=== PATIENT | male | born 1945 | race Caucasian/White ===

== ENCOUNTER 2017-01-27 13:35 | Emergency (ER) | payer MEDICARE, OTHER ==
[2017-01-27] MEDS ORDERED: Sodium Chloride 0.9% 1000 ML 1,000 ML ONE (13:51)
[2017-01-27] MEDS ORDERED: Sodium Chloride 0.9% 1000 ML 1,000 ML IV SCH (14:00)
[2017-01-27 14:01] LABS: BASOPHIL % 0.8 % (0.0-0.4); Eosinophil % 2.9 % (0.00-5.0); Granulocytes % 54.4 % (36.0-66.0); Lymphocytes % 34.2 % (24.0-44.0); Mean Cell Volume 89.9 fl (78-100); Mean Corpuscular Hemoglobin 30.3 pg (26-32); Mean Platelet Volume 9.5 fl (6-9.5); Monocytes % 7.7 % (0.0-12.0); Platelet Count 182 K/mm3 (150-450); Red Blood Count 4.56 M/mm3 (4.1-5.6); Red Cell Distribution Width 12.8 % (11.5-14.0); White Blood Count 6.6 K/mm3 (4.0-10.5)
--- NOTE | 2017-01-27 14:10 | ERPHSYRPT ---
- History of Present Illness Time Seen by Provider: 01/27/17 13:55 Source: patient Exam Limitations: clinical condition Patient Subjective Stated Complaint: PT FELT DIZZY AND WAS IN THE PAIN CLINIC WITH A LOW BLOOD PRESSURE AND WAS BROUGHT TO THE ER. Triage Nursing Assessment: PTS SKIN IS WARM, DRY AND INTACT. RESPIRATIONS EVEN AND UNLABORED. HEART RATE IS R[place] IN THE LOW 50'S. Physician History: PATIENT WITH HISTORY OF EXTENSIVE CORONARY ARTERY DISEASE, MYOCARDIAL INFARCTIONS X 7, 4 PREVIOUS STENTS AND CORONARY ARTERY BYPASS GRAFTS, COMPLAINS OF DIZZINESS AND LIGHTHEADEDNESS OVER THE PAST 24 HOURS ASSOCIATED WITH WEAKNESS. DENIES HEADACHE, CHEST PAIN, DYSPNEA OR DIAPHORESIS. HAD RECENT CARDIAC CATHETERIZATION ON 01/14/2017. PATIENT STATES HE HAS NOT EATEN ALL DAY. Timing/Duration: today Quality: other (DENIES CHEST PAIN, DYSPNEA OR DIAPHORESIS) Chest Pain Radiation: no radiation Severity of Pain-Max: none Severity of Pain-Current: none Modifying Factors: Improves With: exertion Nitro Today/Relief: no nitro taken today Aspirin Treatment Today: no aspirin today Associated Symptoms: weakness Prior Chest Pain/Cardiac Workup: cardiac cath, recently seen/treated Allergies/Adverse Reactions: No Known Drug Allergies Allergy (Unverified 01/27/17 13:54) Home Medications: Clopidogrel Bisulfate 75 mg [PLAVIX 75 MG Tablet] 75 mg PO DAILY 02/15/13 [History] Lisinopril [Zestril] 2.5 mg PO DAILY 02/15/13 [History] Metoprolol Tartrate 50 mg [Lopressor 50 MG] 50 mg PO BID 02/15/13 [History ] Tolterodine Tartrate [Detrol LA] 4 mg PO DAILY 02/15/13 [History] Albuterol 8 gm Mdi Hfa [Ventolin Hfa MDI] 18 gm IH Q4-6HPRN PRN 12/23/16 [ History] Nitroglycerin 0.4 mg Tablet [Nitrostat 0.4 MG Tablet] 0.4 mg SL Q5MIN PRN MR X 3 PRN 12/23/16 [History] Rosuvastatin Calcium [Crestor] 50 mg PO DAILY 01/27/17 [History] Hx Tetanus, Diphtheria Vaccination/Date Given: No Hx Influenza Vaccination/Date Given: No Hx Pneumococcal Vaccination/Date Given: No - Review of Systems Constitutional: No Fever, No Chills Eyes: No Symptoms Ears, Nose, & Throat: No Symptoms Respiratory: No Symptoms, No Cough, No Dyspnea Cardiac: No Symptoms, No Chest Pain, No Edema, No Syncope Abdominal/Gastrointestinal: No Symptoms, No Abdominal Pain, No Nausea, No Vomiting, No Diarrhea Genitourinary Symptoms: No Dysuria Musculoskeletal: No Back Pain, No Neck Pain Skin: No Rash Neurological: Dizziness, Other (LIGHTHEADEDNESS), No Focal Weakness, No Sensory Changes Psychological: No Symptoms Endocrine: No Symptoms All Other Systems: Reviewed and Negative - Past Medical History Pertinent Past Medical History: Yes Neurological History: No Pertinent History ENT History: No Pertinent History Cardiac History: Coronary Artery Disease, Hypertension, Myocardial Infarction ( [place]) Respiratory History: No Pertinent History Endocrine Medical History: No Pertinent History Musculoskeletal History: Degenerative Disk Disease GI Medical History: No Pertinent History History: No Pertinent History Psycho-Social History: No Pertinent History Male Reproductive Disorders: No Pertinent History Other Medical History: STENTS 1999. CARDIAC OPEN HEART SURGERY IN 2007. December HAD STENTS PLACED - Past Surgical History Past Surgical History: Yes Neuro Surgical History: No Pertinent History Cardiac: CABG, Cardiac Stent Respiratory: No Pertinent History Gastrointestinal: No Pertinent History Genitourinary: No Pertinent History Musculoskeletal: Orthopedic Surgery Male Surgical History: No Pertinent History Other Surgical History: OPEN HEART SURGERY IN 2007. ELBOW, KNEE, BACK SURGERY. - Social History Smoking Status: Never smoker Exposure to second hand smoke: No Alcohol Use: Socially Drug Use: none Patient Lives Alone: No Significant Family History: heart disease - Nursing Vital Signs Temperature: 97.4 F Temperature Source: Oral Pulse Rate: 50 Respiratory Rate: 18 Pain Intensity: 0 - Physical Exam General Appearance: no apparent distress, alert Eye Exam: PERRL/EOMI, eyes nml inspection Ears, Nose, Throat Exam: normal ENT inspection, moist mucous membranes Neck Exam: normal inspection, non-tender, supple Respiratory Exam: normal breath sounds, lungs clear, No respiratory distress Cardiovascular Exam: regular rate/rhythm, normal heart sounds, bradycardia, No edema Gastrointestinal/Abdomen Exam: soft, normal bowel sounds, other (NONTENDER), No tenderness, No mass Back Exam: normal inspection, No CVA tenderness, No vertebral tenderness Extremity Exam: normal inspection, normal range of motion Neurologic Exam: alert, oriented x 3, cooperative, normal mood/affect, nml cerebellar function, sensation nml, No motor deficits Skin Exam: normal color, warm, dry Lymphatic Exam: No adenopathy SpO2 Interpretation: normal SpO2: 97 Oxygen Delivery: Nasal Cannula - Course EKG Interpreted by Me: RATE, Sinus Rhythm, Sinus Roxanna, NORMAL AXIS - Radiology Exams Chest X-ray Interpretation: Discussed w/ radiologist, Negative Ordered Tests: Active Orders 24 hr Category Date Time Status Risk Control Consultant STAT Care 01/27/17 13:51 Active Clean Catch Urine Specimen STAT Care 01/27/17 13:54 Active EKG-ER Only STAT Care 01/27/17 13:51 Active IV Insertion STAT Care 01/27/17 13:51 Active Orthostatic Vital Signs STAT Care 01/27/17 13:55 Active Oxygen-ED Only NASAL CANNULA 2 lpm Care 01/27/17 13:51 Active CHEST 1 VIEW (PORTABLE) Stat Exams 01/27/17 13:52 Completed CBC W DIFF Stat Lab 01/27/17 13:53 Completed CMP Stat Lab 01/27/17 13:53 Completed MAGNESIUM Stat Lab 01/27/17 13:53 Completed TROPONIN Q3H Lab 01/27/17 13:53 Completed TROPONIN Q3H Lab 01/27/17 17:00 Ordered TROPONIN Q3H Lab 01/27/17 20:00 Ordered TROPONIN Q3H Lab 01/27/17 23:00 Ordered TROPONIN Q3H Lab 01/28/17 02:00 Ordered UA Stat Lab 01/27/17 14:15 Completed Medication Summary Generic Name Dose Route Start Last Admin Trade Name Freq PRN Reason Stop Dose Admin Sodium Chloride 1,000 mls @ 500 mls/hr 01/27/17 14:00 01/27/17 14:00 Sodium Chloride 0.9% 1000 Ml IV 02/26/17 13:59 500 mls/hr .Q2H MATHEW Administration Lab/Rad Data: Laboratory Result Diagrams 01/27/17 13:53 01/27/17 13:53 Laboratory Results 01/27/17 01/27/17 01/27/17 Range/Units 14:15 13:53 13:53 WBC (4.0-10.5) K/mm3 RBC (4.1-5.6) M/mm3 Hgb (12.5-18.0) gm/dl Hct (42-50) % MCV (78-100) fl MCH (26-32) pg MCHC (32-36) g/dl RDW (11.5-14.0) % Plt Count (150-450) K/mm3 MPV (6-9.5) fl Gran % (36.0-66.0) % Lymphocytes % (24.0-44.0) % Monocytes % (0.0-12.0) % Eosinophils % (0.00-5.0) % Basophils % (0.0-0.4) % Basophils # (0-0.4) Sodium 141 (136-145) mEq/L Potassium 4.2 (3.5-5.1) mEq/L Chloride 105 (98-107) mEq/L Carbon Dioxide 27.7 (21-32) mEq/L Anion Gap 12.3 (5-15) MEQ/L BUN 15 (9-20) mg/dL Creatinine 1.10 (0.55-1.30) mg/dl Estimated GFR > 60 ML/MIN Glucose 110 (70-110) MG/DL Calcium 9.4 (8.5-10.1) mg/dL Magnesium 1.9 (1.8-2.4) mg/dL Total Bilirubin 0.4 (0.2-1.0) mg/dL AST 21 (15-37) U/L ALT 28 (12-78) U/L Alkaline Phosphatase 71 (46-116) U/L Troponin I < 0.017 (0.000-0.056) ng/ml Serum Total Protein 6.8 (6.4-8.2) gm/dL Albumin 3.9 (3.4-5.0) g/dL Ur Collection Type VOID Urine Color DARK YELLOW (YELLOW) Urine Appearance SLIGHTLY CLOUDY (CLEAR) Urine pH 7.0 (5-6) Ur Specific [place] 1.020 (1.005-1.025) Urine Protein NEGATIVE (Negative) Urine Glucose (UA) NEGATIVE (NEGATIVE) mg/dL Urine Ketones NEGATIVE (NEGATIVE) Urine Nitrite NEGATIVE (NEGATIVE) Urine Bilirubin NEGATIVE (NEGATIVE) Urine Urobilinogen 0.2 (0-1) mg/dL Urine WBC (Auto) NEGATIVE (NEGATIVE) Urine RBC (Auto) NEGATIVE (0-5) Sin/ul Specimen Received 01/27/17 1415 01/27/17 Range/Units 13:53 WBC 6.6 (4.0-10.5) K/mm3 RBC 4.56 (4.1-5.6) M/mm3 Hgb 13.8 (12.5-18.0) gm/dl Hct 41.0 L (42-50) % MCV 89.9 (78-100) fl MCH 30.3 (26-32) pg MCHC 33.7 (32-36) g/dl RDW 12.8 (11.5-14.0) % Plt Count 182 (150-450) K/mm3 MPV 9.5 (6-9.5) fl Gran % 54.4 (36.0-66.0) % Lymphocytes % 34.2 (24.0-44.0) % Monocytes % 7.7 (0.0-12.0) % Eosinophils % 2.9 (0.00-5.0) % Basophils % 0.8 (0.0-0.4) % Basophils # 0.05 (0-0.4) Sodium (136-145) mEq/L Potassium (3.5-5.1) mEq/L Chloride (98-107) mEq/L Carbon Dioxide (21-32) mEq/L Anion Gap (5-15) MEQ/L BUN (9-20) mg/dL Creatinine (0.55-1.30) mg/dl Estimated GFR ML/MIN Glucose (70-110) MG/DL Calcium (8.5-10.1) mg/dL Magnesium (1.8-2.4) mg/dL Total Bilirubin (0.2-1.0) mg/dL AST (15-37) U/L ALT (12-78) U/L Alkaline Phosphatase (46-116) U/L Troponin I (0.000-0.056) ng/ml Serum Total Protein (6.4-8.2) gm/dL Albumin (3.4-5.0) g/dL Ur Collection Type Urine Color (YELLOW) Urine Appearance (CLEAR) Urine pH (5-6) Ur Specific [place] (1.005-1.025) Urine Protein (Negative) Urine Glucose (UA) (NEGATIVE) mg/dL Urine Ketones (NEGATIVE) Urine Nitrite (NEGATIVE) Urine Bilirubin (NEGATIVE) Urine Urobilinogen (0-1) mg/dL Urine WBC (Auto) (NEGATIVE) Urine RBC (Auto) (0-5) Sin/ul Specimen Received - Progress Progress Note: 01/27/17 14:45 PATIENT BP 102/62 UPON ARRIVAL, ADMINISTERED IV FLUIDS NORMAL SALINE 500ML BOLUS Counseled pt/family regarding: lab results, diagnosis, need for follow-up - Departure Time of Disposition: 14:50 Departure Disposition: Home Clinical Impression: LIGHTHEADEDNESS Condition: Stable Critical Care Time: No Additional Instructions: CONTINUE ALL CURRENT MEDICATIONS. CONSUME WELL BALANCED MEALS DAILY. CONSULT YOUR FAMILY PHYSICIAN FOR EVALUATION IN 1 WEEK.
[2017-01-27 14:22] LABS: COMPLETE URINE MICROSCOPIC? NO; Collection Type VOID
[2017-01-27 14:23] LABS: ALBUMIN 3.9 g/dL (3.4-5.0); ALKALINE PHOSPHATASE 71 U/L (46-116); ANION GAP 12.3 MEQ/L (5-15); BILIRUBIN,TOTAL 0.4 mg/dL (0.2-1.0); BLOOD UREA NITROGEN 15 mg/dL (9-20); CHLORIDE 105 mEq/L (98-107); Carbon Dioxide 27.7 mEq/L (21-32); Glucose 110 MG/DL (70-110); MAGNESIUM 1.9 mg/dL (1.8-2.4); Potassium 4.2 mEq/L (3.5-5.1); SGOT/AST 21 U/L (15-37); SGPT/ALT 28 U/L (12-78); SODIUM 141 mEq/L (136-145); Total Protein 6.8 gm/dL (6.4-8.2)
--- NOTE | 2017-01-27 14:38 | XRAY ---
Indication: Dyspnea. Low blood pressure. Comparison: December 03, 2016. PA/lateral chest again hyperinflated with a few calcific granulomas and previous CABG surgery. No focal infiltrate, consolidation, or large effusion. Heart is not enlarged. Vascularity normal. Bony thorax intact. Impression: Stable nonacute chest with chronic features.
[2017-01-27 14:50] VITALS: BP 101/59; PULSE 50; O2SAT 97
== END 2017-01-27 14:54 | disposition home or self-care (01) ==
LOC: ED 13:35
DX: R42 Dizziness and giddiness (principal); I25.10 Atherosclerotic heart disease of native coronary artery without angina pectoris; I25.2 Old myocardial infarction; Z98.61 Coronary angioplasty status; Z95.1 Presence of aortocoronary bypass graft; I10 Essential (primary) hypertension; Z79.899 Other long term (current) drug therapy
CPT/HCPCS: 36000; 36415; 71010; 80053; 81002; 83735; 84484; 85025; 93005; 93041; 96360; 99284

== ENCOUNTER 2018-12-09 03:34 | Inpatient (IN) | payer MEDICARE, OTHER ==
[2018-12-09] MEDS ORDERED: Zofran 4 MG/2 ML VIAL IV ONE (03:47)
[2018-12-09] MEDS ORDERED: solu-MEDROL 125 MG IV ONE (03:47)
[2018-12-09] MEDS ORDERED: Zithromax 500 MG/ 250 ML NaCl Premix 500 MG/250 ML IVPB IV STA (03:47)
[2018-12-09] MEDS ORDERED: Sodium Chloride 0.9% 1000 ML 1,000 ML IV STA (03:47)
[2018-12-09] MEDS ORDERED: ROCEPHIN 1 Gm-D5w 50 ml Bag** 1 G/50 ML IVPB IV STA (03:47)
[2018-12-09] MEDS ORDERED: DUONEB 0.5-3 MG/3 ml Neb IH ONE ×2 (03:47→04:03)
[2018-12-09 03:57] LABS: Lactic Acid 7.8 (0.4-2.0)
[2018-12-09 03:59] LABS: BASOPHIL % 0.2 % (0.0-0.4); Basophil (Absolute #) 0.04 (0-0.4); Eosinophil % 1.9 % (0.00-5.0); Eosinophil (Absolute #) 0.31 (0-0.5); Granulocyte Absolute (ANC) 11.34 (1.4-6.9); Hematocrit 46.3 % (42-50); Hemoglobin 15.1 gm/dl (12.5-18.0); Lymphocyte (Absolute #) 4.27 (1.0-4.6); Lymphocytes % 25.6 % (24.0-44.0); Mean Cell Volume 91.9 fl (78-100); Mean Corpuscular Hgb Concent. 32.6 g/dl (32-36); Mean Platelet Volume 9.3 fl (6-9.5); Monocyte (Absolute #) 0.71 (0.0-1.3); Monocytes % 4.3 % (0.0-12.0); Platelet Count 257 K/mm3 (150-450); Red Blood Count 5.04 M/mm3 (4.1-5.6); Red Cell Distribution Width 13.1 % (11.5-14.0); White Blood Count 16.7 K/mm3 (4.0-10.5)
[2018-12-09] MEDS ORDERED: Zofran 4 MG/2 ML VIAL ONE (04:08)
[2018-12-09] MEDS ORDERED: solu-MEDROL 125 MG ONE (04:08)
[2018-12-09] MEDS ORDERED: ROCEPHIN 1 Gm-D5w 50 ml Bag** 1 G/50 ML IVPB IV ONE (04:08)
[2018-12-09] MEDS ORDERED: Sodium Chloride 0.9% 1000 ML 1,000 ML ONE (04:08)
[2018-12-09 04:10] LABS: ALBUMIN 4.9 g/dL (3.5-5.0); ANION GAP 22.8 MEQ/L (5-15); BILIRUBIN,TOTAL 0.9 mg/dL (0.2-1.3); Calcium 10.2 mg/dL (8.4-10.2); Creatinine 1 1.58 mg/dL (0.66-1.25); Total Protein 8.2 g/dL (6.3-8.2)
[2018-12-09 04:41] LABS: Group A Strep NEGATIVE (NEGATIVE); INFLUENZA A NEGATIVE (NEGATIVE); INFLUENZA B NEGATIVE (NEGATIVE); RESPIRATORY SYNCTIAL VIRUS NEGATIVE (Negative)
[2018-12-09 05:13] LABS: Appearance CLOUDY (CLEAR); Bilirubin NEGATIVE (NEGATIVE); Blood NEGATIVE Ery/ul (0-5); Glucose NEGATIVE (NEGATIVE); Ketones TRACE (NEGATIVE); Leukocyte Esterase NEGATIVE (NEGATIVE); Mucus SLIGHT /HPF (NEGATIVE); Nitrite NEGATIVE (NEGATIVE); Protein,Urine Dip NEGATIVE (Negative); Specific Gravity 1.021 (1.005-1.025); Urobilinogen 2 mg/dL (0-1)
[2018-12-09 05:14] LABS: Bacteria NONE SEEN /HPF (NEGATIVE)
[2018-12-09 05:31] LABS: A-aADO2 76; ABG HEMOGLOBIN 12.7; ABG POTASSIUM 3.8 (3.5-5.1); ABG SITE LEFT RADIAL; ALLEN TEST OK? y; ARTERIAL BLD GAS O2 SATURATION 97.5 % (95-100); ARTERIAL BLOOD GAS BASE EXCESS 0.5 (-2.0-2.0); ARTERIAL BLOOD GAS FIO2 28 %; ARTERIAL BLOOD GAS PCO2 41 mmHg (35-45); ARTERIAL BLOOD GAS PO2 72 mmHg (75-100); CARBOXYHEMOGLOBIN 2.1 % THgb (0.0-6.9); HCO3- 25.4 (22-28); HGB O2 SAT 94.3 g/dF (94-100); Methhemoglobin 1.2 % (1.4-1.5); paO2 pAO1 0.49
--- NOTE | 2018-12-09 05:33 | ERPHSYRPT ---
- History of Present Illness Source: patient, family Exam Limitations: no limitations Patient Subjective Stated Complaint: PT C/O BEING SOB SINCE 2 DAYS AGO, STARTED Z-PACK YESTERDAY FOR "HIS BREATHING". PT STATES HE HAD DIARRHEA YESTERDAY. HAS BEEN FEELING "CHILLS" BUT NOT CHECKED TEMP. Triage Nursing Assessment: ASHEN/WARM/DRY, RESP LABORED, A&OX4, UNSTEADY GAIT TO ROOM Physician History: Pt is a 72 y/o male with a h/o SOB and cough for a couple of days. Today pt started having diarrhea, and felt extremely weak. Pt started vomiting while in the ED. Pt was brought to the ED, by his secondary to it. Timing/Duration: day(s) Cough Quality/Degree: moderate, productive cough, sputum Possible Cause: no prior episodes Modifying Factors: Improves With: nothing Associated Symptoms: fever, chills, cough, dizziness, shortness of breath, wheezing Allergies/Adverse Reactions: No Known Drug Allergies Allergy (Verified 12/09/18 03:46) Home Medications: Clopidogrel Bisulfate 75 mg [PLAVIX 75 MG Tablet] 75 mg PO DAILY 02/15/13 [History] Lisinopril [Zestril] 2.5 mg PO DAILY 02/15/13 [History] Metoprolol Tartrate 50 mg [Lopressor 50 MG] 50 mg PO BID 02/15/13 [History ] Tolterodine Tartrate [Detrol LA] 4 mg PO DAILY 02/15/13 [History] Albuterol 8 gm Mdi Hfa [Ventolin Hfa MDI] 18 gm IH Q4-6HPRN PRN 12/23/16 [ History] Nitroglycerin 0.4 mg Tablet [Nitrostat 0.4 MG Tablet] 0.4 mg SL Q5MIN PRN MR X 3 PRN 12/23/16 [History] Oxycodone HCl/Acetaminophen [Percocet 7.5-325 mg Tablet] 1 each PO Q4-6HPRN PRN 06/08/17 [History] ARIPiprazole [Aripiprazole] 5 mg PO DAILY 12/09/18 [History] Albuterol Common Canister [Proventil Common Canister] DIRECTIONS UNKNOWN 12/09/18 [History] Fluticasone/Vilanterol [Breo Ellipta 200-25 Mcg INH] 1 tab PO DAILY 12/09/18 [ History] Gabapentin 300 mg PO TID 12/09/18 [History] Montelukast Sodium 10 mg PO DAILY 12/09/18 [History] Ranitidine HCl [Zantac] 300 mg PO DAILY 12/09/18 [History] Simvastatin 20 mg PO DAILY 12/09/18 [History] Tizanidine HCl 2 mg PO TID 12/09/18 [History] Trazodone HCl DIRECTIONS UNKNOWN 12/09/18 [History] Vit B Cmplx No3/FA/C/Biot/Zinc [Ivites Rx Tablet] 1 tab PO DAILY 12/09/18 [ History] Hx Tetanus, Diphtheria Vaccination/Date Given: Yes Hx Influenza Vaccination/Date Given: Yes Hx Pneumococcal Vaccination/Date Given: Yes Immunizations Up to Date: Yes - Review of Systems Constitutional: Fever, Chills, Lethargy, Malaise Eyes: No Symptoms Ears, Nose, & Throat: No Symptoms Respiratory: Cough, Dyspnea, Dyspnea on Exertion (RUEDA), Wheezing Cardiac: No Chest Pain, No Edema, No Syncope Abdominal/Gastrointestinal: Nausea, Vomiting, Diarrhea Genitourinary Symptoms: No Dysuria Musculoskeletal: No Back Pain, No Neck Pain Neurological: No Dizziness, No Focal Weakness, No Sensory Changes - Past Medical History Pertinent Past Medical History: Yes Neurological History: No Pertinent History ENT History: No Pertinent History Cardiac History: Coronary Artery Disease, Hypertension, Myocardial Infarction ( [place]) Respiratory History: COPD Endocrine Medical History: No Pertinent History Musculoskeletal History: Degenerative Disk Disease GI Medical History: No Pertinent History History: No Pertinent History Psycho-Social History: Anxiety Male Reproductive Disorders: No Pertinent History Other Medical History: STENTS 1999. CARDIAC OPEN HEART SURGERY IN 2007. December HAD STENTS PLACED - Past Surgical History Past Surgical History: Yes Neuro Surgical History: No Pertinent History Cardiac: CABG, Cardiac Stent Respiratory: No Pertinent History Gastrointestinal: No Pertinent History Genitourinary: No Pertinent History Musculoskeletal: Orthopedic Surgery Male Surgical History: No Pertinent History Other Surgical History: OPEN HEART SURGERY IN 2007. ELBOW, KNEE, BACK SURGERY. - Social History Smoking Status: Former smoker Exposure to second hand smoke: No Alcohol Use: Socially Drug Use: none Patient Lives Alone: No Significant Family History: heart disease - Nursing Vital Signs Nursing Vital Signs: Initial Vital Signs Temperature 98.2 F 12/09/18 03:35 Pulse Rate 121 H 12/09/18 03:35 Respiratory Rate 32 H 12/09/18 03:35 Blood Pressure 120/84 12/09/18 03:35 O2 Sat by Pulse Oximetry 93 L 12/09/18 03:35 - Physical Exam General Appearance: severe distress (secondary to SOB, vomiting and diarrhea) Eye Exam: PERRL/EOMI, eyes nml inspection Ears, Nose, Throat Exam: normal ENT inspection, TMs normal, pharynx normal, moist mucous membranes Neck Exam: normal inspection, non-tender, supple, full range of motion Respiratory Exam: respiratory distress, diminished breath sounds, accessory muscle use, wheezing Cardiovascular Exam: regular rate/rhythm, normal heart sounds Gastrointestinal/Abdomen Exam: soft, No tenderness Back Exam: normal inspection, No CVA tenderness, No vertebral tenderness Extremity Exam: normal inspection, normal range of motion Neurologic Exam: alert, oriented x 3, cooperative, normal mood/affect, sensation nml, No motor deficits SpO2: 96 - Course Nursing assessment & vital signs reviewed: Yes EKG Interpreted by Me: RATE, Sinus Tach (108bpm), prolonged QT interval, Non- specific ST Changes - Radiology Exams Chest X-ray Interpretation: Interpreted by me (RLL and RML PNA) Ordered Tests: Active Orders 24 hr Category Date Time Status Food Service Manager STAT Care 12/09/18 03:48 Active IV Insertion STAT Care 12/09/18 03:47 Active CHEST 2 VIEWS (PA AND LAT) Stat Exams 12/09/18 03:48 Ordered ABG [ARTERIAL BLOOD GASES] Stat Lab 12/09/18 05:18 Ordered BLOOD CULTURE Stat Lab 12/09/18 Ordered BNP [NT PRO BNP] Stat Lab 12/09/18 04:03 Completed CBC W DIFF Stat Lab 12/09/18 03:52 Completed CMP Stat Lab 12/09/18 03:52 Completed Lactic Acid Stat Lab 12/09/18 03:50 Results Sputum Culture [CULTURE,SPUTUM] Stat Lab 12/09/18 05:21 Ordered TROPONIN Q3H Lab 12/09/18 03:52 Completed TROPONIN Q3H Lab 12/09/18 07:00 Ordered TROPONIN Q3H Lab 12/09/18 10:00 Ordered TROPONIN Q3H Lab 12/09/18 13:00 Ordered TROPONIN Q3H Lab 12/09/18 16:00 Ordered UA W/RFX UR CULTURE Stat Lab 12/09/18 04:43 Completed Peak Expiratory Flow Rate ONCE RT 12/09/18 04:26 Active Respiratory Nebulizer STAT RT 12/09/18 03:49 Completed Respiratory Therapy Assessment DAILY RT 12/09/18 04:26 Active Medication Summary Discontinued Medications Generic Name Dose Route Start Last Admin Trade Name Freq PRN Reason Stop Dose Admin Albuterol/Ipratropium 3 ml 12/09/18 03:47 12/09/18 04:21 Duoneb 0.5-3 Mg/3 Ml Neb IH 12/09/18 03:48 3 ml STAT ONE Administration Albuterol/Ipratropium Confirm 12/09/18 04:03 Duoneb 0.5-3 Mg/3 Ml Neb Administered 12/09/18 04:04 Dose 3 ml IH .STK-MED ONE Ceftriaxone Sodium/Dextrose 1 g in 50 mls @ 100 mls/hr 12/09/18 03:47 04:15 Rocephin 1 Gm-D5w 50 Ml Bag IV 12/09/18 04:16 100 mls/hr STAT STA Administration Sodium Chloride 1,000 mls @ 999 mls/hr 12/09/18 03:47 12/09/18 04:14 Sodium Chloride 0.9% 1000 Ml IV 12/09/18 04:47 999 mls/hr .Q1H1M STA Administration Azithromycin 500 mg in 250 mls @ 250 mls/hr 12/09/18 03:47 12/09/18 05:13 Zithromax 500 Mg/ 250 Ml Nacl Premix IV 12/09/18 04:46 250 mls/hr STAT STA Administration Sodium Chloride Confirm 12/09/18 04:08 Sodium Chloride 0.9% 1000 Ml Administered 12/09/18 04:09 Dose 1,000 mls @ ud .ROUTE .STK-MED ONE Ceftriaxone Sodium/Dextrose Confirm 12/09/18 04:08 Rocephin 1 Gm-D5w 50 Ml Bag Administered 12/09/18 04:09 Dose 1 g in 50 mls @ ud IV .STK-MED ONE Methylprednisolone Sodium Succinate 125 mg 12/09/18 03:47 12/09/18 04:14 Solu-Medrol 125 Mg IV 12/09/18 03:48 125 mg STAT ONE Administration Methylprednisolone Sodium Succinate Confirm 12/09/18 04:08 Solu-Medrol 125 Mg Administered 12/09/18 04:09 Dose 125 mg .ROUTE .STK-MED ONE Ondansetron HCl 4 mg 12/09/18 03:47 12/09/18 04:14 Zofran 4 Mg/2 Ml Vial IV 12/09/18 03:48 4 mg STAT ONE Administration Ondansetron HCl Confirm 12/09/18 04:08 Zofran 4 Mg/2 Ml Vial Administered 12/09/18 04:09 Dose 4 mg .ROUTE .STK-MED ONE Lab/Rad Data: Laboratory Result Diagrams 12/09/18 03:52 12/09/18 03:52 Laboratory Results 12/09/18 12/09/18 12/09/18 Range/Units 04:43 04:04 04:03 WBC (4.0-10.5) K/mm3 RBC (4.1-5.6) M/mm3 Hgb (12.5-18.0) gm/dl Hct (42-50) % MCV (78-100) fl MCH (26-32) pg MCHC (32-36) g/dl RDW (11.5-14.0) % Plt Count (150-450) K/mm3 MPV (6-9.5) fl Gran % (36.0-66.0) % Eos # (Auto) (0-0.5) Absolute Lymphs (auto) (1.0-4.6) Absolute Monos (auto) (0.0-1.3) Lymphocytes % (24.0-44.0) % Monocytes % (0.0-12.0) % Eosinophils % (0.00-5.0) % Basophils % (0.0-0.4) % Absolute Granulocytes (1.4-6.9) Basophils # (0-0.4) Sodium (137-145) mmol/L Potassium (3.5-5.1) mmol/L Chloride (98-107) mmol/L Carbon Dioxide (22-30) mmol/L Anion Gap (5-15) MEQ/L BUN (9-20) mg/dL Creatinine (0.66-1.25) mg/dL Estimated GFR ML/MIN Glucose (74-106) mg/dL Lactic Acid (0.4-2.0) Calcium (8.4-10.2) mg/dL Total Bilirubin (0.2-1.3) mg/dL AST (17-59) U/L ALT (0-50) U/L Alkaline Phosphatase (38-126) U/L Troponin I (0.000-0.034) ng/mL NT-Pro-B Natriuret Pep 133 (0-900) pg/mL Serum Total Protein (6.3-8.2) g/dL Albumin (3.5-5.0) g/dL Urine Color [place] (YELLOW) Urine Appearance CLOUDY (CLEAR) Urine pH 6.0 (5-6) Ur Specific [place] 1.021 (1.005-1.025) Urine Protein NEGATIVE (Negative) Urine Ketones TRACE (NEGATIVE) Urine Blood NEGATIVE (0-5) Sin/ul Urine Nitrite NEGATIVE (NEGATIVE) Urine Bilirubin NEGATIVE (NEGATIVE) Urine Urobilinogen 2 (0-1) mg/dL Ur Leukocyte Esterase NEGATIVE (NEGATIVE) Urine WBC (Auto) 3-5 (0-5) /HPF Urine RBC (Auto) 11-15 (0-2) /HPF U Hyaline Cast (Auto) 6-10 (0-2) /LPF U Epithel Cells (Auto) NONE (FEW) /HPF Urine Bacteria (Auto) NONE SEEN (NEGATIVE) /HPF Unidentified Crystals 2-5 (NEGATIVE) /HPF Urine Mucus (Auto) SLIGHT (NEGATIVE) /HPF Urine Culture Reflexed NO (NO) Urine Glucose NEGATIVE (NEGATIVE) mg/dL Influenza Type A Ag NEGATIVE (NEGATIVE) Influenza Type B Ag NEGATIVE (NEGATIVE) RSV (PCR) NEGATIVE (Negative) Group A Strep Antibody NEGATIVE (NEGATIVE) 12/09/18 12/09/18 12/09/18 Range/Units 03:52 03:52 03:52 WBC 16.7 H (4.0-10.5) K/mm3 RBC 5.04 (4.1-5.6) M/mm3 Hgb 15.1 (12.5-18.0) gm/dl Hct 46.3 (42-50) % MCV 91.9 (78-100) fl MCH 30.0 (26-32) pg MCHC 32.6 (32-36) g/dl RDW 13.1 (11.5-14.0) % Plt Count 257 (150-450) K/mm3 MPV 9.3 (6-9.5) fl Gran % 68.0 H (36.0-66.0) % Eos # (Auto) 0.31 (0-0.5) Absolute Lymphs (auto) 4.27 (1.0-4.6) Absolute Monos (auto) 0.71 (0.0-1.3) Lymphocytes % 25.6 (24.0-44.0) % Monocytes % 4.3 (0.0-12.0) % Eosinophils % 1.9 (0.00-5.0) % Basophils % 0.2 (0.0-0.4) % Absolute Granulocytes 11.34 H (1.4-6.9) Basophils # 0.04 (0-0.4) Sodium 140 (137-145) mmol/L Potassium 4.0 (3.5-5.1) mmol/L Chloride 96 L (98-107) mmol/L Carbon Dioxide 25 (22-30) mmol/L Anion Gap 22.8 H (5-15) MEQ/L BUN 24 H (9-20) mg/dL Creatinine 1.58 H (0.66-1.25) mg/dL Estimated GFR 46.3 ML/MIN Glucose 160 H (74-106) mg/dL Lactic Acid (0.4-2.0) Calcium 10.2 (8.4-10.2) mg/dL Total Bilirubin 0.90 (0.2-1.3) mg/dL AST 28 (17-59) U/L ALT 27 (0-50) U/L Alkaline Phosphatase 96 (38-126) U/L Troponin I < 0.012 (0.000-0.034) ng/mL NT-Pro-B Natriuret Pep (0-900) pg/mL Serum Total Protein 8.2 (6.3-8.2) g/dL Albumin 4.9 (3.5-5.0) g/dL Urine Color (YELLOW) Urine Appearance (CLEAR) Urine pH (5-6) Ur Specific [place] (1.005-1.025) Urine Protein (Negative) Urine Ketones (NEGATIVE) Urine Blood (0-5) Sin/ul Urine Nitrite (NEGATIVE) Urine Bilirubin (NEGATIVE) Urine Urobilinogen (0-1) mg/dL Ur Leukocyte Esterase (NEGATIVE) Urine WBC (Auto) (0-5) /HPF Urine RBC (Auto) (0-2) /HPF U Hyaline Cast (Auto) (0-2) /LPF U Epithel Cells (Auto) (FEW) /HPF Urine Bacteria (Auto) (NEGATIVE) /HPF Unidentified Crystals (NEGATIVE) /HPF Urine Mucus (Auto) (NEGATIVE) /HPF Urine Culture Reflexed (NO) Urine Glucose (NEGATIVE) mg/dL Influenza Type A Ag (NEGATIVE) Influenza Type B Ag (NEGATIVE) RSV (PCR) (Negative) Group A Strep Antibody (NEGATIVE) 12/09/18 Range/Units 03:50 WBC (4.0-10.5) K/mm3 RBC (4.1-5.6) M/mm3 Hgb (12.5-18.0) gm/dl Hct (42-50) % MCV (78-100) fl MCH (26-32) pg MCHC (32-36) g/dl RDW (11.5-14.0) % Plt Count (150-450) K/mm3 MPV (6-9.5) fl Gran % (36.0-66.0) % Eos # (Auto) (0-0.5) Absolute Lymphs (auto) (1.0-4.6) Absolute Monos (auto) (0.0-1.3) Lymphocytes % (24.0-44.0) % Monocytes % (0.0-12.0) % Eosinophils % (0.00-5.0) % Basophils % (0.0-0.4) % Absolute Granulocytes (1.4-6.9) Basophils # (0-0.4) Sodium (137-145) mmol/L Potassium (3.5-5.1) mmol/L Chloride (98-107) mmol/L Carbon Dioxide (22-30) mmol/L Anion Gap (5-15) MEQ/L BUN (9-20) mg/dL Creatinine (0.66-1.25) mg/dL Estimated GFR ML/MIN Glucose (74-106) mg/dL Lactic Acid 7.8 H (0.4-2.0) Calcium (8.4-10.2) mg/dL Total Bilirubin (0.2-1.3) mg/dL AST (17-59) U/L ALT (0-50) U/L Alkaline Phosphatase (38-126) U/L Troponin I (0.000-0.034) ng/mL NT-Pro-B Natriuret Pep (0-900) pg/mL Serum Total Protein (6.3-8.2) g/dL Albumin (3.5-5.0) g/dL Urine Color (YELLOW) Urine Appearance (CLEAR) Urine pH (5-6) Ur Specific Bout[place] (1.005-1.025) Urine Protein (Negative) Urine Ketones (NEGATIVE) Urine Blood (0-5) Sin/ul Urine Nitrite (NEGATIVE) Urine Bilirubin (NEGATIVE) Urine Urobilinogen (0-1) mg/dL Ur Leukocyte Esterase (NEGATIVE) Urine WBC (Auto) (0-5) /HPF Urine RBC (Auto) (0-2) /HPF U Hyaline Cast (Auto) (0-2) /LPF U Epithel Cells (Auto) (FEW) /HPF Urine Bacteria (Auto) (NEGATIVE) /HPF Unidentified Crystals (NEGATIVE) /HPF Urine Mucus (Auto) (NEGATIVE) /HPF Urine Culture Reflexed (NO) Urine Glucose (NEGATIVE) mg/dL Influenza Type A Ag (NEGATIVE) Influenza Type B Ag (NEGATIVE) RSV (PCR) (Negative) Group A Strep Antibody (NEGATIVE) - Progress Progress: improved Air Movement: poor Progress Note: 12/09/18 05:34 Pt presented to the ED with SOB and cough, vomiting and diarrhea. Pt had lab work that showed lactaic acid of 7.8, and WBCs of 16. ABG showed normal PH of 7.4, and hypoxia. PaCO2 is 41. Urine was clean. Pt was treated with Azithromycin and Rocephin. He had a neb treatment and Solu medrol 125mg. Flu and RSV were negative. IVF were started, as his sCr was elevated. Dr Laguerre accepted pt as admit to ICU. Discussed with : Shade Will see patient in: hospital (full admit) Counseled pt/family regarding: lab results, diagnosis, rad results - Departure Time of Disposition: 05:37 Departure Disposition: In-patient Admission Clinical Impression: Sepsis Condition: Serious Critical Care Time: Yes Critical Care Time(excluding separately billable procedures): 30-74 minutes Referrals: JEANNE ESTEVEZ [Primary Care Provider] -
[2018-12-09] MEDS ORDERED: TYLENOL 325 MG PO PRN (05:38)
[2018-12-09] MEDS ORDERED: Zosyn 3.375GM/100 Ml D5W 3.375 GM/100 ML IVPB IV SCH (06:00)
[2018-12-09 07:20] LABS: Lactic Acid 3.1 (0.4-2.0)
[2018-12-09] MEDS: Sodium Chloride 0.9% 1000 ML 1,000 ML IV SCH ×4 (07:44→23:53)
[2018-12-09] MEDS: solu-MEDROL 125 MG IV SCH ×4 (07:47→23:04)
[2018-12-09] MEDS: Advair Hfa 115/21 Common canister IH SCH ×2 (08:04→19:49)
--- NOTE | 2018-12-09 08:36 | PCM.HP ---
History of Present Illness - Chief Complaint Chief Complaint: Shortness of Breath History of Present Illness: is a 72 year old male who used to be followed by Dr Hope who relays a two day history of diarrhea, weakness and feeling poorly. Last night he developed shortness of breath, has had some cough and white sputum production. he does believe he has had fever in the past few days. he is feeling much better since admission, has a history of copd but does not require oxygen at home. He has a history of CAD with CABG and aortic aneurysm with stent placement followed by Dr Daniel. - Review of Systems Constitutional: Fever, Chills Respiratory: Cough, Short Of Breath Cardiac: No Symptoms Abdominal/Gastrointestinal: Diarrhea, No Abdominal Pain, No Nausea, No Vomiting Genitourinary Symptoms: No Dysuria Skin: No Rash All Other Systems: Reviewed and Negative Medications & Allergies Home Medications: Home Medication List Clopidogrel Bisulfate 75 mg [PLAVIX 75 MG Tablet] 75 mg PO DAILY 02/15/13 [History Confirmed 12/09/18] Lisinopril [Zestril] 2.5 mg PO DAILY 02/15/13 [History Confirmed 12/09/18] Metoprolol Tartrate 50 mg [Lopressor 50 MG] 50 mg PO BID 02/15/13 [ History Confirmed 12/09/18] Tolterodine Tartrate [Detrol LA] 4 mg PO DAILY 02/15/13 [History Confirmed 12/09] Albuterol 8 gm Mdi Hfa [Ventolin Hfa MDI] 18 gm IH Q4-6HPRN PRN 12/23/16 [ History Confirmed 12/09/18] Nitroglycerin 0.4 mg Tablet [Nitrostat 0.4 MG Tablet] 0.4 mg SL Q5MIN PRN MR X 3 PRN 12/23/16 [History Confirmed 12/09/18] Oxycodone HCl/Acetaminophen [Percocet 7.5-325 mg Tablet] 1 each PO Q4-6HPRN PRN 06/08/17 [History Confirmed 12/09/18] ARIPiprazole [Aripiprazole] 5 mg PO DAILY 12/09/18 [History Confirmed 12/09/18] Fluticasone/Vilanterol [Breo Ellipta 200-25 Mcg INH] 1 tab PO DAILY 12/09/18 [ History Confirmed 12/09/18] Gabapentin 300 mg PO TID 12/09/18 [History Confirmed 12/09/18] Levocetirizine Dihydrochloride [Xyzal] 5 mg PO DAILY 12/09/18 [History Confirmed 12/09/18] Montelukast Sodium 10 mg PO DAILY 12/09/18 [History Confirmed 12/09/18] Ranitidine HCl [Zantac] 300 mg PO DAILY 12/09/18 [History Confirmed 12/09/18] Simvastatin 20 mg PO DAILY 12/09/18 [History Confirmed 12/09/18] Tizanidine HCl 2 mg PO TID 12/09/18 [History Confirmed 12/09/18] Trazodone HCl 100 mg PO HS 12/09/18 [History Confirmed 12/09/18] Vit B Cmplx No3/FA/C/Biot/Zinc [Ivites Rx Tablet] 1 tab PO DAILY 12/09/18 [ History Confirmed 12/09/18] Allergies/Adverse Reactions: Allergies Allergy/AdvReac Type Severity Reaction Status Date / Time No Known Drug Allergies Allergy Verified 12/09/18 03:46 - Past Medical History Past Medical History: Yes Neurological History: No Pertinent History ENT History: No Pertinent History Cardiac History: Coronary Artery Disease, Hypertension, Myocardial Infarction ( [place]) Respiratory History: Asthma, COPD, Pneumonia Endocrine Medical History: No Pertinent History Musculoskelatal History: Degenerative Disk Disease GI Medical History: No Pertinent History History: No Pertinent History Pyscho-Social History: Anxiety Male Reproductive Disorders: No Pertinent History Comment: STENTS 2000. CARDIAC OPEN HEART SURGERY IN 2007. December HAD STENTS PLACED - Past Surgical History Past Surgical History: Yes Neuro Surgical History: No Pertinent History Cardiac History: CABG, Cardiac Stent Respiratory Surgery: No Pertinent History GI Surgical History: No Pertinent History Genitourinary Surgical Hx: No Pertinent History Musculskeletal Surgical Hx: Orthopedic Surgery Male Surgical History: No Pertinent History Other Surgical History: OPEN HEART SURGERY IN 2007. ELBOW, KNEE, BACK SURGERY. - Social History Smoking Status: Former smoker Exposure to second hand smoke: No Alcohol: None Drug Use: none Significant Family History: heart disease - Physical Exam Vital Signs: Vital Signs - 24 hr Temp Pulse Resp BP Pulse Ox 12/09/18 08:06 99 H 20 95 12/09/18 05:38 96 12/09/18 05:23 96 12/09/18 05:21 106 H 26 H 140/71 90 L 12/09/18 04:26 111 H 20 93 L 12/09/18 03:35 98.2 F 121 H 32 H 120/84 94 L Oxygen-Last 24 hours O2 Percentage 2 Liters = 28% General Appearance: no apparent distress, alert Respiratory Exam: prolonged expirations, wheezing, No respiratory distress Cardiovascular Exam: regular rate/rhythm, normal heart sounds, normal peripheral pulses, other (well healed sternotomy scar) Gastrointestinal/Abdomen Exam: soft, normal bowel sounds, No tenderness, No mass Extremity Exam: normal inspection, normal range of motion, pelvis stable Skin Exam: normal color, warm, dry, No rash Results - Labs Lab/Micro Results: Lab Results-Last 24 Hours 12/09/18 12/09/18 12/09/18 Range/Units 03:50 03:52 03:52 WBC 16.7 H (4.0-10.5) K/mm3 RBC 5.04 (4.1-5.6) M/mm3 Hgb 15.1 (12.5-18.0) gm/dl Hct 46.3 (42-50) % MCV 91.9 (78-100) fl MCH 30.0 (26-32) pg MCHC 32.6 (32-36) g/dl RDW 13.1 (11.5-14.0) % Plt Count 257 (150-450) K/mm3 MPV 9.3 (6-9.5) fl Gran % 68.0 H (36.0-66.0) % Eos # (Auto) 0.31 (0-0.5) Absolute Lymphs (auto) 4.27 (1.0-4.6) Absolute Monos (auto) 0.71 (0.0-1.3) Lymphocytes % 25.6 (24.0-44.0) % Monocytes % 4.3 (0.0-12.0) % Eosinophils % 1.9 (0.00-5.0) % Basophils % 0.2 (0.0-0.4) % Absolute Granulocytes 11.34 H (1.4-6.9) Basophils # 0.04 (0-0.4) Puncture Site pCO2 (35-45) mmHg pO2 (75-100) mmHg Base Excess (-2.0-2.0) O2 Saturation (94-100) g/dF ABG pH (7.35-7.45) ABG HCO3 (22-28) ABG O2 Sat (Measured) (95-100) % Bhupinder Test A-a Gradient a/A Ratio Hemoglobin Carboxyhemoglobin (0.0-6.9) % THgb Methemoglobin (1.4-1.5) % Temperature C POC O2 Flow Rate % Sodium 140 (137-145) mmol/L Potassium 4.0 (3.5-5.1) mmol/L Chloride 96 L (98-107) mmol/L Carbon Dioxide 25 (22-30) mmol/L Anion Gap 22.8 H (5-15) MEQ/L BUN 24 H (9-20) mg/dL Creatinine 1.58 H (0.66-1.25) mg/dL Estimated GFR 46.3 ML/MIN Glucose 160 H (74-106) mg/dL Lactic Acid 7.8 H (0.4-2.0) Calcium 10.2 (8.4-10.2) mg/dL Total Bilirubin 0.90 (0.2-1.3) mg/dL AST 28 (17-59) U/L ALT 27 (0-50) U/L Alkaline Phosphatase 96 (38-126) U/L Troponin I (0.000-0.034) ng/mL NT-Pro-B Natriuret Pep (0-900) pg/mL Serum Total Protein 8.2 (6.3-8.2) g/dL Albumin 4.9 (3.5-5.0) g/dL Urine Color (YELLOW) Urine Appearance (CLEAR) Urine pH (5-6) Ur Specific Hickman (1.005-1.025) Urine Protein (Negative) Urine Ketones (NEGATIVE) Urine Blood (0-5) Sin/ul Urine Nitrite (NEGATIVE) Urine Bilirubin (NEGATIVE) Urine Urobilinogen (0-1) mg/dL Ur Leukocyte Esterase (NEGATIVE) Urine WBC (Auto) (0-5) /HPF Urine RBC (Auto) (0-2) /HPF U Hyaline Cast (Auto) (0-2) /LPF U Epithel Cells (Auto) (FEW) /HPF Urine Bacteria (Auto) (NEGATIVE) /HPF Unidentified Crystals (NEGATIVE) /HPF Urine Mucus (Auto) (NEGATIVE) /HPF Urine Culture Reflexed (NO) Urine Glucose (NEGATIVE) mg/dL Influenza Type A Ag (NEGATIVE) Influenza Type B Ag (NEGATIVE) RSV (PCR) (Negative) Group A Strep Antibody (NEGATIVE) 12/09/18 12/09/18 12/09/18 Range/Units 03:52 04:03 04:04 WBC (4.0-10.5) K/mm3 RBC (4.1-5.6) M/mm3 Hgb (12.5-18.0) gm/dl Hct (42-50) % MCV (78-100) fl MCH (26-32) pg MCHC (32-36) g/dl RDW (11.5-14.0) % Plt Count (150-450) K/mm3 MPV (6-9.5) fl Gran % (36.0-66.0) % Eos # (Auto) (0-0.5) Absolute Lymphs (auto) (1.0-4.6) Absolute Monos (auto) (0.0-1.3) Lymphocytes % (24.0-44.0) % Monocytes % (0.0-12.0) % Eosinophils % (0.00-5.0) % Basophils % (0.0-0.4) % Absolute Granulocytes (1.4-6.9) Basophils # (0-0.4) Puncture Site pCO2 (35-45) mmHg pO2 (75-100) mmHg Base Excess (-2.0-2.0) O2 Saturation (94-100) g/dF ABG pH (7.35-7.45) ABG HCO3 (22-28) ABG O2 Sat (Measured) (95-100) % Bhupinder Test A-a Gradient a/A Ratio Hemoglobin Carboxyhemoglobin (0.0-6.9) % THgb Methemoglobin (1.4-1.5) % Temperature C POC O2 Flow Rate % Sodium (137-145) mmol/L Potassium (3.5-5.1) mmol/L Chloride (98-107) mmol/L Carbon Dioxide (22-30) mmol/L Anion Gap (5-15) MEQ/L BUN (9-20) mg/dL Creatinine (0.66-1.25) mg/dL Estimated GFR ML/MIN Glucose (74-106) mg/dL Lactic Acid (0.4-2.0) Calcium (8.4-10.2) mg/dL Total Bilirubin (0.2-1.3) mg/dL AST (17-59) U/L ALT (0-50) U/L Alkaline Phosphatase (38-126) U/L Troponin I < 0.012 (0.000-0.034) ng/mL NT-Pro-B Natriuret Pep 133 (0-900) pg/mL Serum Total Protein (6.3-8.2) g/dL Albumin (3.5-5.0) g/dL Urine Color (YELLOW) Urine Appearance (CLEAR) Urine pH (5-6) Ur Specific Hickman (1.005-1.025) Urine Protein (Negative) Urine Ketones (NEGATIVE) Urine Blood (0-5) Sin/ul Urine Nitrite (NEGATIVE) Urine Bilirubin (NEGATIVE) Urine Urobilinogen (0-1) mg/dL Ur Leukocyte Esterase (NEGATIVE) Urine WBC (Auto) (0-5) /HPF Urine RBC (Auto) (0-2) /HPF U Hyaline Cast (Auto) (0-2) /LPF U Epithel Cells (Auto) (FEW) /HPF Urine Bacteria (Auto) (NEGATIVE) /HPF Unidentified Crystals (NEGATIVE) /HPF Urine Mucus (Auto) (NEGATIVE) /HPF Urine Culture Reflexed (NO) Urine Glucose (NEGATIVE) mg/dL Influenza Type A Ag NEGATIVE (NEGATIVE) Influenza Type B Ag NEGATIVE (NEGATIVE) RSV (PCR) NEGATIVE (Negative) Group A Strep Antibody NEGATIVE (NEGATIVE) 12/09/18 12/09/18 12/09/18 Range/Units 04:43 05:25 07:00 WBC (4.0-10.5) K/mm3 RBC (4.1-5.6) M/mm3 Hgb (12.5-18.0) gm/dl Hct (42-50) % MCV (78-100) fl MCH (26-32) pg MCHC (32-36) g/dl RDW (11.5-14.0) % Plt Count (150-450) K/mm3 MPV (6-9.5) fl Gran % (36.0-66.0) % Eos # (Auto) (0-0.5) Absolute Lymphs (auto) (1.0-4.6) Absolute Monos (auto) (0.0-1.3) Lymphocytes % (24.0-44.0) % Monocytes % (0.0-12.0) % Eosinophils % (0.00-5.0) % Basophils % (0.0-0.4) % Absolute Granulocytes (1.4-6.9) Basophils # (0-0.4) Puncture Site LEFT RADIAL pCO2 41 (35-45) mmHg pO2 72 L (75-100) mmHg Base Excess 0.5 (-2.0-2.0) O2 Saturation 94.3 (94-100) g/dF ABG pH 7.40 (7.35-7.45) ABG HCO3 25.4 (22-28) ABG O2 Sat (Measured) 97.5 (95-100) % Bhupinder Test y A-a Gradient 76 a/A Ratio 0.49 Hemoglobin 12.7 Carboxyhemoglobin 2.1 (0.0-6.9) % THgb Methemoglobin 1.2 L (1.4-1.5) % Temperature 37.0 C POC O2 Flow Rate 28 % Sodium (137-145) mmol/L Potassium 3.8 (3.5-5.1) mmol/L Chloride (98-107) mmol/L Carbon Dioxide (22-30) mmol/L Anion Gap (5-15) MEQ/L BUN (9-20) mg/dL Creatinine (0.66-1.25) mg/dL Estimated GFR ML/MIN Glucose (74-106) mg/dL Lactic Acid (0.4-2.0) Calcium (8.4-10.2) mg/dL Total Bilirubin (0.2-1.3) mg/dL AST (17-59) U/L ALT (0-50) U/L Alkaline Phosphatase (38-126) U/L Troponin I 0.013 (0.000-0.034) ng/mL NT-Pro-B Natriuret Pep (0-900) pg/mL Serum Total Protein (6.3-8.2) g/dL Albumin (3.5-5.0) g/dL Urine Color GIANA (YELLOW) Urine Appearance CLOUDY (CLEAR) Urine pH 6.0 (5-6) Ur Specific Hickman 1.021 (1.005-1.025) Urine Protein NEGATIVE (Negative) Urine Ketones TRACE (NEGATIVE) Urine Blood NEGATIVE (0-5) Sin/ul Urine Nitrite NEGATIVE (NEGATIVE) Urine Bilirubin NEGATIVE (NEGATIVE) Urine Urobilinogen 2 (0-1) mg/dL Ur Leukocyte Esterase NEGATIVE (NEGATIVE) Urine WBC (Auto) 3-5 (0-5) /HPF Urine RBC (Auto) 11-15 (0-2) /HPF U Hyaline Cast (Auto) 6-10 (0-2) /LPF U Epithel Cells (Auto) NONE (FEW) /HPF Urine Bacteria (Auto) NONE SEEN (NEGATIVE) /HPF Unidentified Crystals 2-5 (NEGATIVE) /HPF Urine Mucus (Auto) SLIGHT (NEGATIVE) /HPF Urine Culture Reflexed NO (NO) Urine Glucose NEGATIVE (NEGATIVE) mg/dL Influenza Type A Ag (NEGATIVE) Influenza Type B Ag (NEGATIVE) RSV (PCR) (Negative) Group A Strep Antibody (NEGATIVE) 12/09/18 Range/Units 07:16 WBC (4.0-10.5) K/mm3 RBC (4.1-5.6) M/mm3 Hgb (12.5-18.0) gm/dl Hct (42-50) % MCV (78-100) fl MCH (26-32) pg MCHC (32-36) g/dl RDW (11.5-14.0) % Plt Count (150-450) K/mm3 MPV (6-9.5) fl Gran % (36.0-66.0) % Eos # (Auto) (0-0.5) Absolute Lymphs (auto) (1.0-4.6) Absolute Monos (auto) (0.0-1.3) Lymphocytes % (24.0-44.0) % Monocytes % (0.0-12.0) % Eosinophils % (0.00-5.0) % Basophils % (0.0-0.4) % Absolute Granulocytes (1.4-6.9) Basophils # (0-0.4) Puncture Site pCO2 (35-45) mmHg pO2 (75-100) mmHg Base Excess (-2.0-2.0) O2 Saturation (94-100) g/dF ABG pH (7.35-7.45) ABG HCO3 (22-28) ABG O2 Sat (Measured) (95-100) % Bhupinder Test A-a Gradient a/A Ratio Hemoglobin Carboxyhemoglobin (0.0-6.9) % THgb Methemoglobin (1.4-1.5) % Temperature C POC O2 Flow Rate % Sodium (137-145) mmol/L Potassium (3.5-5.1) mmol/L Chloride (98-107) mmol/L Carbon Dioxide (22-30) mmol/L Anion Gap (5-15) MEQ/L BUN (9-20) mg/dL Creatinine (0.66-1.25) mg/dL Estimated GFR ML/MIN Glucose (74-106) mg/dL Lactic Acid 3.1 H (0.4-2.0) Calcium (8.4-10.2) mg/dL Total Bilirubin (0.2-1.3) mg/dL AST (17-59) U/L ALT (0-50) U/L Alkaline Phosphatase (38-126) U/L Troponin I (0.000-0.034) ng/mL NT-Pro-B Natriuret Pep (0-900) pg/mL Serum Total Protein (6.3-8.2) g/dL Albumin (3.5-5.0) g/dL Urine Color (YELLOW) Urine Appearance (CLEAR) Urine pH (5-6) Ur Specific Hickman (1.005-1.025) Urine Protein (Negative) Urine Ketones (NEGATIVE) Urine Blood (0-5) Sin/ul Urine Nitrite (NEGATIVE) Urine Bilirubin (NEGATIVE) Urine Urobilinogen (0-1) mg/dL Ur Leukocyte Esterase (NEGATIVE) Urine WBC (Auto) (0-5) /HPF Urine RBC (Auto) (0-2) /HPF U Hyaline Cast (Auto) (0-2) /LPF U Epithel Cells (Auto) (FEW) /HPF Urine Bacteria (Auto) (NEGATIVE) /HPF Unidentified Crystals (NEGATIVE) /HPF Urine Mucus (Auto) (NEGATIVE) /HPF Urine Culture Reflexed (NO) Urine Glucose (NEGATIVE) mg/dL Influenza Type A Ag (NEGATIVE) Influenza Type B Ag (NEGATIVE) RSV (PCR) (Negative) Group A Strep Antibody (NEGATIVE) - Radiology Impressions Radiology Exams & Impressions: Radiology Procedures Category Date Time Status CHEST 2 VIEWS (PA AND LAT) Stat Exams 12/09/18 03:48 Taken - Other Procedures and Tests Respiratory Therapy 12/09/18 04:26 Peak Expiratory Flow Rate ONCE Respiratory Therapy Assessment DAILY 12/09/18 08:03 Oxygen NASAL CANNULA 2 lpm Assessment/Plan (1) COPD with exacerbation Current Visit: Yes Status: Acute Assessment & Plan: will continue rocephin, zithromax, nebs and IV solu medrol at this time. he is not on oxygen at home, currently looks stable Code(s): J44.1 - CHRONIC OBSTRUCTIVE PULMONARY DISEASE W (ACUTE) EXACERBATION (2) Lactic acidosis Current Visit: Yes Status: Acute Assessment & Plan: related to diarrhea, hypovolemia and copd exacerbation with some respiratory acidosis in my opinion rather than severe sepsis. patient is hemodynamically stable, blood cultures are pending but does not have an obvious source of infection at this time. will continue IV abx for copd exacerbation and fluids. will f/u with lactic acid level Code(s): E87.2 - ACIDOSIS (3) Diarrhea Current Visit: Yes Status: Acute Assessment & Plan: resolved at this time Code(s): R19.7 - DIARRHEA, UNSPECIFIED
[2018-12-09] MEDS ORDERED: VANCOCIN 500 MG VIAL*** 500 MG in Sodium Chloride 100ML MINI-BAG PLUS 100 ML IV SCH (09:00)
--- NOTE | 2018-12-09 09:40 | XRAY ---
Indication: Short of breath. Comparison: January 27, 2017. PA/lateral chest again hyperinflated with a few scattered calcified granulomas. There are now a few patchy right lung airspace opacities without consolidation or large effusion. Heart is not enlarged again with CABG surgery. Bony thorax intact again with mild osteopenia and degenerative changes. Impression: 1. New patchy right lung airspace disease. Recommend follow-up following appropriate therapy. 2. Stable COPD and evidence for old granulomatous disease.
[2018-12-09] MEDS ORDERED: Nitrostat 0.4 MG Tablet SL PRN (09:51)
[2018-12-09] MEDS ORDERED: NON-FORMULARY ITEM (Oxycodone Hcl/Acetaminophen [Percocet 7.5-325 Mg Tablet] 1 EACH) PO PRN (09:51)
[2018-12-09] MEDS ORDERED: NON-FORMULARY ITEM (Aripiprazole [Aripiprazole] 5 mg) PO SCH (10:00)
[2018-12-09] MEDS ORDERED: TOLTERODINE TARTRATE 4 MG PO SCH (10:00)
[2018-12-09] MEDS ORDERED: Vancomycin 1GM/ Ns 250ML*** 1 GM/250 ML IVPB IV SCH (10:00)
[2018-12-09] MEDS ORDERED: NEURONTIN 300 MG PO SCH (10:00)
[2018-12-09] MEDS ORDERED: NON-FORMULARY ITEM (Lisinopril [Zestril] 2.5 MG) PO SCH (10:00)
[2018-12-09] MEDS: Zestril 5 MG PO SCH (10:29)
[2018-12-09] MEDS: Ditropan XL 5 MG PO SCH (10:30)
[2018-12-09] MEDS: PERCOCET TABLET 5/325MG PO PRN ×2 (10:31→15:28)
[2018-12-09] MEDS: Abilify 10 MG PO SCH (10:31)
[2018-12-09] MEDS: Pepcid 20 MG PO SCH (10:32)
[2018-12-09] MEDS: Zanaflex 4 MG PO SCH ×2 (10:32→15:23)
[2018-12-09] MEDS: Singulair 10 MG PO SCH (10:33)
[2018-12-09] MEDS: Lopressor 50 MG PO SCH ×2 (10:33→21:10)
[2018-12-09] MEDS: PROTONIX 40 MG IV IV SCH (10:33)
[2018-12-09] MEDS: PLAVIX 75 MG Tablet PO SCH (10:33)
[2018-12-09] MEDS: ENOXAPARIN SODIUM SQ SCH (10:33)
[2018-12-09 10:38] LABS: Lactic Acid 3.4 (0.4-2.0)
[2018-12-09] MEDS ORDERED: Sodium Chloride 0.9% 500 ML 500 ML IV ONE ×2 (15:21→16:33)
[2018-12-09] MEDS: ROCEPHIN 1 Gm-D5w 50 ml Bag** 1 G/50 ML IVPB IV SCH (21:22)
[2018-12-10] MEDS: Zithromax 500 MG/ 250 ML NaCl Premix 500 MG/250 ML IVPB IV SCH (05:29)
[2018-12-10] MEDS: solu-MEDROL 125 MG IV SCH ×3 (05:29→18:38)
[2018-12-10 06:03] LABS: Basophil (Absolute #) 0 (0-0.4); Eosinophil % 0.1 % (0.00-5.0); Eosinophil (Absolute #) 0.01 (0-0.5); Granulocyte Absolute (ANC) 16.16 (1.4-6.9); Granulocytes % 91.3 % (36.0-66.0); Hemoglobin 10.8 gm/dl (12.5-18.0); Lymphocyte (Absolute #) 0.93 (1.0-4.6); Lymphocytes % 5.3 % (24.0-44.0); Mean Cell Volume 94.2 fl (78-100); Mean Corpuscular Hemoglobin 29.9 pg (26-32); Mean Corpuscular Hgb Concent. 31.8 g/dl (32-36); Mean Platelet Volume 9.8 fl (6-9.5); Monocyte (Absolute #) 0.58 (0.0-1.3); Monocytes % 3.3 % (0.0-12.0); Platelet Count 156 K/mm3 (150-450); Red Blood Count 3.61 M/mm3 (4.1-5.6); White Blood Count 17.7 K/mm3 (4.0-10.5)
[2018-12-10 06:24] LABS: ALBUMIN 3.4 g/dL (3.5-5.0); ALKALINE PHOSPHATASE 70 U/L (38-126); ANION GAP 14.4 MEQ/L (5-15); BLOOD UREA NITROGEN 18 mg/dL (9-20); CHLORIDE 109 mmol/L (98-107); Calcium 8.7 mg/dL (8.4-10.2); Carbon Dioxide 22 mmol/L (22-30); Creatinine 1 0.96 mg/dL (0.66-1.25); Glucose 187 mg/dL (74-106); Potassium 4.5 mmol/L (3.5-5.1); SGOT/AST 16 U/L (17-59); SGPT/ALT 22 U/L (0-50); SODIUM 141 mmol/L (137-145); Total Protein 5.9 g/dL (6.3-8.2)
--- NOTE | 2018-12-10 07:26 | PCM.NOTE ---
Date and Time: 12/10/18720 Subjective Assessment: Pt is feeling much better today than at admission. He still has a poor appetite but did eat a few bites of chicken yesterday and drank some chocolate milk this morning. Has produced some sputum. Feels like his abdomen is bloated ; has been passing gas. Last diarrhea was the day before admission. Yesterday afternoon his blood pressure decreased into the 80s systolic. His blood pressure medicines were held; current bp 118 systolic. - Review of Systems Constitutional: No Fever Respiratory: Cough, Short Of Breath Objective Exam General Appearance: no apparent distress, alert Neurologic Exam: oriented x 3, cooperative Skin Exam: normal color, warm, dry, No rash Respiratory Exam: lungs clear, diminished breath sounds (fair air exchange), prolonged expirations, No crackles/rales, No rhonchi, No wheezing Cardiovascular Exam: regular rate/rhythm, normal heart sounds, No murmur Gastrointestinal/Abdomen Exam: soft, distention, No normal bowel sounds ( present and normal in quantity but somewhat high pitched), No tenderness, No mass, No guarding, No rebound Extremity Exam: normal inspection, No pedal edema, No swelling Back Exam: normal inspection, No rash OBJECTIVE DATA Vital Signs: Vital Signs - 24 hr Temp Pulse Resp BP Pulse Ox 12/10/18 06:00 20 12/10/18 04:00 97.4 F 72 20 105/56 99 12/10/18 02:00 18 12/10/18 00:01 66 12/10/18 00:00 97.4 F 66 18 102/62 99 12/09/18 20:00 74 12/09/18 19:44 97.3 F 76 22 95/64 94 L 12/09/18 18:00 97.3 F 58 L 19 86/49 99 12/09/18 16:00 60 12/09/18 14:48 97.3 F 65 17 90/51 99 12/09/18 12:00 98.0 F 77 22 96/52 97 12/09/18 08:51 99.0 F 83 20 100/67 95 12/09/18 08:06 99 H 20 95 Oxygen-Last 24 hours O2 Percentage 2 Liters = 28% O2 Percentage 2 Liters = 28% O2 Percentage 2 Liters = 28% O2 Percentage 2 Liters = 28% O2 Percentage 2 Liters = 28% O2 Percentage 2 Liters = 28% O2 Percentage 2 Liters = 28% Pain Assessment - Last Documented Pain Intensity 0 Pain Scale Used 0-10 Pain Scale Intake and Output: Intake & Output 12/07/18 12/08/18 12/09/18 12/10/18 11:59 11:59 11:59 11:59 Intake Total 4462 Output Total 1625 Balance 2837 Weight 71 kg Lab Results: Lab Results-Last 24 Hours 12/09/18 12/09/18 12/09/18 Range/Units 04:22 07:00 10:15 WBC (4.0-10.5) K/mm3 RBC (4.1-5.6) M/mm3 Hgb (12.5-18.0) gm/dl Hct (42-50) % MCV (78-100) fl MCH (26-32) pg MCHC (32-36) g/dl RDW (11.5-14.0) % Plt Count (150-450) K/mm3 MPV (6-9.5) fl Gran % (36.0-66.0) % Eos # (Auto) (0-0.5) Absolute Lymphs (auto) (1.0-4.6) Absolute Monos (auto) (0.0-1.3) Lymphocytes % (24.0-44.0) % Monocytes % (0.0-12.0) % Eosinophils % (0.00-5.0) % Basophils % (0.0-0.4) % Absolute Granulocytes (1.4-6.9) Basophils # (0-0.4) Sodium (137-145) mmol/L Potassium (3.5-5.1) mmol/L Chloride (98-107) mmol/L Carbon Dioxide (22-30) mmol/L Anion Gap (5-15) MEQ/L BUN (9-20) mg/dL Creatinine (0.66-1.25) mg/dL Estimated GFR ML/MIN Glucose (74-106) mg/dL Lactic Acid (0.4-2.0) Calcium (8.4-10.2) mg/dL Total Bilirubin (0.2-1.3) mg/dL AST (17-59) U/L ALT (0-50) U/L Alkaline Phosphatase (38-126) U/L Troponin I < 0.012 0.013 0.016 (0.000-0.034) ng/mL Serum Total Protein (6.3-8.2) g/dL Albumin (3.5-5.0) g/dL 12/09/18 12/09/18 12/10/18 Range/Units 10:35 13:00 04:00 WBC (4.0-10.5) K/mm3 RBC (4.1-5.6) M/mm3 Hgb (12.5-18.0) gm/dl Hct (42-50) % MCV (78-100) fl MCH (26-32) pg MCHC (32-36) g/dl RDW (11.5-14.0) % Plt Count (150-450) K/mm3 MPV (6-9.5) fl Gran % (36.0-66.0) % Eos # (Auto) (0-0.5) Absolute Lymphs (auto) (1.0-4.6) Absolute Monos (auto) (0.0-1.3) Lymphocytes % (24.0-44.0) % Monocytes % (0.0-12.0) % Eosinophils % (0.00-5.0) % Basophils % (0.0-0.4) % Absolute Granulocytes (1.4-6.9) Basophils # (0-0.4) Sodium (137-145) mmol/L Potassium (3.5-5.1) mmol/L Chloride (98-107) mmol/L Carbon Dioxide (22-30) mmol/L Anion Gap (5-15) MEQ/L BUN (9-20) mg/dL Creatinine (0.66-1.25) mg/dL Estimated GFR ML/MIN Glucose (74-106) mg/dL Lactic Acid 3.4 H 4.0 H (0.4-2.0) Calcium (8.4-10.2) mg/dL Total Bilirubin (0.2-1.3) mg/dL AST (17-59) U/L ALT (0-50) U/L Alkaline Phosphatase (38-126) U/L Troponin I 0.015 (0.000-0.034) ng/mL Serum Total Protein (6.3-8.2) g/dL Albumin (3.5-5.0) g/dL 12/10/18 12/10/18 Range/Units 05:00 05:00 WBC 17.7 H (4.0-10.5) K/mm3 RBC 3.61 L (4.1-5.6) M/mm3 Hgb 10.8 L D (12.5-18.0) gm/dl Hct 34.0 L (42-50) % MCV 94.2 (78-100) fl MCH 29.9 (26-32) pg MCHC 31.8 L (32-36) g/dl RDW 13.0 (11.5-14.0) % Plt Count 156 D (150-450) K/mm3 MPV 9.8 H (6-9.5) fl Gran % 91.3 H (36.0-66.0) % Eos # (Auto) 0.01 (0-0.5) Absolute Lymphs (auto) 0.93 L (1.0-4.6) Absolute Monos (auto) 0.58 (0.0-1.3) Lymphocytes % 5.3 L (24.0-44.0) % Monocytes % 3.3 (0.0-12.0) % Eosinophils % 0.1 (0.00-5.0) % Basophils % 0.0 (0.0-0.4) % Absolute Granulocytes 16.16 H (1.4-6.9) Basophils # 0 (0-0.4) Sodium 141 (137-145) mmol/L Potassium 4.5 (3.5-5.1) mmol/L Chloride 109 H D (98-107) mmol/L Carbon Dioxide 22 (22-30) mmol/L Anion Gap 14.4 (5-15) MEQ/L BUN 18 (9-20) mg/dL Creatinine 0.96 (0.66-1.25) mg/dL Estimated GFR > 60.0 ML/MIN Glucose 187 H (74-106) mg/dL Lactic Acid (0.4-2.0) Calcium 8.7 (8.4-10.2) mg/dL Total Bilirubin 0.30 (0.2-1.3) mg/dL AST 16 L (17-59) U/L ALT 22 (0-50) U/L Alkaline Phosphatase 70 (38-126) U/L Troponin I (0.000-0.034) ng/mL Serum Total Protein 5.9 L (6.3-8.2) g/dL Albumin 3.4 L (3.5-5.0) g/dL Radiology Exams: Radiology Procedures Category Date Time Status CHEST 2 VIEWS (PA AND LAT) Stat Exams 12/09/18 03:48 Completed Assessment/Plan (1) COPD with exacerbation Current Visit: Yes Status: Acute Assessment & Plan: On Day #2 of rocephin and zithromax. On solu-medrol 80mg IV q6h. His air movement was still limited, so I will not change the steroid (decrease) until tomorrow. He is much improved. Wean O2 as tolerated (not on O2 at home) - goal is actually 88-93% due to his COPD. Code(s): J44.1 - CHRONIC OBSTRUCTIVE PULMONARY DISEASE W (ACUTE) EXACERBATION (2) Hypotension Current Visit: Yes Status: Resolved Qualifiers: Hypotension type: other hypotension type Qualified Code(s): I95.89 - Other hypotension Assessment & Plan: Likely related to lung infection, and possibly persistent hypovolemia s/p diarrhea. Is resolved now; can restart antihypertensives when BP is at least 120 systolic. Can be transferred out of ICU. Code(s): I95.9 - HYPOTENSION, UNSPECIFIED (3) Lactic acidosis Current Visit: Yes Status: Acute Assessment & Plan: Much improved since admission, although it has increased again since yesterday. Up to 4.0. Likely was related to diarrhea and some respiratory acidosis, although sepsis also a possibility with pt's subsequent decrease in bp. Clinically he is doing much better. Will do CT chest to r/o occult malignancy, which can cause an acidosis as well. 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 Code(s): J60 - COALWORKER'S PNEUMOCONIOSIS (5) AAA (abdominal aortic aneurysm) Current Visit: Yes Status: Chronic Qualifiers: Presence of rupture: without rupture Qualified Code(s): I71.4 - Abdominal aortic aneurysm, without rupture Assessment & Plan: Follows with Dr. Bittar. Code(s): I71.4 - ABDOMINAL AORTIC ANEURYSM, WITHOUT RUPTURE (6) Anxiety Current Visit: Yes Status: Chronic Code(s): F41.9 - ANXIETY DISORDER, UNSPECIFIED (7) Osteoarthritis Current Visit: Yes Status: Chronic Qualifiers: Osteoarthritis location: unspecified site Osteoarthritis type: unspecified Qualified Code(s): M19.90 - Unspecified osteoarthritis, unspecified site Code(s): M19.90 - UNSPECIFIED OSTEOARTHRITIS, UNSPECIFIED SITE (8) GERD (gastroesophageal reflux disease) Current Visit: Yes Status: Chronic Qualifiers: Esophagitis presence: without esophagitis Qualified Code(s): K21.9 - Gastro -esophageal reflux disease without esophagitis Code(s): K21.9 - GASTRO-ESOPHAGEAL REFLUX DISEASE WITHOUT ESOPHAGITIS (9) Post laminectomy syndrome Current Visit: Yes Status: Chronic Code(s): M96.1 - POSTLAMINECTOMY SYNDROME , NOT ELSEWHERE CLASSIFIED (10) CAD (coronary artery disease) Current Visit: Yes Status: Chronic Qualifiers: Coronary Disease-Associated Artery/Lesion type: bypass graft [place] vs. transplanted heart: ely [place] heart Associated angina: without angina Qualified Code(s): I25.810 - Atherosclerosis of coronary artery bypass graft(s) without angina pectoris Code(s): I25.10 - ATHSCL HEART DISEASE OF [place] CORONARY ARTERY W/O ANG PCTRS
[2018-12-10] MEDS: Advair Hfa 115/21 Common canister IH SCH ×2 (08:30→18:35)
[2018-12-10 08:51] LABS: Lactic Acid 3.3 (0.4-2.0)
[2018-12-10] MEDS: Sodium Chloride 0.9% 1000 ML 1,000 ML IV SCH ×2 (09:08→17:19)
[2018-12-10] MEDS: PROTONIX 40 MG IV IV SCH (09:59)
[2018-12-10] MEDS: Zestril 5 MG PO SCH (10:00)
[2018-12-10] MEDS: Ditropan XL 5 MG PO SCH (10:00)
[2018-12-10] MEDS: Singulair 10 MG PO SCH (10:00)
[2018-12-10] MEDS: Abilify 10 MG PO SCH (10:01)
[2018-12-10] MEDS: Pepcid 20 MG PO SCH (10:01)
[2018-12-10] MEDS: Lopressor 50 MG PO SCH ×2 (10:01→21:56)
[2018-12-10] MEDS: PLAVIX 75 MG Tablet PO SCH (10:01)
[2018-12-10] MEDS: ENOXAPARIN SODIUM SQ SCH (10:14)
[2018-12-10] MEDS: DUONEB 0.5-3 MG/3 ml Neb IH PRN (18:35)
--- NOTE | 2018-12-10 21:41 | XRAY ---
Indication: Cough. Short of breath. Multiple contiguous axial images obtained through the chest using 100 cc Isovue 370. Comparison: None Lungs demonstrate moderate diffuse pulmonary emphysema, greatest in the upper lobes. Mild bibasilar fibrosis/scarring. There are small patchy airspace disease throughout the right lung. 1.1 cm noncalcified nodule in the superior segment of the left lower lobe. Small left lower lobe calcified granuloma. No effusion. Heart is not enlarged with previous CABG. Aorta mildly arteriosclerotic without aneurysm/dissection. A few small mediastinal and bilateral hilar calcified nodes. No pathologic mediastinal/hilar lymphadenopathy. Bony thorax intact. Limited upper abdomen demonstrates calcified splenic granulomas and mild fatty liver. Impression: 1. Right lung patchy airspace disease without consolidation or large effusion. 2. Pulmonary emphysema. 3. 1.1 cm left lower lobe noncalcified nodule possibly granulomatous as there is evidence for old granulomatous disease elsewhere. Recommend follow-up per Fleischner guidelines. 4. Fatty liver. Comment: Preliminary interpretation was made by [facility]. No critical discrepancy. CTDI 13.67
[2018-12-10] MEDS: ROCEPHIN 1 Gm-D5w 50 ml Bag** 1 G/50 ML IVPB IV SCH (21:56)
[2018-12-10] MEDS: PERCOCET TABLET 5/325MG PO PRN (21:56)
[2018-12-10] MEDS ORDERED: DESYREL 50 MG PO SCH (22:00)
[2018-12-11] MEDS: solu-MEDROL 125 MG IV SCH ×4 (00:28→18:01)
[2018-12-11] MEDS: Sodium Chloride 0.9% 1000 ML 1,000 ML IV SCH (00:31)
[2018-12-11] MEDS: DUONEB 0.5-3 MG/3 ml Neb IH PRN ×4 (00:39→19:50)
[2018-12-11] MEDS ORDERED: Lasix 20 MG/2 ML IV ONE (04:25)
[2018-12-11] MEDS: Sodium Chloride 0.9% 10 ML FLUSH Syringe IV SCH ×3 (04:29→21:05)
[2018-12-11] MEDS: Zithromax 500 MG/ 250 ML NaCl Premix 500 MG/250 ML IVPB IV SCH (05:34)
[2018-12-11 06:16] LABS: Lactic Acid 4.4 (0.4-2.0)
[2018-12-11] MEDS: Advair Hfa 115/21 Common canister IH SCH ×2 (08:02→19:52)
[2018-12-11] MEDS: PERCOCET TABLET 5/325MG PO PRN ×2 (08:25→15:15)
[2018-12-11] MEDS ORDERED: TROUGH DRUG LEVELS IJ ONE (08:30)
--- NOTE | 2018-12-11 08:42 | XRAY ---
Indication: Short of breath and wheezing. Comparison: December 09, 2018. Portable chest unchanged again hyperinflated with patchy right lung airspace opacities and a few scattered calcified granulomas. Heart and mediastinal structures within normal limits again with CABG surgery. No new/acute findings. Comment: Preliminary interpretation was made by [facility]. No critical discrepancy.
[2018-12-11] MEDS: Abilify 10 MG PO SCH (10:49)
[2018-12-11] MEDS: Ditropan XL 5 MG PO SCH (10:50)
[2018-12-11] MEDS: Lopressor 50 MG PO SCH ×2 (10:51→21:05)
[2018-12-11] MEDS: ENOXAPARIN SODIUM SQ SCH (10:51)
[2018-12-11] MEDS: Pepcid 20 MG PO SCH (10:51)
[2018-12-11] MEDS: PROTONIX 40 MG IV IV SCH (10:52)
[2018-12-11] MEDS: PLAVIX 75 MG Tablet PO SCH (10:52)
[2018-12-11] MEDS: Singulair 10 MG PO SCH (10:53)
[2018-12-11] MEDS: Zestril 5 MG PO SCH (10:53)
--- NOTE | 2018-12-11 12:09 | PCM.NOTE ---
Date and Time: 12/11/18 1203 Subjective Assessment: Overnight pt had a hard time breathing while lying down, and sounded crackly to RN. Twenty mg lasix was given IV. This morning he states he feels much better. He has been tolerating po well. Still SOB when up to bathroom but that has improved. - Review of Systems Constitutional: No Fever Respiratory: Cough, Short Of Breath Objective Exam General Appearance: no apparent distress, alert Neurologic Exam: oriented x 3, cooperative Skin Exam: normal color, warm, dry, No rash Eye Exam: eyes nml inspection Ears, Nose, Throat Exam: moist mucous membranes Respiratory Exam: lungs clear, diminished breath sounds (good air exchange), No crackles/rales, No rhonchi, No wheezing Cardiovascular Exam: normal heart sounds, irregular, No murmur Extremity Exam: normal inspection Back Exam: normal inspection, No rash OBJECTIVE DATA Vital Signs: Vital Signs - 24 hr Temp Pulse Resp BP Pulse Ox 12/11/18 10:00 20 12/11/18 08:08 75 22 96 12/11/18 07:07 98.4 F 75 18 129/58 98 12/11/18 06:00 25 H 12/11/18 04:59 97.9 F 59 L 25 H 156/74 95 12/11/18 04:31 66 20 90 L 12/11/18 02:00 20 12/11/18 00:39 58 L 20 98 12/11/18 00:00 97.9 F 53 L 22 115/64 94 L 12/10/18 22:00 18 12/10/18 20:00 98.3 F 81 18 143/65 95 12/10/18 18:36 64 18 97 12/10/18 18:20 18 12/10/18 16:00 98.2 F 69 18 146/62 97 12/10/18 13:55 18 Oxygen-Last 24 hours O2 Percentage 2 Liters = 28% O2 Percentage 2 Liters = 28% O2 Percentage 2 Liters = 28% O2 Percentage 2 Liters = 28% Pain Assessment - Last Documented Pain Intensity 1 Pain Scale Used 0-10 Pain Scale Intake and Output: Intake & Output 12/09/18 12/10/18 12/11/18 12/12/18 11:59 11:59 11:59 11:59 Intake Total 4476 3902 Output Total 1625 1500 Balance 2837 2402 Weight 71 kg Lab Results: Lab Results-Last 24 Hours 12/11/18 Range/Units 06:11 Lactic Acid 4.4 H (0.4-2.0) Radiology Exams: Radiology Procedures Category Date Time Status CHEST 1 VIEW (PORTABLE) Stat Exams 12/11/18 05:15 Completed CHEST WITH CONTRAST [CT] Routine Exams 12/10/18 07:21 Completed Multi-Disciplinary Progress Notes: Multi-Disciplinary Progress Notes 12/10/18 18:45 Respiratory Note by Guillermo Salas PT CALLED NURSING STATING THAT HE WAS FEELING SOB, HAVING DIFFICULTY TAKING A DEEP BREATH. PT BS WERE "TIGHT"/DIMINISHED. GAVE A PRN NEB TX, WILL EVALUATE POSSIBLE NEED FOR SCHEDULED TX. PLACED PT BACK ON 2LPM POST TX. Initialized on 12/10/18 18:45 - END OF NOTE Assessment/Plan (1) COPD with exacerbation Current Visit: Yes Status: Acute Assessment & Plan: Really sounding good for me currently. Was wheezy and tight for RT earlier today, so I will continue solumedrol at 80mg IV q6h. On zithromax and rocephin day #3. Sputum cx + and susceptible to rocephin. 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 Code(s): J60 - COALWORKER'S PNEUMOCONIOSIS (3) AAA (abdominal aortic aneurysm) Current Visit: Yes Status: Chronic Qualifiers: Presence of rupture: without rupture Qualified Code(s): I71.4 - Abdominal aortic aneurysm, without rupture Code(s): I71.4 - ABDOMINAL AORTIC ANEURYSM, WITHOUT RUPTURE (4) Anxiety Current Visit: Yes Status: Chronic Code(s): F41.9 - ANXIETY DISORDER, UNSPECIFIED (5) Osteoarthritis Current Visit: Yes Status: Chronic Qualifiers: Osteoarthritis location: unspecified site Osteoarthritis type: unspecified Qualified Code(s): M19.90 - Unspecified osteoarthritis, unspecified site Code(s): M19.90 - UNSPECIFIED OSTEOARTHRITIS, UNSPECIFIED SITE (6) GERD (gastroesophageal reflux disease) Current Visit: Yes Status: Chronic Qualifiers: Esophagitis presence: without esophagitis Qualified Code(s): K21.9 - Gastro -esophageal reflux disease without esophagitis Code(s): K21.9 - GASTRO-ESOPHAGEAL REFLUX DISEASE WITHOUT ESOPHAGITIS (7) Post laminectomy syndrome Current Visit: Yes Status: Chronic Code(s): M96.1 - POSTLAMINECTOMY SYNDROME , NOT ELSEWHERE CLASSIFIED (8) CAD (coronary artery disease) Current Visit: Yes Status: Chronic Qualifiers: Coronary Disease-Associated Artery/Lesion type: bypass graft [place] vs. transplanted heart: [place] heart Associated angina: without angina Qualified Code(s): I25.810 - Atherosclerosis of coronary artery bypass graft(s) without angina pectoris Code(s): I25.10 - ATHSCL HEART DISEASE OF [place] CORONARY ARTERY W/O ANG PCTRS (9) Diarrhea Current Visit: Yes Status: Resolved Qualifiers: Diarrhea type: unspecified type Qualified Code(s): R19.7 - Diarrhea, unspecified Code(s): R19.7 - DIARRHEA, UNSPECIFIED (10) Irregular cardiac rhythm Current Visit: Yes Status: Acute Assessment & Plan: will check 12 lead EKG. I see some sinus irregularity on rhythm strip. Code(s): I49.9 - CARDIAC ARRHYTHMIA, UNSPECIFIED
[2018-12-11] MEDS ORDERED: DESYREL 50 MG PO SCH ×3 (18:02→20:00)
[2018-12-11] MEDS ORDERED: DESYREL 50 MG ONE (21:00)
[2018-12-11] MEDS: PERCOCET TABLET 5/325MG PO SCH (21:04)
[2018-12-11] MEDS: NEURONTIN 300 MG PO SCH (21:04)
[2018-12-11] MEDS: ROCEPHIN 1 Gm-D5w 50 ml Bag** 1 G/50 ML IVPB IV SCH (21:05)
[2018-12-11] MEDS: Zanaflex 4 MG PO SCH (21:05)
[2018-12-12] MEDS: solu-MEDROL 125 MG IV SCH ×4 (00:06→17:49)
[2018-12-12] MEDS: DUONEB 0.5-3 MG/3 ml Neb IH PRN ×3 (03:43→20:40)
[2018-12-12] MEDS: Zithromax 500 MG/ 250 ML NaCl Premix 500 MG/250 ML IVPB IV SCH (05:51)
[2018-12-12] MEDS: Sodium Chloride 0.9% 10 ML FLUSH Syringe IV SCH ×2 (05:52→15:21)
[2018-12-12] MEDS: Advair Hfa 115/21 Common canister IH SCH ×2 (06:54→19:58)
[2018-12-12] MEDS: PERCOCET TABLET 5/325MG PO SCH ×4 (08:09→20:06)
[2018-12-12] MEDS: Lopressor 50 MG PO SCH ×2 (08:10→20:06)
[2018-12-12] MEDS: Zestril 5 MG PO SCH (08:10)
[2018-12-12] MEDS: NEURONTIN 300 MG PO SCH ×3 (08:11→20:07)
--- NOTE | 2018-12-12 08:35 | PCM.NOTE ---
Date and Time: 12/12/18 08 Subjective Assessment: patient is still short of breath and has poor tolerance of activity. no other complaints currently Objective Exam General Appearance: no apparent distress, alert Skin Exam: normal color, warm, dry Respiratory Exam: prolonged expirations, wheezing Cardiovascular Exam: regular rate/rhythm, normal heart sounds Gastrointestinal/Abdomen Exam: soft, No tenderness, No mass Extremity Exam: normal inspection, normal range of motion OBJECTIVE DATA Vital Signs: Vital Signs - 24 hr Temp Pulse Resp BP Pulse Ox 12/12/18 07:34 97.8 F 84 20 167/75 94 L 12/12/18 06:54 63 22 97 12/12/18 06:00 20 12/12/18 04:00 97.9 F 68 20 147/70 97 12/12/18 03:44 49 L 20 97 12/12/18 02:00 22 12/12/18 00:00 98.0 F 68 22 156/70 95 12/11/18 22:00 24 12/11/18 20:00 97.8 F 76 24 142/65 97 12/11/18 19:53 76 18 97 12/11/18 16:18 18 12/11/18 16:00 98.4 F 70 18 129/77 95 12/11/18 14:00 18 12/11/18 12:00 98.2 F 50 L 18 138/61 93 L 12/11/18 10:00 20 Oxygen-Last 24 hours O2 Percentage 2 Liters = 28% O2 Percentage 2 Liters = 28% O2 Percentage 2 Liters = 28% O2 Percentage 2 Liters = 28% O2 Percentage 2 Liters = 28% Pain Assessment - Last Documented Pain Intensity 9 Pain Scale Used 0-10 Pain Scale Intake and Output: Intake & Output 12/09/18 12/10/18 12/11/18 12/12/18 11:59 11:59 11:59 11:59 Intake Total 4453 3902 762 Output Total 1625 1500 700 Balance 2837 2402 62 Weight 71 kg Radiology Exams: Radiology Procedures Category Date Time Status CHEST 1 VIEW (PORTABLE) Stat Exams 12/11/18 05:15 Completed Assessment/Plan (1) COPD with exacerbation Current Visit: Yes Status: Acute Assessment & Plan: continue rocephin, zithromax and IV solu medrol. Code(s): J44.1 - CHRONIC OBSTRUCTIVE PULMONARY DISEASE W (ACUTE) EXACERBATION (2) Lactic acidosis Current Visit: Yes Status: Acute Code(s): E87.2 - ACIDOSIS (3) Diarrhea Current Visit: Yes Status: Resolved Qualifiers: Diarrhea type: unspecified type Qualified Code(s): R19.7 - Diarrhea, unspecified Code(s): R19.7 - DIARRHEA, UNSPECIFIED
[2018-12-12] MEDS: Ditropan XL 5 MG PO SCH (09:50)
[2018-12-12] MEDS: Singulair 10 MG PO SCH (09:50)
[2018-12-12] MEDS: Pepcid 20 MG PO SCH (09:50)
[2018-12-12] MEDS: PLAVIX 75 MG Tablet PO SCH (09:51)
[2018-12-12] MEDS: PROTONIX 40 MG IV IV SCH (09:51)
[2018-12-12] MEDS: ENOXAPARIN SODIUM SQ SCH (09:51)
[2018-12-12 15:50] LABS: Mercury,Blood <1 mcg/L (0-5)
[2018-12-12] MEDS: Zanaflex 4 MG PO SCH (20:06)
[2018-12-12] MEDS: DESYREL 50 MG PO SCH ×2 (20:06→22:10)
[2018-12-12] MEDS: Abilify 10 MG PO SCH (20:22)
[2018-12-12] MEDS: ROCEPHIN 1 Gm-D5w 50 ml Bag** 1 G/50 ML IVPB IV SCH (21:28)
[2018-12-13] MEDS: solu-MEDROL 125 MG IV SCH ×5 (00:26→23:47)
[2018-12-13] MEDS: DUONEB 0.5-3 MG/3 ml Neb IH PRN (04:30)
[2018-12-13] MEDS: Zithromax 500 MG/ 250 ML NaCl Premix 500 MG/250 ML IVPB IV SCH (05:36)
[2018-12-13] MEDS: Sodium Chloride 0.9% 10 ML FLUSH Syringe IV SCH ×3 (05:36→20:43)
[2018-12-13 05:52] LABS: Hematocrit 33.4 % (42-50); Hemoglobin 10.8 gm/dl (12.5-18.0); Mean Cell Volume 91.3 fl (78-100); Mean Corpuscular Hemoglobin 29.5 pg (26-32); Mean Corpuscular Hgb Concent. 32.3 g/dl (32-36); Mean Platelet Volume 9.3 fl (6-9.5); Platelet Count 187 K/mm3 (150-450); Red Blood Count 3.66 M/mm3 (4.1-5.6); Red Cell Distribution Width 12.9 % (11.5-14.0); White Blood Count 9.3 K/mm3 (4.0-10.5)
[2018-12-13 06:22] LABS: Lymphocytes 7 % (24-44); Monocyte 1 % (0.0-12.0); Neutrophils 92 % (36.-66.); Total Cells Counted 100
[2018-12-13 06:23] LABS: Platelet Estimate NORMAL (NORMAL)
[2018-12-13 06:26] LABS: ALBUMIN 3.4 g/dL (3.5-5.0); ALKALINE PHOSPHATASE 56 U/L (38-126); ANION GAP 11.2 MEQ/L (5-15); BLOOD UREA NITROGEN 24 mg/dL (9-20); CHLORIDE 106 mmol/L (98-107); Calcium 8.9 mg/dL (8.4-10.2); Carbon Dioxide 27 mmol/L (22-30); Creatinine 1 0.83 mg/dL (0.66-1.25); Glucose 175 mg/dL (74-106); Potassium 3.6 mmol/L (3.5-5.1); SGOT/AST 17 U/L (17-59); SGPT/ALT 29 U/L (0-50); SODIUM 141 mmol/L (137-145); Total Protein 5.9 g/dL (6.3-8.2)
[2018-12-13] MEDS: DUONEB 0.5-3 MG/3 ml Neb IH SCH ×5 (06:42→23:06)
[2018-12-13] MEDS: Advair Hfa 115/21 Common canister IH SCH ×2 (06:44→19:00)
[2018-12-13] MEDS: PERCOCET TABLET 5/325MG PO SCH ×4 (07:37→20:41)
--- NOTE | 2018-12-13 09:08 | PCM.NOTE ---
Date and Time: 12/13/18904 Subjective Assessment: He is feeling better but still SOB. Feels like he's having a hard time getting any sputum up. Raji po well. Has been walking to the bathroom but gets winded. - Review of Systems Constitutional: No Fever Respiratory: Cough, Short Of Breath Objective Exam General Appearance: no apparent distress, alert Neurologic Exam: oriented x 3, cooperative Skin Exam: normal color, warm, dry, No rash Eye Exam: eyes nml inspection Respiratory Exam: lungs clear, diminished breath sounds, prolonged expirations, wheezing (expiratory, throughout), No crackles/rales, No rhonchi Cardiovascular Exam: regular rate/rhythm, normal heart sounds, No murmur Gastrointestinal/Abdomen Exam: soft, normal bowel sounds, No tenderness, No distention Extremity Exam: No pedal edema, No swelling Back Exam: normal inspection, No rash OBJECTIVE DATA Vital Signs: Vital Signs - 24 hr Temp Pulse Resp BP BP Pulse Ox 12/13/18 07:10 97.6 F 83 20 138/72 98 12/13/18 06:46 79 18 98 12/13/18 06:00 22 12/13/18 04:30 78 22 98 12/13/18 04:00 97.8 F 57 L 20 164/93 97 12/13/18 02:00 20 12/13/18 00:00 97.7 F 60 20 136/65 98 12/12/18 22:00 18 12/12/18 20:40 54 L 18 97 12/12/18 20:00 97.7 F 70 18 138/65 95 12/12/18 16:40 77 18 97 12/12/18 16:00 98.2 F 78 20 148/73 96 12/12/18 12:00 97.5 F 58 L 20 137/60 94 L Oxygen-Last 24 hours O2 Percentage 2 Liters = 28% O2 Percentage 2 Liters = 28% O2 Percentage 2 Liters = 28% O2 Percentage 2 Liters = 28% O2 Percentage 2 Liters = 28% O2 Percentage 2 Liters = 28% Pain Assessment - Last Documented Pain Intensity 0 Pain Scale Used 0-10 Pain Scale Intake and Output: Intake & Output 12/10/18 12/11/18 12/12/18 12/13/18 11:59 11:59 11:59 11:59 Intake Total 4462 3902 762 360 Output Total 162 1500 700 525 Balance 2837 2402 62 -165 Weight 71 kg Lab Results: Lab Results-Last 24 Hours 12/10/18 12/13/18 12/13/18 Range/Units 05:15 05:40 05:40 WBC 9.3 (4.0-10.5) K/mm3 RBC 3.66 L (4.1-5.6) M/mm3 Hgb 10.8 L (12.5-18.0) gm/dl Hct 33.4 L (42-50) % MCV 91.3 (78-100) fl MCH 29.5 (26-32) pg MCHC 32.3 (32-36) g/dl RDW 12.9 (11.5-14.0) % Plt Count 187 (150-450) K/mm3 MPV 9.3 (6-9.5) fl Segmented Neutrophils 92 H (36.-66.) % Lymphocytes (Manual) 7 L (24-44) % Monocytes (Manual) 1 (0.0-12.0) % Platelet Estimate NORMAL (NORMAL) RBC Morphology NORMAL Sodium 141 (137-145) mmol/L Potassium 3.6 (3.5-5.1) mmol/L Chloride 106 (98-107) mmol/L Carbon Dioxide 27 (22-30) mmol/L Anion Gap 11.2 (5-15) MEQ/L BUN 24 H (9-20) mg/dL Creatinine 0.83 (0.66-1.25) mg/dL Estimated GFR > 60.0 ML/MIN Glucose 175 H (74-106) mg/dL Calcium 8.9 (8.4-10.2) mg/dL Total Bilirubin 0.30 (0.2-1.3) mg/dL AST 17 (17-59) U/L ALT 29 (0-50) U/L Alkaline Phosphatase 56 (38-126) U/L Serum Total Protein 5.9 L (6.3-8.2) g/dL Albumin 3.4 L (3.5-5.0) g/dL Whole Blood Cadmium <1.0 (0.0-5.0) mcg/L Guardian First Name Pending Guardian Last Name Pending Home Phone Pending Whole Bld Arsenic ug/L <10 (0-13) mcg/L Whole Blood Lead 1 (0-4) mcg/dL WB Mercury ug/L <1 (0-5) mcg/L Assessment/Plan (1) COPD with exacerbation Current Visit: Yes Status: Acute Assessment & Plan: On day #5 of rocephin and zithromax. On solumedrol 80mg IV q6h. Will add mucinex and mucomyst today; discussed mucomyst with RT. Code(s): J44.1 - CHRONIC OBSTRUCTIVE PULMONARY DISEASE W (ACUTE) EXACERBATION (2) Black lung disease Current Visit: Yes Status: Chronic Code(s): J60 - COALWORKER'S PNEUMOCONIOSIS (3) AAA (abdominal aortic aneurysm) Current Visit: Yes Status: Chronic Qualifiers: Presence of rupture: without rupture Qualified Code(s): I71.4 - Abdominal aortic aneurysm, without rupture Code(s): I71.4 - ABDOMINAL AORTIC ANEURYSM, WITHOUT RUPTURE (4) Anxiety Current Visit: Yes Status: Chronic Code(s): F41.9 - ANXIETY DISORDER, UNSPECIFIED (5) Osteoarthritis Current Visit: Yes Status: Chronic Qualifiers: Osteoarthritis location: unspecified site Osteoarthritis type: unspecified Qualified Code(s): M19.90 - Unspecified osteoarthritis, unspecified site Code(s): M19.90 - UNSPECIFIED OSTEOARTHRITIS, UNSPECIFIED SITE (6) GERD (gastroesophageal reflux disease) Current Visit: Yes Status: Chronic Qualifiers: Esophagitis presence: without esophagitis Qualified Code(s): K21.9 - Gastro -esophageal reflux disease without esophagitis Code(s): K21.9 - GASTRO-ESOPHAGEAL REFLUX DISEASE WITHOUT ESOPHAGITIS (7) Post laminectomy syndrome Current Visit: Yes Status: Chronic Code(s): M96.1 - POSTLAMINECTOMY SYNDROME , NOT ELSEWHERE CLASSIFIED (8) CAD (coronary artery disease) Current Visit: Yes Status: Chronic Qualifiers: Coronary Disease-Associated Artery/Lesion type: bypass graft [place] vs. transplanted heart: [place] heart Associated angina: without angina Qualified Code(s): I25.810 - Atherosclerosis of coronary artery bypass graft(s) without angina pectoris Code(s): I25.10 - ATHSCL HEART DISEASE OF [place] CORONARY ARTERY W/O ANG PCTRS
[2018-12-13] MEDS: Ditropan XL 5 MG PO SCH (09:21)
[2018-12-13] MEDS: Lopressor 50 MG PO SCH ×2 (09:21→20:41)
[2018-12-13] MEDS: PLAVIX 75 MG Tablet PO SCH (09:21)
[2018-12-13] MEDS: Singulair 10 MG PO SCH (09:21)
[2018-12-13] MEDS: Pepcid 20 MG PO SCH (09:22)
[2018-12-13] MEDS: Mucinex 600MG ER Tabs PO SCH ×2 (09:22→20:43)
[2018-12-13] MEDS: NEURONTIN 300 MG PO SCH ×3 (09:22→20:42)
[2018-12-13] MEDS: Zestril 5 MG PO SCH (09:22)
[2018-12-13] MEDS: ENOXAPARIN SODIUM SQ SCH (09:24)
[2018-12-13] MEDS: PROTONIX 40 MG IV IV SCH (09:24)
[2018-12-13] MEDS: Abilify 10 MG PO SCH (20:42)
[2018-12-13] MEDS: Zanaflex 4 MG PO SCH (20:42)
[2018-12-13] MEDS: ROCEPHIN 1 Gm-D5w 50 ml Bag** 1 G/50 ML IVPB IV SCH (20:42)
[2018-12-13] MEDS: DESYREL 50 MG PO SCH (20:42)
[2018-12-14] MEDS: DUONEB 0.5-3 MG/3 ml Neb IH SCH ×6 (02:59→23:14)
[2018-12-14] MEDS: Zithromax 500 MG/ 250 ML NaCl Premix 500 MG/250 ML IVPB IV SCH (05:48)
[2018-12-14] MEDS: solu-MEDROL 125 MG IV SCH ×3 (05:48→18:00)
[2018-12-14] MEDS: Sodium Chloride 0.9% 10 ML FLUSH Syringe IV SCH ×4 (05:49→21:16)
[2018-12-14] MEDS: Advair Hfa 115/21 Common canister IH SCH ×2 (06:59→19:11)
[2018-12-14] MEDS: PERCOCET TABLET 5/325MG PO SCH ×4 (08:11→21:12)
--- NOTE | 2018-12-14 09:00 | PCM.NOTE ---
Date and Time: 12/14/18856 Subjective Assessment: patient off oxygen but still has significant wheezing. overall improving but still has significant cough Objective Exam General Appearance: no apparent distress, alert Skin Exam: normal color, warm, dry Respiratory Exam: rhonchi, wheezing Cardiovascular Exam: regular rate/rhythm, normal heart sounds Gastrointestinal/Abdomen Exam: soft, No tenderness, No mass Extremity Exam: normal inspection, normal range of motion OBJECTIVE DATA Vital Signs: Vital Signs - 24 hr Temp Pulse Resp BP Pulse Ox 12/14/18 08:10 97.7 F 89 20 157/80 94 L 12/14/18 07:01 89 20 94 L 12/14/18 06:00 20 12/14/18 03:55 97.5 F 85 20 160/76 95 12/14/18 03:02 70 16 94 L 12/14/18 02:00 17 12/14/18 00:00 97.5 F 77 16 165/77 93 L 12/13/18 23:27 66 18 95 12/13/18 22:00 18 12/13/18 20:00 97.6 F 69 18 177/74 97 12/13/18 19:05 96 12/13/18 19:02 83 18 96 12/13/18 16:20 98 F 82 20 166/78 96 12/13/18 11:21 97.8 F 72 20 160/73 96 12/13/18 11:20 74 14 98 Oxygen-Last 24 hours O2 Percentage 2 Liters = 28% O2 Percentage 2 Liters = 28% O2 Percentage 2 Liters = 28% Pain Assessment - Last Documented Pain Intensity 0 Pain Scale Used 0-10 Pain Scale Intake and Output: Intake & Output 12/11/18 12/12/18 12/13/18 12/14/18 11:59 11:59 11:59 11:59 Intake Total 3902 762 1080 940 Output Total 9559 621 9836 1800 Balance 2402 55 -295 -860 Weight 71 kg Lab Results: Lab Results-Last 24 Hours 12/10/18 Range/Units 05:15 Guardian First Name Not Reportable Guardian Last Name Not Reportable Home Phone Not Reportable Multi-Disciplinary Progress Notes: Multi-Disciplinary Progress Notes 12/13/18 13:00 (created 12/13/18 13:53) Case Management Note by Clarisse Cade VISITED WITH PT AND REVIEWED DISCHARGE PLAN, INDEPENDENT WITH ALL ADL'S. DENIES NEEDS FOR DISCHARGE. PLANS TO RETURN HOME WITH ON DISCHARGE. INDEPENDENT WITH ALL ADL'S. REPORTS THAT HE STILL GETS "WINDED" WHEN WALKING TO BATHROOM. ALSO, REPORTS THAT HE IS HOPING HE WILL NOT NEED OXYGEN ON DISCHARGE. WILL CONTINUE TO FOLLOW FOR ALL DC NEEDS. Initialized on 12/13/18 13:53 - END OF NOTE Assessment/Plan (1) COPD with exacerbation Current Visit: Yes Status: Acute Assessment & Plan: continue IV solu medrol at 80mg IV q6 hrs. rocephin and zithromax, slowly improving. Code(s): J44.1 - CHRONIC OBSTRUCTIVE PULMONARY DISEASE W (ACUTE) EXACERBATION (2) Lactic acidosis Current Visit: Yes Status: Acute Code(s): E87.2 - ACIDOSIS (3) Diarrhea Current Visit: Yes Status: Resolved Qualifiers: Diarrhea type: unspecified type Qualified Code(s): R19.7 - Diarrhea, unspecified Code(s): R19.7 - DIARRHEA, UNSPECIFIED
[2018-12-14] MEDS: Mucinex 600MG ER Tabs PO SCH ×2 (10:14→21:12)
[2018-12-14] MEDS: Zestril 5 MG PO SCH (10:14)
[2018-12-14] MEDS: Lopressor 50 MG PO SCH ×2 (10:14→21:12)
[2018-12-14] MEDS: Ditropan XL 5 MG PO SCH (10:15)
[2018-12-14] MEDS: PLAVIX 75 MG Tablet PO SCH (10:15)
[2018-12-14] MEDS: NEURONTIN 300 MG PO SCH ×3 (10:15→21:13)
[2018-12-14] MEDS: Pepcid 20 MG PO SCH (10:15)
[2018-12-14] MEDS: Singulair 10 MG PO SCH (10:15)
[2018-12-14] MEDS: PROTONIX 40 MG IV IV SCH (10:15)
[2018-12-14] MEDS: ENOXAPARIN SODIUM SQ SCH (10:34)
[2018-12-14] MEDS: Abilify 10 MG PO SCH (21:13)
[2018-12-14] MEDS: Zanaflex 4 MG PO SCH (21:13)
[2018-12-14] MEDS: DESYREL 50 MG PO SCH (21:15)
[2018-12-14] MEDS: ROCEPHIN 1 Gm-D5w 50 ml Bag** 1 G/50 ML IVPB IV SCH (21:15)
[2018-12-15] MEDS: solu-MEDROL 125 MG IV SCH ×5 (00:01→23:34)
[2018-12-15] MEDS: DUONEB 0.5-3 MG/3 ml Neb IH SCH ×5 (03:11→18:23)
[2018-12-15] MEDS: Sodium Chloride 0.9% 10 ML FLUSH Syringe IV SCH ×3 (05:37→21:58)
[2018-12-15] MEDS: Zithromax 500 MG/ 250 ML NaCl Premix 500 MG/250 ML IVPB IV SCH (05:37)
[2018-12-15 05:49] LABS: Hematocrit 34.5 % (42-50); Hemoglobin 11.1 gm/dl (12.5-18.0); Mean Cell Volume 91.3 fl (78-100); Mean Corpuscular Hgb Concent. 32.2 g/dl (32-36); Mean Platelet Volume 9.5 fl (6-9.5); Platelet Count 205 K/mm3 (150-450); Red Blood Count 3.78 M/mm3 (4.1-5.6); Red Cell Distribution Width 13.1 % (11.5-14.0); White Blood Count 10.2 K/mm3 (4.0-10.5)
[2018-12-15 06:01] LABS: Mean Corpuscular Hemoglobin 29.3 pg (26-32)
[2018-12-15 06:09] LABS: ANION GAP 12.3 MEQ/L (5-15); BLOOD UREA NITROGEN 25 mg/dL (9-20); CHLORIDE 99 mmol/L (98-107); Calcium 8.8 mg/dL (8.4-10.2); Carbon Dioxide 30 mmol/L (22-30); Glucose 172 mg/dL (74-106); Potassium 3.9 mmol/L (3.5-5.1); SODIUM 137 mmol/L (137-145)
--- NOTE | 2018-12-15 07:06 | PCM.NOTE ---
Date and Time: 12/15/18703 Subjective Assessment: patient continues to have significant cough and wheezing with poor exercise tolerance due to shortness of breath. his saturations are stable on room air. has been on IV antibiotics and IV solu medrol since admission Objective Exam General Appearance: no apparent distress, alert Respiratory Exam: prolonged expirations, wheezing Cardiovascular Exam: regular rate/rhythm, normal heart sounds Gastrointestinal/Abdomen Exam: soft, No tenderness, No mass Extremity Exam: normal inspection, normal range of motion OBJECTIVE DATA Vital Signs: Vital Signs - 24 hr Temp Pulse Resp BP BP Pulse Ox 12/15/18 06:00 16 12/15/18 04:00 97.4 F 59 L 16 165/80 136/65 96 12/15/18 03:16 64 18 94 L 12/15/18 02:00 16 12/14/18 23:51 97.7 F 52 L 18 175/76 96 12/14/18 23:32 56 L 18 95 12/14/18 22:10 95 12/14/18 22:00 18 12/14/18 20:00 97.7 F 78 18 161/90 95 12/14/18 16:26 98 F 81 20 162/82 92 L 12/14/18 15:07 67 20 94 L 12/14/18 12:25 97.8 F 63 20 129/63 93 L 12/14/18 10:37 74 22 94 L 12/14/18 08:10 97.7 F 89 20 157/80 94 L Oxygen-Last 24 hours O2 Percentage 2 Liters = 28% Pain Assessment - Last Documented Pain Intensity 0 Pain Scale Used [facility] Intake and Output: Intake & Output 12/12/18 12/13/18 12/14/18 12/15/18 11:59 11:59 11:59 11:59 Intake Total 762 1080 1300 1180 Output Total 700 1375 2200 2400 Balance 62 -295 -900 -1220 Weight 71 kg Lab Results: Lab Results-Last 24 Hours 12/15/18 12/15/18 Range/Units 05:15 05:15 WBC 10.2 (4.0-10.5) K/mm3 RBC 3.78 L (4.1-5.6) M/mm3 Hgb 11.1 L (12.5-18.0) gm/dl Hct 34.5 L (42-50) % MCV 91.3 (78-100) fl MCH 29.3 (26-32) pg MCHC 32.2 (32-36) g/dl RDW 13.1 (11.5-14.0) % Plt Count 205 (150-450) K/mm3 MPV 9.5 (6-9.5) fl Sodium 137 (137-145) mmol/L Potassium 3.9 (3.5-5.1) mmol/L Chloride 99 (98-107) mmol/L Carbon Dioxide 30 (22-30) mmol/L Anion Gap 12.3 (5-15) MEQ/L BUN 25 H (9-20) mg/dL Creatinine 0.80 (0.66-1.25) mg/dL Estimated GFR > 60.0 ML/MIN Glucose 172 H (74-106) mg/dL Calcium 8.8 (8.4-10.2) mg/dL Assessment/Plan (1) COPD with exacerbation Current Visit: Yes Status: Acute Assessment & Plan: patient currently on solu medrol 80mg iv q6 hrs ,rocephin/zithromax since 12/09 still with wheezing and tightness in chest. slowly improving, will consult pulm to make sure no further recommendations. 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 Code(s): J44.1 - CHRONIC OBSTRUCTIVE PULMONARY DISEASE W (ACUTE) EXACERBATION (2) Lactic acidosis Current Visit: Yes Status: Acute Code(s): E87.2 - ACIDOSIS (3) Diarrhea Current Visit: Yes Status: Resolved Qualifiers: Diarrhea type: unspecified type Qualified Code(s): R19.7 - Diarrhea, unspecified Assessment & Plan: resolved Code(s): R19.7 - DIARRHEA, UNSPECIFIED
[2018-12-15] MEDS: Advair Hfa 115/21 Common canister IH SCH ×2 (07:15→18:23)
[2018-12-15 07:56] LABS: BAND 1 % (0.0-2.0); Lymphocytes 5 % (24-44); Monocyte 3 % (0.0-12.0); Neutrophils 91 % (36.-66.); Platelet Estimate NORMAL (NORMAL); Polychromasia 1+; Total Cells Counted 100; Toxic Granulation 1+
[2018-12-15] MEDS: PERCOCET TABLET 5/325MG PO SCH ×4 (08:15→21:57)
[2018-12-15] MEDS: ENOXAPARIN SODIUM SQ SCH (09:13)
[2018-12-15] MEDS: PROTONIX 40 MG IV IV SCH (09:15)
[2018-12-15] MEDS: Pepcid 20 MG PO SCH (09:17)
[2018-12-15] MEDS: Zestril 5 MG PO SCH (09:18)
[2018-12-15] MEDS: Ditropan XL 5 MG PO SCH (09:18)
[2018-12-15] MEDS: PLAVIX 75 MG Tablet PO SCH (09:19)
[2018-12-15] MEDS: NEURONTIN 300 MG PO SCH ×3 (09:20→21:58)
[2018-12-15] MEDS: Singulair 10 MG PO SCH (09:20)
[2018-12-15] MEDS: Mucinex 600MG ER Tabs PO SCH ×2 (09:20→21:58)
[2018-12-15] MEDS: Lopressor 50 MG PO SCH ×2 (09:20→21:58)
--- NOTE | 2018-12-15 13:03 | CONS ---
CONSULT DATE: 12/15/2018 HISTORY: Junior Bustamante is a 72 year-old male with history of chronic obstructive pulmonary disease, who has been hospitalized with complaints of cough, shortness of breath along with diarrhea. The patient reports that he was diagnosed with influenza followed by an episode of pneumonia. His sputum culture since admission has been growing Escherichia coli/contamination? The patient is currently being treated with antibiotics and does report Improvement in shortness of breath. He continues to have some mucous difficulty in expectoration. However reports feeling significantly better since being in the hospital. X-ray on 12/11/2018 showed patchy infiltrates in right lung base. The patient is also noted to have a lung nodule that is noncalcified on CT scan. He is not aware of nodule being present in the past. The patient reports being diagnosed with chronic obstructive pulmonary disease. He quit smoking in 1999. His effort tolerance has been significantly reduced. He uses Albuterol inhaler along with Breo inhaler at home although Breo is not listed in his emergency room medication list. PAST MEDICAL HISTORY: Positive for coronary artery disease having undergone open heart surgery in 2004. He is followed by Dr. Daniel. History of hypertension, hyperlipidemia, some dizziness and insomnia. PAST SURGICAL HISTORY: As above. He had orthopedic surgery, back surgery. PERSONAL AND SOCIAL HISTORY: He quit smoking in 2004. 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 MEDICATIONS: Home and current medications are reviewed. ALLERGIES: NKDA. PHYSICAL EXAMINATION: This is an elderly male who appears fairly comfortable. The patient is able to speak without any obvious discomfort. Vital signs noted. HEENT: Normocephalic. Oral exam unremarkable. NECK: Supple. CVS: First and second heart sounds are normal, regular, rhythmic. CHEST: Sternotomy scar is seen. Breath sounds are diminished. Crackles are heard at lung bases. ABDOMEN: Soft. EXTREMITIES: No significant edema is noted. LABORATORY DATA AND TESTS: White blood cell count 10.2, hemoglobin 11.1, hematocrit 34, PLT 205,000. Sodium 137, potassium 3.9, chloride 99, bicarb 30, glucose 172, BUN 25, creatinine 0.8. Blood cultures remained negative. Sputum culture grew Escherichia coli lutz-sensitive strain, question likely contaminant. Chest x-ray and CT chest were reviewed as well. ASSESSMENT: This is a 72 year old male with significant history of cardiopulmonary problems admitted with: 1) Community acquired pneumonia after suffering from apparent influenza infection. 2) Chronic obstructive pulmonary disease with exacerbation. 3) Mild hypoxemia. 4) Lung nodule on CT scan 1.1 cm left lower lobe noncalcified, will require PET scan. 5) History of coronary artery bypass graft, hypertension and hyperlipidemia. RECOMMENDATIONS: The patient is gradually improving. Advised to complete antibiotic therapy. Will repeat chest x-ray after completion of antibiotics for complete resolution of infiltrates. He may benefit from flutter valve. Continue bronchodilators. Resume Albuterol and Breo upon discharge. Patient will have to be evaluated for home O2 upon discharge as well. I have discussed with the patient the CT findings. He needs a PET scan which will be arranged as outpatient along with PFT. Advised to follow up with me in about two weeks upon discharge. I will see the patient on 12/29/2018 at 1400 hours at [place] office. He is to call earlier if needed. Thank you for allowing me to participate in the care of Junior Bustamante.
[2018-12-15] MEDS: Abilify 10 MG PO SCH (21:57)
[2018-12-15] MEDS: ROCEPHIN 1 Gm-D5w 50 ml Bag** 1 G/50 ML IVPB IV SCH (21:58)
[2018-12-15] MEDS: Zanaflex 4 MG PO SCH (21:58)
[2018-12-15] MEDS: DESYREL 50 MG PO SCH (22:01)
[2018-12-16] MEDS: Sodium Chloride 0.9% 10 ML FLUSH Syringe IV SCH ×2 (05:17→16:01)
[2018-12-16] MEDS: Zithromax 500 MG/ 250 ML NaCl Premix 500 MG/250 ML IVPB IV SCH (05:17)
[2018-12-16] MEDS: Advair Hfa 115/21 Common canister IH SCH (06:25)
[2018-12-16] MEDS: DUONEB 0.5-3 MG/3 ml Neb IH SCH ×3 (06:25→14:11)
[2018-12-16] MEDS ORDERED: solu-MEDROL 125 MG IV SCH (07:45)
[2018-12-16] MEDS: PERCOCET TABLET 5/325MG PO SCH ×2 (07:46→12:14)
[2018-12-16 07:48] LABS: Hematocrit 36.5 % (42-50); Hemoglobin 11.7 gm/dl (12.5-18.0); Mean Cell Volume 91.9 fl (78-100); Mean Corpuscular Hgb Concent. 32.1 g/dl (32-36); Mean Platelet Volume 9.7 fl (6-9.5); Platelet Count 224 K/mm3 (150-450); Red Blood Count 3.97 M/mm3 (4.1-5.6); Red Cell Distribution Width 13.1 % (11.5-14.0); White Blood Count 12.4 K/mm3 (4.0-10.5)
[2018-12-16 07:50] LABS: Mean Corpuscular Hemoglobin 29.4 pg (26-32)
[2018-12-16 07:52] LABS: ANION GAP 15.8 MEQ/L (5-15); BLOOD UREA NITROGEN 25 mg/dL (9-20); CHLORIDE 101 mmol/L (98-107); Carbon Dioxide 29 mmol/L (22-30); Creatinine 1 0.74 mg/dL (0.66-1.25); Glucose 152 mg/dL (74-106); Potassium 3.9 mmol/L (3.5-5.1); SODIUM 141 mmol/L (137-145)
[2018-12-16] MEDS: solu-MEDROL 40 MG IV SCH ×2 (08:33→14:00)
[2018-12-16 08:44] LABS: BAND 9 % (0.0-2.0); Lymphocytes 4 % (24-44); Monocyte 5 % (0.0-12.0); Neutrophils 82 % (36.-66.); Platelet Estimate NORMAL (NORMAL); Polychromasia RARE; Total Cells Counted 100
[2018-12-16 08:50] LABS: Granulocyte Absolute (ANC) 11.27 (1.4-6.9)
[2018-12-16] MEDS ORDERED: CHLORASEPTIC SPRAY 180 ML PO PRN (08:54)
--- NOTE | 2018-12-16 09:05 | PCM.NOTE ---
Date and Time: 12/16/18 0900 Subjective Assessment: Pt is feeling better. Dr. Stack consulted yesterday, thank you. He is complaining of sore throat today. - Review of Systems Constitutional: No Fever Ears, Nose, & Throat: Throat Pain Respiratory: Cough, Short Of Breath Objective Exam General Appearance: no apparent distress, alert Neurologic Exam: oriented x 3, cooperative Skin Exam: normal color, warm, dry, No rash Eye Exam: eyes nml inspection Ears, Nose, Throat Exam: moist mucous membranes, No pharyngeal erythema, No tonsillar exudate Neck Exam: normal inspection, supple Respiratory Exam: diminished breath sounds (tight; fair air exchange), wheezing (scattered expiratory), No crackles/rales, No rhonchi Cardiovascular Exam: regular rate/rhythm, normal heart sounds, No murmur Extremity Exam: normal inspection, No pedal edema, No swelling Back Exam: normal inspection, No rash OBJECTIVE DATA Vital Signs: Vital Signs - 24 hr Temp Pulse Resp BP Pulse Ox 12/16/18 08:11 60 20 95 12/16/18 07:37 97.5 F 57 L 20 153/68 93 L 12/16/18 06:00 20 12/16/18 02:00 18 12/15/18 23:50 97.5 F 80 18 162/74 95 12/15/18 22:00 18 12/15/18 20:00 98.0 F 86 17 156/79 94 L 12/15/18 18:24 77 18 95 12/15/18 18:00 18 12/15/18 16:00 98.1 F 79 18 176/81 94 L 12/15/18 15:47 86 18 97 12/15/18 14:00 18 12/15/18 12:00 97.7 F 88 17 154/71 96 12/15/18 10:19 85 20 96 12/15/18 10:00 20 Pain Assessment - Last Documented Pain Intensity 5 Pain Scale Used 0-10 Pain Scale Intake and Output: Intake & Output 12/13/18 12/14/18 12/15/18 12/16/18 11:59 11:59 11:59 11:59 Intake Total 1080 1300 1600 1020 Output Total 1375 2200 2400 1225 Balance -295 -900 -800 -205 Weight 71 kg Lab Results: Lab Results-Last 24 Hours 12/16/18 12/16/18 Range/Units 04:00 06:15 WBC 12.4 H (4.0-10.5) K/mm3 RBC 3.97 L (4.1-5.6) M/mm3 Hgb 11.7 L (12.5-18.0) gm/dl Hct 36.5 L (42-50) % MCV 91.9 (78-100) fl MCH 29.4 (26-32) pg MCHC 32.1 (32-36) g/dl RDW 13.1 (11.5-14.0) % Plt Count 224 (150-450) K/mm3 MPV 9.7 H (6-9.5) fl Absolute Granulocytes 11.27 H (1.4-6.9) Segmented Neutrophils 82 H (36.-66.) % Band Neutrophils 9 H (0.0-2.0) % Lymphocytes (Manual) 4 L (24-44) % Monocytes (Manual) 5 (0.0-12.0) % Platelet Estimate NORMAL (NORMAL) RBC Morphology ABNORMAL Polychromasia RARE Sodium 141 (137-145) mmol/L Potassium 3.9 (3.5-5.1) mmol/L Chloride 101 (98-107) mmol/L Carbon Dioxide 29 (22-30) mmol/L Anion Gap 15.8 H (5-15) MEQ/L BUN 25 H (9-20) mg/dL Creatinine 0.74 (0.66-1.25) mg/dL Estimated GFR > 60.0 ML/MIN Glucose 152 H (74-106) mg/dL Calcium 9.0 (8.4-10.2) mg/dL Assessment/Plan (1) COPD with exacerbation Current Visit: Yes Status: Acute Assessment & Plan: On day #8 rocephin. Have stopped the zithromax. Decreasing solumedrol IV from 80mg q6h to 40mg q6h. If he continues to improve may be able to d/c home in 1-2 days. On discharge, he is to f/u in [address] Stack and continue his home inhalers per pulmonology note. Code(s): J44.1 - CHRONIC OBSTRUCTIVE PULMONARY DISEASE W (ACUTE) EXACERBATION (2) Pharyngitis Current Visit: Yes Status: Acute Qualifiers: Pharyngitis/tonsillitis etiology: unspecified etiology Qualified Code(s): J02.9 - Acute pharyngitis, unspecified Assessment & Plan: benign exam. chloraseptic spray prn. Code(s): J02.9 - ACUTE PHARYNGITIS, UNSPECIFIED (3) Black lung disease Current Visit: Yes Status: Chronic Code(s): J60 - COALWORKER'S PNEUMOCONIOSIS (4) AAA (abdominal aortic aneurysm) Current Visit: Yes Status: Chronic Qualifiers: Presence of rupture: without rupture Qualified Code(s): I71.4 - Abdominal aortic aneurysm, without rupture Code(s): I71.4 - ABDOMINAL AORTIC ANEURYSM, WITHOUT RUPTURE (5) Anxiety Current Visit: Yes Status: Chronic Code(s): F41.9 - ANXIETY DISORDER, UNSPECIFIED (6) Osteoarthritis Current Visit: Yes Status: Chronic Qualifiers: Osteoarthritis location: unspecified site Osteoarthritis type: unspecified Qualified Code(s): M19.90 - Unspecified osteoarthritis, unspecified site Code(s): M19.90 - UNSPECIFIED OSTEOARTHRITIS, UNSPECIFIED SITE (7) GERD (gastroesophageal reflux disease) Current Visit: Yes Status: Chronic Qualifiers: Esophagitis presence: without esophagitis Qualified Code(s): K21.9 - Gastro -esophageal reflux disease without esophagitis Code(s): K21.9 - GASTRO-ESOPHAGEAL REFLUX DISEASE WITHOUT ESOPHAGITIS (8) Post laminectomy syndrome Current Visit: Yes Status: Chronic Code(s): M96.1 - POSTLAMINECTOMY SYNDROME , NOT ELSEWHERE CLASSIFIED (9) CAD (coronary artery disease) Current Visit: Yes Status: Chronic Qualifiers: Coronary Disease-Associated Artery/Lesion type: bypass graft [place] vs. transplanted heart: [place] heart Associated angina: without angina Qualified Code(s): I25.810 - Atherosclerosis of coronary artery bypass graft(s) without angina pectoris Code(s): I25.10 - ATHSCL HEART DISEASE OF [place] CORONARY ARTERY W/O ANG PCTRS
[2018-12-16] MEDS: Ditropan XL 5 MG PO SCH (09:31)
[2018-12-16] MEDS: Lopressor 50 MG PO SCH (09:32)
[2018-12-16] MEDS: Mucinex 600MG ER Tabs PO SCH (09:32)
[2018-12-16] MEDS: Pepcid 20 MG PO SCH (09:33)
[2018-12-16] MEDS: NEURONTIN 300 MG PO SCH ×2 (09:33→16:00)
[2018-12-16] MEDS: Singulair 10 MG PO SCH (09:34)
[2018-12-16] MEDS: Zestril 5 MG PO SCH (09:34)
[2018-12-16] MEDS: PLAVIX 75 MG Tablet PO SCH (09:34)
[2018-12-16] MEDS: ENOXAPARIN SODIUM SQ SCH (09:39)
[2018-12-16] MEDS: PROTONIX 40 MG IV IV SCH (10:27)
[2018-12-16 14:15] VITALS: O2SAT 94
[2018-12-16 15:47] VITALS: BP 152/67; PULSE 75
--- NOTE | 2018-12-16 16:42 | PCM.DS ---
Discharge Summary Date of Admission: 12/09/18 06:55 Admitting Physician: JHON LAGUERRE Consults: Consults on Case 12/15/18 07:06 Consult Pulmonology ROUTINE Primary Care Provider: JEANNE ESTEVEZ Allergies Allergies No Known Drug Allergies Allergy (Verified 12/09/18 03:46) Hospital Summary - Hospital Course Hospital Course: Pt is a 73 yo male pt of Dr. Laguerre who was admitted through ER with several days of weakness and diarrhea; his lactate was 7.8 initially but decreased with IV fluids to 3.4. He was found to have COPD exacerbation/pneumonia wiht CXR on 12/09 and 12/10 showing patchy R airspace dz. He was started on IV Rocephin and zithromax; completed 7d of zithromax and 8d of rocephin. He has been on IV solumedrol. He was quite wheezy and weak for several days. He stopped using oxygen yesterday. Dr. Stack was consulted yesterday as the pt was stil;l tight and wheezy. Dr. Stack agreed with the plan of care; did have some instructions for him to follow up 2 weeks after discharge and to go home on his inhalers. Pt will be discharged to home on po cefdinir to finish 14 of antibiotics. He is breathing easier. c/o some sore throat and was given chloraseptic spray. - Vitals & Intake/Output Vital Signs: Vital Signs Temperature 97.9 F 12/16/18 15:46 Pulse Rate 75 12/16/18 15:46 Respiratory Rate 20 12/16/18 15:46 Blood Pressure 152/67 12/16/18 15:46 O2 Sat by Pulse Oximetry 94 L 12/16/18 15:46 Oxygen-Last Documented O2 Percentage 2 Liters = 28% Intake & Output: Intake & Output 12/14/18 12/15/18 12/16/18 12/17/18 11:59 11:59 11:59 11:59 Intake Total 1300 1600 1020 Output Total 2200 2400 1225 Balance -900 -800 -205 - Lab Result Diagrams: 12/16/18 04:00 12/16/18 06:15 Lab Results-Last 24 Hrs: Lab Results-Last 24 Hours 12/16/18 12/16/18 Range/Units 04:00 06:15 WBC 12.4 H (4.0-10.5) K/mm3 RBC 3.97 L (4.1-5.6) M/mm3 Hgb 11.7 L (12.5-18.0) gm/dl Hct 36.5 L (42-50) % MCV 91.9 (78-100) fl MCH 29.4 (26-32) pg MCHC 32.1 (32-36) g/dl RDW 13.1 (11.5-14.0) % Plt Count 224 (150-450) K/mm3 MPV 9.7 H (6-9.5) fl Absolute Granulocytes 11.27 H (1.4-6.9) Segmented Neutrophils 82 H (36.-66.) % Band Neutrophils 9 H (0.0-2.0) % Lymphocytes (Manual) 4 L (24-44) % Monocytes (Manual) 5 (0.0-12.0) % Platelet Estimate NORMAL (NORMAL) RBC Morphology ABNORMAL Polychromasia RARE Sodium 141 (137-145) mmol/L Potassium 3.9 (3.5-5.1) mmol/L Chloride 101 (98-107) mmol/L Carbon Dioxide 29 (22-30) mmol/L Anion Gap 15.8 H (5-15) MEQ/L BUN 25 H (9-20) mg/dL Creatinine 0.74 (0.66-1.25) mg/dL Estimated GFR > 60.0 ML/MIN Glucose 152 H (74-106) mg/dL Calcium 9.0 (8.4-10.2) mg/dL Micro Results-Entire Visit: Microbiology 12/09/18 04:57 Blood Culture Gram Stain - Final Blood Not Reportable Blood Culture - Final NO GROWTH 12/09/18 05:35 Gram Stain - Final Sputum - Expectorant Sputum Culture - Final Escherichia Coli - Procedures and Test Procedures and Tests throughout Hospitalization: Therapy Orders & Screens 12/09/18 03:49 Respiratory Nebulizer STAT Comment: Diagnosis: Shortness of Breath 12/09/18 04:26 Peak Expiratory Flow Rate ONCE Comment: Reason For Exam: Diagnosis: Shortness of Breath Respiratory Therapy Assessment DAILY Comment: Diagnosis: Shortness of Breath 12/09/18 05:38 Respiratory Therapy Consult ROUTINE Comment: Reason For Exam: Diagnosis: Shortness of Breath 12/09/18 08:03 Oxygen NASAL CANNULA 2 lpm Comment: Diagnosis: Shortness of Breath 12/09/18 09:20 OT Screen per Nursing Assess Comment: Protocol Order Physician Instructions: Greater than 3 points order OT Admission Screening Reason For Exam: Triggered on Admission Diagnosis: Shortness of Breath Open Wound/Cellutlitis/Pressure Ulcers: No Acute Fx/ORIF/Change in wt bearing status: No Severe MUSCULOSKELETAL pain: Yes ADL Dysfunction: Yes Acute CVA w/Hemiparesis/Hemiplegia: No Decreased Functional Mobility/Strength: Yes Sprain/Strain: No Acute Post-op Mobility Dysfunction: No Total Points: 9 PT Screen per Nursing Assess ONCE Comment: Protocol Order Physician Instructions: Greater than 3 points order PT Admission Screenin Reason For Exam: Triggered on Admission Diagnosis: Shortness of Breath Open Wound/Cellutlitis/Pressure Ulcers: No Acute Fx/ORIF/Change in wt bearing status: No Severe MUSCULOSKELETAL pain: Yes ADL Dysfunction: Yes Acute CVA w/Hemiparesis/Hemiplegia: No Decreased Functional Mobility/Strength: Yes Sprain/Strain: No Acute Post-op Mobility Dysfunction: No Total Points: 9 RT Screen per Nursing Assess ONCE Comment: Protocol Order Physician Instructions: Greater than 3 points order RT Admission Screen Reason For Exam: Triggered on Admission Diagnosis: Shortness of Breath Diagnosis: Shortness of Breath Pneumonia: Yes Home O2: No Asthma: Yes CHF: No Home CPAP/BIPAP: No Home Nebs/MDI: Yes Total Points: 12 12/11/18 12:03 EKG ROUTINE Comment: Diagnosis: arrhythmia 12/15/18 12:34 FLUTTER [Flutter Therapy] UD Comment: qid while awake Diagnosis: arrhythmia Discharge Exam General Appearance: no apparent distress, alert, other (exam done this morning) Neurologic Exam: oriented x 3, cooperative Skin Exam: normal color, warm, dry, No rash Ears, Nose, Throat Exam: moist mucous membranes, No pharyngeal erythema, No tonsillar exudate Respiratory Exam: lungs clear, diminished breath sounds (fair air exchange; not on O2), wheezing (scattered wheezes), No crackles/rales, No rhonchi Cardiovascular Exam: regular rate/rhythm, normal heart sounds, No murmur Final Diagnosis/Problem List - Final Discharge Diagnosis/Problem (1) COPD with exacerbation Current Visit: Yes Status: Acute Assessment & Plan: Finish 14d antibiotic at home. Prednisone po. f/u with Dr. Stack in 2 weeks. F/u with PCP in 1 week (Dr. Laguerre 1 week from Wednesday) Code(s): J44.1 - CHRONIC OBSTRUCTIVE PULMONARY DISEASE W (ACUTE) EXACERBATION (2) Pharyngitis Current Visit: Yes Status: Acute Assessment & Plan: exam benign. Code(s): J02.9 - ACUTE PHARYNGITIS, UNSPECIFIED (3) Black lung disease Current Visit: Yes Status: Chronic Code(s): J60 - COALWORKER'S PNEUMOCONIOSIS (4) AAA (abdominal aortic aneurysm) Current Visit: Yes Status: Chronic Code(s): I71.4 - ABDOMINAL AORTIC ANEURYSM, WITHOUT RUPTURE (5) Anxiety Current Visit: Yes Status: Chronic Code(s): F41.9 - ANXIETY DISORDER, UNSPECIFIED (6) Osteoarthritis Current Visit: Yes Status: Chronic Code(s): M19.90 - UNSPECIFIED OSTEOARTHRITIS, UNSPECIFIED SITE (7) GERD (gastroesophageal reflux disease) Current Visit: Yes Status: Chronic Code(s): K21.9 - GASTRO-ESOPHAGEAL REFLUX DISEASE WITHOUT ESOPHAGITIS (8) Post laminectomy syndrome Current Visit: Yes Status: Chronic Code(s): M96.1 - POSTLAMINECTOMY SYNDROME , NOT ELSEWHERE CLASSIFIED (9) CAD (coronary artery disease) Current Visit: Yes Status: Chronic Code(s): I25.10 - ATHSCL HEART DISEASE OF [place] CORONARY ARTERY W/O ANG PCTRS - Discharge Disposition: Home, Self-Care Condition: Good Prescriptions: New Acetaminophen 325 mg PO Q6H PRN #30 tablet PRN Reason: Pain Cefdinir 300 mg PO BID #12 capsule Phenol/Sodium Phenolate [Chloraseptic [place] 180 ml] 1 ml PO Q6H PRN PRN bottle PRN Reason: pharyngitis Prednisone 20 mg [Deltasone 20 mg] 20 mg PO DAILY #17 tablet Continue Lisinopril [Zestril] 2.5 mg PO DAILY Tolterodine Tartrate [Detrol LA] 4 mg PO DAILY Clopidogrel Bisulfate 75 mg [PLAVIX 75 MG Tablet] 75 mg PO DAILY Metoprolol Tartrate 50 mg [Lopressor 50 MG] 50 mg PO BID Albuterol 8 gm Mdi Hfa [Ventolin Hfa MDI] 18 gm IH Q4-6HPRN PRN PRN Reason: breathing Nitroglycerin 0.4 mg Tablet [Nitrostat 0.4 MG Tablet] 0.4 mg SL Q5MIN PRN MR X 3 PRN PRN Reason: Chest Pain Oxycodone HCl/Acetaminophen [Percocet 7.5-325 mg Tablet] 1 each PO QID Ranitidine HCl [Zantac] 300 mg PO DAILY Montelukast Sodium 10 mg PO DAILY Tizanidine HCl 2 mg PO TID Simvastatin 20 mg PO EVENING MEAL Gabapentin 300 mg PO TID Fluticasone/Vilanterol [Breo Ellipta 200-25 Mcg INH] 1 puff IH DAILY ARIPiprazole [Aripiprazole] 5 mg PO DAILY Trazodone HCl 100 mg PO HS Levocetirizine Dihydrochloride [Xyzal] 5 mg PO DAILY Aspirin EC 81 mg [Ecotrin 81 mg] 81 mg PO DAILY Multivitamins,Therapeutic Tab* [Theragran Multivitamin] 1 tab PO DAILY Vitamin B Comp W-C [[place]-Bee with C] 1 tab PO DAILY Magnesium Oxide [Magnesium] 250 mg PO DAILY Follow up with: NANETTE STACK [ACTIVE STAFF] - 12/29/18 2:00 pm JHON LAGUERRE MD [ACTIVE STAFF] - 1 Week
== END 2018-12-16 17:10 | disposition home or self-care (01) | DRG 190 ==
LOC: ED 03:34 → ICU 06:55 → MED SURG 12-10 10:50
PROVIDERS: ADMIT Family Medicine; ATTEND Family Medicine
DX: A41.9 Sepsis, unspecified organism (principal); R11.2 Nausea with vomiting, unspecified; R06.02 Shortness of breath; J44.1 Chronic obstructive pulmonary disease with (acute) exacerbation; J18.9 Pneumonia, unspecified organism; E87.2 Acidosis; J60 Coalworker's pneumoconiosis; J44.9 Chronic obstructive pulmonary disease, unspecified; R06.2 Wheezing; J02.9 Acute pharyngitis, unspecified; I71.4 Abdominal aortic aneurysm, without rupture; I25.2 Old myocardial infarction; F41.9 Anxiety disorder, unspecified; M19.90 Unspecified osteoarthritis, unspecified site; K21.9 Gastro-esophageal reflux disease without esophagitis; M96.1 Postlaminectomy syndrome, not elsewhere classified; I25.10 Atherosclerotic heart disease of native coronary artery without angina pectoris; Z79.01 Long term (current) use of anticoagulants; Z79.899 Other long term (current) drug therapy; R19.7 Diarrhea, unspecified; R53.1 Weakness; Z95.1 Presence of aortocoronary bypass graft; I95.9 Hypotension, unspecified; I49.9 Cardiac arrhythmia, unspecified; I10 Essential (primary) hypertension; E78.5 Hyperlipidemia, unspecified; R42 Dizziness and giddiness; R09.02 Hypoxemia; R91.1 Solitary pulmonary nodule
CPT/HCPCS: 36000; 36415; 36600; 71045; 71046; 71260; 80048; 80053; 81001; 82175; 82300; 82375; 82803; 83605; 83655; 83825; 83880; 84484; 85025; 87040; 87070; 87077; 87186; 87631; 87651; 93005; 93041; 94150; 94640; 94667; 94668; 94760; 96360; 96365; 96367; 96374; 96375; 99285; J0456; J0696; J1650; J1940; J2405; J2543; J2920; J2930; A9270-GY

== ENCOUNTER 2020-05-22 08:26 | Emergency (ER) | payer MEDICARE, OTHER ==
--- NOTE | 2020-05-22 08:34 | ERPHSYRPT ---
- History of Present Illness Time Seen by Provider: 05/22/20 08:34 Source: patient Exam Limitations: no limitations Patient Subjective Stated Complaint: pt here for low b/p at home today,he was feeling off today and a little weak, when he took hes b/p it was in the 65/45 Triage Nursing Assessment: pt alert, resp easy, face mask in place, no cough,, pt able to get from wc to bed, no edema noted Physician History: This is a 74-year-old white male who has a history of coronary artery disease and coronary artery bypass graft as well as several cardiac stents in the past. His sidehand is Dr. Rebollar. Patient was feeling fine until this morning when he was feeling weak and took his blood pressure and his systolic blood pressure at home was 65. Patient took all his morning medications. Patient denies chest pain and he denies shortness of breath. Patient denies abdominal pain. He does not have a headache. He has had no fevers he has no cough. Patient denies any acute or chronic blood loss that he is aware of. Patient is on Plavix. Patient has a history of diabetes, coronary disease, COPD, hypertension, gastroesophageal reflux disease and osteoarthritis. His current medication list includes metoprolol which he did not take this morning. He also took his gabapentin this morning Timing/Duration: today Severity: moderate Associated Symptoms: weakness, No nausea, No vomiting, No abdominal pain, No shortness of breath, No cough, No chest pain, No fever Allergies/Adverse Reactions: No Known Drug Allergies Allergy (Verified 05/22/20 08:27) Home Medications: Clopidogrel Bisulfate 75 mg [PLAVIX 75 MG Tablet] 75 mg PO DAILY 02/15/13 [History] Metoprolol Tartrate 50 mg [Lopressor 50 MG] 50 mg PO BID 02/15/13 [History] Tolterodine Tartrate [Detrol LA] 4 mg PO DAILY 02/15/13 [History] Albuterol 8 gm Mdi Hfa [Ventolin Hfa MDI] 18 gm IH Q4-6HPRN PRN 12/23/16 [History] Oxycodone HCl/Acetaminophen [Percocet 7.5-325 mg Tablet] 1 each PO QID 06/08/17 [History] ARIPiprazole [Aripiprazole] 5 mg PO DAILY 12/09/18 [History] Fluticasone/Vilanterol [Breo Ellipta 200-25 Mcg INH] 1 puff IH DAILY 12/09/18 [History] Gabapentin 300 mg PO TID 12/09/18 [History] Levocetirizine Dihydrochloride [Xyzal] 5 mg PO DAILY 12/09/18 [History] Montelukast Sodium 10 mg PO DAILY 12/09/18 [History] Simvastatin 20 mg PO EVENING MEAL 12/09/18 [History] Tizanidine HCl 2 mg PO TID 12/09/18 [History] Trazodone HCl 100 mg PO HS 12/09/18 [History] Aspirin EC 81 mg [Ecotrin 81 mg] 81 mg PO DAILY 12/11/18 [History] Multivitamins,Therapeutic Tab* [Theragran Multivitamin] 1 tab PO DAILY 12/11/18 [History] Vitamin B Comp W-C [Amalia-Bee with C] 1 tab PO DAILY 12/11/18 [History] Fenofibrate 1 ea DAILY 05/22/20 [History] Metformin HCl 500 mg [Glucophage 500 MG] 1 ea DAILY 05/22/20 [History] Hx Tetanus, Diphtheria Vaccination/Date Given: Yes Hx Influenza Vaccination/Date Given: Yes Hx Pneumococcal Vaccination/Date Given: Yes Immunizations Up to Date: Yes Travel Risk - International Travel Have you traveled outside of the country in past 3 weeks: No - Coronavirus Screening Are you exhibiting any of the following symptoms?: No Close contact with a COVID-19 positive Pt in past 14-21 Days: No - Review of Systems Constitutional: Weakness Eyes: No Symptoms Ears, Nose, & Throat: No Symptoms Respiratory: No Symptoms Cardiac: No Symptoms Abdominal/Gastrointestinal: No Symptoms Genitourinary Symptoms: No Symptoms Musculoskeletal: No Symptoms Skin: No Symptoms Neurological: No Symptoms Psychological: No Symptoms Endocrine: No Symptoms Hematologic/Lymphatic: No Symptoms Immunological/Allergic: No Symptoms All Other Systems: Reviewed and Negative - Past Medical History Pertinent Past Medical History: Yes Neurological History: No Pertinent History ENT History: No Pertinent History Cardiac History: Coronary Artery Disease, Hypertension, Myocardial Infarction (AR) Respiratory History: Asthma, COPD, Pneumonia Endocrine Medical History: No Pertinent History Musculoskeletal History: Degenerative Disk Disease GI Medical History: No Pertinent History History: No Pertinent History Psycho-Social History: Anxiety Male Reproductive Disorders: No Pertinent History Other Medical History: STENTS 2000. CARDIAC OPEN HEART SURGERY IN 2007. December HAD STENTS PLACED - Past Surgical History Past Surgical History: Yes Neuro Surgical History: No Pertinent History Cardiac: CABG, Cardiac Stent Respiratory: No Pertinent History Gastrointestinal: No Pertinent History Genitourinary: No Pertinent History Musculoskeletal: Orthopedic Surgery Male Surgical History: No Pertinent History Other Surgical History: OPEN HEART SURGERY IN 2007. ELBOW, KNEE, BACK SURGERY. - Social History Smoking Status: Former smoker Exposure to second hand smoke: No Alcohol Use: Socially Drug Use: none Patient Lives Alone: No Significant Family History: heart disease - Nursing Vital Signs Nursing Vital Signs: Initial Vital Signs Temperature 97.2 F 05/22/20 08:29 Pulse Rate 58 L 05/22/20 08:29 Respiratory Rate 16 05/22/20 08:29 Blood Pressure 88/47 05/22/20 08:29 O2 Sat by Pulse Oximetry 97 05/22/20 08:29 Pain Scale Pain Intensity 0 - Physical Exam General Appearance: mild distress, alert, anxiety, thin Eye Exam: PERRL/EOMI Ears, Nose, Throat Exam: normal ENT inspection, moist mucous membranes Neck Exam: normal inspection, non-tender, supple, full range of motion Respiratory Exam: normal breath sounds, lungs clear, airway intact, No chest tenderness, No respiratory distress Cardiovascular Exam: regular rate/rhythm, normal heart sounds, normal peripheral pulses Gastrointestinal/Abdomen Exam: soft, normal bowel sounds, No tenderness Rectal Exam: not done Back Exam: normal inspection, normal range of motion, No CVA tenderness Extremity Exam: normal inspection, normal range of motion, pelvis stable Neurologic Exam: alert, oriented x 3, cooperative, 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, normal mood/affect, nml cerebellar function, nml station & gait Skin Exam: pale Lymphatic Exam: No adenopathy SpO2 Interpretation: normal SpO2: 97 O2 Delivery: Room Air - Course Nursing assessment & vital signs reviewed: Yes EKG Interpreted by Me: RATE (52), Sinus Nando, NORMAL AXIS, NORMAL INTERVALS, NORMAL QRS, Non-specific ST Changes Ordered Tests: Active Orders 24 hr Category Date Time Status [place] STAT Care 05/22/20 08:49 Active EKG-ER Only STAT Care 05/22/20 08:47 Active IV Insertion STAT Care 05/22/20 08:47 Active CHEST 1 VIEW (PORTABLE) Stat Exams 05/22/20 08:48 Completed CBC W DIFF Stat Lab 05/22/20 08:47 Completed CMP Stat Lab 05/22/20 08:47 Completed MAGNESIUM Stat Lab 05/22/20 08:47 Completed NT PRO BNP Stat Lab 05/22/20 08:47 Completed TROPONIN Q3H Lab 05/22/20 09:00 Completed TROPONIN Q3H Lab 05/22/20 12:02 Completed TROPONIN Q3H Lab 05/22/20 15:00 Ordered TROPONIN Q3H Lab 05/22/20 18:00 Ordered TROPONIN Q3H Lab 05/22/20 21:00 Ordered UA W/RFX UR CULTURE Stat Lab 05/22/20 12:15 Completed Medication Summary Generic Name Dose Route Start Last Admin Trade Name Freq PRN Reason Stop Dose Admin Sodium Chloride 1,000 mls @ 100 mls/hr 05/22/20 09:00 05/22/20 10:31 Sodium Chloride 0.9% 1000 Ml IV 06/21/20 08:59 100 mls/hr .Q10H MATHEW Administration Discontinued Medications Generic Name Dose Route Start Last Admin Trade Name Freq PRN Reason Stop Dose Admin Sodium Chloride 500 mls @ 500 mls/hr 05/22/20 08:49 05/22/20 09:25 Sodium Chloride 0.9% 500 Ml IV 05/22/20 09:48 500 mls/hr .Q1H ONE Administration Sodium Chloride Confirm 05/22/20 09:25 Sodium Chloride 0.9% 500 Ml Administered 05/22/20 09:26 Dose 500 mls @ ud IV .STK-MED ONE Lab/Rad Data: Laboratory Result Diagrams 05/22/20 08:47 05/22/20 08:47 Laboratory Results 05/22/20 05/22/20 05/22/20 Range/Units 12:15 12:02 09:00 WBC (4.0-10.5) K/mm3 RBC (4.1-5.6) M/mm3 Hgb (12.5-18.0) gm/dl Hct (42-50) % MCV (78-100) fl MCH (26-32) pg MCHC (32-36) g/dl RDW (11.5-14.0) % Plt Count (150-450) K/mm3 MPV (7.5-11.0) fl Gran % (36.0-66.0) % Eos # (Auto) (0-0.5) Absolute Lymphs (auto) (1.0-4.6) Absolute Monos (auto) (0.0-1.3) Lymphocytes % (24.0-44.0) % Monocytes % (0.0-12.0) % Eosinophils % (0.00-5.0) % Basophils % (0.0-0.4) % Absolute Granulocytes (1.4-6.9) Basophils # (0-0.4) Sodium (137-145) mmol/L Potassium (3.5-5.1) mmol/L Chloride (98-107) mmol/L Carbon Dioxide (22-30) mmol/L Anion Gap (5-15) MEQ/L BUN (9-20) mg/dL Creatinine (0.66-1.25) mg/dL Estimated GFR ML/MIN Glucose (74-106) mg/dL Calcium (8.4-10.2) mg/dL Magnesium (1.6-2.3) mg/dL Total Bilirubin (0.2-1.3) mg/dL AST (17-59) U/L ALT (0-50) U/L Alkaline Phosphatase (38-126) U/L Troponin I < 0.012 < 0.012 (0.000-0.034) ng/mL NT-Pro-B Natriuret Pep (0-900) pg/mL Serum Total Protein (6.3-8.2) g/dL Albumin (3.5-5.0) g/dL Urine Color GIANA (YELLOW) Urine Appearance CLOUDY (CLEAR) Urine pH 7.0 (5-6) Ur Specific [place] 1.017 (1.005-1.025) Urine Protein NEGATIVE (Negative) Urine Ketones NEGATIVE (NEGATIVE) Urine Blood NEGATIVE (0-5) Sin/ul Urine Nitrite NEGATIVE (NEGATIVE) Urine Bilirubin NEGATIVE (NEGATIVE) Urine Urobilinogen NEGATIVE (0-1) mg/dL Ur Leukocyte Esterase NEGATIVE (NEGATIVE) Urine WBC (Auto) 0-2 (0-5) /HPF Urine RBC (Auto) NONE (0-2) /HPF U Hyaline Cast (Auto) 3-5 (0-2) /LPF U Epithel Cells (Auto) NONE (FEW) /HPF Urine Bacteria (Auto) NONE (NEGATIVE) /HPF Urine Culture Reflexed NO (NO) Urine Glucose NEGATIVE (NEGATIVE) mg/dL 05/22/20 05/22/20 Range/Units 08:47 08:47 WBC 7.9 (4.0-10.5) K/mm3 RBC 4.18 (4.1-5.6) M/mm3 Hgb 12.3 L (12.5-18.0) gm/dl Hct 39.0 L (42-50) % MCV 93.3 (78-100) fl MCH 29.4 (26-32) pg MCHC 31.5 L (32-36) g/dl RDW 13.1 (11.5-14.0) % Plt Count 241 (150-450) K/mm3 MPV 9.9 (7.5-11.0) fl Gran % 64.6 (36.0-66.0) % Eos # (Auto) 0.24 (0-0.5) Absolute Lymphs (auto) 1.84 (1.0-4.6) Absolute Monos (auto) 0.65 (0.0-1.3) Lymphocytes % 23.4 L (24.0-44.0) % Monocytes % 8.3 (0.0-12.0) % Eosinophils % 3.1 (0.00-5.0) % Basophils % 0.6 (0.0-0.4) % Absolute Granulocytes 5.07 (1.4-6.9) Basophils # 0.05 (0-0.4) Sodium 142 (137-145) mmol/L Potassium 4.2 (3.5-5.1) mmol/L Chloride 107 (98-107) mmol/L Carbon Dioxide 26 (22-30) mmol/L Anion Gap 13.3 (5-15) MEQ/L BUN 22 H (9-20) mg/dL Creatinine 1.30 H (0.66-1.25) mg/dL Estimated GFR 57.7 ML/MIN Glucose 119 H (74-106) mg/dL Calcium 9.9 (8.4-10.2) mg/dL Magnesium 2.3 (1.6-2.3) mg/dL Total Bilirubin 0.50 (0.2-1.3) mg/dL AST 27 (17-59) U/L ALT 23 (0-50) U/L Alkaline Phosphatase 75 (38-126) U/L Troponin I (0.000-0.034) ng/mL NT-Pro-B Natriuret Pep 560 (0-900) pg/mL Serum Total Protein 6.7 (6.3-8.2) g/dL Albumin 4.2 (3.5-5.0) g/dL Urine Color (YELLOW) Urine Appearance (CLEAR) Urine pH (5-6) Ur Specific [place] (1.005-1.025) Urine Protein (Negative) Urine Ketones (NEGATIVE) Urine Blood (0-5) Sin/ul Urine Nitrite (NEGATIVE) Urine Bilirubin (NEGATIVE) Urine Urobilinogen (0-1) mg/dL Ur Leukocyte Esterase (NEGATIVE) Urine WBC (Auto) (0-5) /HPF Urine RBC (Auto) (0-2) /HPF U Hyaline Cast (Auto) (0-2) /LPF U Epithel Cells (Auto) (FEW) /HPF Urine Bacteria (Auto) (NEGATIVE) /HPF Urine Culture Reflexed (NO) Urine Glucose (NEGATIVE) mg/dL - Progress Progress: improved, re-examined Progress Note: 05/22/20 10:40 X-ray shows no acute pulmonary process. Medical decision making: This patient is feeling better. I believe the patient is mildly dehydrated. In addition, he took his morning metoprolol. At the time of this dictation the patient's heart rate is 54, his systolic blood pressure is 111 and his diastolic blood pressure 67 his respiratory rate is 14. Patient's room air oxygenation is 96 to 97%. His laboratory work-up is not impressive for any acute findings. If his urinalysis is not acute or emergent we will discharge the patient to home. Counseled pt/family regarding: lab results, diagnosis, need for follow-up, rad results - Departure Departure Disposition: Home Clinical Impression: Weakness, Hypotension Condition: Stable Critical Care Time: Yes Critical Care Time(excluding separately billable procedures): Critical 30-74 mins Referrals: JEANNE ESTEVEZ [Primary Care Provider] -
[2020-05-22] MEDS ORDERED: Sodium Chloride 0.9% 500 ML 500 ML IV ONE ×2 (08:49→09:25)
[2020-05-22] MEDS ORDERED: Sodium Chloride 0.9% 1000 ML 1,000 ML IV SCH (09:00)
[2020-05-22 09:17] LABS: Absolute Neutrophil Ct (ANC) 5.07 (1.4-6.9); BASOPHIL % 0.6 % (0.0-0.4); Basophil (Absolute #) 0.05 (0-0.4); Eosinophil % 3.1 % (0.00-5.0); Eosinophil (Absolute #) 0.24 (0-0.5); Hemoglobin 12.3 gm/dl (12.5-18.0); Lymphocyte (Absolute #) 1.84 (1.0-4.6); Lymphocytes % 23.4 % (24.0-44.0); Mean Cell Volume 93.3 fl (78-100); Mean Corpuscular Hemoglobin 29.4 pg (26-32); Mean Corpuscular Hgb Concent. 31.5 g/dl (32-36); Mean Platelet Volume 9.9 fl (7.5-11.0); Monocyte (Absolute #) 0.65 (0.0-1.3); Monocytes % 8.3 % (0.0-12.0); Neutrophil % 64.6 % (36.0-66.0); Platelet Count 241 K/mm3 (150-450); Red Blood Count 4.18 M/mm3 (4.1-5.6); Red Cell Distribution Width 13.1 % (11.5-14.0); White Blood Count 7.9 K/mm3 (4.0-10.5)
[2020-05-22 09:32] LABS: ALBUMIN 4.2 g/dL (3.5-5.0); ANION GAP 13.3 MEQ/L (5-15); BILIRUBIN,TOTAL 0.5 mg/dL (0.2-1.3); Calcium 9.9 mg/dL (8.4-10.2); Creatinine 1 1.3 mg/dL (0.66-1.25); EST GLOMERULAR FILTRATION RATE 57.7 ML/MIN; MAGNESIUM 2.3 mg/dL (1.6-2.3); Potassium 4.2 mmol/L (3.5-5.1); Total Protein 6.7 g/dL (6.3-8.2)
--- NOTE | 2020-05-22 09:56 | XRAY ---
Indication: Weakness. Hypotension. Comparison: December 11, 2018. Portable chest remains hyperinflated with a few tiny calcified granulomas. Stable CT proven left mid lung noncalcified nodule. No infiltrate, consolidation, or large effusion. Heart is not enlarged again with CABG surgery. Bony thorax intact again with mild osteopenia and degenerative changes. Impression: Continued nonacute hyperinflated chest with chronic features.
[2020-05-22] MEDS ORDERED: Sodium Chloride 0.9% 1000 ML 1,000 ML ONE (10:31)
[2020-05-22 12:04] VITALS: BP 137/92; PULSE 67
[2020-05-22 13:31] LABS: Appearance CLOUDY (CLEAR); Bilirubin NEGATIVE (NEGATIVE); Blood NEGATIVE Ery/ul (0-5); Glucose NEGATIVE (NEGATIVE); Ketones NEGATIVE (NEGATIVE); Leukocyte Esterase NEGATIVE (NEGATIVE); Nitrite NEGATIVE (NEGATIVE); Protein,Urine Dip NEGATIVE (Negative); Specific Gravity 1.017 (1.005-1.025); Urobilinogen NEGATIVE mg/dL (0-1); WBC 0-2 /HPF (0-5)
[2020-05-22 14:18] VITALS: O2SAT 97
== END 2020-05-22 14:29 | disposition home or self-care (01) ==
LOC: ED 08:26
DX: R53.1 Weakness (principal); I95.81 Postprocedural hypotension; I10 Essential (primary) hypertension; R00.1 Bradycardia, unspecified
CPT/HCPCS: 36415; 71045; 80053; 81001; 83735; 83880; 84484; 85025; 93005; 93041; 96360; 96361; 99284; 99291

== ENCOUNTER 2021-02-15 10:32 | Emergency (ER) | payer MEDICARE, OTHER ==
[2021-02-15] MEDS ORDERED: Sodium Chloride 0.9% 1000 ML 1,000 ML IV STA (10:57)
[2021-02-15] MEDS ORDERED: Sodium Chloride 0.9% 1000 ML 1,000 ML ONE (11:19)
[2021-02-15 11:28] LABS: Absolute Neutrophil Ct (ANC) 6.68 (1.4-6.9); BASOPHIL % 0.3 % (0.0-0.4); Basophil (Absolute #) 0.03 (0-0.4); Hematocrit 41.6 % (42-50); Hemoglobin 12.7 gm/dl (12.5-18.0); Lymphocyte (Absolute #) 2.34 (1.0-4.6); Lymphocytes % 23.7 % (24.0-44.0); Mean Cell Volume 95.6 fl (78-100); Mean Corpuscular Hemoglobin 29.2 pg (26-32); Mean Corpuscular Hgb Concent. 30.5 g/dl (32-36); Mean Platelet Volume 9.7 fl (7.5-11.0); Monocyte (Absolute #) 0.64 (0.0-1.3); Monocytes % 6.5 % (0.0-12.0); Neutrophil % 67.5 % (36.0-66.0); Platelet Count 284 K/mm3 (150-450); Red Blood Count 4.35 M/mm3 (4.1-5.6); Red Cell Distribution Width 13.4 % (11.5-14.0); White Blood Count 9.9 K/mm3 (4.0-10.5)
[2021-02-15 11:56] LABS: INR 1.11 (0.8-3.0); PROTIME 12.5 SECONDS (8.83-12.87)
[2021-02-15 12:02] LABS: Appearance CLOUDY (CLEAR); Bilirubin NEGATIVE (NEGATIVE); Blood NEGATIVE Ery/ul (0-5); Glucose NEGATIVE (NEGATIVE); Ketones NEGATIVE (NEGATIVE); Leukocyte Esterase NEGATIVE (NEGATIVE); Nitrite NEGATIVE (NEGATIVE); Protein,Urine Dip NEGATIVE (Negative); Specific Gravity 1.023 (1.005-1.025); Urobilinogen NEGATIVE mg/dL (0-1); WBC 0-2 /HPF (0-5)
[2021-02-15 12:09] LABS: ALBUMIN 4.5 g/dL (3.5-5.0); ANION GAP 12.5 MEQ/L (5-15); BILIRUBIN,TOTAL 0.5 mg/dL (0.2-1.3); Calcium 10.5 mg/dL (8.4-10.2); Creatinine 1 1.33 mg/dL (0.66-1.25); NT PRO BNP 83.5 pg/mL (0-900); Potassium 4.5 mmol/L (3.5-5.1)
[2021-02-15 12:21] LABS: Erythrocyte Sedimentation Rate 8 mm/hr (0-15)
[2021-02-15 13:13] VITALS: O2SAT 96
--- NOTE | 2021-02-15 13:13 | ERPHSYRPT ---
- History of Present Illness Time Seen by Provider: 02/15/21 10:55 Source: patient Exam Limitations: no limitations Patient Subjective Stated Complaint: stated that the pt was taking aspirin and was having nose bleeds so she stopped him from taking it and placed him on lisinopril when his pressure was normal, pt now has low blood pressure, pt feels tired Triage Nursing Assessment: Pt brought to the ER by his , hypotensive, denies pain, tired, pulses normal, skin n/w/d, doesn't appear to be in any distress Physician History: 5-year-old white male who presents with his with a complaint of not feeling well says that he nosebleeds recently especially in during the night on the right side and that is a consequence he stopped taking his aspirin and his started lisinopril to take its place. She did not realize that it would actually lower his blood pressure instead of raise it which was what she was trying to do. He complains of being very sleepy throughout the day and at times she implies he has a slightly altered mental state. He however found him to be oriented x3 very pleasant. Timing/Duration: yesterday Activities at Onset: none Severity of Pain-Max: none Severity of Pain-Current: none Modifying Factors: Improves With: exertion, movement Nitro Today/Relief: no nitro taken today Aspirin Treatment Today: no aspirin today Associated Symptoms: weakness Allergies/Adverse Reactions: No Known Drug Allergies Allergy (Verified 02/15/21 11:04) Home Medications: Clopidogrel Bisulfate 75 mg [PLAVIX 75 MG Tablet] 75 mg PO DAILY 02/15/13 [History] Metoprolol Tartrate 50 mg [Lopressor 50 MG] 25 mg PO BID 02/15/13 [His tory] Tolterodine Tartrate [Detrol LA] 4 mg PO DAILY 02/15/13 [History] Levocetirizine Dihydrochloride [Xyzal] 5 mg PO DAILY 12/09/18 [History] Montelukast Sodium 10 mg PO DAILY 12/09/18 [History] Simvastatin 40 mg PO EVENING MEAL 12/09/18 [History] Trazodone HCl 100 mg PO HS 12/09/18 [History] Aspirin EC 81 mg [Ecotrin 81 mg] 81 mg PO DAILY 12/11/18 [History] Fenofibrate 1 ea DAILY 05/22/20 [History] Metformin HCl 500 mg [Glucophage 500 MG] 1 ea DAILY 05/22/20 [History] Aripiprazole [Abilify] 10 mg PO HS 02/15/21 [History] Hx Tetanus, Diphtheria Vaccination/Date Given: Yes Hx Influenza Vaccination/Date Given: Yes Hx Pneumococcal Vaccination/Date Given: Yes Travel Risk - International Travel Have you traveled outside of the country in past 3 weeks: No - Coronavirus Screening Are you exhibiting any of the following symptoms?: No Close contact with a COVID-19 positive Pt in past 14-21 Days: No - Vaccine Status Have you recieved a Covid-19 vaccination: Yes [employer]: [id number] - Vaccination Dates Date of 2cond Vaccination (if applicable): 11/23/2020 - Review of Systems Constitutional: Weakness, No Fever, No Chills Eyes: No Symptoms Ears, Nose, & Throat: No Symptoms Respiratory: No Cough, No Dyspnea Cardiac: No Chest Pain, No Edema, No Syncope Abdominal/Gastrointestinal: No Abdominal Pain, No Nausea, No Vomiting, No Diarrhea Genitourinary Symptoms: No Dysuria Musculoskeletal: No Back Pain, No Neck Pain Skin: No Rash Neurological: No Dizziness, No Focal Weakness, No Sensory Changes Psychological: No Symptoms Endocrine: No Symptoms All Other Systems: Reviewed and Negative - Past Medical History Pertinent Past Medical History: Yes Neurological History: No Pertinent History ENT History: No Pertinent History Cardiac History: Coronary Artery Disease, Hypertension, Myocardial Infarction ([place]) Respiratory History: Asthma, COPD, Pneumonia Endocrine Medical History: No Pertinent History Musculoskeletal History: Degenerative Disk Disease GI Medical History: No Pertinent History History: No Pertinent History Psycho-Social History: Anxiety Male Reproductive Disorders: No Pertinent History Other Medical History: STENTS 1999. CARDIAC OPEN HEART SURGERY IN 2007. December HAD STENTS PLACED - Past Surgical History Past Surgical History: Yes Neuro Surgical History: No Pertinent History Cardiac: CABG, Cardiac Stent Respiratory: No Pertinent History Gastrointestinal: No Pertinent History Genitourinary: No Pertinent History Musculoskeletal: Orthopedic Surgery Male Surgical History: No Pertinent History Other Surgical History: OPEN HEART SURGERY IN 2007. ELBOW, KNEE, BACK SURGERY. - Social History Smoking Status: Former smoker Exposure to second hand smoke: No Alcohol Use: Socially Drug Use: none Patient Lives Alone: No Significant Family History: heart disease - Nursing Vital Signs Nursing Vital Signs: Initial Vital Signs Temperature 96.6 F 02/15/21 10:49 Pulse Rate 76 02/15/21 10:49 Blood Pressure 108/55 02/15/21 10:49 O2 Sat by Pulse Oximetry 95 02/15/21 10:49 Pain Scale Pain Intensity 0 - Physical Exam General Appearance: no apparent distress, alert Eye Exam: PERRL/EOMI, eyes nml inspection Ears, Nose, Throat Exam: normal ENT inspection, moist mucous membranes Neck Exam: normal inspection, non-tender, supple Respiratory Exam: normal breath sounds, lungs clear, No respiratory distress Cardiovascular Exam: regular rate/rhythm, normal heart sounds, No edema Gastrointestinal/Abdomen Exam: soft, No tenderness, No mass Back Exam: normal inspection, No CVA tenderness, No vertebral tenderness Extremity Exam: normal inspection, normal range of motion Neurologic Exam: alert, oriented x 3, cooperative, normal mood/affect, nml cerebellar function, sensation nml, No motor deficits Skin Exam: normal color, warm, dry Lymphatic Exam: No adenopathy SpO2 Interpretation: normal SpO2: 96 O2 Delivery: Room Air - Course Nursing assessment & vital signs reviewed: Yes EKG Interpreted by Me: RATE (70), Sinus Rhythm, Right [place] Deviation, Non- specific ST Changes, Other (Poor R wave progression) Ordered Tests: Active Orders 24 hr Category Date Time Status Donor Technician STAT Care 02/15/21 10:58 Active EKG-ER Only STAT Care 02/15/21 10:57 Active IV Insertion STAT Care 02/15/21 10:57 Active Orthostatic Vital Signs STAT Care 02/15/21 12:02 Active CHEST 1 VIEW (PORTABLE) Stat Exams 02/15/21 10:58 Taken AMYLASE Stat Lab 02/15/21 11:15 Completed CBC W DIFF Stat Lab 02/15/21 11:15 Completed CK-Creatinine Phosphokinase Stat Lab 02/15/21 11:15 Completed CMP Stat Lab 02/15/21 11:15 Completed Erythrocyte Sedimentation Rate Stat Lab 02/15/21 11:15 Completed LIPASE Stat Lab 02/15/21 11:15 Completed Lactic Acid Stat Lab 02/15/21 10:57 Completed NT PRO BNP Stat Lab 02/15/21 11:15 Completed POCT GLUCOSE Stat Lab 02/15/21 10:56 Completed PROTIME WITH INR Stat Lab 02/15/21 11:15 Completed TROPONIN Q3H Lab 02/15/21 11:15 Completed TROPONIN Q3H Lab 02/15/21 14:00 Ordered TROPONIN Q3H Lab 02/15/21 17:00 Ordered TROPONIN Q3H Lab 02/15/21 20:00 Ordered TROPONIN Q3H Lab 02/15/21 23:00 Ordered UA W/RFX UR CULTURE Stat Lab 02/15/21 11:53 Completed Medication Summary Discontinued Medications Generic Name Dose Route Start Last Admin Trade Name Margi PRN Reason Stop Dose Admin Sodium Chloride 1,000 mls @ 999 mls/hr 02/15/21 10:57 02/15/21 12:27 Sodium Chloride 0.9% 1000 Ml IV 02/15/21 11:57 Infused .Q1H1M STA Infusion Sodium Chloride Confirm 02/15/21 11:19 Sodium Chloride 0.9% 1000 Ml Administered 02/15/21 11:20 Dose 1,000 mls @ ud .ROUTE .STK-MED ONE Lab/Rad Data: Laboratory Result Diagrams 02/15/21 11:15 02/15/21 11:15 Laboratory Results 02/15/21 02/15/21 02/15/21 Range/Units 11:53 11:15 11:15 WBC (4.0-10.5) K/mm3 RBC (4.1-5.6) M/mm3 Hgb (12.5-18.0) gm/dl Hct (42-50) % MCV (78-100) fl MCH (26-32) pg MCHC (32-36) g/dl RDW (11.5-14.0) % Plt Count (150-450) K/mm3 MPV (7.5-11.0) fl Gran % (36.0-66.0) % Eos # (Auto) (0-0.5) Absolute Lymphs (auto) (1.0-4.6) Absolute Monos (auto) (0.0-1.3) Lymphocytes % (24.0-44.0) % Monocytes % (0.0-12.0) % Eosinophils % (0.00-5.0) % Basophils % (0.0-0.4) % Absolute Granulocytes (1.4-6.9) Basophils # (0-0.4) ESR (0-15) mm/hr PT 12.5 (8.83-12.87) SECONDS INR 1.11 (0.8-3.0) Sodium (137-145) mmol/L Potassium (3.5-5.1) mmol/L Chloride (98-107) mmol/L Carbon Dioxide (22-30) mmol/L Anion Gap (5-15) MEQ/L BUN (9-20) mg/dL Creatinine (0.66-1.25) mg/dL Estimated GFR ML/MIN Glucose (74-106) mg/dL POC Glucometer (74 to 106) mg/dL Lactic Acid (0.4-2.0) Calcium (8.4-10.2) mg/dL Total Bilirubin (0.2-1.3) mg/dL AST (17-59) U/L ALT (0-50) U/L Alkaline Phosphatase (38-126) U/L Creatine Kinase (55-170) U/L Troponin I < 0.012 (0.000-0.034) ng/mL NT-Pro-B Natriuret Pep (0-900) pg/mL Serum Total Protein (6.3-8.2) g/dL Albumin (3.5-5.0) g/dL Amylase (30-110) U/L Lipase (23-300) U/L Urine Color [place] (YELLOW) Urine Appearance CLOUDY (CLEAR) Urine pH 5.0 (5-6) Ur Specific [place] 1.023 (1.005-1.025) Urine Protein NEGATIVE (Negative) Urine Ketones NEGATIVE (NEGATIVE) Urine Blood NEGATIVE (0-5) Sin/ul Urine Nitrite NEGATIVE (NEGATIVE) Urine Bilirubin NEGATIVE (NEGATIVE) Urine Urobilinogen NEGATIVE (0-1) mg/dL Ur Leukocyte Esterase NEGATIVE (NEGATIVE) Urine WBC (Auto) 0-2 (0-5) /HPF Urine RBC (Auto) NONE (0-2) /HPF U Epithel Cells (Auto) NONE (FEW) /HPF Urine Bacteria (Auto) NONE (NEGATIVE) /HPF Urine Culture Reflexed NO (NO) Urine Glucose NEGATIVE (NEGATIVE) mg/dL 02/15/21 02/15/21 02/15/21 Range/Units 11:15 11:15 10:57 WBC 9.9 (4.0-10.5) K/mm3 RBC 4.35 (4.1-5.6) M/mm3 Hgb 12.7 (12.5-18.0) gm/dl Hct 41.6 L (42-50) % MCV 95.6 (78-100) fl MCH 29.2 (26-32) pg MCHC 30.5 L (32-36) g/dl RDW 13.4 (11.5-14.0) % Plt Count 284 (150-450) K/mm3 MPV 9.7 (7.5-11.0) fl Gran % 67.5 H (36.0-66.0) % Eos # (Auto) 0.20 (0-0.5) Absolute Lymphs (auto) 2.34 (1.0-4.6) Absolute Monos (auto) 0.64 (0.0-1.3) Lymphocytes % 23.7 L (24.0-44.0) % Monocytes % 6.5 (0.0-12.0) % Eosinophils % 2.0 (0.00-5.0) % Basophils % 0.3 (0.0-0.4) % Absolute Granulocytes 6.68 (1.4-6.9) Basophils # 0.03 (0-0.4) ESR 8 (0-15) mm/hr PT (8.83-12.87) SECONDS INR (0.8-3.0) Sodium 138 (137-145) mmol/L Potassium 4.5 (3.5-5.1) mmol/L Chloride 102 (98-107) mmol/L Carbon Dioxide 28 (22-30) mmol/L Anion Gap 12.5 (5-15) MEQ/L BUN 23 H (9-20) mg/dL Creatinine 1.33 H (0.66-1.25) mg/dL Estimated GFR 56.0 ML/MIN Glucose 104 (74-106) mg/dL POC Glucometer (74 to 106) mg/dL Lactic Acid 2.3 H (0.4-2.0) Calcium 10.5 H (8.4-10.2) mg/dL Total Bilirubin 0.50 (0.2-1.3) mg/dL AST 33 (17-59) U/L ALT 32 (0-50) U/L Alkaline Phosphatase 73 (38-126) U/L Creatine Kinase 46 L (55-170) U/L Troponin I (0.000-0.034) ng/mL NT-Pro-B Natriuret Pep 83.5 (0-900) pg/mL Serum Total Protein 7.0 (6.3-8.2) g/dL Albumin 4.5 (3.5-5.0) g/dL Amylase 40 (30-110) U/L Lipase 54 (23-300) U/L Urine Color (YELLOW) Urine Appearance (CLEAR) Urine pH (5-6) Ur Specific [place] (1.005-1.025) Urine Protein (Negative) Urine Ketones (NEGATIVE) Urine Blood (0-5) Sin/ul Urine Nitrite (NEGATIVE) Urine Bilirubin (NEGATIVE) Urine Urobilinogen (0-1) mg/dL Ur Leukocyte Esterase (NEGATIVE) Urine WBC (Auto) (0-5) /HPF Urine RBC (Auto) (0-2) /HPF U Epithel Cells (Auto) (FEW) /HPF Urine Bacteria (Auto) (NEGATIVE) /HPF Urine Culture Reflexed (NO) Urine Glucose (NEGATIVE) mg/dL 02/15/21 Range/Units 10:56 WBC (4.0-10.5) K/mm3 RBC (4.1-5.6) M/mm3 Hgb (12.5-18.0) gm/dl Hct (42-50) % MCV (78-100) fl MCH (26-32) pg MCHC (32-36) g/dl RDW (11.5-14.0) % Plt Count (150-450) K/mm3 MPV (7.5-11.0) fl Gran % (36.0-66.0) % Eos # (Auto) (0-0.5) Absolute Lymphs (auto) (1.0-4.6) Absolute Monos (auto) (0.0-1.3) Lymphocytes % (24.0-44.0) % Monocytes % (0.0-12.0) % Eosinophils % (0.00-5.0) % Basophils % (0.0-0.4) % Absolute Granulocytes (1.4-6.9) Basophils # (0-0.4) ESR (0-15) mm/hr PT (8.83-12.87) SECONDS INR (0.8-3.0) Sodium (137-145) mmol/L Potassium (3.5-5.1) mmol/L Chloride (98-107) mmol/L Carbon Dioxide (22-30) mmol/L Anion Gap (5-15) MEQ/L BUN (9-20) mg/dL Creatinine (0.66-1.25) mg/dL Estimated GFR ML/MIN Glucose (74-106) mg/dL POC Glucometer 102 (74 to 106) mg/dL Lactic Acid (0.4-2.0) Calcium (8.4-10.2) mg/dL Total Bilirubin (0.2-1.3) mg/dL AST (17-59) U/L ALT (0-50) U/L Alkaline Phosphatase (38-126) U/L Creatine Kinase (55-170) U/L Troponin I (0.000-0.034) ng/mL NT-Pro-B Natriuret Pep (0-900) pg/mL Serum Total Protein (6.3-8.2) g/dL Albumin (3.5-5.0) g/dL Amylase (30-110) U/L Lipase (23-300) U/L Urine Color (YELLOW) Urine Appearance (CLEAR) Urine pH (5-6) Ur Specific [place] (1.005-1.025) Urine Protein (Negative) Urine Ketones (NEGATIVE) Urine Blood (0-5) Sin/ul Urine Nitrite (NEGATIVE) Urine Bilirubin (NEGATIVE) Urine Urobilinogen (0-1) mg/dL Ur Leukocyte Esterase (NEGATIVE) Urine WBC (Auto) (0-5) /HPF Urine RBC (Auto) (0-2) /HPF U Epithel Cells (Auto) (FEW) /HPF Urine Bacteria (Auto) (NEGATIVE) /HPF Urine Culture Reflexed (NO) Urine Glucose (NEGATIVE) mg/dL - Progress Progress: improved Air Movement: good Blood Culture(s) Obtained: No Antibiotics given: No - Departure Departure Disposition: Home Clinical Impression: Hypotension Condition: Stable Critical Care Time: No Referrals: JEANNE ESTEVEZ [Primary Care Provider] - Instructions: Low Blood Pressure (DC) Additional Instructions: They were told to stop the lisinopril and check in with her PCP next week
[2021-02-15 13:22] VITALS: BP 114/69; PULSE 60
--- NOTE | 2021-02-15 21:45 | XRAY ---
Indication: Weakness. Comparison: May 22, 2020. Portable chest unchanged again hyperinflated and clear with incidental calcified granulomas. Heart not enlarged again with CABG surgery. Bony thorax intact again with mild osteopenia and degenerative changes. No new/acute findings.
== END 2021-02-15 13:22 | disposition home or self-care (01) ==
LOC: ED 10:32
DX: I95.9 Hypotension, unspecified (principal); Z79.899 Other long term (current) drug therapy; I10 Essential (primary) hypertension; J44.9 Chronic obstructive pulmonary disease, unspecified; I25.2 Old myocardial infarction; I25.10 Atherosclerotic heart disease of native coronary artery without angina pectoris
CPT/HCPCS: 36000; 36415; 71045; 80053; 81001; 82150; 82550; 82947; 83605; 83690; 83880; 84484; 85025; 85610; 85652; 93005; 93041; 96360; 99284

== ENCOUNTER 2021-09-03 07:06 | Observation (INO) | payer MEDICARE, OTHER ==
[2021-09-03] MEDS ORDERED: solu-MEDROL 125 MG, Sterile H2O 10 ml 2 ML IV ONE ×2 (07:54)
[2021-09-03] MEDS ORDERED: DUONEB 0.5-3 MG/3 ml Neb IH ONE (07:54)
[2021-09-03] MEDS ORDERED: solu-MEDROL ONE (08:01)
[2021-09-03] MEDS ORDERED: VENTOLIN COMMON CANISTER IH ONE (08:15)
[2021-09-03 08:18] LABS: BASOPHIL % 0.4 % (0.0-0.4); Basophil (Absolute #) 0.05 (0-0.4); Eosinophil % 3.1 % (0.00-5.0); Eosinophil (Absolute #) 0.39 (0-0.5); Hematocrit 38.8 % (42-50); Hemoglobin 11.9 gm/dl (12.5-18.0); Lymphocyte (Absolute #) 0.95 (1.0-4.6); Lymphocytes % 7.4 % (24.0-44.0); Mean Cell Volume 94.4 fl (78-100); Mean Corpuscular Hgb Concent. 30.7 g/dl (32-36); Mean Platelet Volume 9.1 fl (7.5-11.0); Monocyte (Absolute #) 0.57 (0.0-1.3); Monocytes % 4.5 % (0.0-12.0); Neutrophil % 84.6 % (36.0-66.0); Platelet Count 325 K/mm3 (150-450); Red Blood Count 4.11 M/mm3 (4.1-5.6); Red Cell Distribution Width 13.1 % (11.5-14.0); White Blood Count 12.8 K/mm3 (4.0-10.5)
--- NOTE | 2021-09-03 08:30 | ERPHSYRPT ---
- History of Present Illness Time Seen by Provider: 09/03/21 08:14 Source: patient Exam Limitations: no limitations Patient Subjective Stated Complaint: Patient c/o chills, fever, cough, and SOB that started yesterday. Patient states his cough was productive last night; wh ite in color with flakes of blood noted. Triage Nursing Assessment: Patient brought back to ED in a W/C. He was able to transfer from W/C to bed per self. He is alert and oriented and answering questions appropriately. Patient SOB with 02 sats 87% on room air. 02 at 2L per N/C applied and 02 sats increased to 93% and SOB decreased. Right upper lobe with some exp wheezing noted and right base is diminished. Skin is pale and warm to touch. Occassional, hacking cough noted during assessment that increased with deep breathing. Cough is non-productive at this time. Physician History: 75 years old male with a history of coronary artery disease status post CABG/stenting, hypertension, hyperlipidemia, diabetes mellitus presented in the ER with chief complaint of minimal productive cough with shortness of breath since yesterday evening with subjective feeling of fever and chills this morning. Patient reports initially he was short of breath with activity and this morning getting short of breath even resting. On presentation his oxygen saturation was 87% on room air, placed on 2 L and currently 92%. Denies any chest or palpitations. Vaccinated against COVID-19. No known sick contact. Timing/Duration: yesterday, gradual onset, worse Activities at Onset: rest Severity of Dyspnea-Max: moderate Severity of Dyspnea-Current: moderate Possible Cause: unknown cause Modifying Factors: Improves With: rest. Worsens With: coughing, exertion Associated Symptoms: cough, fever, chills, productive cough, tightness, No chest pain/discomfort Allergies/Adverse Reactions: No Known Drug Allergies Allergy (Verified 09/03/21 07:08) Home Medications: Clopidogrel Bisulfate 75 mg [PLAVIX 75 MG Tablet] 75 mg PO DAILY 02/15/13 [History] Metoprolol Tartrate 50 mg [Lopressor 50 MG] 25 mg PO BID 02/15/13 [ History] Tolterodine Tartrate [Detrol LA] 4 mg PO DAILY 02/15/13 [History] Levocetirizine Dihydrochloride [Xyzal] 5 mg PO DAILY 12/09/18 [History] Montelukast Sodium 10 mg PO DAILY 12/09/18 [History] Simvastatin 40 mg PO EVENING MEAL 12/09/18 [History] Trazodone HCl 100 mg PO HS 12/09/18 [History] Aspirin EC 81 mg [Ecotrin 81 mg] 81 mg PO DAILY 12/11/18 [History] Fenofibrate 1 ea DAILY 05/22/20 [History] Metformin HCl 500 mg [Glucophage 500 MG] 1 ea DAILY 05/22/20 [History] ARIPiprazole [Abilify] 10 mg PO HS 02/15/21 [History] Hx Tetanus, Diphtheria Vaccination/Date Given: Yes Hx Influenza Vaccination/Date Given: Yes Hx Pneumococcal Vaccination/Date Given: Yes Immunizations Up to Date: Yes Travel Risk - International Travel Have you traveled outside of the country in past 3 weeks: No - Coronavirus Screening Are you exhibiting any of the following symptoms?: Yes Symptoms: Cough: New Onset, Shortness of Breath - Vaccine Status Have you recieved a Covid-19 vaccination: Yes [employer]: Moderna - Vaccination Dates Date of 2cond Vaccination (if applicable): 11/23/2020 - Review of Systems Constitutional: Fever, Chills, Fatigue, Weakness Eyes: No Symptoms Ears, Nose, & Throat: No Symptoms Respiratory: Cough, Dyspnea, Dyspnea on Exertion (RUEDA), Wheezing Cardiac: No Symptoms Abdominal/Gastrointestinal: No Symptoms Genitourinary Symptoms: No Symptoms Musculoskeletal: Myalgias Skin: No Symptoms Neurological: No Symptoms Psychological: No Symptoms Endocrine: No Symptoms Hematologic/Lymphatic: No Symptoms Immunological/Allergic: No Symptoms - Past Medical History Pertinent Past Medical History: Yes Neurological History: No Pertinent History ENT History: No Pertinent History Cardiac History: Coronary Artery Disease, Hypertension, Myocardial Infarction ([place]) Respiratory History: Asthma, COPD, Pneumonia Endocrine Medical History: No Pertinent History Musculoskeletal History: Degenerative Disk Disease GI Medical History: No Pertinent History History: No Pertinent History Psycho-Social History: Anxiety Male Reproductive Disorders: No Pertinent History Other Medical History: STENTS 1999. CARDIAC OPEN HEART SURGERY IN 2007. December HAD STENTS PLACED - Past Surgical History Past Surgical History: Yes Neuro Surgical History: No Pertinent History Cardiac: CABG, Cardiac Stent Respiratory: No Pertinent History Gastrointestinal: No Pertinent History Genitourinary: No Pertinent History Musculoskeletal: Orthopedic Surgery Male Surgical History: No Pertinent History Other Surgical History: OPEN HEART SURGERY IN 2008. ELBOW, KNEE, BACK SURGERY. - Social History Smoking Status: Former smoker Exposure to second hand smoke: No Alcohol Use: Socially Drug Use: none Patient Lives Alone: No Significant Family History: heart disease - Nursing Vital Signs Nursing Vital Signs: Initial Vital Signs Temperature 98.7 F 09/03/21 07:09 Pulse Rate 91 H 09/03/21 07:09 Respiratory Rate 16 09/03/21 07:09 Blood Pressure 161/84 09/03/21 07:09 O2 Sat by Pulse Oximetry 87 L 09/03/21 07:09 Pain Scale Pain Intensity 0 - Physical Exam General Appearance: no apparent distress, alert Eye Exam: PERRL/EOMI, eyes nml inspection Ears, Nose, Throat Exam: hearing grossly normal, pharyngeal erythema Neck Exam: normal inspection, non-tender, supple, full range of motion Respiratory Exam: diminished breath sounds, rhonchi, wheezing Cardiovascular/Chest Exam: normal heart sounds, regular rate/rhythm Abdominal/Gastrointestinal Exam: soft, No tenderness Extremity Exam: non-tender, normal range of motion Neurologic Exam: alert, oriented x 3, cooperative Skin Exam: normal color SpO2 Interpretation: O2 applied SpO2: 93 O2 Delivery: Nasal Cannula - Course EKG Interpreted by Me: RATE (87), Sinus Rhythm, NORMAL AXIS, NORMAL INTERVALS, Q-wave, Non-specific ST Changes (PACs.) Ordered Tests: Active Orders 24 hr Category Date Time Status CHEST 1 VIEW (PORTABLE) Stat Exams 09/03/21 07:52 Completed BLOOD CULTURE Stat Lab 09/03/21 08:12 Received CBC W DIFF Stat Lab 09/03/21 08:12 Completed CMP Stat Lab 09/03/21 08:12 Completed NT PRO BNP Stat Lab 09/03/21 08:12 Completed TROPONIN Q3H Lab 09/03/21 08:12 Completed TROPONIN Q3H Lab 09/03/21 11:00 Ordered TROPONIN Q3H Lab 09/03/21 14:00 Ordered TROPONIN Q3H Lab 09/03/21 17:00 Ordered TROPONIN Q3H Lab 09/03/21 20:00 Ordered TROPONIN Q3H Lab 09/03/21 23:00 Ordered Respiratory Therapy Assessment DAILY RT 09/03/21 08:16 Active Transfer Order Routine Transfer 09/03/21 Ordered Medication Summary Generic Name Dose Route Start Last Admin Trade Name Margi PRN Reason Stop Dose Admin Azithromycin 500 mg in 250 mls @ 250 mls/hr 09/03/21 09:52 Zithromax 500 Mg/ 250 Ml Nacl Premix IV 09/03/21 10:51 STAT STA Ceftriaxone Sodium/Dextrose 2 g in 50 mls @ 100 mls/hr 09/03/21 09:52 Rocephin 2 Gm-D5w 50ml Bag IV 09/03/21 10:21 STAT STA Discontinued Medications Generic Name Dose Route Start Last Admin Trade Name Margi PRN Reason Stop Dose Admin Albuterol Sulfate 4 puff 09/03/21 08:15 09/03/21 08:15 Albuterol Common Canister Inhaler IH 09/03/21 08:16 4 puff STAT ONE Administration Albuterol/Ipratropium 3 ml 09/03/21 07:54 Ipratropium/Albuterol Sulfate 3 Ml Ampul.Neb IH 09/03/21 07:55 STAT ONE Methylprednisolone Sodium 0 mg 09/03/21 07:54 09/03/21 08:02 Succinate 125 mg/ Sterile IV 09/03/21 07:55 125 mg Water 2 ml STAT ONE Administration Methylprednisolone Sodium Succinate Confirm 09/03/21 08:01 Methylprednis Sod Succ 125 Mg/2 Ml Vial Administered 09/03/21 08:02 Dose 125 mg .ROUTE .STK-MED ONE Lab/Rad Data: Laboratory Result Diagrams 09/03/21 08:12 09/03/21 08:12 Laboratory Results 09/03/21 09/03/21 09/03/21 Range/Units 08:12 08:12 08:12 WBC 12.8 H (4.0-10.5) K/mm3 RBC 4.11 (4.1-5.6) M/mm3 Hgb 11.9 L (12.5-18.0) gm/dl Hct 38.8 L (42-50) % MCV 94.4 (78-100) fl MCH 29.0 (26-32) pg MCHC 30.7 L (32-36) g/dl RDW 13.1 (11.5-14.0) % Plt Count 325 (150-450) K/mm3 MPV 9.1 (7.5-11.0) fl Gran % 84.6 H (36.0-66.0) % Eos # (Auto) 0.39 (0-0.5) Absolute Lymphs (auto) 0.95 L (1.0-4.6) Absolute Monos (auto) 0.57 (0.0-1.3) Lymphocytes % 7.4 L (24.0-44.0) % Monocytes % 4.5 (0.0-12.0) % Eosinophils % 3.1 (0.00-5.0) % Basophils % 0.4 (0.0-0.4) % Absolute Granulocytes 10.80 H (1.4-6.9) Basophils # 0.05 (0-0.4) Sodium 144 (137-145) mmol/L Potassium 4.2 (3.5-5.1) mmol/L Chloride 107 (98-107) mmol/L Carbon Dioxide 27 (22-30) mmol/L Anion Gap 13.8 (5-15) MEQ/L BUN 13 (9-20) mg/dL Creatinine 1.18 (0.66-1.25) mg/dL Estimated GFR > 60.0 ML/MIN Glucose 99 (74-106) mg/dL Calcium 9.7 (8.4-10.2) mg/dL Total Bilirubin 0.60 (0.2-1.3) mg/dL AST 19 (17-59) U/L ALT 21 (0-50) U/L Alkaline Phosphatase 93 (38-126) U/L Troponin I < 0.012 (0.000-0.034) ng/mL NT-Pro-B Natriuret Pep 519 (0-900) pg/mL Serum Total Protein 6.6 (6.3-8.2) g/dL Albumin 4.1 (3.5-5.0) g/dL - Progress Progress: improved Air Movement: fair Progress Note: 09/03/21 10:09 Patient was hypoxic on presentation, placed on 2 L and currently around 93%. Not in any obvious distress. Has a white count of 12.8, EKG no acute ischemic changes and chemistries grossly unremarkable including troponin. Chest x-ray showed left-sided infiltrative process. Given a dose of Rocephin and Zithromax and also a dose of Solu-Medrol along with albuterol puffs. Feeling better on reevaluation. Discussed with Dr. Da Silva and patient is being admitted for observation. Blood Culture(s) Obtained: Yes Antibiotics given: Yes Discussed with : Eileen Will see patient in: hospital (observation) Counseled pt/family regarding: lab results, diagnosis, rad results - Departure Departure Disposition: Observation Clinical Impression: Respiratory failure Qualifiers: Chronicity: acute Respiratory failure complication: hypoxia Qualified Code(s): J96.01 - Acute respiratory failure with hypoxia Pneumonia Qualifiers: Pneumonia type: due to unspecified organism Laterality: left Lung location: unspecified part of lung Qualified Code(s): J18.9 - Pneumonia, unspecified organism Condition: Stable Critical Care Time: No Referrals: JEANNE ESTEVEZ NP [Primary Care Provider] - Follow up/PCP as directed
[2021-09-03 08:43] LABS: ALBUMIN 4.1 g/dL (3.5-5.0); ALKALINE PHOSPHATASE 93 U/L (38-126); ANION GAP 13.8 MEQ/L (5-15); BLOOD UREA NITROGEN 13 mg/dL (9-20); CHLORIDE 107 mmol/L (98-107); Calcium 9.7 mg/dL (8.4-10.2); Carbon Dioxide 27 mmol/L (22-30); Creatinine 1 1.18 mg/dL (0.66-1.25); EST GLOMERULAR FILTRATION RATE > 60.0 ML/MIN; Glucose 99 mg/dL (74-106); NT PRO BNP 519 pg/mL (0-900); Potassium 4.2 mmol/L (3.5-5.1); SGOT/AST 19 U/L (17-59); SGPT/ALT 21 U/L (0-50); SODIUM 144 mmol/L (137-145); Total Protein 6.6 g/dL (6.3-8.2)
--- NOTE | 2021-09-03 09:36 | XRAY ---
Indication: Fever and cough. Suspect Covid 19. Comparison: February 15, 2021. Portable chest remains hyperinflated again with a few incidental calcified granulomas. New minimal left base infiltrate versus atelectasis. Remaining heart and bony thorax unremarkable again with incidental CABG, osteopenia, and bony degenerative changes.
[2021-09-03] MEDS ORDERED: ROCEPHIN 2 Gm-D5w 50ML BAG** 2 G/50 ML IVPB IV STA (09:52)
[2021-09-03] MEDS ORDERED: Zithromax 500 MG/ 250 ML NaCl Premix 500 MG/250 ML IVPB IV STA (09:52)
[2021-09-03] MEDS ORDERED: ROCEPHIN 2 Gm-D5w 50ML BAG** 2 G/50 ML IVPB IV ONE (10:26)
[2021-09-03] MEDS ORDERED: Zithromax 500 MG/ 250 ML NaCl Premix 500 MG/250 ML IVPB IV ONE (11:01)
[2021-09-03 11:30] LABS: INFLUENZA A NEGATIVE (NEGATIVE); INFLUENZA B NEGATIVE (NEGATIVE); RESPIRATORY SYNCTIAL VIRUS NEGATIVE (Negative); SARS-CoV-2 Xpert Express NEGATIVE (NEGATIVE)
[2021-09-03] MEDS ORDERED: MORPHINE SULFATE 2 MG INJ IV PRN (12:41)
[2021-09-03] MEDS ORDERED: Zofran 4 MG/2 ML VIAL IV PRN (12:41)
[2021-09-03] MEDS ORDERED: TYLENOL 325 MG PO PRN (12:41)
[2021-09-03] MEDS ORDERED: DUONEB 0.5-3 MG/3 ml Neb IH SCH (13:00)
[2021-09-03] MEDS: PROTONIX 40 MG IV IV SCH (13:51)
[2021-09-03] MEDS ORDERED: PROVENTIL 2.5 MG/3 ML NEB IH PRN (14:58)
[2021-09-03] MEDS ORDERED: MEDICATION INTERVENTION MC SCH (15:45)
[2021-09-03] MEDS: solu-MEDROL IV SCH ×2 (16:26→21:20)
[2021-09-03] MEDS: Glucotrol 5 MG PO SCH (16:27)
[2021-09-03] MEDS ORDERED: Ventolin Hfa MDI IH SCH (17:00)
[2021-09-03] MEDS ORDERED: NON-FORMULARY ITEM (Oxycodone Hcl/Acetaminophen [Oxycodone-Acetaminophn 7.5-325] 1 EACH Ta PO SCH (17:00)
[2021-09-03] MEDS: VENTOLIN COMMON CANISTER IH SCH ×2 (17:40→18:29)
[2021-09-03] MEDS: PERCOCET TABLET 5/325MG PO SCH ×3 (18:38→21:21)
[2021-09-03] MEDS: Lopressor 25MG Tab PO SCH (21:19)
[2021-09-03] MEDS: Abilify 10 MG PO SCH (21:19)
[2021-09-03] MEDS: NEURONTIN 300 MG PO SCH (21:20)
[2021-09-03] MEDS: MAG-OX 400 PO SCH (21:20)
[2021-09-03] MEDS: Zanaflex 4 MG PO SCH (21:21)
[2021-09-03] MEDS: ZOCOR 20MG PO SCH (21:21)
[2021-09-03] MEDS ORDERED: PROVENTIL 2.5 MG/3 ML NEB IH SCH (22:00)
[2021-09-03] MEDS ORDERED: LIPITOR 40MG PO SCH (22:00)
[2021-09-03] MEDS ORDERED: NON-FORMULARY ITEM (Magnesium Oxide [Magnesium] 250 MG Tablet) PO SCH (22:00)
[2021-09-04] MEDS: solu-MEDROL IV SCH ×3 (05:11→22:11)
[2021-09-04 07:09] LABS: Absolute Neutrophil Ct (ANC) 19.57 (1.4-6.9); Basophil (Absolute #) 0.01 (0-0.4); Eosinophil (Absolute #) 0 (0-0.5); Hematocrit 36.5 % (42-50); Hemoglobin 11.1 gm/dl (12.5-18.0); Lymphocyte (Absolute #) 1.24 (1.0-4.6); Lymphocytes % 5.9 % (24.0-44.0); Mean Cell Volume 94.8 fl (78-100); Mean Corpuscular Hemoglobin 28.8 pg (26-32); Mean Corpuscular Hgb Concent. 30.4 g/dl (32-36); Mean Platelet Volume 9.3 fl (7.5-11.0); Monocyte (Absolute #) 0.37 (0.0-1.3); Monocytes % 1.7 % (0.0-12.0); Neutrophil % 92.4 % (36.0-66.0); Platelet Count 316 K/mm3 (150-450); Red Blood Count 3.85 M/mm3 (4.1-5.6); White Blood Count 21.2 K/mm3 (4.0-10.5)
[2021-09-04] MEDS: VENTOLIN COMMON CANISTER IH SCH ×4 (07:20→18:07)
[2021-09-04 07:24] LABS: ALBUMIN 3.6 g/dL (3.5-5.0); ALKALINE PHOSPHATASE 102 U/L (38-126); ANION GAP 14.5 MEQ/L (5-15); BLOOD UREA NITROGEN 17 mg/dL (9-20); CHLORIDE 108 mmol/L (98-107); Calcium 9.6 mg/dL (8.4-10.2); Carbon Dioxide 21 mmol/L (22-30); Creatinine 1 0.85 mg/dL (0.66-1.25); EST GLOMERULAR FILTRATION RATE > 60.0 ML/MIN; Glucose 239 mg/dL (74-106); Potassium 4.5 mmol/L (3.5-5.1); SGOT/AST 19 U/L (17-59); SGPT/ALT 21 U/L (0-50); SODIUM 139 mmol/L (137-145)
[2021-09-04] MEDS: HUMALOG SQ PRN ×3 (08:05→22:21)
[2021-09-04] MEDS: Glucotrol 5 MG PO SCH ×2 (08:05→16:59)
--- NOTE | 2021-09-04 09:14 | XRAY ---
Indication: Pneumonia. Comparison: One day earlier. Portable chest demonstrates new subtle patchy infiltrate/atelectasis in left mid to upper lung. Remaining heart and lungs unremarkable again with incidental CABG, minimal bibasilar subsegmental atelectasis/scarring, and a few calcified granulomas.
[2021-09-04] MEDS ORDERED: NON-FORMULARY ITEM (Cetirizine Hcl [Zyrtec] 10 MG Capsule) PO SCH (10:00)
[2021-09-04] MEDS ORDERED: NON-FORMULARY ITEM (Tolterodine Tartrate [Tolterodine Tartrate Er] 4 MG Cap.Er.24h) PO SCH (10:00)
[2021-09-04] MEDS ORDERED: ROCEPHIN 1 Gm-D5w 50 ml Bag** 1 G/50 ML IVPB IV SCH (10:00)
[2021-09-04] MEDS ORDERED: MULTIVITAMIN PO SCH (10:00)
[2021-09-04] MEDS ORDERED: Flonase NASAL NS SCH (10:00)
[2021-09-04] MEDS ORDERED: THERAGRAN MULTIVITAMIN PO SCH (10:00)
[2021-09-04] MEDS ORDERED: PLAVIX 75 MG Tablet PO SCH (10:00)
[2021-09-04] MEDS ORDERED: FOLIC ACID PO SCH (10:00)
[2021-09-04] MEDS ORDERED: NON-FORMULARY ITEM (Vitamin B Complex [Vitamin B Complex] 1 EACH Tablet) PO SCH (10:00)
[2021-09-04] MEDS ORDERED: ECOTRIN 81 MG PO SCH (10:00)
[2021-09-04] MEDS ORDERED: [UNRECOGNIZED DRUG - OTHER] PO SCH (10:00)
[2021-09-04] MEDS ORDERED: Tricor 145 MG PO SCH (10:00)
[2021-09-04] MEDS ORDERED: VITA-BEE WITH C PO SCH (10:00)
[2021-09-04] MEDS ORDERED: Zithromax 500 MG/ 250 ML NaCl Premix 500 MG/250 ML IVPB IV SCH (10:00)
[2021-09-04] MEDS ORDERED: CLARITIN 10 MG PO SCH (10:00)
[2021-09-04] MEDS ORDERED: NON-FORMULARY ITEM (Fluticasone/Umeclidin/Vilanter [Trelegy Ellipta 100-62.5-25] 1 EACH Bl IH SCH (10:00)
[2021-09-04] MEDS ORDERED: IRON PO SCH (10:00)
[2021-09-04] MEDS ORDERED: Ditropan XL 5 MG PO SCH (10:00)
[2021-09-04] MEDS ORDERED: FENOFIBRATE PO SCH (10:00)
[2021-09-04] MEDS: MAG-OX 400 PO SCH ×2 (10:13→22:10)
[2021-09-04] MEDS: Lopressor 25MG Tab PO SCH ×2 (10:13→22:12)
[2021-09-04] MEDS: PERCOCET TABLET 5/325MG PO SCH ×4 (10:14→22:11)
[2021-09-04] MEDS: PROTONIX 40 MG IV IV SCH (10:15)
[2021-09-04] MEDS: NEURONTIN 300 MG PO SCH ×3 (10:15→22:10)
[2021-09-04] MEDS: PATIENT OWN MEDICATION IH SCH (11:51)
[2021-09-04] MEDS: Abilify 10 MG PO SCH (22:09)
[2021-09-04] MEDS: Zanaflex 4 MG PO SCH (22:10)
[2021-09-04] MEDS: ZOCOR 20MG PO SCH (22:12)
[2021-09-05 05:42] LABS: Mean Corpuscular Hgb Concent. 30.6 g/dl (32-36); Mean Platelet Volume 9.5 fl (7.5-11.0); Platelet Count 320 K/mm3 (150-450); Red Blood Count 3.79 M/mm3 (4.1-5.6); Red Cell Distribution Width 13.3 % (11.5-14.0); White Blood Count 23.2 K/mm3 (4.0-10.5)
[2021-09-05] MEDS: solu-MEDROL IV SCH (05:49)
[2021-09-05 06:46] LABS: ANION GAP 14.2 MEQ/L (5-15); BLOOD UREA NITROGEN 22 mg/dL (9-20); CHLORIDE 110 mmol/L (98-107); Calcium 9.5 mg/dL (8.4-10.2); Carbon Dioxide 23 mmol/L (22-30); Creatinine 1 0.84 mg/dL (0.66-1.25); EST GLOMERULAR FILTRATION RATE > 60.0 ML/MIN; Glucose 157 mg/dL (74-106); Potassium 4.4 mmol/L (3.5-5.1); SODIUM 142 mmol/L (137-145)
[2021-09-05] MEDS: Glucotrol 5 MG PO SCH (07:41)
[2021-09-05 07:45] VITALS: BP 131/58; PULSE 55; O2SAT 96
[2021-09-05] MEDS: PATIENT OWN MEDICATION IH SCH (07:48)
[2021-09-05] MEDS: VENTOLIN COMMON CANISTER IH SCH (07:49)
--- NOTE | 2021-09-14 22:23 | PCM.SSS ---
History of Present Illness - Chief Complaint Chief Complaint: ACUTE HYPOXIC RESPIRATORY FAILURE, PNEUMONIA Date: 09/05/21 History of Present Illness: is a 75 year old male. Pt. presented to ER with increased sob onset 09/02, upon presentation to ER was noted to have oxygen sats in the 80's, treatment with oxygen increased him to the 90's. Further evaluation noted patient to have a LLL Pneumonia, pt. was admitted to hospital for further evaluation and treatment. - Review of Systems Constitutional: Fever, No Chills Eyes: No Symptoms Ears, Nose, & Throat: No Symptoms Respiratory: Cough, Short Of Breath Cardiac: No Chest Pain, No Edema, No Syncope Abdominal/Gastrointestinal: No Abdominal Pain, No Nausea, No Vomiting, No Diarrhea Genitourinary Symptoms: No Dysuria Musculoskeletal: No Back Pain, No Neck Pain Skin: No Rash Neurological: No Dizziness, No Focal Weakness, No Sensory Changes Psychological: No Symptoms Endocrine: No Symptoms Hematologic/Lymphatic: No Symptoms Immunological/Allergic: No Symptoms Medications & Allergies Home Medications: Home Medication List Clopidogrel Bisulfate 75 mg [PLAVIX 75 MG Tablet] 75 mg PO DAILY 02/15/13 [History Confirmed 09/03/21] Metoprolol Tartrate 50 mg [Lopressor 50 MG] 25 mg PO BID 02/15/13 [History Confirmed 09/03/21] Aspirin EC 81 mg [Ecotrin 81 mg] 81 mg PO DAILY 12/11/18 [History Confirmed 09/03/21] Fenofibrate 160 mg PO DAILY 05/22/20 [History Confirmed 09/03/21] ARIPiprazole [Abilify] 10 mg PO HS 02/15/21 [History Confirmed 09/03/21] Albuterol 2.5 mg/3 ml Neb [Proventil 2.5 mg/3 ml Neb] 1 neb IH TID 09/03/21 [History Confirmed 09/03/21] Albuterol Sulfate [Albuterol Sulfate Hfa] 2 puff IH QID 09/03/21 [History Confirmed 09/03/21] Atorvastatin Calcium [Lipitor] 40 mg PO HS 09/03/21 [History Confirmed 09/03/21] Cetirizine HCl [Zyrtec] 10 mg PO DAILY 09/03/21 [History Confirmed 09/03/21] Fluticasone Propionate [Flonase NASAL] 1 spray NS DAILY 09/03/21 [History Confirmed 09/03/21] Fluticasone/Umeclidin/Vilanter [Trelegy Ellipta 100-62.5-25] 1 puff IH DAILY 09/03/21 [History Confirmed 09/03/21] Gabapentin 300 mg [Neurontin 300 mg] 300 mg PO TID 09/03/21 [History Confirmed 09/03/21] Glipizide 5 mg [Glucotrol 5 MG] 5 mg PO BID 09/03/21 [History Confirmed 09/03/21] Magnesium Oxide [Magnesium] 250 mg PO BID 09/03/21 [History Confirmed 09/03/21] Multivitamin/Iron/Folic Acid [Certavite-Antioxidant Tablet] 1 each PO DAILY 09/03/21 [History Confirmed 09/03/21] Oxycodone HCl/Acetaminophen [Oxycodone-Acetaminophn 7.5-325] 1 each PO QID [History Confirmed 09/03/21] Tizanidine HCl 4 mg [Zanaflex 4 MG] 4 mg PO HS 09/03/21 [History Confirmed 09/03/21] Tolterodine Tartrate [Tolterodine Tartrate ER] 4 mg PO DAILY 09/03/21 [History Confirmed 09/03/21] Vitamin B Complex 1 each PO DAILY 09/03/21 [History Confirmed 09/03/21] Amoxicillin/Potassium Clav [Augmentin 875-125 Tablet] 1 each PO BID #20 tablet 09/05/21 [Rx] Azithromycin [Zithromax Tri-Jesus] 500 mg PO DAILY #1 tablet 09/05/21 [Rx] Allergies/Adverse Reactions: Allergies Allergy/AdvReac Type Severity Reaction Status Date / Time No Known Drug Allergies Allergy Verified 09/03/21 07:08 - Past Medical History Past Medical History: Yes Neurological History: No Pertinent History ENT History: No Pertinent History Cardiac History: Coronary Artery Disease, Hypertension, Myocardial Infarction ([place]) Respiratory History: Asthma, COPD, Pneumonia Endocrine Medical History: No Pertinent History Musculoskelatal History: Degenerative Disk Disease GI Medical History: No Pertinent History History: No Pertinent History Pyscho-Social History: Anxiety Male Reproductive Disorders: No Pertinent History Comment: STENTS 2000. CARDIAC OPEN HEART SURGERY IN 2007. December HAD STENTS PLACED - Past Surgical History Past Surgical History: Yes Neuro Surgical History: No Pertinent History Cardiac History: CABG, Cardiac Stent Respiratory Surgery: No Pertinent History GI Surgical History: No Pertinent History Genitourinary Surgical Hx: No Pertinent History Musculskeletal Surgical Hx: Orthopedic Surgery Male Surgical History: No Pertinent History Other Surgical History: OPEN HEART SURGERY IN 2007. STENTS PLACED 1999. ELBOW, KNEE, BACK SURGERY. - Social History Smoking Status: Former smoker Exposure to second hand smoke: No Alcohol: None Drug Use: none Significant Family History: heart disease - Physical Exam General Appearance: no apparent distress, alert Neurologic Exam: alert, oriented x 3, cooperative, normal mood/affect, nml cerebellar function, nml station & gait, sensation nml, No motor deficits Eye Exam: PERRL/EOMI, eyes nml inspection Ears, Nose, Throat Exam: normal ENT inspection, pharynx normal, moist mucous membranes Neck Exam: normal inspection, non-tender, supple, full range of motion Respiratory Exam: lungs clear, diminished breath sounds, No respiratory distress Cardiovascular Exam: regular rate/rhythm, normal heart sounds, normal peripheral pulses Gastrointestinal/Abdomen Exam: soft, normal bowel sounds, No tenderness, No mass Back Exam: normal inspection, normal range of motion, No CVA tenderness, No vertebral tenderness Extremity Exam: normal inspection, normal range of motion, pelvis stable Skin Exam: normal color, warm, dry, No rash Lymphatic Exam: No adenopathy Results - Labs Lab/Micro Results: Microbiology 09/03/21 08:12 Blood Culture Gram Stain - Final Blood Blood Culture - Final Coagulase Negative Staph. Possible Contaminant. Clinical judgement required. No further workup performed. Assessment/Plan (1) COPD with exacerbation Status: Acute Code(s): J44.1 - CHRONIC OBSTRUCTIVE PULMONARY DISEASE W (ACUTE) EXACERBATION (2) Pneumonia Status: Acute Qualifiers: Pneumonia type: due to unspecified organism Laterality: left Lung location: unspecified part of lung Qualified Code(s): J18.9 - Pneumonia, unspecified organism Code(s): J18.9 - PNEUMONIA, UNSPECIFIED ORGANISM Hospital Summary - Hospital Course Hospital Course: Pt. admitted on estrella of 09/02, upon exam on 09/03, pt. was improved but not quite able to be discharged as he still required supplemental oxygen, the following day the patient had improved to the point he no longer required oxygen and was ready for discharge. - Vitals & Intake/Output Vital Signs: Vital Signs Temperature 97.5 F 09/05/21 07:44 Pulse Rate 55 L 09/05/21 07:44 Respiratory Rate 18 09/05/21 07:44 Blood Pressure 131/58 09/05/21 07:44 O2 Sat by Pulse Oximetry 96 09/05/21 07:44 - Lab Result Diagrams: 09/05/21 05:34 09/05/21 05:34 Micro Results-Entire Visit: Microbiology 09/03/21 08:12 Blood Culture Gram Stain - Final Blood Blood Culture - Final Coagulase Negative Staph. Possible Contaminant. Clinical judgement required. No further workup performed. - Procedures and Test Procedures and Tests throughout Hospitalization: Therapy Orders & Screens 09/03/21 08:16 Respiratory Therapy Assessment DAILY Comment: 09/03/21 12:41 Oxygen Nasal Cannula 2 lpm Comment: 09/03/21 13:10 RT Screen per Nursing Assess ONCE Comment: Protocol Order Physician Instructions: Greater than 3 points order RT Admission Screen Reason For Exam: Triggered on Admission Diagnosis: ACUTE HYPOXIC RESPIRATORY FAILURE, PNEUMONIA Diagnosis: ACUTE HYPOXIC RESPIRATORY FAILURE, PNEUMONIA Pneumonia: Yes Home O2: No Asthma: No CHF: No Home CPAP/BIPAP: No Home Nebs/MDI: Yes Total Points: 8 09/04/21 07:00 Respiratory MDI DAILY Comment: [facility]WN MED DAILY Diagnosis: ACUTE HYPOXIC RESPIRATORY FAILURE, PNEUMONIA - Discharge Discharge Date: 09/05/21 Disposition: Home, Self-Care Condition: Stable Prescriptions: New Amoxicillin/Potassium Clav [Augmentin 875-125 Tablet] 1 each PO BID #20 tablet Azithromycin [Zithromax Tri-Jesus] 500 mg PO DAILY #1 tablet Continue Clopidogrel Bisulfate 75 mg [PLAVIX 75 MG Tablet] 75 mg PO DAILY Metoprolol Tartrate 50 mg [Lopressor 50 MG] 25 mg PO BID Aspirin EC 81 mg [Ecotrin 81 mg] 81 mg PO DAILY Fenofibrate 160 mg PO DAILY ARIPiprazole [Abilify] 10 mg PO HS Atorvastatin Calcium [Lipitor] 40 mg PO HS Vitamin B Complex 1 each PO DAILY Fluticasone/Umeclidin/Vilanter [Trelegy Ellipta 100-62.5-25] 1 puff IH DAILY Tizanidine HCl 4 mg [Zanaflex 4 MG] 4 mg PO HS Magnesium Oxide [Magnesium] 250 mg PO BID Glipizide 5 mg [Glucotrol 5 MG] 5 mg PO BID Gabapentin 300 mg [Neurontin 300 mg] 300 mg PO TID Fluticasone Propionate [Flonase NASAL] 1 spray NS DAILY Cetirizine HCl [Zyrtec] 10 mg PO DAILY Multivitamin/Iron/Folic Acid [Certavite-Antioxidant Tablet] 1 each PO DAILY Albuterol Sulfate [Albuterol Sulfate Hfa] 2 puff IH QID Albuterol 2.5 mg/3 ml Neb [Proventil 2.5 mg/3 ml Neb] 1 neb IH TID Tolterodine Tartrate [Tolterodine Tartrate ER] 4 mg PO DAILY Oxycodone HCl/Acetaminophen [Oxycodone-Acetaminophn 7.5-325] 1 each PO QID Instructions: Pneumonia, Adult (DC), Preventing Falls Follow up with: JAYMIE JENKINS MD [ACTIVE STAFF] - 09/12/21 10:30 am
== END 2021-09-05 09:43 | disposition home or self-care (01) ==
LOC: ED 07:06 → MED SURG 12:19 → ED 12:32
PROVIDERS: ADMIT Family Medicine; ATTEND Family Medicine
DX: J44.1 Chronic obstructive pulmonary disease with (acute) exacerbation (principal); J18.9 Pneumonia, unspecified organism; J96.01 Acute respiratory failure with hypoxia; I25.10 Atherosclerotic heart disease of native coronary artery without angina pectoris; I10 Essential (primary) hypertension; Z79.899 Other long term (current) drug therapy; Z20.828 Contact with and (suspected) exposure to other viral communicable diseases; Z79.01 Long term (current) use of anticoagulants; E11.9 Type 2 diabetes mellitus without complications; E78.5 Hyperlipidemia, unspecified
CPT/HCPCS: 0241U; 36000; 36415; 71045; 80048; 80053; 82947; 83880; 84145; 84484; 85025; 85027; 87040; 93005; 93268; 94640; 94760; 96365; 96367; 96374; 99285; G0378; J0456; J0696; J1817; J2930; A9270-GY

== ENCOUNTER 2021-12-13 09:34 | Emergency (ER) | payer MEDICARE, OTHER ==
[2021-12-13] MEDS ORDERED: BABY ASPIRIN 81 MG CHEW PO ONE (09:40)
[2021-12-13 09:58] LABS: Absolute Neutrophil Ct (ANC) 7.59 (1.4-6.9); Basophil (Absolute #) 0.03 (0-0.4); Eosinophil % 2.4 % (0.00-5.0); Eosinophil (Absolute #) 0.28 (0-0.5); Hematocrit 42.1 % (42-50); Hemoglobin 13.3 gm/dl (12.5-18.0); Lymphocyte (Absolute #) 2.78 (1.0-4.6); Lymphocytes % 24.3 % (24.0-44.0); Mean Cell Volume 92.9 fl (78-100); Mean Corpuscular Hemoglobin 29.4 pg (26-32); Mean Corpuscular Hgb Concent. 31.6 g/dl (32-36); Mean Platelet Volume 9.5 fl (7.5-11.0); Monocyte (Absolute #) 0.77 (0.0-1.3); Monocytes % 6.7 % (0.0-12.0); Neutrophil % 66.3 % (36.0-66.0); Platelet Count 303 K/mm3 (150-450); Red Blood Count 4.53 M/mm3 (4.1-5.6); Red Cell Distribution Width 13.9 % (11.5-14.0); White Blood Count 11.5 K/mm3 (4.0-10.5)
[2021-12-13] MEDS ORDERED: NITRO-BID 2% UD PACKETS TOP ONE (09:59)
--- NOTE | 2021-12-13 09:59 | ERPHSYRPT ---
- History of Present Illness Time Seen by Provider: 12/13/21 09:53 Historian: patient, family Patient Subjective Stated Complaint: PT HERE FOR CHEST PAIN TO CENTER OF CHEST THAT RADIATES TO LEFT SIDE. PT RECENTLY WAS TREATED FOR PNUEMONIA, Triage Nursing Assessment: PT ALERT, ARRIVED, PER WC, RESP EASY, FACE MASK IN PLACE, CHEST CLEAR, NO EDEMA NOTED Physician History: Patient is 75-year-old male with significant past medical history of coronary artery disease multiple angina and myocardial infarction as well as status post coronary artery bypass graft surgery 22 years ago hypertension came to the emergency room with the complaining of chest pain approximately started 1 hour ago at home. Patient took a 1 nitro and chest pain did got little bit better but continued to stay so he came to the emergency room. He came to the emergency room he still having some heavy pressure and chest pain but he was denying any shortness of breath nausea vomiting headache or syncopal episode. Timing/Duration: today Activities at Onset: none Quality: pressure, tightness Location: substernal Chest Pain Radiation: no radiation Severity of Pain-Max: moderate Severity of Pain-Current: moderate Modifying Factors: Improves With: nitroglycerin Associated Symptoms: denies symptoms Prior Chest Pain/Cardiac Workup: angina, heart attack, recently seen/treated Nitro Today/Relief: 0.4 mg x 1 Aspirin Treatment Today: no aspirin today Allergies/Adverse Reactions: No Known Drug Allergies Allergy (Verified 12/13/21 09:37) Home Medications: Clopidogrel Bisulfate 75 mg [PLAVIX 75 MG Tablet] 75 mg PO DAILY 02/15/13 [History] Metoprolol Tartrate 50 mg [Lopressor 50 MG] 25 mg PO BID 02/15/13 [History] Fenofibrate 160 mg PO DAILY 05/22/20 [History] ARIPiprazole [Abilify] 10 mg PO HS 02/15/21 [History] Albuterol 2.5 mg/3 ml Neb [Proventil 2.5 mg/3 ml Neb] 1 neb IH TID 09/03/21 [History] Albuterol Sulfate [Albuterol Sulfate Hfa] 2 puff IH QID 09/03/21 [History] Atorvastatin Calcium [Lipitor] 40 mg PO HS 09/03/21 [History] Cetirizine HCl [Zyrtec] 10 mg PO DAILY 09/03/21 [History] Fluticasone Propionate [Flonase NASAL] 1 spray NS DAILY 09/03/21 [History] Fluticasone/Umeclidin/Vilanter [Trelegy Ellipta 100-62.5-25] 1 puff IH DAILY 09/03/21 [History] Gabapentin 300 mg [Neurontin 300 mg] 300 mg PO TID 09/03/21 [History] Glipizide 5 mg [Glucotrol 5 MG] 5 mg PO BID 09/03/21 [History] Magnesium Oxide [Magnesium] 250 mg PO BID 09/03/21 [History] Multivitamin/Iron/Folic Acid [Certavite-Antioxidant Tablet] 1 each PO DAILY 09/03/21 [History] Oxycodone HCl/Acetaminophen [Oxycodone-Acetaminophn 7.5-325] 1 each PO QID 09/03/21 [History] Tizanidine HCl 4 mg [Zanaflex 4 MG] 4 mg PO HS 09/03/21 [History] Tolterodine Tartrate [Tolterodine Tartrate ER] 4 mg PO DAILY 09/03/21 [History] Vitamin B Complex 1 each PO DAILY 09/03/21 [History] Hx Tetanus, Diphtheria Vaccination/Date Given: Yes Hx Influenza Vaccination/Date Given: Yes Hx Pneumococcal Vaccination/Date Given: Yes Immunizations Up to Date: Yes Travel Risk - International Travel Have you traveled outside of the country in past 3 weeks: No - Coronavirus Screening Are you exhibiting any of the following symptoms?: No Close contact with a COVID-19 positive Pt in past 14-21 Days: No - Vaccine Status Have you recieved a Covid-19 vaccination: Yes Crtts: Moderna - Vaccination Dates Date of 2cond Vaccination (if applicable): 11/25/2020 - Review of Systems Constitutional: No Fever, No Chills Eyes: No Symptoms Ears, Nose, & Throat: No Symptoms Respiratory: No Cough, No Dyspnea Cardiac: Chest Pain, No Edema, No Syncope Abdominal/Gastrointestinal: No Abdominal Pain, No Nausea, No Vomiting, No Diar mark Genitourinary Symptoms: No Dysuria Musculoskeletal: No Back Pain, No Neck Pain Skin: No Rash Neurological: No Dizziness, No Focal Weakness, No Sensory Changes Psychological: No Symptoms Endocrine: No Symptoms All Other Systems: Reviewed and Negative - Past Medical History Pertinent Past Medical History: Yes Neurological History: No Pertinent History ENT History: No Pertinent History Cardiac History: Coronary Artery Disease, Hypertension, Myocardial Infarction ([place]) Respiratory History: Asthma, COPD, Pneumonia Endocrine Medical History: No Pertinent History Musculoskeletal History: Degenerative Disk Disease GI Medical History: No Pertinent History History: No Pertinent History Psycho-Social History: Anxiety Male Reproductive Disorders: No Pertinent History Other Medical History: STENTS 2000. CARDIAC OPEN HEART SURGERY IN 2007. December HAD STENTS PLACED - Past Surgical History Past Surgical History: Yes Neuro Surgical History: No Pertinent History Cardiac: CABG, Cardiac Stent Respiratory: No Pertinent History Gastrointestinal: No Pertinent History Genitourinary: No Pertinent History Musculoskeletal: Orthopedic Surgery Male Surgical History: No Pertinent History Other Surgical History: OPEN HEART SURGERY IN 2007. STENTS PLACED 1999. ELBOW, KNEE, BACK SURGERY. - Social History Smoking Status: Former smoker Exposure to second hand smoke: No Alcohol Use: Socially Drug Use: none Patient Lives Alone: No Significant Family History: heart disease - Nursing Vital Signs Nursing Vital Signs: Initial Vital Signs Temperature 97.0 F 12/13/21 09:39 Pulse Rate 81 12/13/21 09:39 Respiratory Rate 18 12/13/21 09:39 Blood Pressure 124/63 12/13/21 09:39 O2 Sat by Pulse Oximetry 95 12/13/21 09:39 Pain Scale Pain Intensity 0 - Physical Exam General Appearance: no apparent distress, alert Eye Exam: PERRL/EOMI, eyes nml inspection Ears, Nose, Throat Exam: normal ENT inspection, moist mucous membranes Neck Exam: normal inspection, non-tender, supple, full range of motion Respiratory Exam: normal breath sounds, lungs clear, No respiratory distress Cardiovascular Exam: regular rate/rhythm, normal heart sounds Gastrointestinal/Abdomen Exam: soft, No tenderness, No mass Back Exam: normal inspection, No CVA tenderness, No vertebral tenderness Extremity Exam: normal inspection, normal range of motion Neurologic Exam: alert, oriented x 3, cooperative, normal mood/affect, sensation nml, No motor deficits Skin Exam: normal color, warm, dry SpO2: 95 - Course Nursing assessment & vital signs reviewed: Yes EKG Interpreted by Me: Non-specific ST Changes Rhythm Strip: 1st degree block - Radiology Exams Chest X-ray Interpretation: Reviewed by me, Negative - CT Exams Chest CT Interpretation: Tele-radiologist Report (early infiltrate) Ordered Tests: Active Orders 24 hr Category Date Time Status [place] Sprayer STAT Care 12/13/21 09:41 Active EKG-ER Only STAT Care 12/13/21 09:40 Active Oxygen-ED Only Nasal Cannula 2 lpm Care 12/13/21 09:40 Active CHEST 2 VIEWS (PA AND LAT) Stat Exams 12/13/21 09:41 Taken CHEST WITH CONTRAST [CT] Stat Exams 12/13/21 10:49 Taken CBC W DIFF Stat Lab 12/13/21 09:56 Completed CMP Stat Lab 12/13/21 09:56 Completed D-DIMER QUANTITATIVE Stat Lab 12/13/21 09:56 Completed NT PRO BNP Stat Lab 12/13/21 09:56 Completed TROPONIN Q3H Lab 12/13/21 09:56 Completed TROPONIN Q3H Lab 12/13/21 12:32 Completed TROPONIN Q3H Lab 12/13/21 15:45 Ordered TROPONIN Q3H Lab 12/13/21 18:45 Ordered TROPONIN Q3H Lab 12/13/21 21:45 Ordered Medication Summary Discontinued Medications Generic Name Dose Route Start Last Admin Trade Name Freq PRN Reason Stop Dose Admin Aspirin 81 mg 12/13/21 09:40 12/13/21 09:45 Aspirin 81 Mg Tab.Chew PO 12/13/21 09:41 81 mg STAT ONE Administration Aspirin Confirm 12/13/21 10:10 Aspirin 81 Mg Tab.Chew Administered 12/13/21 10:11 Dose 81 mg .ROUTE .STK-MED ONE Ceftriaxone Sodium/Dextrose 1 g in 50 mls @ 100 mls/hr 12/13/21 11:34 12/13/21 12:35 Rocephin 1 Gm-D5w 50 Ml Bag IV 12/13/21 12:03 Infused STAT STA Infusion Ceftriaxone Sodium/Dextrose Confirm 12/13/21 11:42 Rocephin 1 Gm-D5w 50 Ml Bag Administered 12/13/21 11:43 Dose 1 g in 50 mls @ ud IV .STK-MED ONE Nitroglycerin 1 gm 12/13/21 09:59 12/13/21 10:14 Nitroglycerin 1 Gm Packet TOP 12/13/21 10:00 1 gm STAT ONE Administration Nitroglycerin Confirm 12/13/21 10:10 Nitroglycerin 1 Gm Packet Administered 12/13/21 10:11 Dose 1 gm .ROUTE .K-MED ONE Lab/Rad Data: Laboratory Result Diagrams 12/13/21 09:56 12/13/21 09:56 Laboratory Results 12/13/21 12/13/21 12/13/21 Range/Units 12:32 10:51 09:56 WBC (4.0-10.5) K/mm3 RBC (4.1-5.6) M/mm3 Hgb (12.5-18.0) gm/dl Hct (42-50) % MCV (78-100) fl MCH (26-32) pg MCHC (32-36) g/dl RDW (11.5-14.0) % Plt Count (150-450) K/mm3 MPV (7.5-11.0) fl Gran % (36.0-66.0) % Eos # (Auto) (0-0.5) Absolute Lymphs (auto) (1.0-4.6) Absolute Monos (auto) (0.0-1.3) Lymphocytes % (24.0-44.0) % Monocytes % (0.0-12.0) % Eosinophils % (0.00-5.0) % Basophils % (0.0-0.4) % Absolute Granulocytes (1.4-6.9) Basophils # (0-0.4) D-Dimer (215-500) ng/mL Sodium (137-145) mmol/L Potassium (3.5-5.1) mmol/L Chloride (98-107) mmol/L Carbon Dioxide (22-30) mmol/L Anion Gap (5-15) MEQ/L BUN (9-20) mg/dL Creatinine (0.66-1.25) mg/dL Estimated GFR ML/MIN Glucose (74-106) mg/dL Calcium (8.4-10.2) mg/dL Total Bilirubin (0.2-1.3) mg/dL AST (17-59) U/L ALT (0-50) U/L Alkaline Phosphatase (38-126) U/L Troponin I < 0.012 < 0.012 (0.000-0.034) ng/mL NT-Pro-B Natriuret Pep (0-900) pg/mL Serum Total Protein (6.3-8.2) g/dL Albumin (3.5-5.0) g/dL Influenza Type A Ag NEGATIVE (NEGATIVE) Influenza Type B Ag NEGATIVE (NEGATIVE) RSV (PCR) NEGATIVE (Negative) SARS-CoV-2 (PCR) NEGATIVE (NEGATIVE) 12/13/21 12/13/21 12/13/21 Range/Units 09:56 09:56 09:56 WBC 11.5 H (4.0-10.5) K/mm3 RBC 4.53 (4.1-5.6) M/mm3 Hgb 13.3 (12.5-18.0) gm/dl Hct 42.1 (42-50) % MCV 92.9 (78-100) fl MCH 29.4 (26-32) pg MCHC 31.6 L (32-36) g/dl RDW 13.9 (11.5-14.0) % Plt Count 303 (150-450) K/mm3 MPV 9.5 (7.5-11.0) fl Gran % 66.3 H (36.0-66.0) % Eos # (Auto) 0.28 (0-0.5) Absolute Lymphs (auto) 2.78 (1.0-4.6) Absolute Monos (auto) 0.77 (0.0-1.3) Lymphocytes % 24.3 (24.0-44.0) % Monocytes % 6.7 (0.0-12.0) % Eosinophils % 2.4 (0.00-5.0) % Basophils % 0.3 (0.0-0.4) % Absolute Granulocytes 7.59 H (1.4-6.9) Basophils # 0.03 (0-0.4) D-Dimer 2183 H* (215-500) ng/mL Sodium 141 (137-145) mmol/L Potassium 4.2 (3.5-5.1) mmol/L Chloride 108 H (98-107) mmol/L Carbon Dioxide 25 (22-30) mmol/L Anion Gap 12.9 (5-15) MEQ/L BUN 20 (9-20) mg/dL Creatinine 1.08 (0.66-1.25) mg/dL Estimated GFR > 60.0 ML/MIN Glucose 158 H (74-106) mg/dL Calcium 9.8 (8.4-10.2) mg/dL Total Bilirubin 0.60 (0.2-1.3) mg/dL AST 22 (17-59) U/L ALT 26 (0-50) U/L Alkaline Phosphatase 105 (38-126) U/L Troponin I (0.000-0.034) ng/mL NT-Pro-B Natriuret Pep 130 (0-900) pg/mL Serum Total Protein 7.1 (6.3-8.2) g/dL Albumin 4.1 (3.5-5.0) g/dL Influenza Type A Ag (NEGATIVE) Influenza Type B Ag (NEGATIVE) RSV (PCR) (Negative) SARS-CoV-2 (PCR) (NEGATIVE) - Progress Progress: improved Air Movement: good Blood Culture(s) Obtained: No Antibiotics given: Yes Counseled pt/family regarding: lab results, diagnosis, need for follow-up, rad results - Departure Departure Disposition: Home Clinical Impression: Chest pain at rest Pneumonia Qualifiers: Pneumonia type: due to Haemophilus influenzae Laterality: unspecified laterality Lung location: unspecified part of lung Qualified Code(s): J14 - Pneumonia due to Hemophilus influenzae Condition: Stable Critical Care Time: Yes Critical Care Time(excluding separately billable procedures): Critical 30-74 mins Referrals: JEANNE ESTEVEZ NP [Primary Care Provider] - Follow up/PCP as directed Instructions: Angina (DC), Chest Pain (DC) Additional Instructions: Discharge/Care Plan TIMMY MILLER was seen on 12/13/21 in the Emergency Room. The patient was counseled regarding Diagnosis,Lab results, Imaging studies, need for follow up and when to return to the Emergency Room. Prescriptions given: Discharge Note I have spoken with the patient and/or caregivers. I have explained the patient's condition, diagnosis and treatment plan based on the information available to me at this time. I have answered the patient's and/or caregiver's questions and addressed any concerns. The patient and/or caregivers have as good understanding of the patient's diagnosis, condition and treatment plan as can be expected at this point. The vital signs have been stable. The patient's condition is stable and appropriate for discharge from the emergency department. The patient will pursue further outpatient evaluation with the primary care physician or other designated or consulting physician as outlined in the discharge instructions. The patient and/or caregivers are agreeable to this plan of care and follow-up instructions have been explained in detail. The patient and/or caregivers have received these instruction. The patient/and or caregivers are aware that any significant change in condition or worsening of symptoms should prompt an immediate return to this or the closest emergency department or call 911. TIMMY MILLER was seen on 12/13/21 n the Emergency Room. At that time you were treated for an emergent condition, during your visit Laboratory, Radiology and/or other procedures may have been ordered. It is very important that you follow-up with your Primary Care Physician JEANNE ESTEVEZ within the next 24-48 hours to review your Emergency Room visit and the final results of testing that was ordered. Some test results such as Urine Cultures, Blood Cultures, and other cultures if ordered will not be finalized for 24-48 hours. If you do not have a Primary Care Provider please call the medical records department at [phone] ext [phone] to obtain a copy of your results or you may sign into our patient portal to obtain these results by visiting us [email or web address] and completing the following steps: 1. Click on the Patient Portal link 2. Click the Patient Self Enrollment Link to complete the enrollment form and entering your 3. Once the enrollment form is completed you will receive an email with a temporary ID and password at the email address you provided. 4. Next choose a user name and password. Your user name must be at least 4 characters long and your password must be at least 4 characters long. 5. Choose a security question from the list and provide your answer to the question. If you already have signed into the Health Portal you may access your Health Care Information 19/04 by the following steps: 1. Login to our website @ [email or web address] 2. Enter your original user name and password. FAQS The [facility] is an online tool that contains your Lab Results, Radiology Reports, Visit History, Discharge Instructions and Health Summary Lab and Radiology Results will not be available for 72 hours on the portal. The Portal is a secure site, passwords are encryted and URLs are re-written so t hey cannot be copied and pasted. You and authorized family members are the only ones who can access your Portal. Also there is a timeout feature that protects your information if you leave the Portal page open. If you have technical difficulty please use the Contact Us link on the page this will allow you to submit any questions you have regarding the Portal or you may contact the Medical Record Department at [phone] ext [phone]. Prescriptions: Azithromycin [Azithromycin 250 mg Pack] 250 mg PO UD #6 tablet Methylprednisolone Packet [Medrol Dosepack] 4 mg PO UD #30 packet
[2021-12-13] MEDS ORDERED: NITRO-BID 2% UD PACKETS ONE (10:10)
[2021-12-13] MEDS ORDERED: BABY ASPIRIN 81 MG CHEW ONE (10:10)
[2021-12-13 10:18] LABS: ALBUMIN 4.1 g/dL (3.5-5.0); ALKALINE PHOSPHATASE 105 U/L (38-126); ANION GAP 12.9 MEQ/L (5-15); BLOOD UREA NITROGEN 20 mg/dL (9-20); CHLORIDE 108 mmol/L (98-107); Calcium 9.8 mg/dL (8.4-10.2); Carbon Dioxide 25 mmol/L (22-30); Creatinine 1 1.08 mg/dL (0.66-1.25); EST GLOMERULAR FILTRATION RATE > 60.0 ML/MIN; Glucose 158 mg/dL (74-106); NT PRO BNP 130 pg/mL (0-900); Potassium 4.2 mmol/L (3.5-5.1); SGOT/AST 22 U/L (17-59); SGPT/ALT 26 U/L (0-50); SODIUM 141 mmol/L (137-145); Total Protein 7.1 g/dL (6.3-8.2)
[2021-12-13] MEDS ORDERED: ROCEPHIN 1 Gm-D5w 50 ml Bag** 1 G/50 ML IVPB IV STA (11:34)
[2021-12-13] MEDS ORDERED: ROCEPHIN 1 Gm-D5w 50 ml Bag** 1 G/50 ML IVPB IV ONE (11:42)
[2021-12-13 11:50] LABS: INFLUENZA A NEGATIVE (NEGATIVE); INFLUENZA B NEGATIVE (NEGATIVE); RESPIRATORY SYNCTIAL VIRUS NEGATIVE (Negative); SARS-CoV-2 Xpert Express NEGATIVE (NEGATIVE)
[2021-12-13 14:06] VITALS: BP 119/79; PULSE 89; O2SAT 97
--- NOTE | 2021-12-13 19:16 | XRAY ---
Indication: Chest pain and short of breath. Elevated d-dimer. Recent pneumonia. Multiple contiguous images obtained through the chest using 80 cc Isovue 370 contrast and PE protocol. Comparison: March 03, 2021. There is good opacification of the pulmonary arteries to include the lobar and segmental branches. No pulmonary embolus. Heart not enlarged. Aorta remains mildly arteriosclerotic. Stable small mediastinal and bilateral hilar calcified nodes. No pathologic mediastinal/hilar lymphadenopathy. Lungs again demonstrates mild diffuse pulmonary emphysema and benign 1.1 cm left lower lobe noncalcified nodule. New right base subsegmental atelectasis/scarring. No new pulmonary mass/nodule, infiltrate, or effusion. Bony thorax intact again with mild osteopenia and sternotomy wires. Limited upper abdomen again demonstrates fatty liver and tiny hepatic/splenic calcified granulomas. Impression: 1. Negative pulmonary embolus. 2. New right base subsegmental atelectasis/scarring. Negative for acute pneumonic process or CHF. 3. Again pulmonary emphysema, benign left lower lobe noncalcified nodule, fatty liver, and old granulomatous disease. Comment: Preliminary interpretation made by [facility]. No critical discrepancy.
--- NOTE | 2021-12-13 19:18 | XRAY ---
Indication: Chest pain. Recent pneumonia. Comparison: September 02, 2021. AP/lateral chest unchanged again hyperinflated and clear with a few incidental calcified granulomas. 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 Bony thorax intact again with mild osteopenia and degenerative changes. No new/acute findings.
== END 2021-12-13 14:13 | disposition home or self-care (01) ==
LOC: ED 09:34
DX: J14 Pneumonia due to Hemophilus influenzae (principal); R07.9 Chest pain, unspecified; I10 Essential (primary) hypertension; J44.0 Chronic obstructive pulmonary disease with (acute) lower respiratory infection; Z79.01 Long term (current) use of anticoagulants; Z79.52 Long term (current) use of systemic steroids; Z79.899 Other long term (current) drug therapy
CPT/HCPCS: 0241U; 36000; 36415; 71046; 71260; 80053; 83880; 84484; 85025; 85379; 93005; 93041; 96365; 99284; 99291; J0696; A9270-GY

== ENCOUNTER 2022-03-03 15:52 | Observation (INO) | payer MEDICARE, OTHER ==
--- NOTE | 2022-03-03 16:55 | XRAY ---
Indication: Hypotension. Comparison: December 13, 2021. Portable chest remains hyperinflated and clear again with incidental left lung calcified granuloma. 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 Bony thorax intact again with osteopenia, degenerative changes, and mild dextroscoliosis. No new/acute findings. Impression: Continued nonacute chest with chronic features.
--- NOTE | 2022-03-03 17:12 | ERPHSYRPT ---
- History of Present Illness Time Seen by Provider: 03/03/22 16:10 Source: patient Exam Limitations: no limitations Patient Subjective Stated Complaint: Hypotension Triage Nursing Assessment: Patient brought back to ED per w/c and transferred self to bed. Patient A+O X3. Patient's skin pale, warm and dry. Patient complains of hypotension today. Patient states his blood pressure was 97/64. Patient complains of dizziness and fatigue. Patient laurie pain or discomfort. Timing/Duration: today Severity: moderate Modifying Factors: Improves With: nothing Associated Symptoms: other (Dizziness and fatigue) Allergies/Adverse Reactions: No Known Drug Allergies Allergy (Verified 03/03/22 15:58) Home Medications: Clopidogrel Bisulfate [PLAVIX Tablet] 75 mg PO DAILY 02/15/13 [History] Metoprolol Tartrate 50 mg [Lopressor 50 MG] 25 mg PO BID 02/15/13 [History] Fenofibrate 160 mg PO DAILY 05/22/20 [History] ARIPiprazole [Abilify] 10 mg PO HS 02/15/21 [History] Albuterol 2.5 mg/3 ml Neb [Proventil 2.5 mg/3 ml Neb] 1 neb IH TID 09/03/21 [History] Albuterol Sulfate [Albuterol Sulfate Hfa] 2 puff IH QID 09/03/21 [History] Atorvastatin Calcium [Lipitor] 40 mg PO HS 09/03/21 [History] Cetirizine HCl [Zyrtec] 10 mg PO DAILY 09/03/21 [History] Fluticasone Propionate [Flonase NASAL] 1 spray NS DAILY 09/03/21 [History] Fluticasone/Umeclidin/Vilanter [Trelegy Ellipta 100-62.5-25] 1 puff IH DAILY 09/03/21 [History] Gabapentin [Neurontin ] 300 mg PO TID 09/03/21 [History] Glipizide 5 mg [Glucotrol 5 MG] 5 mg PO BID 09/03/21 [History] Magnesium Oxide [Magnesium] 250 mg PO BID 09/03/21 [History] Multivitamin/Iron/Folic Acid [Certavite-Antioxidant Tablet] 1 each PO DAILY 09/03/21 [History] Oxycodone HCl/Acetaminophen [Oxycodone-Acetaminophn 7.5-325] 1 each PO QID 09/03/21 [History] Tizanidine HCl 4 mg [Zanaflex 4 MG] 4 mg PO HS 09/03/21 [History] Tolterodine Tartrate [Tolterodine Tartrate ER] 4 mg PO DAILY 09/03/21 [History] Vitamin B Complex 1 each PO DAILY 09/03/21 [History] Hx Tetanus, Diphtheria Vaccination/Date Given: Yes Hx Influenza Vaccination/Date Given: Yes Hx Pneumococcal Vaccination/Date Given: Yes Immunizations Up to Date: Yes Travel Risk - International Travel Have you traveled outside of the country in past 3 weeks: No - Coronavirus Screening Are you exhibiting any of the following symptoms?: No Close contact with a COVID-19 positive Pt in past 14-21 Days: No - Vaccine Status Have you recieved a Covid-19 vaccination: Yes 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[employer] - Vaccination Dates Date of 2cond Vaccination (if applicable): 11/25/2020 - Review of Systems Constitutional: No Symptoms, No Fever, No Chills Eyes: No Symptoms Ears, Nose, & Throat: No Symptoms Respiratory: No Symptoms, No Cough, No Dyspnea Cardiac: No Symptoms, No Chest Pain, No Edema, No Syncope Abdominal/Gastrointestinal: No Symptoms, No Abdominal Pain, No Nausea, No Vomiting, No Diarrhea Genitourinary Symptoms: No Symptoms, No Dysuria Musculoskeletal: No Symptoms, No Back Pain, No Neck Pain Skin: No Symptoms, No Rash Neurological: No Symptoms, No Dizziness, No Focal Weakness, No Sensory Changes Psychological: No Symptoms Endocrine: No Symptoms Hematologic/Lymphatic: No Symptoms Immunological/Allergic: No Symptoms All Other Systems: Reviewed and Negative - Past Medical History Pertinent Past Medical History: Yes Neurological History: No Pertinent History ENT History: No Pertinent History Cardiac History: Coronary Artery Disease, Hypertension, Myocardial Infarction ([place]) Respiratory History: Asthma, COPD, Pneumonia Endocrine Medical History: No Pertinent History Musculoskeletal History: Degenerative Disk Disease GI Medical History: No Pertinent History History: No Pertinent History Psycho-Social History: Anxiety Male Reproductive Disorders: No Pertinent History Other Medical History: STENTS 1999. CARDIAC OPEN HEART SURGERY IN 2007. December HAD STENTS PLACED - Past Surgical History Past Surgical History: Yes Neuro Surgical History: No Pertinent History Cardiac: CABG, Cardiac Stent Respiratory: No Pertinent History Gastrointestinal: No Pertinent History Genitourinary: No Pertinent History Musculoskeletal: Orthopedic Surgery Male Surgical History: No Pertinent History Other Surgical History: OPEN HEART SURGERY IN 2007. STENTS PLACED 1999. ELBOW, KNEE, BACK SURGERY. - Social History Smoking Status: Former smoker Exposure to second hand smoke: No Alcohol Use: Socially Drug Use: none Patient Lives Alone: No Significant Family History: heart disease - Nursing Vital Signs Nursing Vital Signs: Initial Vital Signs Temperature 97.9 F 03/03/22 16:02 Pulse Rate 75 03/03/22 16:02 Respiratory Rate 18 03/03/22 16:02 Blood Pressure 96/66 03/03/22 16:02 O2 Sat by Pulse Oximetry 96 03/03/22 16:02 Pain Scale Pain Intensity 0 - Physical Exam General Appearance: no apparent distress, alert Eye Exam: PERRL/EOMI, eyes nml inspection Ears, Nose, Throat Exam: normal ENT inspection, TMs normal, pharynx normal, moist mucous membranes Neck Exam: normal inspection, non-tender, supple, full range of motion Respiratory Exam: normal breath sounds, lungs clear, No respiratory distress Cardiovascular Exam: regular rate/rhythm, normal heart sounds, normal peripheral pulses Gastrointestinal/Abdomen Exam: soft, normal bowel sounds, No tenderness, No mass Back Exam: normal inspection, normal range of motion, No CVA tenderness, No vertebral tenderness Extremity Exam: normal inspection, normal range of motion, pelvis stable Neurologic Exam: alert, oriented x 3, cooperative, normal mood/affect, nml cerebellar function, nml station & gait, sensation nml, No motor deficits Skin Exam: normal color, warm, dry, No rash Lymphatic Exam: No adenopathy SpO2 Interpretation: normal SpO2: 96 O2 Delivery: Room Air - Course Nursing assessment & vital signs reviewed: Yes - CT Exams Chest CT Interpretation: Tele-radiologist Report (Nonacute chest with chronic features. Hyperinflated lungs. Calcified granuloma. 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 STAT Care 03/03/22 16:28 Active EKG-ER Only STAT Care 03/03/22 16:28 Active IV Insertion STAT Care 03/03/22 16:28 Active Pulse Oximetry (ED) STAT Care 03/03/22 16:28 Active CHEST 1 VIEW (PORTABLE) Stat Exams 03/03/22 16:28 Completed CBC W DIFF Stat Lab 03/03/22 17:30 Completed CMP Stat Lab 03/03/22 17:30 Completed NT PRO BNP Stat Lab 03/03/22 17:30 Completed TROPONIN Q3H Lab 03/03/22 17:30 Completed TROPONIN Q3H Lab 03/03/22 19:30 Ordered TROPONIN Q3H Lab 03/03/22 22:30 Ordered TROPONIN Q3H Lab 03/04/22 01:30 Ordered TROPONIN Q3H Lab 03/04/22 04:30 Ordered Medication Summary Generic Name Dose Route Start Last Admin Trade Name Freq PRN Reason Stop Dose Admin Sodium Chloride 1,000 mls @ 50 mls/hr 03/03/22 19:15 03/03/22 19:20 Sodium Chloride 0.9% 1000 Ml IV 04/02/22 19:14 50 mls/hr .Q20H MATHEW Administration Lab/Rad Data: Laboratory Result Diagrams 03/03/22 17:30 03/03/22 17:30 Laboratory Results 03/03/22 03/03/22 03/03/22 Range/Units 19:29 17:30 17:30 WBC (4.0-10.5) x10^3/uL RBC (4.1-5.6) x10^6/uL Hgb (12.5-18.0) g/dL Hct (42-50) % MCV (78-100) fL MCH (26-32) pg MCHC (32-36) g/dL RDW (11.5-14.0) % Plt Count (150-450) x10^3/uL MPV (7.5-11.0) fL Gran % (36.0-66.0) % Immature Gran % (Auto) (0.00-0.4) % Nucleat RBC Rel Count (0.00-0.1) % Eos # (Auto) (0-0.5) x10^3/uL Immature Gran # (Auto) (0.00-0.03) x10^3u/L Absolute Lymphs (auto) (1.0-4.6) x10^3/uL Absolute Monos (auto) (0.0-1.3) x10^3/uL Absolute Nucleated RBC (0.00-0.01) x10^3u/L Lymphocytes % (24.0-44.0) % Monocytes % (0.0-12.0) % Eosinophils % (0.00-5.0) % Basophils % (0.0-0.4) % Absolute Granulocytes (1.4-6.9) x10^3/uL Basophils # (0-0.4) x10^3/uL Sodium 139 (137-145) mmol/L Potassium 4.6 (3.5-5.1) mmol/L Chloride 101 (98-107) mmol/L Carbon Dioxide 28 (22-30) mmol/L Anion Gap 14.7 (5-15) MEQ/L BUN 34 H (9-20) mg/dL Creatinine 1.48 H (0.66-1.25) mg/dL Estimated GFR 49.4 ML/MIN Glucose 106 (74-106) mg/dL Calcium 10.0 (8.4-10.2) mg/dL Total Bilirubin 0.80 (0.2-1.3) mg/dL AST 26 (17-59) U/L ALT 24 (0-50) U/L Alkaline Phosphatase 96 (38-126) U/L Troponin I < 0.012 (0.000-0.034) ng/mL NT-Pro-B Natriuret Pep 47.9 (0-900) pg/mL Serum Total Protein 7.0 (6.3-8.2) g/dL Albumin 4.3 (3.5-5.0) g/dL Influenza Type A Ag NEGATIVE (NEGATIVE) Influenza Type B Ag NEGATIVE (NEGATIVE) RSV (PCR) NEGATIVE (Negative) SARS-CoV-2 (PCR) NEGATIVE (NEGATIVE) 03/03/22 Range/Units 17:30 WBC 9.6 (4.0-10.5) x10^3/uL RBC 4.31 (4.1-5.6) x10^6/uL Hgb 12.8 (12.5-18.0) g/dL Hct 40.6 L (42-50) % MCV 94.2 (78-100) fL MCH 29.7 (26-32) pg MCHC 31.5 L (32-36) g/dL RDW 12.9 (11.5-14.0) % Plt Count 266 (150-450) x10^3/uL MPV 10.0 (7.5-11.0) fL Gran % 65.7 (36.0-66.0) % Immature Gran % (Auto) 0.3 (0.00-0.4) % Nucleat RBC Rel Count 0.0 (0.00-0.1) % Eos # (Auto) 0.20 (0-0.5) x10^3/uL Immature Gran # (Auto) 0.03 (0.00-0.03) x10^3u/L Absolute Lymphs (auto) 2.24 (1.0-4.6) x10^3/uL Absolute Monos (auto) 0.76 (0.0-1.3) x10^3/uL Absolute Nucleated RBC 0.00 (0.00-0.01) x10^3u/L Lymphocytes % 23.3 L (24.0-44.0) % Monocytes % 7.9 (0.0-12.0) % Eosinophils % 2.1 (0.00-5.0) % Basophils % 0.7 (0.0-0.4) % Absolute Granulocytes 6.31 (1.4-6.9) x10^3/uL Basophils # 0.07 (0-0.4) x10^3/uL Sodium (137-145) mmol/L Potassium (3.5-5.1) mmol/L Chloride (98-107) mmol/L Carbon Dioxide (22-30) mmol/L Anion Gap (5-15) MEQ/L BUN (9-20) mg/dL Creatinine (0.66-1.25) mg/dL Estimated GFR ML/MIN Glucose (74-106) mg/dL Calcium (8.4-10.2) mg/dL Total Bilirubin (0.2-1.3) mg/dL AST (17-59) U/L ALT (0-50) U/L Alkaline Phosphatase (38-126) U/L Troponin I (0.000-0.034) ng/mL NT-Pro-B Natriuret Pep (0-900) pg/mL Serum Total Protein (6.3-8.2) g/dL Albumin (3.5-5.0) g/dL Influenza Type A Ag (NEGATIVE) Influenza Type B Ag (NEGATIVE) RSV (PCR) (Negative) SARS-CoV-2 (PCR) (NEGATIVE) - Progress Progress: improved Progress Note: Case discussed with covering Dr. Daniel. Patient to be admitted for IV fluids to address dehydration which may be due to Entresto. The right advised a 75 cc/h. Patient has congestive heart failure with an ejection fraction of 25 to 30%. The low blood pressure is likely due to dehydration as patient's BUN and creatinine are both elevated. COVID test pending. Plan of care discussed with patient. He agrees to admission [facility] for further evaluation and treatment. Dr. Polanco does not believe patient needs to be transferred. 03/03/22 19:00 COVID test negative. Case discussed with Dr. Jenkins accepts admission to observation. 03/03/22 20:47 Discussed with : Eileen Counseled pt/family regarding: lab results, diagnosis, rad results - Departure Departure Disposition: Observation Clinical Impression: Hypotension, Acute renal injury, Dehydration, Osteopenia, Calcified granuloma of lung Condition: Stable Critical Care Time: No Referrals: JAYMIE JENKINS MD [Primary Care Provider] - Follow up/PCP as directed
[2022-03-03 17:58] LABS: Absolute Neutrophil Ct (ANC) 6.31 x10^3/uL (1.4-6.9); Basophil (Absolute #) 0.07 x10^3/uL (0-0.4); Eosinophil % 2.1 % (0.00-5.0); Hematocrit 40.6 % (42-50); Hemoglobin 12.8 g/dL (12.5-18.0); Lymphocyte (Absolute #) 2.24 x10^3/uL (1.0-4.6); Lymphocytes % 23.3 % (24.0-44.0); Mean Cell Volume 94.2 fL (78-100); Mean Corpuscular Hemoglobin 29.7 pg (26-32); Mean Corpuscular Hgb Concent. 31.5 g/dL (32-36); Monocyte (Absolute #) 0.76 x10^3/uL (0.0-1.3); Monocytes % 7.9 % (0.0-12.0); Neutrophil % 65.7 % (36.0-66.0); Platelet Count 266 x10^3/uL (150-450); Red Blood Count 4.31 x10^6/uL (4.1-5.6); Red Cell Distribution Width 12.9 % (11.5-14.0); White Blood Count 9.6 x10^3/uL (4.0-10.5)
[2022-03-03 18:38] LABS: ALBUMIN 4.3 g/dL (3.5-5.0); ANION GAP 14.7 MEQ/L (5-15); BILIRUBIN,TOTAL 0.8 mg/dL (0.2-1.3); Creatinine 1 1.48 mg/dL (0.66-1.25); EST GLOMERULAR FILTRATION RATE 49.4 ML/MIN; NT PRO BNP 47.9 pg/mL (0-900); Potassium 4.6 mmol/L (3.5-5.1)
[2022-03-03] MEDS ORDERED: Sodium Chloride 0.9% 1000 ML 1,000 ML IV SCH (19:15)
[2022-03-03 20:07] LABS: INFLUENZA A NEGATIVE (NEGATIVE); INFLUENZA B NEGATIVE (NEGATIVE); RESPIRATORY SYNCTIAL VIRUS NEGATIVE (Negative); SARS-CoV-2 Xpert Express NEGATIVE (NEGATIVE)
[2022-03-03] MEDS ORDERED: Glucotrol 5 MG PO SCH (22:00)
[2022-03-03] MEDS ORDERED: NEURONTIN ONE (22:37)
[2022-03-03] MEDS ORDERED: Glucotrol 5 MG ONE (22:37)
[2022-03-03] MEDS ORDERED: Zanaflex 4 MG ONE (22:37)
[2022-03-03] MEDS ORDERED: Abilify 10 MG ONE ×2 (22:37→22:40)
[2022-03-03] MEDS ORDERED: OXYCODONE-ACETAMINOPHEN 10-325 PO ONE (23:00)
[2022-03-03] MEDS ORDERED: OXYCODONE-ACETAMINOPHEN 10-325 ONE (23:24)
[2022-03-04] MEDS: Sodium Chloride 0.9% 1000 ML 1,000 ML IV SCH ×3 (00:07→21:29)
[2022-03-04] MEDS: NEURONTIN PO SCH ×2 (00:08→21:27)
[2022-03-04] MEDS: Abilify 10 MG PO SCH ×2 (00:09→21:23)
[2022-03-04 05:31] LABS: Absolute Neutrophil Ct (ANC) 4.38 x10^3/uL (1.4-6.9); Basophil (Absolute #) 0.06 x10^3/uL (0-0.4); Eosinophil % 2.8 % (0.00-5.0); Eosinophil (Absolute #) 0.21 x10^3/uL (0-0.5); Hematocrit 37.1 % (42-50); Hemoglobin 11.4 g/dL (12.5-18.0); Lymphocyte (Absolute #) 2.34 x10^3/uL (1.0-4.6); Lymphocytes % 30.8 % (24.0-44.0); Mean Cell Volume 95.4 fL (78-100); Mean Corpuscular Hemoglobin 29.3 pg (26-32); Mean Corpuscular Hgb Concent. 30.7 g/dL (32-36); Mean Platelet Volume 9.7 fL (7.5-11.0); Monocyte (Absolute #) 0.58 x10^3/uL (0.0-1.3); Monocytes % 7.6 % (0.0-12.0); Neutrophil % 57.7 % (36.0-66.0); Platelet Count 209 x10^3/uL (150-450); Red Blood Count 3.89 x10^6/uL (4.1-5.6); Red Cell Distribution Width 13.1 % (11.5-14.0); White Blood Count 7.6 x10^3/uL (4.0-10.5)
[2022-03-04 05:45] LABS: ALBUMIN 3.6 g/dL (3.5-5.0); ANION GAP 11.8 MEQ/L (5-15); BILIRUBIN,TOTAL 0.6 mg/dL (0.2-1.3); Calcium 9.5 mg/dL (8.4-10.2); Creatinine 1 1.4 mg/dL (0.66-1.25); EST GLOMERULAR FILTRATION RATE 52.7 ML/MIN; Potassium 4.7 mmol/L (3.5-5.1); Total Protein 6.1 g/dL (6.3-8.2)
[2022-03-04] MEDS: Glucotrol 5 MG PO SCH ×2 (07:15→17:09)
[2022-03-04] MEDS: PERCOCET TABLET 5/325MG PO SCH ×4 (08:23→21:23)
[2022-03-04] MEDS: MAG-OX 400 PO SCH ×2 (08:24→21:25)
[2022-03-04] MEDS ORDERED: Flonase NASAL NS PRN (09:20)
[2022-03-04] MEDS ORDERED: MEDICATION INTERVENTION MC SCH (09:45)
[2022-03-04] MEDS ORDERED: [UNRECOGNIZED DRUG - OTHER] PO SCH (10:00)
[2022-03-04] MEDS ORDERED: NON-FORMULARY ITEM (Magnesium Oxide [Magnesium] 250 MG Tablet) PO SCH (10:00)
[2022-03-04] MEDS ORDERED: NON-FORMULARY ITEM (Fluticasone/Umeclidin/Vilanter [Trelegy Ellipta 100-62.5-25] 1 EACH Bl IH SCH (10:00)
[2022-03-04] MEDS ORDERED: NON-FORMULARY ITEM (Cetirizine Hcl [Zyrtec] 10 MG Capsule) PO SCH (10:00)
[2022-03-04] MEDS ORDERED: MULTIVITAMIN PO SCH (10:00)
[2022-03-04] MEDS ORDERED: FENOFIBRATE PO SCH (10:00)
[2022-03-04] MEDS ORDERED: IRON PO SCH (10:00)
[2022-03-04] MEDS ORDERED: NON-FORMULARY ITEM (Tolterodine Tartrate [Tolterodine Tartrate Er] 4 MG Cap.Er.24h) PO SCH (10:00)
[2022-03-04] MEDS ORDERED: FOLIC ACID PO SCH (10:00)
[2022-03-04] MEDS ORDERED: NON-FORMULARY ITEM (Oxycodone Hcl/Acetaminophen [Oxycodone-Acetaminophn 7.5-325] 1 EACH Ta PO SCH (10:00)
[2022-03-04] MEDS ORDERED: NON-FORMULARY ITEM (Vitamin B Complex [Vitamin B Complex] 1 EACH Tablet) PO SCH (10:00)
[2022-03-04] MEDS: Aldactone 25 MG PO SCH (10:55)
[2022-03-04] MEDS: PLAVIX Tablet PO SCH (10:56)
[2022-03-04] MEDS: Tricor 145 MG PO SCH (10:56)
[2022-03-04] MEDS: Coreg 3.125 MG PO SCH (10:56)
[2022-03-04] MEDS: ENTRESTO 49 MG-51 MG TABLET PO SCH ×2 (10:56→21:26)
[2022-03-04] MEDS: Ditropan XL 5 MG PO SCH (10:57)
[2022-03-04] MEDS: VITA-BEE WITH C PO SCH (10:57)
[2022-03-04] MEDS: CLARITIN 10 MG PO SCH (10:57)
[2022-03-04] MEDS: THERAGRAN MULTIVITAMIN PO SCH (11:00)
[2022-03-04] MEDS ORDERED: VENTOLIN COMMON CANISTER IH SCH (11:00)
[2022-03-04] MEDS ORDERED: PROVENTIL 2.5 MG/3 ML NEB IH SCH (13:00)
[2022-03-04] MEDS: PATIENT OWN MEDICATION IH SCH ×3 (13:33→19:23)
[2022-03-04] MEDS ORDERED: Zanaflex 4 MG PO SCH (22:00)
[2022-03-04] MEDS ORDERED: LIPITOR 40MG PO SCH (22:00)
[2022-03-04] MEDS ORDERED: ZOCOR 20MG PO SCH (22:00)
[2022-03-05] MEDS: Coreg 3.125 MG PO SCH ×2 (00:01→10:05)
[2022-03-05] MEDS: Sodium Chloride 0.9% 1000 ML 1,000 ML IV SCH (04:03)
[2022-03-05] MEDS: PATIENT OWN MEDICATION IH SCH ×4 (06:53→19:07)
[2022-03-05] MEDS: PERCOCET TABLET 5/325MG PO SCH ×3 (07:37→17:21)
[2022-03-05] MEDS: Glucotrol 5 MG PO SCH ×2 (07:37→17:21)
[2022-03-05] MEDS: MAG-OX 400 PO SCH (09:43)
[2022-03-05] MEDS: ENTRESTO 49 MG-51 MG TABLET PO SCH (09:43)
[2022-03-05] MEDS: CLARITIN 10 MG PO SCH (09:44)
[2022-03-05] MEDS: Ditropan XL 5 MG PO SCH (09:44)
[2022-03-05] MEDS: Tricor 145 MG PO SCH (09:44)
[2022-03-05] MEDS: THERAGRAN MULTIVITAMIN PO SCH (09:44)
[2022-03-05] MEDS: PLAVIX Tablet PO SCH (09:45)
[2022-03-05] MEDS: Aldactone 25 MG PO SCH (10:05)
[2022-03-05] MEDS: VITA-BEE WITH C PO SCH (10:49)
[2022-03-05 16:49] VITALS: PULSE 61
--- NOTE | 2022-03-05 18:51 | PCM.DCORD ---
- Discharge Condition: Stable Prescriptions: New Sacubitril/Valsartan [Entresto 49 mg-51 mg Tablet] 0.5 tablet PO BID tablet Continue Clopidogrel Bisulfate [PLAVIX Tablet] 75 mg PO DAILY Fenofibrate 160 mg PO DAILY ARIPiprazole [Abilify] 10 mg PO HS Atorvastatin Calcium [Lipitor] 40 mg PO HS Vitamin B Complex 1 each PO DAILY Fluticasone/Umeclidin/Vilanter [Trelegy Ellipta 100-62.5-25] 1 puff IH DAILY Tizanidine HCl 4 mg [Zanaflex 4 MG] 4 mg PO HS Magnesium Oxide [Magnesium] 250 mg PO BID Glipizide 5 mg [Glucotrol 5 MG] 5 mg PO BID Gabapentin [Neurontin ] 300 mg PO QHS Fluticasone Propionate [Flonase NASAL] 1 spray NS DAILY PRN PRN PRN Reason: Allergies Cetirizine HCl [Zyrtec] 10 mg PO DAILY Multivitamin/Iron/Folic Acid [Certavite-Antioxidant Tablet] 1 each PO DAILY Albuterol Sulfate [Albuterol Sulfate Hfa] 2 puff IH QID Albuterol 2.5 mg/3 ml Neb [Proventil 2.5 mg/3 ml Neb] 1 neb IH TID Tolterodine Tartrate [Tolterodine Tartrate ER] 4 mg PO DAILY Oxycodone HCl/Acetaminophen [Oxycodone-Acetaminophn 7.5-325] 1 each PO QID Carvedilol 12.5 mg [Coreg 12.5 mg] 6.25 mg PO BID #0 Discontinued Spironolactone 25 mg [Aldactone 25 MG] 12.5 mg PO DAILY Additional Instructions: Call Dr Daniel's office for a Hospital follow up appt. Follow up with: JAYMIE JENKINS MD [Primary Care Provider] - 03/12/22 9:45 am
[2022-03-05 18:55] VITALS: BP 116/63; O2SAT 95
--- NOTE | 2022-03-05 19:03 | PCM.DS ---
Discharge Summary Date of Admission: 03/03/22 21:38 Date of Discharge: 03/05/22 Admitting Physician: JAYMIE JENKINS Primary Care Provider: JAYMIE JENKINS Allergies Allergies No Known Drug Allergies Allergy (Verified 03/03/22 15:58) Hospital Summary - Hospital Course Hospital Course: Patient was admitted to [facility] with weakness,Hypotension,CHF(recent ECHO 35% ejection fraction). 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 Dr Daniel's nurse ,Christy ,verified that on 02/16/22 visit stopped Metoprolol ,started Coreg and increased Entresto and started Spironalactone . On admission patient was hypotensive and volume depleted causing the weakness. Meds were adjusted to 1/2 dose Entresto . Coreg initially held ,Spironalactone held,IV fluids given and B/P normalized.Blood glucose was monitored for DM2. He will be seeing Dr Daniel this week then Dr Jenkins PCP the following week. Patient had refused Life vest but is reconsidering this. - Vitals & Intake/Output Vital Signs: Vital Signs Temperature 97.7 F 03/05/22 18:55 Pulse Rate 61 03/05/22 18:55 Respiratory Rate 18 03/05/22 18:55 Blood Pressure 116/63 03/05/22 18:55 O2 Sat by Pulse Oximetry 95 03/05/22 18:55 Intake & Output: Intake & Output 03/03/22 03/04/22 03/05/22 03/06/22 11:59 11:59 11:59 11:59 Intake Total 447 1930 1267 Output Total 900 1850 500 Balance -453 80 767 Weight 68.5 kg - Lab Result Diagrams: 03/05/22 19:45 03/05/22 19:45 - Procedures and Test Procedures and Tests throughout Hospitalization: Therapy Orders & Screens 03/04/22 13:01 Respiratory MDI UD Comment: Diagnosis: Hypotension, dehydration Respiratory Therapy Assessment DAILY Comment: Diagnosis: Hypotension, dehydration 03/04/22 13:03 Respiratory MDI UD Comment: Diagnosis: Hypotension, dehydration Discharge Exam General Appearance: no apparent distress Neurologic Exam: alert, oriented x 3, agitation Eye Exam: eyes nml inspection Ears, Nose, Throat Exam: normal ENT inspection Neck Exam: normal inspection Respiratory Exam: normal breath sounds Cardiovascular Exam: bradycardia (regular) Gastrointestinal/Abdomen Exam: soft, normal bowel sounds (nontender) Skin Exam: normal color, warm, dry Final Diagnosis/Problem List - Final Discharge Diagnosis/Problem (1) CHF (congestive heart failure) Status: Chronic Code(s): I50.9 - HEART FAILURE, UNSPECIFIED (2) Old ID (myocardial infarction) Status: Chronic Code(s): I25.2 - OLD MYOCARDIAL INFARCTION (3) Dehydration Status: Resolved Assessment & Plan: hold Spironalactone until re evaluated by Dr Daniel Code(s): E86.0 - DEHYDRATION (4) Hypotension Status: Resolved Assessment & Plan: Entresto and Coreg reduced to 1/[address] dose [address] eval [address] Daniel Code(s): I95.9 - HYPOTENSION, UNSPECIFIED - Discharge Disposition: Home, Self-Care Condition: Stable Prescriptions: New Sacubitril/Valsartan [Entresto 49 mg-51 mg Tablet] 0.5 tablet PO BID tablet Continue Clopidogrel Bisulfate [PLAVIX Tablet] 75 mg PO DAILY Fenofibrate 160 mg PO DAILY ARIPiprazole [Abilify] 10 mg PO HS Atorvastatin Calcium [Lipitor] 40 mg PO HS Vitamin B Complex 1 each PO DAILY Fluticasone/Umeclidin/Vilanter [Trelegy Ellipta 100-62.5-25] 1 puff IH DAILY Tizanidine HCl 4 mg [Zanaflex 4 MG] 4 mg PO HS Magnesium Oxide [Magnesium] 250 mg PO BID Glipizide 5 mg [Glucotrol 5 MG] 5 mg PO BID Gabapentin [Neurontin ] 300 mg PO QHS Fluticasone Propionate [Flonase NASAL] 1 spray NS DAILY PRN PRN PRN Reason: Allergies Cetirizine HCl [Zyrtec] 10 mg PO DAILY Multivitamin/Iron/Folic Acid [Certavite-Antioxidant Tablet] 1 each PO DAILY Albuterol Sulfate [Albuterol Sulfate Hfa] 2 puff IH QID Albuterol 2.5 mg/3 ml Neb [Proventil 2.5 mg/3 ml Neb] 1 neb IH TID Tolterodine Tartrate [Tolterodine Tartrate ER] 4 mg PO DAILY Oxycodone HCl/Acetaminophen [Oxycodone-Acetaminophn 7.5-325] 1 each PO QID Carvedilol 12.5 mg [Coreg 12.5 mg] 6.25 mg PO BID #0 Discontinued Spironolactone 25 mg [Aldactone 25 MG] 12.5 mg PO DAILY Instructions: Low Blood Pressure (DC) Additional Instructions: Call Dr Daniel's office for a Hospital follow up appt. Follow up with: JAYMIE JENKINS MD [Primary Care Provider] - 03/12/22 9:45 am
[2022-03-05 19:59] LABS: Absolute Neutrophil Ct (ANC) 4.86 x10^3/uL (1.4-6.9); Basophil (Absolute #) 0.05 x10^3/uL (0-0.4); Eosinophil % 2.8 % (0.00-5.0); Hematocrit 35.8 % (42-50); Hemoglobin 11.1 g/dL (12.5-18.0); Lymphocyte (Absolute #) 1.67 x10^3/uL (1.0-4.6); Mean Corpuscular Hemoglobin 29.8 pg (26-32); Mean Platelet Volume 9.8 fL (7.5-11.0); Monocyte (Absolute #) 0.46 x10^3/uL (0.0-1.3); Monocytes % 6.3 % (0.0-12.0); Neutrophil % 67.1 % (36.0-66.0); Platelet Count 195 x10^3/uL (150-450); Red Blood Count 3.73 x10^6/uL (4.1-5.6); Red Cell Distribution Width 12.6 % (11.5-14.0); White Blood Count 7.3 x10^3/uL (4.0-10.5)
[2022-03-05 20:12] LABS: ANION GAP 12.4 MEQ/L (5-15); BLOOD UREA NITROGEN 16 mg/dL (9-20); CHLORIDE 106 mmol/L (98-107); Calcium 9.2 mg/dL (8.4-10.2); Carbon Dioxide 25 mmol/L (22-30); EST GLOMERULAR FILTRATION RATE > 60.0 ML/MIN; Glucose 112 mg/dL (74-106); SODIUM 139 mmol/L (137-145)
== END 2022-03-05 19:40 | disposition home or self-care (01) ==
LOC: ED 15:52 → MED SURG 21:38
PROVIDERS: ADMIT Family Medicine; ATTEND Family Medicine
DX: I11.0 Hypertensive heart disease with heart failure (principal); I50.9 Heart failure, unspecified; I25.2 Old myocardial infarction; E86.0 Dehydration; I95.9 Hypotension, unspecified; I25.10 Atherosclerotic heart disease of native coronary artery without angina pectoris; Z79.899 Other long term (current) drug therapy; Z20.828 Contact with and (suspected) exposure to other viral communicable diseases
CPT/HCPCS: 0241U; 36000; 36415; 71045; 80048; 80053; 83036; 83880; 84443; 84484; 85025; 93005; 93041; 93268; 94640; 94760; 99285; G0378; A9270-GY

== ENCOUNTER 2022-03-11 15:17 | Observation (INO) | payer MEDICARE, OTHER ==
[2022-03-11] MEDS ORDERED: Sodium Chloride 0.9% 1000 ML 1,000 ML IV STA (15:48)
--- NOTE | 2022-03-11 15:52 | ERPHSYRPT ---
- History of Present Illness Time Seen by Provider: 03/11/22 15:34 Source: patient Exam Limitations: no limitations Patient Subjective Stated Complaint: pt here for dizziness that started before getting out of bed today, he states he feels unsteady on legs, Triage Nursing Assessment: pt alert, able to get out of wc with assist of one, skin w.d.p, face mask applied, chest clear Physician History: Patient here with weakness and dizziness. Patient recently admitted to the hospital for similar symptoms. ИВАН, hypotension at that point in time. Patient had some slight medication adjustments. Patient was on here. No falls no trauma. Per his , he just feels "off". Patient has no fevers no chills no cough no signs or symptoms of flu, COVID. He has no chest pain or shortness of breath. Timing/Duration: today Severity: mild Modifying Factors: Improves With: movement Associated Symptoms: denies symptoms Allergies/Adverse Reactions: No Known Drug Allergies Allergy (Verified 03/11/22 15:27) Home Medications: Clopidogrel Bisulfate [PLAVIX Tablet] 75 mg PO DAILY 02/15/13 [History] Fenofibrate 160 mg PO DAILY 05/22/20 [History] ARIPiprazole [Abilify] 10 mg PO HS 02/15/21 [History] Albuterol 2.5 mg/3 ml Neb [Proventil 2.5 mg/3 ml Neb] 1 neb IH TID 09/03/21 [History] Albuterol Sulfate [Albuterol Sulfate Hfa] 2 puff IH QID 09/03/21 [History] Atorvastatin Calcium [Lipitor] 40 mg PO HS 09/03/21 [History] Cetirizine HCl [Zyrtec] 10 mg PO DAILY 09/03/21 [History] Fluticasone Propionate [Flonase NASAL] 1 spray NS DAILY PRN PRN 09/03/21 [ History] Fluticasone/Umeclidin/Vilanter [Trelegy Ellipta 100-62.5-25] 1 puff IH DAILY 09/03/21 [History] Gabapentin [Neurontin ] 300 mg PO QHS 09/03/21 [History] Glipizide 5 mg [Glucotrol 5 MG] 5 mg PO BID 09/03/21 [History] Magnesium Oxide [Magnesium] 250 mg PO BID 09/03/21 [History] Multivitamin/Iron/Folic Acid [Certavite-Antioxidant Tablet] 1 each PO DAILY 09/03/21 [History] Oxycodone HCl/Acetaminophen [Oxycodone-Acetaminophn 7.5-325] 1 each PO QID 09/03/21 [History] Tizanidine HCl 4 mg [Zanaflex 4 MG] 4 mg PO HS 09/03/21 [History] Tolterodine Tartrate [Tolterodine Tartrate ER] 4 mg PO DAILY 09/03/21 [History] Vitamin B Complex 1 each PO DAILY 09/03/21 [History] Hx Tetanus, Diphtheria Vaccination/Date Given: Yes Hx Influenza Vaccination/Date Given: Yes Hx Pneumococcal Vaccination/Date Given: Yes Immunizations Up to Date: Yes Travel Risk - International Travel Have you traveled outside of the country in past 3 weeks: No - Coronavirus Screening Are you exhibiting any of the following symptoms?: No - Vaccine Status Have you recieved a Covid-19 vaccination: Yes Home Care Attendant: Moderna - Vaccination Dates Date of 2cond Vaccination (if applicable): 11/25/2020 - Review of Systems Constitutional: No Fever, No Chills Eyes: No Symptoms Ears, Nose, & Throat: No Symptoms Respiratory: No Cough, No Dyspnea Cardiac: No Chest Pain, No Edema, No Syncope Abdominal/Gastrointestinal: No Abdominal Pain, No Nausea, No Vomiting, No Diarrhea Genitourinary Symptoms: No Dysuria Musculoskeletal: No Back Pain, No Neck Pain Skin: No Rash Neurological: Dizziness, No Focal Weakness, No Sensory Changes Psychological: No Symptoms Endocrine: No Symptoms All Other Systems: Reviewed and Negative - Past Medical History Pertinent Past Medical History: Yes Neurological History: No Pertinent History ENT History: No Pertinent History Cardiac History: Coronary Artery Disease, Hypertension, Myocardial Infarction ([place]) Respiratory History: Asthma, COPD, Pneumonia Endocrine Medical History: No Pertinent History Musculoskeletal History: Degenerative Disk Disease GI Medical History: No Pertinent History History: No Pertinent History Psycho-Social History: No Pertinent History Male Reproductive Disorders: No Pertinent History Other Medical History: STENTS 1999. CARDIAC OPEN HEART SURGERY IN 2007. December HAD STENTS PLACED - Past Surgical History Past Surgical History: Yes Neuro Surgical History: No Pertinent History Cardiac: CABG, Cardiac Stent Respiratory: No Pertinent History Gastrointestinal: No Pertinent History Genitourinary: No Pertinent History Musculoskeletal: Orthopedic Surgery Male Surgical History: No Pertinent History Other Surgical History: OPEN HEART SURGERY IN 2007. STENTS PLACED 1999. ELBOW, KNEE, BACK SURGERY. - Social History Smoking Status: Former smoker Exposure to second hand smoke: No Alcohol Use: Socially Drug Use: none Patient Lives Alone: No Significant Family History: heart disease - Nursing Vital Signs Nursing Vital Signs: Initial Vital Signs Temperature 97.3 F 03/11/22 15:19 Pulse Rate 92 H 03/11/22 15:19 Respiratory Rate 16 03/11/22 15:19 Blood Pressure 103/75 03/11/22 15:19 O2 Sat by Pulse Oximetry 98 03/11/22 15:19 Pain Scale Pain Intensity 0 - Physical Exam General Appearance: no apparent distress, alert Eye Exam: PERRL/EOMI, eyes nml inspection Ears, Nose, Throat Exam: normal ENT inspection, TMs normal, pharynx normal, moist mucous membranes Neck Exam: normal inspection, non-tender, supple, full range of motion Respiratory Exam: normal breath sounds, lungs clear, No respiratory distress Cardiovascular Exam: regular rate/rhythm, normal heart sounds, normal peripheral pulses Gastrointestinal/Abdomen Exam: soft, normal bowel sounds, No tenderness, No mass Back Exam: normal inspection, normal range of motion, No CVA tenderness, No vertebral tenderness Extremity Exam: normal inspection, normal range of motion, pelvis stable Neurologic Exam: alert, oriented x 3, cooperative, normal mood/affect, nml cerebellar function, nml station & gait, sensation nml, No motor deficits Skin Exam: normal color, warm, dry, No rash Lymphatic Exam: No adenopathy SpO2: 98 - Course Nursing assessment & vital signs reviewed: Yes EKG Interpreted by Me: Sinus Rhythm Ordered Tests: Active Orders 24 hr Category Date Time Status Box Nailer STAT Care 03/11/22 15:43 Completed Code Status Order ROUTINE Care 03/11/22 17:20 Active EKG-ER Only STAT Care 03/11/22 15:42 Completed Fall Protocol ROUTINE Care 03/11/22 17:21 Active IV Care Q6H Care 03/11/22 17:20 Active IV Insertion STAT Care 03/11/22 15:[address] in Observation ROUTINE Care 03/11/22 17:20 Active Heart-Healthy Diet Diet 03/11/22 Breakfast Active CHEST 2 VIEWS (PA AND LAT) Stat Exams 03/11/22 15:43 Completed HEAD WITHOUT CONTRAST [CT] Stat Exams 03/11/22 15:44 Completed BMP AM.LAB Lab 03/12/22 04:00 Ordered CBC W DIFF AM.LAB Lab 03/12/22 04:00 Ordered CBC W DIFF Stat Lab 03/11/22 15:50 Completed CMP Stat Lab 03/11/22 15:50 Completed ETHYL ALCOHOL Stat Lab 03/11/22 15:50 Completed LIPASE Stat Lab 03/11/22 15:50 Completed Lactic Acid AM.LAB Lab 03/12/22 04:00 Ordered Lactic Acid Stat Lab 03/11/22 15:50 Completed MAGNESIUM Stat Lab 03/11/22 15:50 Completed NT PRO BNP Stat Lab 03/11/22 15:50 Completed PROTIME WITH INR Stat Lab 03/11/22 15:50 Completed TROPONIN Q3H Lab 03/11/22 15:50 Completed UA W/RFX CULTURE Stat Lab 03/11/22 17:05 Stop Req Medication Summary Generic Name Dose Route Start Last Admin Trade Name Freq PRN Reason Stop Dose Admin Sodium Chloride 1,000 mls @ 250 mls/hr 03/11/22 15:48 03/11/22 16:11 Sodium Chloride 0.9% 1000 Ml IV 03/11/22 19:47 250 mls/hr .Q4H STA Administration Sodium Chloride 1,000 mls @ 75 mls/hr 03/11/22 17:30 Sodium Chloride 0.9% 1000 Ml IV 04/10/22 17:29 .[id number] MATHEW Meclizine HCl 25 mg 03/11/22 17:22 Meclizine Hcl 25 Mg Tablet PO 04/10/22 17:21 Q4H PRN DIZZINESS Discontinued Medications Generic Name Dose Route Start Last Admin Trade Name Freq PRN Reason Stop Dose Admin Sodium Chloride Confirm 03/11/22 16:07 Sodium Chloride 0.9% 1000 Ml Administered 03/11/22 16:08 Dose 1,000 mls @ ud .ROUTE .STK-MED ONE Lab/Rad Data: Laboratory Result Diagrams 03/11/22 15:50 03/11/22 15:50 Laboratory Results 03/11/22 03/11/22 03/11/22 Range/Units 15:50 15:50 15:50 WBC (4.0-10.5) x10^3/uL RBC (4.1-5.6) x10^6/uL Hgb (12.5-18.0) g/dL Hct (42-50) % MCV (78-100) fL MCH (26-32) pg MCHC (32-36) g/dL RDW (11.5-14.0) % Plt Count (150-450) x10^3/uL MPV (7.5-11.0) fL Gran % (36.0-66.0) % Immature Gran % (Auto) (0.00-0.4) % Nucleat RBC Rel Count (0.00-0.1) % Eos # (Auto) (0-0.5) x10^3/uL Immature Gran # (Auto) (0.00-0.03) x10^3u/L Absolute Lymphs (auto) (1.0-4.6) x10^3/uL Absolute Monos (auto) (0.0-1.3) x10^3/uL Absolute Nucleated RBC (0.00-0.01) x10^3u/L Lymphocytes % (24.0-44.0) % Monocytes % (0.0-12.0) % Eosinophils % (0.00-5.0) % Basophils % (0.0-0.4) % Absolute Granulocytes (1.4-6.9) x10^3/uL Basophils # (0-0.4) x10^3/uL PT 11.1 (9.4-12.5) SECONDS INR 1.05 (0.8-3.0) Sodium 143 (137-145) mmol/L Potassium 4.3 (3.5-5.1) mmol/L Chloride 103 (98-107) mmol/L Carbon Dioxide 30 (22-30) mmol/L Anion Gap 14.1 (5-15) MEQ/L BUN 23 H (9-20) mg/dL Creatinine 1.14 (0.66-1.25) mg/dL Estimated GFR > 60.0 ML/MIN Glucose 114 H (74-106) mg/dL Lactic Acid (0.4-2.0) Calcium 10.4 H (8.4-10.2) mg/dL Magnesium 2.0 (1.6-2.3) mg/dL Total Bilirubin 0.50 (0.2-1.3) mg/dL AST 26 (17-59) U/L ALT 25 (0-50) U/L Alkaline Phosphatase 73 (38-126) U/L Troponin I < 0.012 (0.000-0.034) ng/mL NT-Pro-B Natriuret Pep 84.6 (0-900) pg/mL Serum Total Protein 7.0 (6.3-8.2) g/dL Albumin 4.3 (3.5-5.0) g/dL Lipase 42 (23-300) U/L Ethyl Alcohol < 10 (0-10) mg/dL 03/11/22 03/11/22 Range/Units 15:50 15:50 WBC 7.7 (4.0-10.5) x10^3/uL RBC 4.03 L (4.1-5.6) x10^6/uL Hgb 11.9 L (12.5-18.0) g/dL Hct 38.1 L (42-50) % MCV 94.5 (78-100) fL MCH 29.5 (26-32) pg MCHC 31.2 L (32-36) g/dL RDW 12.9 (11.5-14.0) % Plt Count 239 (150-450) x10^3/uL MPV 9.4 (7.5-11.0) fL Gran % 68.3 H (36.0-66.0) % Immature Gran % (Auto) 0.1 (0.00-0.4) % Nucleat RBC Rel Count 0.0 (0.00-0.1) % Eos # (Auto) 0.14 (0-0.5) x10^3/uL Immature Gran # (Auto) 0.01 (0.00-0.03) x10^3u/L Absolute Lymphs (auto) 1.76 (1.0-4.6) x10^3/uL Absolute Monos (auto) 0.49 (0.0-1.3) x10^3/uL Absolute Nucleated RBC 0.00 (0.00-0.01) x10^3u/L Lymphocytes % 22.7 L (24.0-44.0) % Monocytes % 6.3 (0.0-12.0) % Eosinophils % 1.8 (0.00-5.0) % Basophils % 0.8 (0.0-0.4) % Absolute Granulocytes 5.28 (1.4-6.9) x10^3/uL Basophils # 0.06 (0-0.4) x10^3/uL PT (9.4-12.5) SECONDS INR (0.8-3.0) Sodium (137-145) mmol/L Potassium (3.5-5.1) mmol/L Chloride (98-107) mmol/L Carbon Dioxide (22-30) mmol/L Anion Gap (5-15) MEQ/L BUN (9-20) mg/dL Creatinine (0.66-1.25) mg/dL Estimated GFR ML/MIN Glucose (74-106) mg/dL Lactic Acid 1.7 (0.4-2.0) Calcium (8.4-10.2) mg/dL Magnesium (1.6-2.3) mg/dL Total Bilirubin (0.2-1.3) mg/dL AST (17-59) U/L ALT (0-50) U/L Alkaline Phosphatase (38-126) U/L Troponin I (0.000-0.034) ng/mL NT-Pro-B Natriuret Pep (0-900) pg/mL Serum Total Protein (6.3-8.2) g/dL Albumin (3.5-5.0) g/dL Lipase (23-300) U/L Ethyl Alcohol (0-10) mg/dL - Progress Progress: improved Progress Note: 03/11/22 15:50 Differential diagnosis includes CHF, [place], pneumonia, UTI, electrolyte abnormality - We'll obtain basic labs, fluids, EKG, troponin, chest x-ray - EKG shows no ST changes - my read. See full read below. - O2 saturations consistently greater than 95%. - CXR shows no pneumonia, pneumothorax - my read 03/11/22 17:[address] is negative. First troponin is negative. We will check a second troponin. Patient still symptomatic after some fluids. Although blood pressure has improved. Possible component of peripheral vertigo given that he has some reproduction of symptoms with head movement. Given comorbidities, continued hypotension, slight elevation in BUN I did discuss with patient's primary care physician, Dr. Jenkins. We made the decision to admit the patient to the hospital here. We discussed this with patient and family. They felt comfortable with the plan. - Departure Departure Disposition: Observation Clinical Impression: Fatigue, Dizziness, Hypotension, Elevated BUN Condition: Stable Critical Care Time: No Referrals: JAYMIE JENKINS MD [Primary Care Provider] - Follow up/PCP as directed
[2022-03-11 16:07] LABS: Absolute Neutrophil Ct (ANC) 5.28 x10^3/uL (1.4-6.9); Basophil (Absolute #) 0.06 x10^3/uL (0-0.4); Eosinophil % 1.8 % (0.00-5.0); Eosinophil (Absolute #) 0.14 x10^3/uL (0-0.5); Hematocrit 38.1 % (42-50); Hemoglobin 11.9 g/dL (12.5-18.0); Lymphocyte (Absolute #) 1.76 x10^3/uL (1.0-4.6); Lymphocytes % 22.7 % (24.0-44.0); Mean Cell Volume 94.5 fL (78-100); Mean Corpuscular Hemoglobin 29.5 pg (26-32); Mean Corpuscular Hgb Concent. 31.2 g/dL (32-36); Mean Platelet Volume 9.4 fL (7.5-11.0); Monocyte (Absolute #) 0.49 x10^3/uL (0.0-1.3); Monocytes % 6.3 % (0.0-12.0); Neutrophil % 68.3 % (36.0-66.0); Platelet Count 239 x10^3/uL (150-450); Red Blood Count 4.03 x10^6/uL (4.1-5.6); Red Cell Distribution Width 12.9 % (11.5-14.0); White Blood Count 7.7 x10^3/uL (4.0-10.5)
[2022-03-11] MEDS ORDERED: Sodium Chloride 0.9% 1000 ML 1,000 ML ONE (16:07)
--- NOTE | 2022-03-11 16:41 | XRAY ---
Indication: Dizziness and weakness. No known injury. Multiple contiguous axial images obtained through the head without contrast. Comparison: None Age-appropriate global atrophy and minimal periventricular degenerative micro-ischemia bilaterally. Tiny remote lacunar infarct left external capsule. No acute intracranial hemorrhage, abnormal extra-axial fluid collection, or mass effect. Fourth ventricle is midline without hydrocephalus. Bony calvarium intact. Visualized paranasal sinuses and mastoid air cells are clear. 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
--- NOTE | 2022-03-11 16:43 | XRAY ---
Indication: Pneumonia. Bursa: March 03, 2022. AP/lateral chest obtained on cart unchanged again hyperinflated and clear with incidental tiny left lung calcified granuloma. Heart not enlarged with CABG. No new/acute abnormalities.
[2022-03-11 16:47] LABS: ALBUMIN 4.3 g/dL (3.5-5.0); ALKALINE PHOSPHATASE 73 U/L (38-126); ANION GAP 14.1 MEQ/L (5-15); BLOOD UREA NITROGEN 23 mg/dL (9-20); CHLORIDE 103 mmol/L (98-107); Calcium 10.4 mg/dL (8.4-10.2); Carbon Dioxide 30 mmol/L (22-30); Creatinine 1 1.14 mg/dL (0.66-1.25); EST GLOMERULAR FILTRATION RATE > 60.0 ML/MIN; ETHYL ALCOHOL < 10 mg/dL (0-10); Glucose 114 mg/dL (74-106); LIPASE 42 U/L (23-300); NT PRO BNP 84.6 pg/mL (0-900); Potassium 4.3 mmol/L (3.5-5.1); SGOT/AST 26 U/L (17-59); SGPT/ALT 25 U/L (0-50); SODIUM 143 mmol/L (137-145)
[2022-03-11 16:52] LABS: INR 1.05 (0.8-3.0); PROTIME 11.1 SECONDS (9.4-12.5)
[2022-03-11] MEDS ORDERED: ANTIVERT 25 MG PO PRN (17:22)
[2022-03-11 17:33] LABS: Appearance CLEAR (CLEAR); Bilirubin NEGATIVE (NEGATIVE); Glucose NEGATIVE (NEGATIVE); Ketones NEGATIVE (NEGATIVE)
[2022-03-11 17:34] LABS: Dipstick done @ ? MAIN LAB; Nitrite NEGATIVE (NEGATIVE); Protein,Urine Dip NEGATIVE (Negative); RBC NEGATIVE Ery/ul (0-5); Urobilinogen 0.2 mg/dL (0-1)
[2022-03-11 17:37] LABS: Amourphous Crystal FEW /HPF (NEGATIVE); Bacteria NONE SEEN /HPF (NEGATIVE); WBC 0-2 /HPF (0-5)
[2022-03-11 17:38] LABS: Urine Cultured Indicated? NO
[2022-03-11 18:28] LABS: INFLUENZA A NEGATIVE (NEGATIVE); INFLUENZA B NEGATIVE (NEGATIVE); RESPIRATORY SYNCTIAL VIRUS NEGATIVE (Negative); SARS-CoV-2 Xpert Express NEGATIVE (NEGATIVE)
[2022-03-11] MEDS ORDERED: PERCOCET TABLET 5/325MG PO ONE (21:21)
[2022-03-11] MEDS ORDERED: Zanaflex 4 MG PO ONE (21:21)
[2022-03-11] MEDS: Sodium Chloride 0.9% 1000 ML 1,000 ML IV SCH (21:29)
[2022-03-11] MEDS: NEURONTIN PO SCH (21:39)
[2022-03-12 05:11] LABS: Absolute Neutrophil Ct (ANC) 3.25 x10^3/uL (1.4-6.9); Basophil (Absolute #) 0.04 x10^3/uL (0-0.4); Eosinophil % 3.9 % (0.00-5.0); Eosinophil (Absolute #) 0.21 x10^3/uL (0-0.5); Hematocrit 32.7 % (42-50); Hemoglobin 10.4 g/dL (12.5-18.0); Lymphocyte (Absolute #) 1.41 x10^3/uL (1.0-4.6); Lymphocytes % 26.2 % (24.0-44.0); Mean Cell Volume 93.4 fL (78-100); Mean Corpuscular Hemoglobin 29.7 pg (26-32); Mean Corpuscular Hgb Concent. 31.8 g/dL (32-36); Mean Platelet Volume 9.8 fL (7.5-11.0); Monocyte (Absolute #) 0.47 x10^3/uL (0.0-1.3); Monocytes % 8.7 % (0.0-12.0); Neutrophil % 60.3 % (36.0-66.0); Platelet Count 209 x10^3/uL (150-450); Red Cell Distribution Width 13.2 % (11.5-14.0); White Blood Count 5.4 x10^3/uL (4.0-10.5)
[2022-03-12 05:40] LABS: ANION GAP 10.4 MEQ/L (5-15); BLOOD UREA NITROGEN 19 mg/dL (9-20); CHLORIDE 110 mmol/L (98-107); Carbon Dioxide 24 mmol/L (22-30); EST GLOMERULAR FILTRATION RATE > 60.0 ML/MIN; Glucose 114 mg/dL (74-106); Potassium 3.5 mmol/L (3.5-5.1); SODIUM 141 mmol/L (137-145)
[2022-03-12] MEDS ORDERED: NON-FORMULARY ITEM (Vitamin B Complex [Vitamin B Complex] 1 EACH Tablet) PO SCH (10:00)
[2022-03-12] MEDS ORDERED: IRON PO SCH (10:00)
[2022-03-12] MEDS ORDERED: NON-FORMULARY ITEM (Oxycodone Hcl/Acetaminophen [Oxycodone-Acetaminophn 7.5-325] 1 EACH Ta PO SCH (10:00)
[2022-03-12] MEDS ORDERED: NON-FORMULARY ITEM (Tolterodine Tartrate [Tolterodine Tartrate Er] 4 MG Cap.Er.24h) PO SCH (10:00)
[2022-03-12] MEDS ORDERED: NON-FORMULARY ITEM (Fluticasone/Umeclidin/Vilanter [Trelegy Ellipta 100-62.5-25] 1 EACH Bl IH SCH (10:00)
[2022-03-12] MEDS ORDERED: NON-FORMULARY ITEM (Cetirizine Hcl [Zyrtec] 10 MG Capsule) PO SCH (10:00)
[2022-03-12] MEDS ORDERED: NON-FORMULARY ITEM (Magnesium Oxide [Magnesium] 250 MG Tablet) PO SCH (10:00)
[2022-03-12] MEDS ORDERED: [UNRECOGNIZED DRUG - OTHER] PO SCH (10:00)
[2022-03-12] MEDS ORDERED: MULTIVITAMIN PO SCH (10:00)
[2022-03-12] MEDS ORDERED: Flonase NASAL NS PRN (10:00)
[2022-03-12] MEDS ORDERED: Transderm Scop 1.5MG Patch TOP SCH (10:00)
[2022-03-12] MEDS ORDERED: FENOFIBRATE PO SCH (10:00)
[2022-03-12] MEDS ORDERED: FOLIC ACID PO SCH (10:00)
[2022-03-12] MEDS ORDERED: COREG 12.5 MG PO SCH (10:00)
[2022-03-12] MEDS: Sodium Chloride 0.9% 1000 ML 1,000 ML IV SCH ×2 (10:23→21:26)
[2022-03-12] MEDS: VITA-BEE WITH C PO SCH (10:56)
[2022-03-12] MEDS: Glucotrol 5 MG PO SCH ×2 (10:56→17:01)
[2022-03-12] MEDS: Ditropan XL 5 MG PO SCH (10:56)
[2022-03-12] MEDS: MAG-OX 400 PO SCH (10:56)
[2022-03-12] MEDS: THERAGRAN MULTIVITAMIN PO SCH (10:56)
[2022-03-12] MEDS: Tricor 145 MG PO SCH (10:56)
[2022-03-12] MEDS: PLAVIX Tablet PO SCH (10:56)
[2022-03-12] MEDS: ENTRESTO 49 MG-51 MG TABLET PO SCH ×2 (10:56→21:22)
[2022-03-12] MEDS: PERCOCET TABLET 5/325MG PO SCH ×4 (10:57→21:23)
[2022-03-12] MEDS ORDERED: Lomotil PO PRN (12:24)
[2022-03-12] MEDS ORDERED: PROVENTIL 2.5 MG/3 ML NEB IH SCH (13:00)
[2022-03-12] MEDS: VENTOLIN COMMON CANISTER IH SCH ×2 (13:40→22:12)
--- NOTE | 2022-03-12 14:23 | XRAY ---
Indication: Vertigo 2 days. Sagittal, coronal, and axial MRI brain performed without contrast using T1, T2, FLAIR, diffusion, and ADC sequences. Comparison: None Age-appropriate global atrophy and minimal periventricular degenerative micro-ischemia signal bilaterally. Incidental prominent bilateral basal ganglia Virchow Qasim spaces. No acute intracranial hemorrhage, abnormal extra-axial fluid collection, or mass effect. Diffusion images are negative for restricted signal. Fourth ventricle is midline without hydrocephalus. 7/8 cranial nerve complex bilaterally symmetric. Normal flow-void signal within the major intracerebral circulation. Normal appearing craniocervical junction and sella turcica. Paranasal sinuses are clear. Impression: 1. Atrophy and degenerative micro-ischemia within normal limits for patient's age. 2. Remaining MRI brain without contrast exam is negative.
[2022-03-12] MEDS: Coreg PO SCH ×2 (14:39→21:22)
[2022-03-12] MEDS ORDERED: PROVENTIL 2.5 MG/3 ML NEB IH PRN (16:14)
[2022-03-12] MEDS ORDERED: PATIENT OWN MEDICATION IH SCH ×2 (19:00)
[2022-03-12] MEDS: NEURONTIN PO SCH (21:23)
[2022-03-12] MEDS ORDERED: Zanaflex 4 MG PO SCH (22:00)
[2022-03-12] MEDS ORDERED: ZOCOR 20MG PO SCH (22:00)
[2022-03-12] MEDS ORDERED: LIPITOR 40MG PO SCH (22:00)
[2022-03-12] MEDS ORDERED: Abilify 10 MG PO SCH (22:00)
[2022-03-13] MEDS: Glucotrol 5 MG PO SCH (08:15)
[2022-03-13 08:19] VITALS: BP 95/63; PULSE 63; O2SAT 99
[2022-03-13] MEDS: MAG-OX 400 PO SCH (09:50)
[2022-03-13] MEDS: ENTRESTO 49 MG-51 MG TABLET PO SCH (09:52)
[2022-03-13] MEDS: Ditropan XL 5 MG PO SCH (09:53)
[2022-03-13] MEDS: THERAGRAN MULTIVITAMIN PO SCH (09:53)
[2022-03-13] MEDS: PLAVIX Tablet PO SCH (09:53)
[2022-03-13] MEDS: Tricor 145 MG PO SCH (09:53)
[2022-03-13] MEDS: PERCOCET TABLET 5/325MG PO SCH (09:53)
[2022-03-13] MEDS: VITA-BEE WITH C PO SCH (09:54)
[2022-03-13] MEDS ORDERED: MEDICATION INTERVENTION MC SCH (10:00)
[2022-03-13] MEDS ORDERED: PATIENT OWN MEDICATION IH SCH ×2 (10:00)
[2022-03-13] MEDS ORDERED: CLARITIN 10 MG PO SCH (10:00)
[2022-03-13] MEDS: Coreg PO SCH (10:07)
--- NOTE | 2022-04-06 21:06 | PCM.SSS ---
History of Present Illness - Chief Complaint Chief Complaint: weakness, vertigo Date: 03/13/22 History of Present Illness: is a 76 year old male. Pt. presented to ER after awakening with vertigo, and generally feeling weak, pt. was fine earlier in the morning but after lieing back down was dizzy when he got up later that morning, this persisted all day. Pt. placed in observation for treatment, monitoring and possible further evaluation. - Review of Systems Constitutional: No Fever, No Chills Eyes: No Symptoms Ears, Nose, & Throat: No Symptoms Respiratory: No Cough, No Short Of Breath Cardiac: No Chest Pain, No Edema, No Syncope Abdominal/Gastrointestinal: No Abdominal Pain, No Nausea, No Vomiting, No Diarrhea Genitourinary Symptoms: No Dysuria Musculoskeletal: No Back Pain, No Neck Pain Skin: No Rash Neurological: Dizziness, No Focal Weakness, No Sensory Changes Psychological: No Symptoms Endocrine: No Symptoms Hematologic/Lymphatic: No Symptoms Immunological/Allergic: No Symptoms Medications & Allergies Home Medications: Home Medication List Clopidogrel Bisulfate [PLAVIX Tablet] 75 mg PO DAILY 02/15/13 [History Confirmed 03/11/22] Fenofibrate 160 mg PO DAILY 05/22/20 [History Confirmed 03/11/22] ARIPiprazole [Abilify] 10 mg PO HS 02/15/21 [History Confirmed 03/11/22] Albuterol 2.5 mg/3 ml Neb [Proventil 2.5 mg/3 ml Neb] 1 neb IH TID 09/03/21 [History Confirmed 03/11/22] Albuterol Sulfate [Albuterol Sulfate Hfa] 2 puff IH QID 09/03/21 [History Confirmed 03/11/22] Atorvastatin Calcium [Lipitor] 40 mg PO HS 09/03/21 [History Confirmed 03/11/22] Cetirizine HCl [Zyrtec] 10 mg PO DAILY 09/03/21 [History Confirmed 03/11/22] Fluticasone Propionate [Flonase NASAL] 1 spray NS DAILY PRN PRN 09/03/21 [History Confirmed 03/11/22] Fluticasone/Umeclidin/Vilanter [Trelegy Ellipta 100-62.5-25] 1 puff IH DAILY 09/03/21 [History Confirmed 03/11/22] Gabapentin [Neurontin ] 300 mg PO QHS 09/03/21 [History Confirmed ] Glipizide 5 mg [Glucotrol 5 MG] 5 mg PO BID 09/03/21 [History Confirmed 03/11/22] Magnesium Oxide [Magnesium] 250 mg PO BID 09/03/21 [History Confirmed 03/11/22] Multivitamin/Iron/Folic Acid [Certavite-Antioxidant Tablet] 1 each PO DAILY 09/03/21 [History Confirmed 03/11/22] Oxycodone HCl/Acetaminophen [Oxycodone-Acetaminophn 7.5-325] 1 each PO QID 09/03/21 [History Confirmed 03/11/22] Tizanidine HCl 4 mg [Zanaflex 4 MG] 4 mg PO HS 09/03/21 [History Confirmed 03/11/22] Tolterodine Tartrate [Tolterodine Tartrate ER] 4 mg PO DAILY 09/03/21 [History Confirmed 03/11/22] Vitamin B Complex 1 each PO DAILY 09/03/21 [History Confirmed 03/11/22] Carvedilol 12.5 mg [Coreg 12.5 mg] 6.25 mg PO BID #0 03/05/22 [Rx Confirmed 03/11/22] Sacubitril/Valsartan [Entresto 49 mg-51 mg Tablet] 0.5 tablet PO BID tablet 03/05/22 [Rx Confirmed 03/11/22] Scopolamine 1.5 mg Patch [Transderm Scop 1.5MG Patch] 1.5 mg TD Q72H 30 Days #10 patch 03/13/22 [Rx] Allergies/Adverse Reactions: Allergies Allergy/AdvReac Type Severity Reaction Status Date / Time No Known Drug Allergies Allergy Verified 03/11/22 15:27 - Past Medical History Past Medical History: Yes Neurological History: No Pertinent History ENT History: No Pertinent History Cardiac History: Congestive Heart Failure, Coronary Artery Disease, Hypertension, Myocardial Infarction ([place]) Respiratory History: Asthma, COPD, Pneumonia Endocrine Medical History: No Pertinent History Musculoskelatal History: Degenerative Disk Disease GI Medical History: No Pertinent History History: No Pertinent History Pyscho-Social History: No Pertinent History Male Reproductive Disorders: No Pertinent History Comment: STENTS 1999. CARDIAC OPEN HEART SURGERY IN 2007. December HAD STENTS PLACED - Past Surgical History Past Surgical History: Yes Neuro Surgical History: No Pertinent History Cardiac History: CABG, Cardiac Stent Respiratory Surgery: No Pertinent History GI Surgical History: No Pertinent History Genitourinary Surgical Hx: No Pertinent History Musculskeletal Surgical Hx: Orthopedic Surgery Male Surgical History: No Pertinent History Other Surgical History: OPEN HEART SURGERY IN 2007. STENTS PLACED 1999. ELBOW, KNEE, BACK SURGERY. - Social History Smoking Status: Former smoker Exposure to second hand smoke: No Alcohol: None Drug Use: none Significant Family History: heart disease - Physical Exam General Appearance: no apparent distress, alert Neurologic Exam: alert, oriented x 3, cooperative, normal mood/affect, nml cerebellar function, nml station & gait, sensation nml, No motor deficits Eye Exam: PERRL/EOMI, eyes nml inspection Ears, Nose, Throat Exam: normal ENT inspection, TMs normal, pharynx normal, moist mucous membranes Neck Exam: normal inspection, non-tender, supple, full range of motion Respiratory Exam: normal breath sounds, lungs clear, No respiratory distress Cardiovascular Exam: regular rate/rhythm, normal heart sounds, normal peripheral pulses Gastrointestinal/Abdomen Exam: soft, normal bowel sounds, No tenderness, No mass Back Exam: normal inspection, normal range of motion, No CVA tenderness, No vertebral tenderness Extremity Exam: normal inspection, normal range of motion, pelvis stable Skin Exam: normal color, warm, dry, No rash Lymphatic Exam: No adenopathy Assessment/Plan (1) Dizziness Status: Acute Code(s): R42 - DIZZINESS AND GIDDINESS (2) Fatigue Status: Acute Code(s): R53.83 - OTHER FATIGUE Hospital Summary - Hospital Course Hospital Course: Pt. admitted and symptoms resolved, further evaluation did not find certain etiology for the episode, pt. was ready for discharge. - Vitals & Intake/Output Vital Signs: Vital Signs Temperature 96.9 F 03/13/22 08:00 Pulse Rate 63 03/13/22 08:00 Respiratory Rate 17 03/13/22 08:00 Blood Pressure 95/63 03/13/22 08:00 O2 Sat by Pulse Oximetry 99 03/13/22 08:00 - Lab Result Diagrams: 03/12/22 04:20 03/12/22 04:20 - Procedures and Test Procedures and Tests throughout Hospitalization: Therapy Orders & Screens 03/12/22 09:01 PT Eval & Treat ( Order) ONCE Reason for Eval:: vertigo and weakness Diagnosis: weakness 03/12/22 15:09 Respiratory Therapy Assessment DAILY Comment: Diagnosis: weakness - Discharge Discharge Date: 03/13/22 Disposition: Home, Self-Care Condition: Stable Prescriptions: New Scopolamine 1.5 mg Patch [Transderm Scop 1.5MG Patch] 1.5 mg TD Q72H 30 Days #10 patch No Action Clopidogrel Bisulfate [PLAVIX Tablet] 75 mg PO DAILY Fenofibrate 160 mg PO DAILY ARIPiprazole [Abilify] 10 mg PO HS Atorvastatin Calcium [Lipitor] 40 mg PO HS Vitamin B Complex 1 each PO DAILY Fluticasone/Umeclidin/Vilanter [Trelegy Ellipta 100-62.5-25] 1 puff IH DAILY Tizanidine HCl 4 mg [Zanaflex 4 MG] 4 mg PO HS Magnesium Oxide [Magnesium] 250 mg PO BID Glipizide 5 mg [Glucotrol 5 MG] 5 mg PO BID Gabapentin [Neurontin ] 300 mg PO QHS Fluticasone Propionate [Flonase NASAL] 1 spray NS DAILY PRN PRN PRN Reason: Allergies Cetirizine HCl [Zyrtec] 10 mg PO DAILY Multivitamin/Iron/Folic Acid [Certavite-Antioxidant Tablet] 1 each PO DAILY Albuterol Sulfate [Albuterol Sulfate Hfa] 2 puff IH QID Albuterol 2.5 mg/3 ml Neb [Proventil 2.5 mg/3 ml Neb] 1 neb IH TID Tolterodine Tartrate [Tolterodine Tartrate ER] 4 mg PO DAILY Oxycodone HCl/Acetaminophen [Oxycodone-Acetaminophn 7.5-325] 1 each PO QID Carvedilol 12.5 mg [Coreg 12.5 mg] 6.25 mg PO BID #0 Sacubitril/Valsartan [Entresto 49 mg-51 mg Tablet] 0.5 tablet PO BID tablet Instructions: Vertigo (a Type of Dizziness) (DC) Follow up with: JAYMIE JENKINS MD [Primary Care Provider] - 03/24/22 10:00 am
== END 2022-03-13 10:15 | disposition home or self-care (01) ==
LOC: ED 15:17 → MED SURG 19:59
PROVIDERS: ADMIT Family Medicine; ATTEND Family Medicine
DX: R42 Dizziness and giddiness (principal); R53.83 Other fatigue; E11.9 Type 2 diabetes mellitus without complications; I11.0 Hypertensive heart disease with heart failure; I50.9 Heart failure, unspecified; I25.10 Atherosclerotic heart disease of native coronary artery without angina pectoris; I25.2 Old myocardial infarction; Z20.828 Contact with and (suspected) exposure to other viral communicable diseases; Z79.01 Long term (current) use of anticoagulants; Z79.899 Other long term (current) drug therapy
CPT/HCPCS: 0241U; 36000; 36415; 70450; 70551; 71046; 80048; 80053; 81015; 83605; 83690; 83735; 83880; 84484; 85025; 85610; 93005; 93041; 93268; 94760; 96360; 96361; 97161; 99285; G0378; G0480; Q3014; 80307; A9270-GY

== ENCOUNTER 2022-04-14 11:06 | Observation (INO) | payer MEDICARE, OTHER ==
--- NOTE | 2022-04-14 11:17 | ERPHSYRPT ---
- History of Present Illness Time Seen by Provider: 04/14/22 11:16 Historian: patient Exam Limitations: no limitations Physician History: This is a 76-year-old white male patient of Dr. Jenkins who is known to our emergency department primarily for visits concerning dizziness. He does have dizziness today but is no different than usual. The concern today was that he might be dehydrated secondary to diarrhea that is been present intermittently for 5 days. He has not had fevers. He has not had chills. He has no known exposures to individuals with similar symptoms or individuals with viral illness. He had 2 loose stools yesterday and 1 today. Despite him having lower than usual blood pressure, the patient has still been taking his antihypertensive medication. Patient is on Plavix. He has a history of CHF, coronary artery disease (cardiac stents and CABG), hypertension, asthma, COPD, diabetes and degenerative disc disease. He has no significant complaint of pain. He has had no vomiting symptoms. He has no chest pain. He has no complaints of shortness of breath. Timing/Duration: day(s) (5) Activities at Onset: none Abdominal Pain Onset Location: other (Abdominal pain) Severity of Pain-Max: none Severity of Pain-Current: none Modifying Factors: Worsens With: vomiting Associated Symptoms: diarrhea, loss of appetite, weakness, No chest pain, No fever/chills, No nausea, No vomiting Previous symptoms: no prior history Allergies/Adverse Reactions: No Known Drug Allergies Allergy (Verified 04/14/22 11:20) Home Medications: Clopidogrel Bisulfate [PLAVIX Tablet] 75 mg PO DAILY 02/15/13 [History] Fenofibrate 160 mg PO DAILY 05/22/20 [History] ARIPiprazole [Abilify] 10 mg PO HS 02/15/21 [History] Albuterol 2.5 mg/3 ml Neb [Proventil 2.5 mg/3 ml Neb] 1 neb IH TID 09/03/21 [History] Albuterol Sulfate [Albuterol Sulfate Hfa] 2 puff IH QID 09/03/21 [History] Atorvastatin Calcium [Lipitor] 40 mg PO HS 09/03/21 [History] Cetirizine HCl [Zyrtec] 10 mg PO DAILY 09/03/21 [History] Fluticasone Propionate [Flonase NASAL] 1 spray NS DAILY PRN PRN 09/03/21 [History] Fluticasone/Umeclidin/Vilanter [Trelegy Ellipta 100-62.5-25] 1 puff IH DAILY 09/03/21 [History] Gabapentin [Neurontin ] 300 mg PO QHS 09/03/21 [History] Glipizide 5 mg [Glucotrol 5 MG] 5 mg PO BID 09/03/21 [History] Magnesium Oxide [Magnesium] 250 mg PO BID 09/03/21 [History] Multivitamin/Iron/Folic Acid [Certavite-Antioxidant Tablet] 1 each PO DAILY 09/03/21 [History] Oxycodone HCl/Acetaminophen [Oxycodone-Acetaminophn 7.5-325] 1 each PO QID 09/03/21 [History] Tizanidine HCl 4 mg [Zanaflex 4 MG] 4 mg PO HS 09/03/21 [History] Tolterodine Tartrate [Tolterodine Tartrate ER] 4 mg PO DAILY 09/03/21 [History] Vitamin B Complex 1 each PO DAILY 09/03/21 [History] Hx Tetanus, Diphtheria Vaccination/Date Given: Yes Hx Influenza Vaccination/Date Given: Yes Hx Pneumococcal Vaccination/Date Given: Yes Travel Risk - International Travel Have you traveled outside of the country in past 3 weeks: No - Coronavirus Screening Are you exhibiting any of the following symptoms?: No Close contact with a COVID-19 positive Pt in past 14-21 Days: No - Vaccine Status Have you recieved a Covid-19 vaccination: Yes Key Account Coordinator: Moderna - Vaccination Dates Date of 2cond Vaccination (if applicable): 11/25/2020 - Review of Systems Constitutional: Weakness Eyes: No Symptoms Ears, Nose, & Throat: No Symptoms Respiratory: No Symptoms Cardiac: No Symptoms Abdominal/Gastrointestinal: Diarrhea, Appetite Changes, No Abdominal Pain, No Nausea, No Vomiting Genitourinary Symptoms: No Symptoms Musculoskeletal: No Symptoms Skin: No Symptoms, Skin Lesions Neurological: Dizziness (Chronic, unchanged from baseline) Psychological: No Symptoms Endocrine: No Symptoms Hematologic/Lymphatic: No Symptoms Immunological/Allergic: No Symptoms All Other Systems: Reviewed and Negative - Past Medical History Pertinent Past Medical History: Yes Neurological History: No Pertinent History ENT History: No Pertinent History Cardiac History: Congestive Heart Failure, Coronary Artery Disease, Hypertension, Myocardial Infarction ([place]) Respiratory History: Asthma, COPD, Pneumonia Endocrine Medical History: No Pertinent History Musculoskeletal History: Degenerative Disk Disease GI Medical History: No Pertinent History History: No Pertinent History Psycho-Social History: No Pertinent History Male Reproductive Disorders: No Pertinent History Other Medical History: STENTS 2000. CARDIAC OPEN HEART SURGERY IN 2007. December HAD STENTS PLACED - Past Surgical History Past Surgical History: Yes Neuro Surgical History: No Pertinent History Cardiac: CABG, Cardiac Stent Respiratory: No Pertinent History Gastrointestinal: No Pertinent History Genitourinary: No Pertinent History Musculoskeletal: Orthopedic Surgery Male Surgical History: No Pertinent History Other Surgical History: OPEN HEART SURGERY IN 2007. STENTS PLACED 1999. ELBOW, KNEE, BACK SURGERY. - Social History Smoking Status: Former smoker Exposure to second hand smoke: No Alcohol Use: Socially Drug Use: none Patient Lives Alone: No Significant Family History: heart disease - Nursing Vital Signs Nursing Vital Signs: Initial Vital Signs Temperature 97.6 F 04/14/22 11:14 Pulse Rate 62 04/14/22 11:14 Respiratory Rate 18 04/14/22 11:14 Blood Pressure 96/67 04/14/22 11:14 O2 Sat by Pulse Oximetry 96 04/14/22 11:14 Pain Scale Pain Intensity 8 - Physical Exam General Appearance: no apparent distress, alert, thin Eye Exam: PERRL/EOMI, eyes nml inspection Ears, Nose, Throat Exam: normal ENT inspection, dry mucous membranes Neck Exam: normal inspection, non-tender, supple, full range of motion Respiratory Exam: normal breath sounds, lungs clear, airway intact, No chest tenderness, No respiratory distress Cardiovascular Exam: regular rate/rhythm, normal heart sounds, normal peripheral pulses Gastrointestinal/Abdomen Exam: soft, normal bowel sounds, No tenderness Rectal Exam: not done Back Exam: normal inspection, normal range of motion, No CVA tenderness, No vertebral tenderness Extremity Exam: normal inspection, normal range of motion, pelvis stable Neurologic Exam: alert, oriented x 3, cooperative, glass cutting machine feeder II-XII nml as tested, normal mood/affect, nml cerebellar function, nml station & gait, sensation nml Skin Exam: normal color, warm, dry Lymphatic Exam: No adenopathy SpO2 Interpretation: normal O2 Delivery: Room Air - Course Nursing assessment & vital signs reviewed: Yes EKG Interpreted by Me: RATE (86), Sinus Rhythm, NORMAL AXIS, NORMAL INTERVALS, NORMAL QRS, NORMAL ST-T, Other (No acute ischemic changes on today's EKG.) Ordered Tests: Active Orders 24 hr Category Date Time Status IV Insertion STAT Care 04/14/22 11:21 Active AMYLASE Stat Lab 04/14/22 11:30 Completed CBC W DIFF Stat Lab 04/14/22 11:30 Completed CMP Stat Lab 04/14/22 11:30 Completed LIPASE Stat Lab 04/14/22 11:30 Completed Lactic Acid Stat Lab 04/14/22 11:21 Completed UA W/RFX CULTURE Stat Lab 04/14/22 13:23 Completed Transfer Order Routine Transfer 04/14/22 Ordered Medication Summary Generic Name Dose Route Start Last Admin Trade Name Freq PRN Reason Stop Dose Admin Sodium Chloride 1,000 mls @ 999 mls/hr 04/14/22 13:11 04/14/22 13:13 Sodium Chloride 0.9% 1000 Ml IV 04/14/22 14:11 999 mls/hr .Q1H1M STA Administration Discontinued Medications Generic Name Dose Route Start Last Admin Trade Name Freq PRN Reason Stop Dose Admin Hydromorphone HCl 0.5 mg 04/14/22 13:26 04/14/22 13:37 Hydromorphone 1 Mg/1ml Inj 1 Mg/Ml Syringe IV 04/14/22 13:27 0.5 mg STAT ONE Administration Hydromorphone HCl Confirm 04/14/22 13:34 Hydromorphone 1 Mg/1ml Inj 1 Mg/Ml Syringe Administered 04/14/22 13:35 Dose 1 mg .ROUTE .STK-MED ONE Sodium Chloride 1,000 mls @ 999 mls/hr 04/14/22 11:21 04/14/22 12:30 Sodium Chloride 0.9% 1000 Ml IV 04/14/22 12:21 Infused .Q1H1M STA Infusion Sodium Chloride Confirm 04/14/22 11:28 Sodium Chloride 0.9% 1000 Ml Administered 04/14/22 11:29 Dose 1,000 mls @ ud .ROUTE .STK-MED ONE Sodium Chloride Confirm 04/14/22 13:12 Sodium Chloride 0.9% 1000 Ml Administered 04/14/22 13:13 Dose 1,000 mls @ ud .ROUTE .STK-MED ONE Ondansetron HCl 4 mg 04/14/22 13:26 04/14/22 13:36 Ondansetron Hcl 4 Mg/2 Ml Vial IV 04/14/22 13:27 4 mg STAT ONE Administration Ondansetron HCl Confirm 04/14/22 13:34 Ondansetron Hcl 4 Mg/2 Ml Vial Administered 04/14/22 13:35 Dose 4 mg .ROUTE .[facility] ONE Lab/Rad Data: Laboratory Result Diagrams 04/14/22 11:30 04/14/22 11:30 Laboratory Results 04/14/22 04/14/22 04/14/22 Range/Units 13:23 12:10 11:30 WBC (4.0-10.5) x10^3/uL RBC (4.1-5.6) x10^6/uL Hgb (12.5-18.0) g/dL Hct (42-50) % MCV (78-100) fL MCH (26-32) pg MCHC (32-36) g/dL RDW (11.5-14.0) % Plt Count (150-450) x10^3/uL MPV (7.5-11.0) fL Gran % (36.0-66.0) % Immature Gran % (Auto) (0.00-0.4) % Nucleat RBC Rel Count (0.00-0.1) % Eos # (Auto) (0-0.5) x10^3/uL Immature Gran # (Auto) (0.00-0.03) x10^3u/L Absolute Lymphs (auto) (1.0-4.6) x10^3/uL Absolute Monos (auto) (0.0-1.3) x10^3/uL Absolute Nucleated RBC (0.00-0.01) x10^3u/L Lymphocytes % (24.0-44.0) % Monocytes % (0.0-12.0) % Eosinophils % (0.00-5.0) % Basophils % (0.0-0.4) % Absolute Granulocytes (1.4-6.9) x10^3/uL Basophils # (0-0.4) x10^3/uL Sodium 141 (137-145) mmol/L Potassium 3.5 (3.5-5.1) mmol/L Chloride 106 (98-107) mmol/L Carbon Dioxide 26 (22-30) mmol/L Anion Gap 12.5 (5-15) MEQ/L BUN 13 (9-20) mg/dL Creatinine 1.09 (0.66-1.25) mg/dL Estimated GFR > 60.0 ML/MIN Glucose 102 (74-106) mg/dL Lactic Acid (0.4-2.0) Calcium 9.6 (8.4-10.2) mg/dL Total Bilirubin 0.40 (0.2-1.3) mg/dL AST 22 (17-59) U/L ALT 19 (0-50) U/L Alkaline Phosphatase 87 (38-126) U/L Serum Total Protein 6.3 (6.3-8.2) g/dL Albumin 3.6 (3.5-5.0) g/dL Amylase 44 (30-110) U/L Lipase 33 (23-300) U/L Urinalys Dipstick Clnc MAIN LAB Urine Color YELLOW (YELLOW) Urine Appearance CLEAR (CLEAR) Urine pH 7.5 (5-6) Ur Specific [place] 1.015 (1.005-1.025) POC Urine Protein Conf NEGATIVE (Negative) Urine Ketones NEGATIVE (NEGATIVE) Urine Nitrite NEGATIVE (NEGATIVE) Urine Bilirubin NEGATIVE (NEGATIVE) Urine Urobilinogen 0.2 (0-1) mg/dL Urine Leukocytes NEGATIVE (NEGATIVE) Urine WBC (Auto) NONE (0-5) /HPF Urine RBC (Auto) NONE (0-2) /HPF U Epithel Cells (Auto) NONE (FEW) /HPF Urine Bacteria (Auto) RARE (NEGATIVE) /HPF Urine RBC NEGATIVE (0-5) Sin/ul Ur Culture Indicated? NO Urine Glucose NEGATIVE (NEGATIVE) mg/dL Influenza Type A Ag NEGATIVE (NEGATIVE) Influenza Type B Ag NEGATIVE (NEGATIVE) RSV (PCR) NEGATIVE (Negative) SARS-CoV-2 (PCR) NEGATIVE (NEGATIVE) 04/14/22 04/14/22 Range/Units 11:30 11:21 WBC 8.6 (4.0-10.5) x10^3/uL RBC 3.95 L (4.1-5.6) x10^6/uL Hgb 11.7 L (12.5-18.0) g/dL Hct 37.3 L (42-50) % MCV 94.4 (78-100) fL MCH 29.6 (26-32) pg MCHC 31.4 L (32-36) g/dL RDW 13.3 (11.5-14.0) % Plt Count 267 (150-450) x10^3/uL MPV 9.5 (7.5-11.0) fL Gran % 71.7 H (36.0-66.0) % Immature Gran % (Auto) 0.3 (0.00-0.4) % Nucleat RBC Rel Count 0.0 (0.00-0.1) % Eos # (Auto) 0.27 (0-0.5) x10^3/uL Immature Gran # (Auto) 0.03 (0.00-0.03) x10^3u/L Absolute Lymphs (auto) 1.59 (1.0-4.6) x10^3/uL Absolute Monos (auto) 0.51 (0.0-1.3) x10^3/uL Absolute Nucleated RBC 0.00 (0.00-0.01) x10^3u/L Lymphocytes % 18.5 L (24.0-44.0) % Monocytes % 5.9 (0.0-12.0) % Eosinophils % 3.1 (0.00-5.0) % Basophils % 0.5 (0.0-0.4) % Absolute Granulocytes 6.17 (1.4-6.9) x10^3/uL Basophils # 0.04 (0-0.4) x10^3/uL Sodium (137-145) mmol/L Potassium (3.5-5.1) mmol/L Chloride (98-107) mmol/L Carbon Dioxide (22-30) mmol/L Anion Gap (5-15) MEQ/L BUN (9-20) mg/dL Creatinine (0.66-1.25) mg/dL Estimated GFR ML/MIN Glucose (74-106) mg/dL Lactic Acid 1.7 (0.4-2.0) Calcium (8.4-10.2) mg/dL Total Bilirubin (0.2-1.3) mg/dL AST (17-59) U/L ALT (0-50) U/L Alkaline Phosphatase (38-126) U/L Serum Total Protein (6.3-8.2) g/dL Albumin (3.5-5.0) g/dL Amylase (30-110) U/L Lipase (23-300) U/L Urinalys Dipstick Clnc Urine Color (YELLOW) Urine Appearance (CLEAR) Urine pH (5-6) Ur Specific [place] (1.005-1.025) POC Urine Protein Conf (Negative) Urine Ketones (NEGATIVE) Urine Nitrite (NEGATIVE) Urine Bilirubin (NEGATIVE) Urine Urobilinogen (0-1) mg/dL Urine Leukocytes (NEGATIVE) Urine WBC (Auto) (0-5) /HPF Urine RBC (Auto) (0-2) /HPF U Epithel Cells (Auto) (FEW) /HPF Urine Bacteria (Auto) (NEGATIVE) /HPF Urine RBC (0-5) Sin/ul Ur Culture Indicated? Urine Glucose (NEGATIVE) mg/dL Influenza Type A Ag (NEGATIVE) Influenza Type B Ag (NEGATIVE) RSV (PCR) (Negative) SARS-CoV-2 (PCR) (NEGATIVE) - Progress Progress: improved, re-examined Progress Note: 04/14/22 13:48 Medical decision making: This patient states he still is feeling weak. His blood pressure is improving. I did speak with Dr. Jenkins who is the primary care physician of this patient. We will place the patient in observation and prov cadny him with IV hydration, antiemetics and encourage oral intake. Discussed with : Eileen Counseled pt/family regarding: lab results, diagnosis - Departure Departure Disposition: Observation Clinical Impression: Hypotension, Weakness, Mild dehydration Condition: Fair Critical Care Time: No Referrals: JAYMIE JENKINS MD [Primary Care Provider] - Follow up/PCP as directed
[2022-04-14] MEDS ORDERED: Sodium Chloride 0.9% 1000 ML 1,000 ML IV STA ×2 (11:21→13:11)
[2022-04-14] MEDS ORDERED: Sodium Chloride 0.9% 1000 ML 1,000 ML ONE ×2 (11:28→13:12)
[2022-04-14 12:21] LABS: Absolute Neutrophil Ct (ANC) 6.17 x10^3/uL (1.4-6.9); Basophil (Absolute #) 0.04 x10^3/uL (0-0.4); Eosinophil % 3.1 % (0.00-5.0); Eosinophil (Absolute #) 0.27 x10^3/uL (0-0.5); Hematocrit 37.3 % (42-50); Hemoglobin 11.7 g/dL (12.5-18.0); Lymphocyte (Absolute #) 1.59 x10^3/uL (1.0-4.6); Lymphocytes % 18.5 % (24.0-44.0); Mean Cell Volume 94.4 fL (78-100); Mean Corpuscular Hemoglobin 29.6 pg (26-32); Mean Corpuscular Hgb Concent. 31.4 g/dL (32-36); Mean Platelet Volume 9.5 fL (7.5-11.0); Monocyte (Absolute #) 0.51 x10^3/uL (0.0-1.3); Monocytes % 5.9 % (0.0-12.0); Neutrophil % 71.7 % (36.0-66.0); Platelet Count 267 x10^3/uL (150-450); Red Blood Count 3.95 x10^6/uL (4.1-5.6); Red Cell Distribution Width 13.3 % (11.5-14.0); White Blood Count 8.6 x10^3/uL (4.0-10.5)
[2022-04-14 12:37] LABS: ALBUMIN 3.6 g/dL (3.5-5.0); ALKALINE PHOSPHATASE 87 U/L (38-126); AMYLASE 44 U/L (30-110); ANION GAP 12.5 MEQ/L (5-15); BLOOD UREA NITROGEN 13 mg/dL (9-20); CHLORIDE 106 mmol/L (98-107); Calcium 9.6 mg/dL (8.4-10.2); Carbon Dioxide 26 mmol/L (22-30); Creatinine 1 1.09 mg/dL (0.66-1.25); EST GLOMERULAR FILTRATION RATE > 60.0 ML/MIN; Glucose 102 mg/dL (74-106); LIPASE 33 U/L (23-300); Potassium 3.5 mmol/L (3.5-5.1); SGOT/AST 22 U/L (17-59); SGPT/ALT 19 U/L (0-50); SODIUM 141 mmol/L (137-145); Total Protein 6.3 g/dL (6.3-8.2)
[2022-04-14 12:53] LABS: INFLUENZA A NEGATIVE (NEGATIVE); INFLUENZA B NEGATIVE (NEGATIVE); RESPIRATORY SYNCTIAL VIRUS NEGATIVE (Negative); SARS-CoV-2 Xpert Express NEGATIVE (NEGATIVE)
[2022-04-14] MEDS ORDERED: Zofran 4 MG/2 ML VIAL IV ONE (13:26)
[2022-04-14] MEDS ORDERED: Hydromorphone 1 mg/ml Injection IV ONE (13:26)
[2022-04-14] MEDS ORDERED: Zofran 4 MG/2 ML VIAL ONE (13:34)
[2022-04-14] MEDS ORDERED: Hydromorphone 1 mg/ml Injection ONE (13:34)
[2022-04-14 13:54] LABS: Bacteria RARE /HPF (NEGATIVE)
[2022-04-14 13:55] LABS: Appearance CLEAR (CLEAR); Bilirubin NEGATIVE (NEGATIVE); Glucose NEGATIVE (NEGATIVE); Ketones NEGATIVE (NEGATIVE); Nitrite NEGATIVE (NEGATIVE); Ph 7.5 (5-6); Protein,Urine Dip NEGATIVE (Negative); RBC NEGATIVE Ery/ul (0-5); Specific Gravity 1.015 (1.005-1.025); Urine Cultured Indicated? NO; Urobilinogen 0.2 mg/dL (0-1)
[2022-04-14 13:56] LABS: Dipstick done @ ? MAIN LAB
[2022-04-14] MEDS ORDERED: TYLENOL 325 MG PO PRN (14:20)
[2022-04-14] MEDS ORDERED: Zofran 4 MG/2 ML VIAL IV PRN (14:20)
[2022-04-14] MEDS: Sodium Chloride 0.9% 1000 ML 1,000 ML IV SCH (15:49)
[2022-04-14] MEDS ORDERED: Flonase NASAL NS PRN (16:53)
[2022-04-14] MEDS ORDERED: VENTOLIN COMMON CANISTER IH SCH (17:00)
[2022-04-14] MEDS ORDERED: NON-FORMULARY ITEM (Oxycodone Hcl/Acetaminophen [Oxycodone-Acetaminophn 7.5-325] 1 EACH Ta PO SCH (17:00)
[2022-04-14] MEDS: Glucotrol 5 MG PO SCH (17:05)
[2022-04-14] MEDS ORDERED: VENTOLIN COMMON CANISTER IH PRN (17:30)
[2022-04-14] MEDS ORDERED: MEDICATION INTERVENTION MC SCH (17:30)
[2022-04-14] MEDS: VENTOLIN COMMON CANISTER IH SCH (19:02)
[2022-04-14] MEDS: ENTRESTO 49 MG-51 MG TABLET PO SCH (21:47)
[2022-04-14] MEDS: Neurontin PO SCH (21:47)
[2022-04-14] MEDS: MAG-OX 400 PO SCH (21:47)
[2022-04-14] MEDS: OXYCODONE-ACETAMINOPHEN 10-325 PO SCH (21:48)
[2022-04-14] MEDS ORDERED: LIPITOR 40MG PO SCH (22:00)
[2022-04-14] MEDS ORDERED: COREG 12.5 MG PO SCH (22:00)
[2022-04-14] MEDS ORDERED: ZOCOR 20MG PO SCH (22:00)
[2022-04-14] MEDS ORDERED: Abilify 10 MG PO SCH (22:00)
[2022-04-14] MEDS ORDERED: PROVENTIL 2.5 MG/3 ML NEB IH SCH (22:00)
[2022-04-14] MEDS ORDERED: NON-FORMULARY ITEM (Magnesium Oxide [Magnesium] 250 MG Tablet) PO SCH (22:00)
[2022-04-14] MEDS ORDERED: Zanaflex 4 MG PO SCH (22:00)
[2022-04-15 04:47] LABS: Absolute Neutrophil Ct (ANC) 5.34 x10^3/uL (1.4-6.9); Basophil (Absolute #) 0.04 x10^3/uL (0-0.4); Eosinophil % 3.9 % (0.00-5.0); Eosinophil (Absolute #) 0.31 x10^3/uL (0-0.5); Hematocrit 33.6 % (42-50); Hemoglobin 10.2 g/dL (12.5-18.0); Lymphocyte (Absolute #) 1.57 x10^3/uL (1.0-4.6); Mean Corpuscular Hemoglobin 29.1 pg (26-32); Mean Corpuscular Hgb Concent. 30.4 g/dL (32-36); Mean Platelet Volume 9.1 fL (7.5-11.0); Monocyte (Absolute #) 0.57 x10^3/uL (0.0-1.3); Monocytes % 7.3 % (0.0-12.0); Neutrophil % 67.9 % (36.0-66.0); Platelet Count 211 x10^3/uL (150-450); Red Cell Distribution Width 13.3 % (11.5-14.0); White Blood Count 7.9 x10^3/uL (4.0-10.5)
[2022-04-15] MEDS: Sodium Chloride 0.9% 1000 ML 1,000 ML IV SCH (05:02)
[2022-04-15 05:04] LABS: ALBUMIN 2.9 g/dL (3.5-5.0); ALKALINE PHOSPHATASE 61 U/L (38-126); ANION GAP 7.4 MEQ/L (5-15); BLOOD UREA NITROGEN 10 mg/dL (9-20); CHLORIDE 111 mmol/L (98-107); Calcium 8.8 mg/dL (8.4-10.2); Carbon Dioxide 28 mmol/L (22-30); EST GLOMERULAR FILTRATION RATE > 60.0 ML/MIN; Glucose 84 mg/dL (74-106); Potassium 4.2 mmol/L (3.5-5.1); SGOT/AST 22 U/L (17-59); SGPT/ALT 17 U/L (0-50); SODIUM 142 mmol/L (137-145); Total Protein 5.3 g/dL (6.3-8.2)
[2022-04-15] MEDS ORDERED: Advair Hfa 230/21 Mcg COMMON CANISTER IH SCH (07:00)
[2022-04-15] MEDS: VENTOLIN COMMON CANISTER IH SCH (07:17)
[2022-04-15] MEDS: Neurontin PO SCH (08:11)
[2022-04-15] MEDS: MAG-OX 400 PO SCH (08:11)
[2022-04-15] MEDS: Glucotrol 5 MG PO SCH (08:11)
[2022-04-15] MEDS: ENTRESTO 49 MG-51 MG TABLET PO SCH (08:11)
[2022-04-15] MEDS: OXYCODONE-ACETAMINOPHEN 10-325 PO SCH (08:12)
[2022-04-15 08:52] VITALS: BP 102/53; PULSE 64; O2SAT 96
[2022-04-15] MEDS ORDERED: PLAVIX Tablet PO SCH (10:00)
[2022-04-15] MEDS ORDERED: MULTIVITAMIN PO SCH (10:00)
[2022-04-15] MEDS ORDERED: Tricor 145 MG PO SCH (10:00)
[2022-04-15] MEDS ORDERED: CLARITIN 10 MG PO SCH (10:00)
[2022-04-15] MEDS ORDERED: NON-FORMULARY ITEM (Vitamin B Complex [Vitamin B Complex] 1 EACH Tablet) PO SCH (10:00)
[2022-04-15] MEDS ORDERED: FENOFIBRATE PO SCH (10:00)
[2022-04-15] MEDS ORDERED: THERAGRAN MULTIVITAMIN PO SCH (10:00)
[2022-04-15] MEDS ORDERED: NON-FORMULARY ITEM (Tolterodine Tartrate [Tolterodine Tartrate Er] 4 MG Cap.Er.24h) PO SCH (10:00)
[2022-04-15] MEDS ORDERED: IRON PO SCH (10:00)
[2022-04-15] MEDS ORDERED: NON-FORMULARY ITEM (Levocetirizine Dihydrochloride [Allergy Relief] 5 MG Tablet) PO SCH (10:00)
[2022-04-15] MEDS ORDERED: VITA-BEE WITH C PO SCH (10:00)
[2022-04-15] MEDS ORDERED: FOLIC ACID PO SCH (10:00)
[2022-04-15] MEDS ORDERED: [UNRECOGNIZED DRUG - OTHER] PO SCH (10:00)
[2022-04-15] MEDS ORDERED: Coreg 3.125 MG PO SCH (10:00)
[2022-04-16] MEDS ORDERED: Transderm Scop 1.5MG Patch TD SCH (10:00)
[2022-04-17 07:08] LABS: Adenovirus F40/41 Not Detected (Not Detected); Astrovirus Not Detected (Not Detected); Campylobacter Not Detected (Not Detected); Cryptosporidium Not Detected (Not Detected); Cyclospora cayetanensis Not Detected (Not Detected); Entamoeba histolytica Not Detected (Not Detected); Enteroaggregative E coli Not Detected (Not Detected); Enterpathogenic E coli Not Detected (Not Detected); Entertoxigenic E coli Not Detected (Not Detected); Giardia lamblia Not Detected (Not Detected); Norovirus GI/GII Not Detected (Not Detected); Plesiomonas shigelloides Not Detected (Not Detected); Rotavirus A Not Detected (Not Detected); Salmonella Not Detected (Not Detected); Shig-toxin-producing E coli Not Detected (Not Detected); Shigella/Enterinvasive E coli Not Detected (Not Detected); Vibrio Not Detected (Not Detected); Vibrio cholerae Not Detected (Not Detected); Yersinia enterocolitica Not Detected (Not Detected)
--- NOTE | 2022-04-17 09:29 | PCM.SSS ---
History of Present Illness - Chief Complaint Chief Complaint: dehydration, vertigo, general weakness Date: 04/15/22 History of Present Illness: is a 76 year old male. Pt. presented to ER noted he had some less po intake and was feeling lightheaded and weaker than usual. work-up did not show any specific etiology other than mild dehydration, pt. was placed in observation for iv hydration. - Review of Systems Constitutional: Weakness, No Fever, No Chills Eyes: No Symptoms Ears, Nose, & Throat: No Symptoms Respiratory: No Cough, No Short Of Breath Cardiac: No Chest Pain, No Edema, No Syncope Abdominal/Gastrointestinal: No Abdominal Pain, No Nausea, No Vomiting, No Diarrhea Genitourinary Symptoms: No Dysuria Musculoskeletal: No Back Pain, No Neck Pain Skin: No Rash Neurological: No Dizziness, No Focal Weakness, No Sensory Changes Psychological: No Symptoms Endocrine: No Symptoms Hematologic/Lymphatic: No Symptoms Immunological/Allergic: No Symptoms Medications & Allergies Home Medications: Home Medication List Clopidogrel Bisulfate [PLAVIX Tablet] 75 mg PO DAILY 02/15/13 [History Confirmed 04/14/22] Fenofibrate 160 mg PO DAILY 05/22/20 [History Confirmed 04/14/22] ARIPiprazole [Abilify] 10 mg PO HS 02/15/21 [History Confirmed 04/14/22] Albuterol 2.5 mg/3 ml Neb [Proventil 2.5 mg/3 ml Neb] 1 neb IH TID 09/03/21 [History Confirmed 04/14/22] Albuterol Sulfate [Albuterol Sulfate Hfa] 2 puff IH QID 09/03/21 [History Confirmed 04/14/22] Atorvastatin Calcium [Lipitor] 40 mg PO HS 09/03/21 [History Confirmed 04/14/22] Fluticasone Propionate [Flonase NASAL] 1 spray NS DAILY PRN PRN 09/03/21 [History Confirmed 04/14/22] Glipizide 5 mg [Glucotrol 5 MG] 5 mg PO BID 09/03/21 [History Confirmed 04/14/22] Magnesium Oxide [Magnesium] 250 mg PO BID 09/03/21 [History Confirmed 04/14/22] Multivitamin/Iron/Folic Acid [Certavite-Antioxidant Tablet] 1 each PO DAILY 09/03/21 [History Confirmed 04/14/22] Oxycodone HCl/Acetaminophen [Oxycodone-Acetaminophn 7.5-325] 1 each PO QID 09/03/21 [History Confirmed 04/14/22] Tizanidine HCl 4 mg [Zanaflex 4 MG] 4 mg PO HS 09/03/21 [History Confirmed 04/14/22] Tolterodine Tartrate [Tolterodine Tartrate ER] 4 mg PO DAILY 09/03/21 [History Confirmed 04/14/22] Vitamin B Complex 1 each PO DAILY 09/03/21 [History Confirmed 04/14/22] Sacubitril/Valsartan [Entresto 49 mg-51 mg Tablet] 0.5 tablet PO BID tablet 03/05/22 [Rx Confirmed 04/14/22] Scopolamine 1.5 mg Patch [Transderm Scop 1.5MG Patch] 1.5 mg TD Q72H 30 Days #10 patch 03/13/22 [Rx Confirmed 04/14/22] Gabapentin 100 mg PO TID 04/14/22 [History Confirmed 04/14/22] Levocetirizine Dihydrochloride [Allergy Relief] 5 mg PO DAILY 04/14/22 [History Confirmed 04/14/22] Carvedilol 3.125 mg [Coreg 3.125 MG] 3.125 mg PO BID #30 tablet 04/15/22 [Rx] Scopolamine 1.5 mg Patch [Transderm Scop 1.5MG Patch] 1.5 mg TD Q72H #2 patch 04/15/22 [Rx] Allergies/Adverse Reactions: Allergies Allergy/AdvReac Type Severity Reaction Status Date / Time No Known Drug Allergies Allergy Verified 04/14/22 11:20 - Past Medical History Past Medical History: Yes Neurological History: No Pertinent History ENT History: No Pertinent History Cardiac History: Congestive Heart Failure, Coronary Artery Disease, Hypertension, Myocardial Infarction ([place]) Respiratory History: Asthma, COPD, Pneumonia Endocrine Medical History: No Pertinent History Musculoskelatal History: Degenerative Disk Disease GI Medical History: No Pertinent History History: No Pertinent History Pyscho-Social History: No Pertinent History Male Reproductive Disorders: No Pertinent History Comment: STENTS 1999. CARDIAC OPEN HEART SURGERY IN 2007. December HAD STENTS PLACED - Past Surgical History Past Surgical History: Yes Neuro Surgical History: No Pertinent History Cardiac History: CABG, Cardiac Stent Respiratory Surgery: No Pertinent History GI Surgical History: No Pertinent History Genitourinary Surgical Hx: No Pertinent History Musculskeletal Surgical Hx: Orthopedic Surgery Male Surgical History: No Pertinent History Other Surgical History: OPEN HEART SURGERY IN 2007. STENTS PLACED 1999. ELBOW, KNEE, BACK SURGERY. - Social History Smoking Status: Former smoker Exposure to second hand smoke: No Alcohol: None Drug Use: none Significant Family History: heart disease - Physical Exam General Appearance: no apparent distress, alert Neurologic Exam: alert, oriented x 3, cooperative, normal mood/affect, nml cerebellar function, nml station & gait, sensation nml, No motor deficits Eye Exam: PERRL/EOMI, eyes nml inspection Ears, Nose, Throat Exam: normal ENT inspection, TMs normal, pharynx normal, moist mucous membranes Neck Exam: normal inspection, non-tender, supple, full range of motion Respiratory Exam: normal breath sounds, lungs clear, No respiratory distress Cardiovascular Exam: regular rate/rhythm, normal heart sounds, normal peripheral pulses Gastrointestinal/Abdomen Exam: soft, normal bowel sounds, No tenderness, No mass Back Exam: normal inspection, normal range of motion, No CVA tenderness, No vertebral tenderness Extremity Exam: normal inspection, normal range of motion, pelvis stable Skin Exam: normal color, warm, dry, No rash Lymphatic Exam: No adenopathy Assessment/Plan (1) Fatigue Status: Acute Code(s): R53.83 - OTHER FATIGUE (2) Mild dehydration Status: Acute Code(s): E86.0 - DEHYDRATION (3) Weakness Status: Acute Code(s): R53.1 - WEAKNESS Hospital Summary - Hospital Course Hospital Course: Pt. placed in observation and gently hydrated, the following am, pt. feeling much better and ready for discharge to home. Pt. noted to have low bp, we will decrease his carvedilol from 6.25mg bid to 3.125mg bid. - Vitals & Intake/Output Vital Signs: Vital Signs Temperature 97.7 F 04/15/22 08:00 Pulse Rate 64 04/15/22 08:00 Respiratory Rate 14 04/15/22 08:00 Blood Pressure 102/53 04/15/22 08:00 O2 Sat by Pulse Oximetry 96 04/15/22 08:00 Intake & Output: Intake & Output 04/14/22 04/15/22 04/16/22 04/17/22 11:59 11:59 11:59 11:59 Intake Total 1410 Balance 1410 Weight 72.575 kg 69.8 kg - Lab Result Diagrams: 04/15/22 04:35 04/15/22 04:35 - Procedures and Test Procedures and Tests throughout Hospitalization: Therapy Orders & Screens 04/14/22 17:30 Respiratory Therapy Assessment DAILY Comment: Diagnosis: dehydration, vertigo 04/15/22 09:02 EKG ROUTINE Comment: Diagnosis: dehydration, vertigo - Discharge Discharge Date: 04/15/22 Disposition: Home, Self-Care Condition: Fair Prescriptions: New Carvedilol 3.125 mg [Coreg 3.125 MG] 3.125 mg PO BID #30 tablet Scopolamine 1.5 mg Patch [Transderm Scop 1.5MG Patch] 1.5 mg TD Q72H #2 patch Continue Clopidogrel Bisulfate [PLAVIX Tablet] 75 mg PO DAILY Fenofibrate 160 mg PO DAILY ARIPiprazole [Abilify] 10 mg PO HS Atorvastatin Calcium [Lipitor] 40 mg PO HS Vitamin B Complex 1 each PO DAILY Tizanidine HCl 4 mg [Zanaflex 4 MG] 4 mg PO HS Magnesium Oxide [Magnesium] 250 mg PO BID Glipizide 5 mg [Glucotrol 5 MG] 5 mg PO BID Fluticasone Propionate [Flonase NASAL] 1 spray NS DAILY PRN PRN PRN Reason: Allergies Multivitamin/Iron/Folic Acid [Certavite-Antioxidant Tablet] 1 each PO DAILY Albuterol Sulfate [Albuterol Sulfate Hfa] 2 puff IH QID Albuterol 2.5 mg/3 ml Neb [Proventil 2.5 mg/3 ml Neb] 1 neb IH TID Tolterodine Tartrate [Tolterodine Tartrate ER] 4 mg PO DAILY Oxycodone HCl/Acetaminophen [Oxycodone-Acetaminophn 7.5-325] 1 each PO QID Sacubitril/Valsartan [Entresto 49 mg-51 mg Tablet] 0.5 tablet PO BID tablet Scopolamine 1.5 mg Patch [Transderm Scop 1.5MG Patch] 1.5 mg TD Q72H 30 Days #10 patch Gabapentin 100 mg PO TID Levocetirizine Dihydrochloride [Allergy Relief] 5 mg PO DAILY Discontinued Carvedilol 12.5 mg [Coreg 12.5 mg] 6.25 mg PO BID #0 Instructions: Vertigo (a Type of Dizziness) (DC), Low Blood Pressure (DC) Follow up with: JAYMIE JENKINS MD [Primary Care Provider] - 04/21/22 9:15 am Forms: Discharge Instructions
[2022-04-17 10:31] LABS: Sapovirus Not Detected (Not Detected)
== END 2022-04-15 10:11 | disposition home or self-care (01) ==
LOC: ED 11:06 → MED SURG 14:12
PROVIDERS: ADMIT Family Medicine; ATTEND Family Medicine
DX: R53.83 Other fatigue (principal); E86.0 Dehydration; R53.1 Weakness; I50.9 Heart failure, unspecified; I11.0 Hypertensive heart disease with heart failure; I95.9 Hypotension, unspecified; R19.7 Diarrhea, unspecified; E11.9 Type 2 diabetes mellitus without complications; I25.10 Atherosclerotic heart disease of native coronary artery without angina pectoris; Z79.01 Long term (current) use of anticoagulants; Z79.899 Other long term (current) drug therapy; Z20.828 Contact with and (suspected) exposure to other viral communicable diseases
CPT/HCPCS: 0241U; 36000; 36415; 80053; 81015; 82150; 82947; 83605; 83690; 85025; 87507; 93005; 93268; 94640; 94760; 96374; 99284; G0378; J1170; J2405; A9270-GY

== ENCOUNTER 2022-05-23 09:16 | Inpatient (IN) | payer MEDICARE, OTHER ==
[2022-05-23] MEDS ORDERED: Sodium Chloride 0.9% 500 ML 500 ML IV ONE ×2 (09:47→09:57)
--- NOTE | 2022-05-23 09:58 | ERPHSYRPT ---
- History of Present Illness Time Seen by Provider: 05/23/22 09:49 Source: patient, family Exam Limitations: no limitations Patient Subjective Stated Complaint: Weakness Triage Nursing Assessment: Patient brought back to ED per w/c and transferred to bed with asssit of 1. Patient A+O X 3. Patient's skin pale, warm and dry. Patient states he has c-diff and has became very weak. Patient denies pain or discomfort at this time. Physician History: 76 years old male with history of hypertension, hyperlipidemia, coronary artery disease status post CABG, diabetes mellitus, fighting with C. difficile for the last 6 weeks and has almost 3 rounds of antibiotics and still having loose stool which is lately getting worse with associated increased generalized weakness fatigue and tiredness. Denies any abdominal pain. No fever or chills reported. report patient is so weak to go to the bathroom even with a walker. Patient blood pressure systolic is 91 on presentation and mildly tachycardic. Denies any chest pain palpitations or shortness of breath. Timing/Duration: week(s), gradual onset, worse Severity: moderate Modifying Factors: Improves With: nothing Associated Symptoms: nausea, malaise, weakness, No vomiting, No abdominal pain, No shortness of breath, No heartburn, No chest pain, No fever, No headaches, No syncope Allergies/Adverse Reactions: No Known Drug Allergies Allergy (Verified 04/14/22 11:20) Home Medications: Clopidogrel Bisulfate [PLAVIX Tablet] 75 mg PO DAILY 02/15/13 [History] Fenofibrate 160 mg PO DAILY 05/22/20 [History] ARIPiprazole [Abilify] 10 mg PO HS 02/15/21 [History] Albuterol 2.5 mg/3 ml Neb [Proventil 2.5 mg/3 ml Neb] 1 neb IH TID 09/03/21 [History] Albuterol Sulfate [Albuterol Sulfate Hfa] 2 puff IH QID 09/03/21 [History] Atorvastatin Calcium [Lipitor] 40 mg PO HS 09/03/21 [History] Fluticasone Propionate [Flonase NASAL] 1 spray NS DAILY PRN PRN 09/03/21 [History] Glipizide 5 mg [Glucotrol 5 MG] 5 mg PO BID 09/03/21 [History] Magnesium Oxide [Magnesium] 250 mg PO BID 09/03/21 [History] Multivitamin/Iron/Folic Acid [Certavite-Antioxidant Tablet] 1 each PO DAILY 09/03/21 [History] Oxycodone HCl/Acetaminophen [Oxycodone-Acetaminophn 7.5-325] 1 each PO QID 09/03/21 [History] Tizanidine HCl 4 mg [Zanaflex 4 MG] 4 mg PO HS 09/03/21 [History] Tolterodine Tartrate [Tolterodine Tartrate ER] 4 mg PO DAILY 09/03/21 [History] Vitamin B Complex 1 each PO DAILY 09/03/21 [History] Gabapentin 100 mg PO TID 04/14/22 [History] Levocetirizine Dihydrochloride [Allergy Relief] 5 mg PO DAILY 04/14/22 [History] Hx Tetanus, Diphtheria Vaccination/Date Given: Yes Hx Influenza Vaccination/Date Given: Yes Hx Pneumococcal Vaccination/Date Given: Yes Immunizations Up to Date: Yes Travel Risk - International Travel Have you traveled outside of the country in past 3 weeks: No - Coronavirus Screening Are you exhibiting any of the following symptoms?: No Close contact with a COVID-19 positive Pt in past 14-21 Days: No - Vaccine Status Have you recieved a Covid-19 vaccination: Yes Pipe Inspector: Unknown - Vaccination Dates Dates if Unknown: 2020 - Review of Systems Constitutional: Fatigue, Weakness Eyes: No Symptoms Ears, Nose, & Throat: No Symptoms Respiratory: No Symptoms Cardiac: No Symptoms Abdominal/Gastrointestinal: Diarrhea Genitourinary Symptoms: No Symptoms Musculoskeletal: No Symptoms Skin: No Symptoms Neurological: No Symptoms Psychological: No Symptoms Endocrine: No Symptoms Hematologic/Lymphatic: No Symptoms Immunological/Allergic: No Symptoms - Past Medical History Pertinent Past Medical History: Yes Neurological History: No Pertinent History ENT History: No Pertinent History Cardiac History: Congestive Heart Failure, Coronary Artery Disease, Hypertension, Myocardial Infarction ([place]) Respiratory History: Asthma, COPD, Pneumonia Endocrine Medical History: No Pertinent History Musculoskeletal History: Degenerative Disk Disease GI Medical History: No Pertinent History History: No Pertinent History Psycho-Social History: No Pertinent History Male Reproductive Disorders: No Pertinent History Other Medical History: STENTS 1999. CARDIAC OPEN HEART SURGERY IN 2007. December HAD STENTS PLACED - Past Surgical History Past Surgical History: Yes Neuro Surgical History: No Pertinent History Cardiac: CABG, Cardiac Stent Respiratory: No Pertinent History Gastrointestinal: No Pertinent History Genitourinary: No Pertinent History Musculoskeletal: Orthopedic Surgery Male Surgical History: No Pertinent History Other Surgical History: OPEN HEART SURGERY IN 2007. STENTS PLACED 1999. ELBOW, KNEE, BACK SURGERY. - Social History Smoking Status: Former smoker Exposure to second hand smoke: No Alcohol Use: Socially Drug Use: none Patient Lives Alone: No Significant Family History: heart disease - Nursing Vital Signs Nursing Vital Signs: Initial Vital Signs Temperature 98.3 F 05/23/22 09:26 Pulse Rate 115 H 05/23/22 09:26 Respiratory Rate 19 05/23/22 09:26 Blood Pressure 91/58 05/23/22 09:26 O2 Sat by Pulse Oximetry 93 L 05/23/22 09:26 Pain Scale Pain Intensity 0 - Physical Exam General Appearance: no apparent distress, alert Eye Exam: PERRL/EOMI, eyes nml inspection Ears, Nose, Throat Exam: normal ENT inspection, pharynx normal, moist mucous membranes Neck Exam: normal inspection, non-tender, supple, full range of motion Respiratory Exam: normal breath sounds, lungs clear Cardiovascular Exam: normal heart sounds, tachycardia Gastrointestinal/Abdomen Exam: soft, normal bowel sounds, No tenderness, No guarding Extremity Exam: normal inspection, normal range of motion, pelvis stable Neurologic Exam: alert, oriented x 3, cooperative, kennel attendant II-XII nml as tested Skin Exam: normal color SpO2 Interpretation: normal SpO2: 93 O2 Delivery: Room Air Ordered Tests: Active Orders 24 hr Category Date Time Status IV Insertion-2nd Peripheral STAT Care 05/23/22 11:11 Active ABDOMEN AND PELVIS W/0 CONTRAS [CT] Stat Exams 05/23/22 09:48 Taken CBC W DIFF Stat Lab 05/23/22 09:30 Completed CMP Stat Lab 05/23/22 09:30 Completed LIPASE Stat Lab 05/23/22 09:30 Completed Lactic Acid Stat Lab 05/23/22 09:50 Completed NT PRO BNP Stat Lab 05/23/22 09:30 Completed PROCALCITONIN Stat Lab 05/23/22 09:30 Completed TROPONIN Q4H Lab 05/23/22 09:30 Completed TROPONIN Q4H Lab 05/23/22 14:00 Ordered TROPONIN Q4H Lab 05/23/22 18:00 Ordered TROPONIN Q4H Lab 05/23/22 22:00 Ordered Medication Summary Generic Name Dose Route Start Last Admin Trade Name Margi PRN Reason Stop Dose Admin Metronidazole 500 mg in 100 mls @ 200 mls/hr 05/23/22 11:44 05/23/22 11:55 Flagyl 500 Mg Ivpb IV 05/23/22 12:13 200 ml/hr STAT STA 200 mls/hr Administration Vancomycin HCl 125 mg 05/23/22 13:00 Vancomycin Hcl 125 Mg Capsule PO 06/22/22 12:59 QID MATHEW Discontinued Medications Generic Name Dose Route Start Last Admin Trade Name Margi PRN Reason Stop Dose Admin Sodium Chloride 500 mls @ 500 mls/hr 05/23/22 09:47 05/23/22 11:29 Sodium Chloride 0.9% 500 Ml IV 05/23/22 10:46 Infused .Q1H ONE Infusion Sodium Chloride Confirm 05/23/22 09:57 Sodium Chloride 0.9% 500 Ml Administered 05/23/22 09:58 Dose 500 mls @ ud IV .STK-MED ONE Sodium Chloride 1,000 mls @ 999 mls/hr 05/23/22 10:34 05/23/22 11:01 Sodium Chloride 0.9% 1000 Ml IV 05/23/22 11:34 999 mls/hr .Q1H1M STA Administration Sodium Chloride Confirm 05/23/22 11:00 Sodium Chloride 0.9% 1000 Ml Administered 05/23/22 11:01 Dose 1,000 mls @ ud .ROUTE .STK-MED ONE Metronidazole Confirm 05/23/22 11:52 Flagyl 500 Mg Ivpb Administered 05/23/22 11:53 Dose 500 mg in 100 mls @ ud IV .STK-MED ONE Ondansetron HCl 4 mg 05/23/22 11:30 05/23/22 11:31 Ondansetron Hcl 4 Mg/2 Ml Vial IV 05/23/22 11:31 Not Given STAT ONE Lab/Rad Data: Laboratory Result Diagrams 05/23/22 09:30 05/23/22 09:30 Laboratory Results 05/23/22 05/23/22 05/23/22 Range/Units 10:45 09:50 09:30 WBC (4.0-10.5) x10^3/uL RBC (4.1-5.6) x10^6/uL Hgb (12.5-18.0) g/dL Hct (42-50) % MCV (78-100) fL MCH (26-32) pg MCHC (32-36) g/dL RDW (11.5-14.0) % Plt Count (150-450) x10^3/uL MPV (7.5-11.0) fL Gran % (36.0-66.0) % Immature Gran % (Auto) (0.00-0.4) % Nucleat RBC Rel Count (0.00-0.1) % Eos # (Auto) (0-0.5) x10^3/uL Immature Gran # (Auto) (0.00-0.03) x10^3u/L Absolute Lymphs (auto) (1.0-4.6) x10^3/uL Absolute Monos (auto) (0.0-1.3) x10^3/uL Absolute Nucleated RBC (0.00-0.01) x10^3u/L Lymphocytes % (24.0-44.0) % Monocytes % (0.0-12.0) % Eosinophils % (0.00-5.0) % Basophils % (0.0-0.4) % Absolute Granulocytes (1.4-6.9) x10^3/uL Basophils # (0-0.4) x10^3/uL Sodium (137-145) mmol/L Potassium (3.5-5.1) mmol/L Chloride (98-107) mmol/L Carbon Dioxide (22-30) mmol/L Anion Gap (5-15) MEQ/L BUN (9-20) mg/dL Creatinine (0.66-1.25) mg/dL Estimated GFR ML/MIN Glucose (74-106) mg/dL Lactic Acid 4.3 H (0.4-2.0) Calcium (8.4-10.2) mg/dL Total Bilirubin (0.2-1.3) mg/dL AST (17-59) U/L ALT (0-50) U/L Alkaline Phosphatase (38-126) U/L Troponin I (0.000-0.034) ng/mL NT-Pro-B Natriuret Pep (0-900) pg/mL Serum Total Protein (6.3-8.2) g/dL Albumin (3.5-5.0) g/dL Lipase (23-300) U/L Procalcitonin 0.445 H (0.030-0.080) ng/mL Influenza Type A Ag NEGATIVE (NEGATIVE) Influenza Type B Ag NEGATIVE (NEGATIVE) RSV (PCR) NEGATIVE (Negative) SARS-CoV-2 (PCR) NEGATIVE (NEGATIVE) 05/23/22 05/23/22 05/23/22 Range/Units 09:30 09:30 09:30 WBC 24.2 H (4.0-10.5) x10^3/uL RBC 4.18 (4.1-5.6) x10^6/uL Hgb 12.3 L (12.5-18.0) g/dL Hct 40.3 L (42-50) % MCV 96.4 (78-100) fL MCH 29.4 (26-32) pg MCHC 30.5 L (32-36) g/dL RDW 14.0 (11.5-14.0) % Plt Count 278 (150-450) x10^3/uL MPV 10.1 (7.5-11.0) fL Gran % 86.8 H (36.0-66.0) % Immature Gran % (Auto) 0.4 (0.00-0.4) % Nucleat RBC Rel Count 0.0 (0.00-0.1) % Eos # (Auto) 0.01 (0-0.5) x10^3/uL Immature Gran # (Auto) 0.10 H (0.00-0.03) x10^3u/L Absolute Lymphs (auto) 1.23 (1.0-4.6) x10^3/uL Absolute Monos (auto) 1.77 H (0.0-1.3) x10^3/uL Absolute Nucleated RBC 0.00 (0.00-0.01) x10^3u/L Lymphocytes % 5.1 L (24.0-44.0) % Monocytes % 7.3 (0.0-12.0) % Eosinophils % 0.0 (0.00-5.0) % Basophils % 0.4 (0.0-0.4) % Absolute Granulocytes 20.96 H (1.4-6.9) x10^3/uL Basophils # 0.09 (0-0.4) x10^3/uL Sodium 141 (137-145) mmol/L Potassium 4.0 (3.5-5.1) mmol/L Chloride 105 (98-107) mmol/L Carbon Dioxide 20 L (22-30) mmol/L Anion Gap 20 H (5-15) MEQ/L BUN 17 (9-20) mg/dL Creatinine 1.38 H (0.66-1.25) mg/dL Estimated GFR 53.5 ML/MIN Glucose 119 H (74-106) mg/dL Lactic Acid (0.4-2.0) Calcium 9.9 (8.4-10.2) mg/dL Total Bilirubin 1.10 (0.2-1.3) mg/dL AST 28 (17-59) U/L ALT 20 (0-50) U/L Alkaline Phosphatase 69 (38-126) U/L Troponin I < 0.012 (0.000-0.034) ng/mL NT-Pro-B Natriuret Pep 448 (0-900) pg/mL Serum Total Protein 7.2 (6.3-8.2) g/dL Albumin 4.4 (3.5-5.0) g/dL Lipase 14 L (23-300) U/L Procalcitonin (0.030-0.080) ng/mL Influenza Type A Ag (NEGATIVE) Influenza Type B Ag (NEGATIVE) RSV (PCR) (Negative) SARS-CoV-2 (PCR) (NEGATIVE) - Progress Progress: improved, re-examined Progress Note: 05/23/22 11:56 76-year-old is evaluated for generalized weakness fatigue with diarrhea from C. difficile. Patient was borderline hypotensive on presentation, given fluids per sepsis protocol but would be careful not to make him fluid overloaded. Patient is feeling much better on reevaluation. Work-up showed white count of 24, lactate of 4.3 and procal[address]onin 0[address] finding consistent with colitis. I believe patient has C. difficile colitis as C. difficile is positive as well. He also has a mild ИВАН with a creatinine of 1.39. Patient has second recurrence and per criteria has moderate to severe disease, discussed with Dr. Jenkins about surgical consultation we do not think it is needed at this point. Recommended patient to be started on vancomycin orally and Flagyl IV. We will plan on extended treatment and with possible fecal transplant later, otherwise patient is accepted for admission. Plan discussed with patient who understand and agrees with admission. Discussed with : Eileen Will see patient in: hospital (observation) Counseled pt/family regarding: lab results, diagnosis, rad results - Departure Departure Disposition: Observation Clinical Impression: Recurrent colitis due to Clostridioides difficile Condition: Stable Critical Care Time: No Referrals: JAYMIE JENKINS MD [Primary Care Provider] - Follow up/PCP as directed
[2022-05-23 10:28] LABS: Absolute Neutrophil Ct (ANC) 20.96 x10^3/uL (1.4-6.9); Basophil (Absolute #) 0.09 x10^3/uL (0-0.4); Eosinophil (Absolute #) 0.01 x10^3/uL (0-0.5); Hematocrit 40.3 % (42-50); Hemoglobin 12.3 g/dL (12.5-18.0); Lymphocyte (Absolute #) 1.23 x10^3/uL (1.0-4.6); Lymphocytes % 5.1 % (24.0-44.0); Mean Cell Volume 96.4 fL (78-100); Mean Corpuscular Hemoglobin 29.4 pg (26-32); Mean Corpuscular Hgb Concent. 30.5 g/dL (32-36); Mean Platelet Volume 10.1 fL (7.5-11.0); Monocyte (Absolute #) 1.77 x10^3/uL (0.0-1.3); Monocytes % 7.3 % (0.0-12.0); Neutrophil % 86.8 % (36.0-66.0); Platelet Count 278 x10^3/uL (150-450); Red Blood Count 4.18 x10^6/uL (4.1-5.6); White Blood Count 24.2 x10^3/uL (4.0-10.5)
[2022-05-23] MEDS ORDERED: Sodium Chloride 0.9% 1000 ML 1,000 ML IV STA (10:34)
[2022-05-23] MEDS ORDERED: Sodium Chloride 0.9% 1000 ML 1,000 ML ONE (11:00)
[2022-05-23 11:14] LABS: ALBUMIN 4.4 g/dL (3.5-5.0); BILIRUBIN,TOTAL 1.1 mg/dL (0.2-1.3); Calcium 9.9 mg/dL (8.4-10.2); Creatinine 1 1.38 mg/dL (0.66-1.25); EST GLOMERULAR FILTRATION RATE 53.5 ML/MIN; Total Protein 7.2 g/dL (6.3-8.2)
[2022-05-23 11:27] LABS: INFLUENZA A NEGATIVE (NEGATIVE); INFLUENZA B NEGATIVE (NEGATIVE); RESPIRATORY SYNCTIAL VIRUS NEGATIVE (Negative); SARS-CoV-2 Xpert Express NEGATIVE (NEGATIVE)
[2022-05-23] MEDS ORDERED: Zofran 4 MG/2 ML VIAL IV ONE (11:30)
[2022-05-23] MEDS ORDERED: FLAGYL 500 MG IVPB 500 MG/100 ML BAG IV STA (11:44)
[2022-05-23] MEDS ORDERED: FLAGYL 500 MG IVPB 500 MG/100 ML BAG IV ONE (11:52)
[2022-05-23] MEDS ORDERED: DUONEB 0.5-3 MG/3 ml Neb IH PRN (12:36)
[2022-05-23] MEDS ORDERED: TYLENOL 325 MG PO PRN (12:36)
[2022-05-23] MEDS ORDERED: HUMALOG SQ PRN (12:36)
[2022-05-23] MEDS ORDERED: VANCOMYCIN HCL CAPSULE PO SCH (13:00)
[2022-05-23] MEDS: VANCOMYCIN HCL CAPSULE PO SCH ×3 (14:22→21:34)
[2022-05-23] MEDS: PROTONIX 40 MG IV IV SCH (14:22)
[2022-05-23] MEDS: Sodium Chloride 0.9% 1000 ML 1,000 ML IV SCH ×2 (14:22→23:56)
[2022-05-23 15:52] LABS: Slide Review 1 YES
[2022-05-23] MEDS ORDERED: VENTOLIN COMMON CANISTER IH PRN (16:02)
[2022-05-23] MEDS: PERCOCET TABLET 5/325MG PO SCH ×2 (16:28→20:31)
[2022-05-23] MEDS: Transderm Scop 1.5MG Patch TD SCH (16:28)
[2022-05-23] MEDS ORDERED: MEDICATION INTERVENTION MC SCH (16:30)
[2022-05-23] MEDS: Glucotrol 5 MG PO SCH (17:37)
[2022-05-23] MEDS: VENTOLIN COMMON CANISTER IH SCH (17:37)
--- NOTE | 2022-05-23 19:14 | XRAY ---
Indication: Epigastric pain and weakness. Current treatment for C. difficile. Multiple contiguous axial images obtained through the abdomen and pelvis without contrast. Comparison: None Lung bases clear. Heart not enlarged. Noncontrasted stomach and bowel loops appear nonobstructed. Mild fluid distended colon favoring colonic diarrhea. Minimal pericolonic stranding favoring clinically reported C. difficile colitis. Sigmoid diverticulosis. No free fluid/air. Nonobstructing bilateral renal micro-calculi, largest 1 cm in the left kidney. 1.7 cm left mid renal cortical cyst. Remaining liver, gallbladder, pancreas, spleen, adrenal glands, kidneys, ureters, and bladder are unremarkable for noncontrast exam. 4.6 cm distal AAA with by aortobiiliac stent graft. Lack of IV contrast precludes further characterization. Osseous structures intact with mild osteopenia, moderate L3-L5 degenerative changes, and small inferior L2 Schmorl node. Impression: 1. Colonic diarrhea with mild C. difficile colitis. 2. Chronic findings including sigmoid diverticulosis, nonobstructing bilateral renal micro-calculi, distal AAA with aortobiiliac stent grafts, and chronic bony findings. Comment: Preliminary interpretation made by C. No critical discrepancy.
[2022-05-23] MEDS ORDERED: NON-FORMULARY ITEM (Oxycodone Hcl/Acetaminophen [Oxycodone-Acetaminophn 7.5-325] 1 EACH Ta PO SCH (20:00)
[2022-05-23] MEDS: Abilify 10 MG PO SCH (21:34)
[2022-05-23] MEDS: DESYREL 50 MG PO SCH (21:34)
[2022-05-23] MEDS: Zanaflex 4 MG PO SCH (21:34)
[2022-05-23] MEDS: ZOCOR 20MG PO SCH (21:34)
[2022-05-23] MEDS: ENTRESTO 49 MG-51 MG TABLET PO SCH (21:34)
[2022-05-23] MEDS: Neurontin PO SCH (21:34)
[2022-05-23] MEDS: FLAGYL 500 MG IVPB 500 MG/100 ML BAG IV SCH (21:35)
[2022-05-23] MEDS: Coreg 3.125 MG PO SCH (21:42)
[2022-05-23] MEDS ORDERED: NON-FORMULARY ITEM (Trazodone Hcl [Trazodone Hcl] 100 MG Tablet) PO SCH (22:00)
[2022-05-23] MEDS ORDERED: NON-FORMULARY ITEM (Magnesium Oxide [Magnesium] 250 MG Tablet) PO SCH (22:00)
[2022-05-23] MEDS ORDERED: LIPITOR 40MG PO SCH (22:00)
[2022-05-23] MEDS ORDERED: PROVENTIL 2.5 MG/3 ML NEB IH SCH (22:00)
[2022-05-24] MEDS: FLAGYL 500 MG IVPB 500 MG/100 ML BAG IV SCH ×3 (05:46→21:53)
[2022-05-24 05:47] LABS: Absolute Neutrophil Ct (ANC) 9.51 x10^3/uL (1.4-6.9); Basophil (Absolute #) 0.05 x10^3/uL (0-0.4); Eosinophil % 1.8 % (0.00-5.0); Eosinophil (Absolute #) 0.22 x10^3/uL (0-0.5); Hematocrit 31.7 % (42-50); Hemoglobin 9.9 g/dL (12.5-18.0); Lymphocyte (Absolute #) 1.24 x10^3/uL (1.0-4.6); Lymphocytes % 10.4 % (24.0-44.0); Mean Cell Volume 94.6 fL (78-100); Mean Corpuscular Hemoglobin 29.6 pg (26-32); Mean Corpuscular Hgb Concent. 31.2 g/dL (32-36); Mean Platelet Volume 9.7 fL (7.5-11.0); Monocyte (Absolute #) 0.94 x10^3/uL (0.0-1.3); Monocytes % 7.8 % (0.0-12.0); Neutrophil % 79.4 % (36.0-66.0); Platelet Count 184 x10^3/uL (150-450); Red Blood Count 3.35 x10^6/uL (4.1-5.6); Red Cell Distribution Width 14.3 % (11.5-14.0)
[2022-05-24 06:21] LABS: ALBUMIN 2.8 g/dL (3.5-5.0); ALKALINE PHOSPHATASE 48 U/L (38-126); BLOOD UREA NITROGEN 12 mg/dL (9-20); CHLORIDE 113 mmol/L (98-107); Calcium 8.1 mg/dL (8.4-10.2); Carbon Dioxide 23 mmol/L (22-30); Creatinine 1 0.97 mg/dL (0.66-1.25); EST GLOMERULAR FILTRATION RATE > 60.0 ML/MIN; Glucose 84 mg/dL (74-106); Potassium 3.3 mmol/L (3.5-5.1); SGOT/AST 18 U/L (17-59); SGPT/ALT 11 U/L (0-50); SODIUM 140 mmol/L (137-145)
[2022-05-24] MEDS: VENTOLIN COMMON CANISTER IH SCH ×2 (08:16→18:38)
[2022-05-24] MEDS: Glucotrol 5 MG PO SCH ×2 (08:31→17:08)
[2022-05-24] MEDS: PERCOCET TABLET 5/325MG PO SCH ×4 (08:31→19:48)
[2022-05-24] MEDS: Tricor 145 MG PO SCH (08:32)
[2022-05-24] MEDS: PROTONIX 40 MG IV IV SCH (08:32)
[2022-05-24] MEDS: PLAVIX Tablet PO SCH (08:32)
[2022-05-24] MEDS: Singulair 10 MG PO SCH (08:32)
[2022-05-24] MEDS: CLARITIN 10 MG PO SCH (08:32)
[2022-05-24] MEDS: VANCOMYCIN HCL CAPSULE PO SCH ×4 (08:32→21:54)
[2022-05-24] MEDS: MAG-OX 400 PO SCH (08:32)
[2022-05-24] MEDS: ENTRESTO 49 MG-51 MG TABLET PO SCH ×2 (08:32→21:53)
[2022-05-24] MEDS: THERAGRAN MULTIVITAMIN PO SCH (08:32)
[2022-05-24] MEDS: Neurontin PO SCH ×3 (08:33→21:54)
[2022-05-24] MEDS: VITA-BEE WITH C PO SCH (08:33)
[2022-05-24] MEDS ORDERED: NON-FORMULARY ITEM (Vitamin B Complex [Vitamin B Complex] 1 EACH Tablet) PO SCH (10:00)
[2022-05-24] MEDS ORDERED: FENOFIBRATE PO SCH (10:00)
[2022-05-24] MEDS ORDERED: IRON PO SCH (10:00)
[2022-05-24] MEDS ORDERED: FOLIC ACID PO SCH (10:00)
[2022-05-24] MEDS ORDERED: Aldactone 25 MG PO SCH (10:00)
[2022-05-24] MEDS ORDERED: NON-FORMULARY ITEM (Levocetirizine Dihydrochloride [Allergy Relief] 5 MG Tablet) PO SCH (10:00)
[2022-05-24] MEDS ORDERED: NON-FORMULARY ITEM (Tolterodine Tartrate [Tolterodine Tartrate Er] 4 MG Cap.Er.24h) PO SCH (10:00)
[2022-05-24] MEDS ORDERED: MULTIVITAMIN PO SCH (10:00)
[2022-05-24] MEDS ORDERED: [UNRECOGNIZED DRUG - OTHER] PO SCH (10:00)
[2022-05-24] MEDS: Flonase NASAL NS SCH (11:54)
[2022-05-24] MEDS: Coreg 3.125 MG PO SCH (11:54)
[2022-05-24] MEDS: Sodium Chloride 0.9% 1000 ML 1,000 ML IV SCH (21:52)
[2022-05-24] MEDS: DESYREL 50 MG PO SCH (21:53)
[2022-05-24] MEDS: Abilify 10 MG PO SCH (21:53)
[2022-05-24] MEDS: ZOCOR 20MG PO SCH (21:54)
[2022-05-24] MEDS: Zanaflex 4 MG PO SCH (21:54)
[2022-05-25] MEDS: FLAGYL 500 MG IVPB 500 MG/100 ML BAG IV SCH ×3 (05:19→21:11)
[2022-05-25] MEDS: Sodium Chloride 0.9% 1000 ML 1,000 ML IV SCH ×2 (05:38)
[2022-05-25 05:47] LABS: Hematocrit 34.3 % (42-50); Hemoglobin 9.9 g/dL (12.5-18.0); Mean Cell Volume 101.8 fL (78-100); Mean Corpuscular Hemoglobin 29.4 pg (26-32); Mean Corpuscular Hgb Concent. 28.9 g/dL (32-36); Mean Platelet Volume 9.6 fL (7.5-11.0); Platelet Count 171 x10^3/uL (150-450); Red Blood Count 3.37 x10^6/uL (4.1-5.6); Red Cell Distribution Width 13.8 % (11.5-14.0); White Blood Count 7.3 x10^3/uL (4.0-10.5)
[2022-05-25 06:06] LABS: ANION GAP 7.9 MEQ/L (5-15); BLOOD UREA NITROGEN 9 mg/dL (9-20); CHLORIDE 114 mmol/L (98-107); Calcium 8.2 mg/dL (8.4-10.2); Carbon Dioxide 24 mmol/L (22-30); Creatinine 1 0.81 mg/dL (0.66-1.25); EST GLOMERULAR FILTRATION RATE > 60.0 ML/MIN; Glucose 103 mg/dL (74-106); Potassium 3.2 mmol/L (3.5-5.1); SODIUM 142 mmol/L (137-145)
[2022-05-25] MEDS: VENTOLIN COMMON CANISTER IH SCH ×2 (07:01→18:41)
[2022-05-25 07:21] LABS: Slide Review YES
[2022-05-25] MEDS: ENTRESTO 49 MG-51 MG TABLET PO SCH ×2 (08:31→21:12)
[2022-05-25] MEDS: PROTONIX 40 MG IV IV SCH (08:31)
[2022-05-25] MEDS: VANCOMYCIN HCL CAPSULE PO SCH ×4 (08:31→21:12)
[2022-05-25] MEDS: VITA-BEE WITH C PO SCH (08:31)
[2022-05-25] MEDS: MAG-OX 400 PO SCH (08:32)
[2022-05-25] MEDS: Neurontin PO SCH ×3 (08:32→21:13)
[2022-05-25] MEDS: THERAGRAN MULTIVITAMIN PO SCH (08:32)
[2022-05-25] MEDS: Singulair 10 MG PO SCH (08:32)
[2022-05-25] MEDS: Glucotrol 5 MG PO SCH (08:32)
[2022-05-25] MEDS: Tricor 145 MG PO SCH (08:32)
[2022-05-25] MEDS: CLARITIN 10 MG PO SCH (08:32)
[2022-05-25] MEDS: PERCOCET TABLET 5/325MG PO SCH ×4 (08:37→21:12)
[2022-05-25] MEDS: Ditropan XL 5 MG PO SCH (08:37)
[2022-05-25] MEDS: PLAVIX Tablet PO SCH (08:37)
[2022-05-25] MEDS: Flonase NASAL NS SCH (08:54)
[2022-05-25] MEDS: Sodium Chloride 0.9% W/ 20 mEq KCl/LITER 1,000 ML IV SCH ×2 (14:14→21:11)
[2022-05-25] MEDS: Abilify 10 MG PO SCH (21:12)
[2022-05-25] MEDS: Zanaflex 4 MG PO SCH (21:13)
[2022-05-25] MEDS: ZOCOR 20MG PO SCH (21:13)
[2022-05-25] MEDS: DESYREL 50 MG PO SCH (21:13)
--- NOTE | 2022-05-25 23:05 | PCM.NOTE ---
Date and Time: 05/25/222252 Subjective Assessment: C/O 4 watery stools through the night,some better this morning but still weak. Is drinking fluids and some bites of food that brought in. Objective Exam General Appearance: no apparent distress Neurologic Exam: alert, oriented x 3, normal mood/affect Skin Exam: warm, dry, pale Respiratory Exam: normal breath sounds Cardiovascular Exam: regular rate/rhythm Gastrointestinal/Abdomen Exam: soft (increaed BS,periumbilical tenderness) Extremity Exam: normal inspection OBJECTIVE DATA Vital Signs: Vital Signs - 24 hr Temp Pulse Resp BP Pulse Ox 05/25/22 18:43 98.4 F 48 L 16 105/85 96 05/25/22 18:41 65 16 96 05/25/22 16:15 97.8 F 55 L 16 129/59 97 05/25/22 12:18 98.7 F 54 L 16 137/72 93 L 05/25/22 07:52 97.9 F 55 L 16 122/58 97 05/25/22 07:01 57 L 16 94 L 05/25/22 05:05 101/57 05/25/22 04:00 97.9 F 68 16 85/53 97 05/25/22 00:00 97.1 F 60 20 124/55 96 Pain Assessment - Last Documented Pain Intensity 0 [facility] Intake and Output: Intake & Output 05/23/22 05/24/22 05/25/22 05/26/22 11:59 11:59 11:59 11:59 Intake Total 2128 840 600 Output Total 200 400 Balance 2128 640 200 Weight 72.575 kg 68.5 kg 69.1 kg Lab Results: Lab Results-Last 24 Hours 05/25/22 05/25/22 05/25/22 Range/Units 05:45 05:45 07:27 WBC 7.3 (4.0-10.5) x10^3/uL RBC 3.37 L (4.1-5.6) x10^6/uL Hgb 9.9 L (12.5-18.0) g/dL Hct 34.3 L (42-50) % MCV 101.8 H D (78-100) fL MCH 29.4 (26-32) pg MCHC 28.9 L (32-36) g/dL RDW 13.8 (11.5-14.0) % Plt Count 171 (150-450) x10^3/uL MPV 9.6 (7.5-11.0) fL Sodium 142 (137-145) mmol/L Potassium 3.2 L (3.5-5.1) mmol/L Chloride 114 H (98-107) mmol/L Carbon Dioxide 24 (22-30) mmol/L Anion Gap 7.9 (5-15) MEQ/L BUN 9 (9-20) mg/dL Creatinine 0.81 (0.66-1.25) mg/dL Estimated GFR > 60.0 ML/MIN Glucose 103 (74-106) mg/dL POC Glucometer 93 (74 to 106) mg/dL Calcium 8.2 L (8.4-10.2) mg/dL Slides for Path Review YES 05/25/22 05/25/22 05/25/22 Range/Units 12:12 16:11 21:10 WBC (4.0-10.5) x10^3/uL RBC (4.1-5.6) x10^6/uL Hgb (12.5-18.0) g/dL Hct (42-50) % MCV (78-100) fL MCH (26-32) pg MCHC (32-36) g/dL RDW (11.5-14.0) % Plt Count (150-450) x10^3/uL MPV (7.5-11.0) fL Sodium (137-145) mmol/L Potassium (3.5-5.1) mmol/L Chloride (98-107) mmol/L Carbon Dioxide (22-30) mmol/L Anion Gap (5-15) MEQ/L BUN (9-20) mg/dL Creatinine (0.66-1.25) mg/dL Estimated GFR ML/MIN Glucose (74-106) mg/dL POC Glucometer 133 H 124 H 136 H (74 to 106) mg/dL Calcium (8.4-10.2) mg/dL Slides for Path Review Multi-Disciplinary Progress Notes: Multi-Disciplinary Progress Notes 05/25/22 12:00 Case Management Note by Brittany Schaeffer S/W ANGELA- PATIENT CAN RENT WHEELCHAIR FOR $30/MONTH Initialized on 05/25/22 12:00 - END OF NOTE 05/25/22 10:49 Case Management Note by Brittany Schaeffer Addendum entered by Brittany Schaeffer 05/25/22 10:53: THEY WILL NEED NOTIFIED AT TIME OF DC AT [phone]. THEY WILL NEED FAXED THE DC INSTRUCTIONS, DC MED LIST AND DC SUMMARY ( IF AVAILABLE) TO [phone] Original Note: REFERRAL FAXED TO [facility] PER REQUEST Initialized on 05/25/22 10:49 - END OF NOTE Assessment/Plan (1) Recurrent colitis due to Clostridioides difficile Current Visit: Yes Status: Acute Code(s): A04.71 - ENTEROCOLITIS DUE TO CLOSTRIDIUM DIFFICILE, RECURRENT
[2022-05-26 04:59] LABS: Hemoglobin 9.8 g/dL (12.5-18.0); Mean Cell Volume 96.4 fL (78-100); Mean Corpuscular Hemoglobin 29.5 pg (26-32); Mean Corpuscular Hgb Concent. 30.6 g/dL (32-36); Mean Platelet Volume 9.9 fL (7.5-11.0); Platelet Count 184 x10^3/uL (150-450); Red Blood Count 3.32 x10^6/uL (4.1-5.6); Red Cell Distribution Width 13.8 % (11.5-14.0); White Blood Count 4.4 x10^3/uL (4.0-10.5)
[2022-05-26] MEDS: FLAGYL 500 MG IVPB 500 MG/100 ML BAG IV SCH ×3 (05:16→22:26)
[2022-05-26 05:30] LABS: ANION GAP 7.9 MEQ/L (5-15); BLOOD UREA NITROGEN 5 mg/dL (9-20); CHLORIDE 117 mmol/L (98-107); Calcium 8.3 mg/dL (8.4-10.2); Carbon Dioxide 23 mmol/L (22-30); Creatinine 1 0.74 mg/dL (0.66-1.25); EST GLOMERULAR FILTRATION RATE > 60.0 ML/MIN; Glucose 109 mg/dL (74-106); Potassium 3.4 mmol/L (3.5-5.1); SODIUM 144 mmol/L (137-145)
[2022-05-26] MEDS: VENTOLIN COMMON CANISTER IH SCH (07:16)
[2022-05-26] MEDS: CLARITIN 10 MG PO SCH (08:24)
[2022-05-26] MEDS: PERCOCET TABLET 5/325MG PO SCH ×4 (08:24→20:16)
[2022-05-26] MEDS: Protonix 40MG Tablet PO SCH (08:25)
[2022-05-26] MEDS: MAG-OX 400 PO SCH (08:25)
[2022-05-26] MEDS: ENTRESTO 49 MG-51 MG TABLET PO SCH ×2 (08:25→22:32)
[2022-05-26] MEDS: THERAGRAN MULTIVITAMIN PO SCH (08:25)
[2022-05-26] MEDS: Singulair 10 MG PO SCH (08:25)
[2022-05-26] MEDS: Tricor 145 MG PO SCH (08:25)
[2022-05-26] MEDS: PLAVIX Tablet PO SCH (08:25)
[2022-05-26] MEDS: Neurontin PO SCH ×3 (08:25→22:34)
[2022-05-26] MEDS: Ditropan XL 5 MG PO SCH (08:25)
[2022-05-26] MEDS: VITA-BEE WITH C PO SCH (08:26)
[2022-05-26] MEDS: VANCOMYCIN HCL CAPSULE PO SCH ×4 (08:26→22:33)
[2022-05-26] MEDS: Flonase NASAL NS SCH (09:31)
[2022-05-26] MEDS ORDERED: PROVENTIL 2.5 MG/3 ML NEB IH SCH (10:00)
[2022-05-26] MEDS: PROVENTIL 2.5 MG/3 ML NEB IH SCH ×2 (13:02→18:33)
[2022-05-26] MEDS: Transderm Scop 1.5MG Patch TD SCH (17:36)
[2022-05-26] MEDS: ZOCOR 20MG PO SCH (22:30)
[2022-05-26] MEDS: Abilify 10 MG PO SCH (22:31)
[2022-05-26] MEDS: Zanaflex 4 MG PO SCH (22:32)
[2022-05-26] MEDS: DESYREL 50 MG PO SCH ×2 (22:34→22:39)
[2022-05-27] MEDS: FLAGYL 500 MG IVPB 500 MG/100 ML BAG IV SCH (06:40)
[2022-05-27] MEDS: PROVENTIL 2.5 MG/3 ML NEB IH SCH (06:53)
[2022-05-27 07:26] VITALS: BP 149/66; PULSE 65; O2SAT 96
[2022-05-27] MEDS: PERCOCET TABLET 5/325MG PO SCH (08:11)
[2022-05-27] MEDS: Tricor 145 MG PO SCH (08:12)
[2022-05-27] MEDS: CLARITIN 10 MG PO SCH (08:12)
[2022-05-27] MEDS: PLAVIX Tablet PO SCH (08:12)
[2022-05-27] MEDS: Singulair 10 MG PO SCH (08:12)
[2022-05-27] MEDS: MAG-OX 400 PO SCH (08:12)
[2022-05-27] MEDS: Neurontin PO SCH (08:12)
[2022-05-27] MEDS: Protonix 40MG Tablet PO SCH (08:12)
[2022-05-27] MEDS: ENTRESTO 49 MG-51 MG TABLET PO SCH (08:12)
[2022-05-27] MEDS: Ditropan XL 5 MG PO SCH (08:12)
[2022-05-27] MEDS: VANCOMYCIN HCL CAPSULE PO SCH (08:13)
[2022-05-27] MEDS: THERAGRAN MULTIVITAMIN PO SCH (08:13)
[2022-05-27] MEDS: VITA-BEE WITH C PO SCH (08:13)
[2022-05-27] MEDS: Flonase NASAL NS SCH (08:13)
== END 2022-05-27 10:15 | disposition home or self-care (01) | DRG 373 ==
LOC: ED 09:16 → MED SURG 12:25 → OBSVTOIN 05-24 11:00
PROVIDERS: ADMIT Family Medicine; ATTEND Family Medicine
DX: A04.71 Enterocolitis due to Clostridium difficile, recurrent (principal); K52.9 Noninfective gastroenteritis and colitis, unspecified; I25.10 Atherosclerotic heart disease of native coronary artery without angina pectoris; I10 Essential (primary) hypertension; E11.9 Type 2 diabetes mellitus without complications; Z20.828 Contact with and (suspected) exposure to other viral communicable diseases; I25.2 Old myocardial infarction; Z79.899 Other long term (current) drug therapy
CPT/HCPCS: 0241U; 36000; 36415; 74176; 80048; 80053; 82947; 83605; 83690; 83880; 84145; 84484; 85025; 85027; 87493; 93268; 94640; 94760; 96360; 96361; 96365; 99285; J7609; A9270-GY; G0378

== ENCOUNTER 2024-08-03 02:17 | Observation (INO) | payer MEDICARE, OTHER ==
[2024-08-03] MEDS ORDERED: ROCEPHIN 2 GM/100 ML NACL 0 GM/0 ML IVPB IV ONE (02:51)
[2024-08-03] MEDS ORDERED: Sterile H2O 10 ml IJ ONE (02:51)
[2024-08-03] MEDS ORDERED: solu-MEDROL ONE (02:51)
[2024-08-03] MEDS: solu-MEDROL 125 MG, Sterile H2O 10 ml 2 ML IV ONE (02:52)
[2024-08-03] MEDS: ROCEPHIN 2 GM/100 ML NACL 2 GM/100 ML IVPB IV ONE (02:52)
[2024-08-03] MEDS: Zithromax 500 MG/ 250 ML NaCl Premix 500 MG/250 ML IVPB IV STA (03:01)
[2024-08-03 03:05] LABS: Absolute Neutrophil Ct (ANC) 12.41 x10^3/uL (1.78-5.38); BASOPHIL % 0.3 % (0.2-1.2); Basophil (Absolute #) 0.05 x10^3/uL (0.01-0.08); Eosinophil % 1.1 % (0.8-7.0); Eosinophil (Absolute #) 0.16 x10^3/uL (0.04-0.54); Hematocrit 41.8 % (40.1-51.0); IMMATURE GRAN # 0.05 x10^3u/L (0.001-0.031); IMMATURE GRAN % 0.3 % (0.001-0.429); Lymphocyte (Absolute #) 1.53 x10^3/uL (1.32-3.57); Lymphocytes % 10.6 % (21.8-53.1); Mean Corpuscular Hemoglobin 29.5 pg (25.7-32.2); Mean Corpuscular Hgb Concent. 31.1 g/dL (32.3-36.5); Mean Platelet Volume 9.4 fL (9.4-12.4); Monocyte (Absolute #) 0.27 x10^3/uL (0.30-0.82); Monocytes % 1.9 % (5.3-12.2); Neutrophil % 85.8 % (34.0-67.9); Platelet Count 308 x10^3/uL (163-337); Red Cell Distribution Width 14.5 % (11.6-14.4); White Blood Count 14.5 x10^3/uL (4.23-9.07)
[2024-08-03] MEDS ORDERED: DUONEB 0.5-3 MG/3 ml Neb IH ONE (03:05)
--- NOTE | 2024-08-03 03:06 | ERPHSYRPT ---
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 Shortness of breath began this evening. Patient normally does not require oxygen at home. However upon EMS arrival patient was found to be hypoxic. Patient placed on oxygen. Patient is experiencing shortness of breath. No active chest pain. Patient's symptoms are constant. Symptoms are moderate in intensity. No specific worsening or improving factors. Patient otherwise feels well. He voices no other complaints or concerns at this time. Portions of this note were created with voice recognition technology. There may be grammatical, spelling, punctuation or sound alike errors Timing/Duration: today Activities at Onset: activity Severity of Dyspnea-Max: moderate Severity of Dyspnea-Current: mild Possible Cause: occasional episodes Modifying Factors: Improves With: nothing Associated Symptoms: denies symptoms Allergies/Adverse Reactions: No Known Drug Allergies Allergy (Unverified 08/03/24 02:50) Home Medications: Clopidogrel Bisulfate [PLAVIX Tablet] 75 mg PO DAILY 02/15/13 [History] Fenofibrate 160 mg PO DAILY 05/22/20 [History] ARIPiprazole [Abilify] 15 mg PO HS 02/15/21 [History] Albuterol Sulfate [Albuterol Sulfate Hfa] 3 puff IH Q4-6HPRN PRN 09/03/21 [History] Atorvastatin Calcium [Lipitor] 40 mg PO DAILY 09/03/21 [History] Glipizide 5 mg [Glucotrol 5 MG] 5 mg PO BID 09/03/21 [History] Magnesium Oxide [Magnesium] 250 mg PO BID 09/03/21 [History] Tizanidine HCl 4 mg [Zanaflex 4 MG] 0.5 tab PO HS 09/03/21 [History] Vitamin B Complex 1 each PO DAILY 09/03/21 [History] Montelukast Sodium 10 mg [Singulair 10 MG] 10 mg PO HS 05/23/22 [History] Trazodone HCl 100 mg PO HS 05/23/22 [History] Ascorbic Acid [Vitamin C] 1,000 mg PO DAILY 06/20/23 [History] Cholecalciferol (Vitamin D3) [Vitamin D3] 125 mcg PO DAILY 06/20/23 [History] Ferrous Sulfate 325 mg [Feosol 325 mg] 325 mg PO DAILY 06/20/23 [History] Fluticasone/Umeclidin/Vilanter [Trelegy Ellipta 200-62.5-25] 1 each IH DAILY 06/20/23 [History] Levocetirizine Dihydrochloride 5 mg PO DAILY 06/20/23 [History] Meclizine HCl 25 mg [Antivert 25 mg] 25 mg PO TID 06/20/23 [History] Megestrol Acetate 40 mg PO BID 06/20/23 [History] Melatonin 10 mg PO HS 06/20/23 [History] Mirtazapine 15 mg PO HS 06/20/23 [History] Multivitamin/Iron/Folic Acid [Certavite-Antioxidant Tablet] 1 each PO DAILY 06/20/23 [History] Oxycodone HCl/Acetaminophen [Percocet 7.5-325 mg Tablet] 1 each PO QID 06/20/23 [History] Sacubitril/Valsartan [Entresto 24 mg-26 mg Tablet] 1 each PO BID 06/20/23 [History] Zinc Gluconate [Zinc] 50 mg PO BID 06/20/23 [History] Famotidine 40 mg PO DAILY 08/03/24 [History] Midodrine HCl 10 mg PO TID 08/03/24 [History] Nitroglycerin 0.4 mg Tablet [Nitrostat 0.4 MG Tablet] 0.4 mg SL Q5MIN PRN MR X 3 PRN 08/03/24 [History] Hx Tetanus, Diphtheria Vaccination/Date Given: Yes Hx Influenza Vaccination/Date Given: Yes Hx Pneumococcal Vaccination/Date Given: Yes - Review of Systems Constitutional: No Symptoms, No Fever, No Chills Eyes: No Symptoms Ears, Nose, & Throat: No Symptoms Respiratory: No Symptoms, No Cough, No Dyspnea Cardiac: No Symptoms, No Chest Pain, No Edema, No Syncope Abdominal/Gastrointestinal: No Symptoms, No Abdominal Pain, No Nausea, No Vomiti ng, No Diarrhea Genitourinary Symptoms: No Symptoms, No Dysuria Musculoskeletal: No Symptoms, No Back Pain, No Neck Pain Skin: No Symptoms, No Rash Neurological: No Symptoms, No Dizziness, No Focal Weakness, No Sensory Changes Psychological: No Symptoms Endocrine: No Symptoms Hematologic/Lymphatic: No Symptoms Immunological/Allergic: No Symptoms All Other Systems: Reviewed and Negative - Past Medical History Pertinent Past Medical History: Yes Neurological History: No Pertinent History ENT History: No Pertinent History Cardiac History: Congestive Heart Failure, Coronary Artery Disease, Hypertension, Myocardial Infarction ([place]) Respiratory History: Asthma, COPD, Pneumonia Endocrine Medical History: No Pertinent History Musculoskeletal History: Degenerative Disk Disease GI Medical History: No Pertinent History History: No Pertinent History Psycho-Social History: No Pertinent History Male Reproductive Disorders: No Pertinent History Other Medical History: STENTS 1999. CARDIAC OPEN HEART SURGERY IN 2007. December HAD STENTS PLACED - Past Surgical History Past Surgical History: Yes Neuro Surgical History: No Pertinent History Cardiac: CABG, Cardiac Stent Respiratory: No Pertinent History Gastrointestinal: No Pertinent History Genitourinary: No Pertinent History Musculoskeletal: Orthopedic Surgery Male Surgical History: No Pertinent History Other Surgical History: OPEN HEART SURGERY IN 2007. STENTS PLACED 1999. ELBOW, KNEE, BACK SURGERY. Significant Family History: heart disease - Social History Smoking Status: Former smoker How long have you smoked: 18 yo Exposure to second hand smoke: No Alcohol Use: Socially Drug Use: none Patient Lives Alone: No - Nursing Vital Signs Nursing Vital Signs: Initial Vital Signs Temperature 97.2 F 08/03/24 02:18 Pulse Rate 111 H 08/03/24 02:18 Respiratory Rate 22 08/03/24 02:18 Blood Pressure 127/74 08/03/24 02:18 O2 Sat by Pulse Oximetry 91 L 08/03/24 02:18 Pain Scale Pain Intensity 0 - Physical Exam General Appearance: no apparent distress, alert Eye Exam: PERRL/EOMI Ears, Nose, Throat Exam: hearing grossly normal, normal ENT inspection, normal pharynx Neck Exam: normal inspection, supple Respiratory Exam: airway intact, diminished breath sounds Cardiovascular/Chest Exam: normal heart sounds, regular rate/rhythm Abdominal/Gastrointestinal Exam: soft, No tenderness, No distention, No mass Extremity Exam: non-tender, normal range of motion, normal inspection, no calf tenderness, no pedal edema Neurologic Exam: alert, oriented x 3, cooperative, 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 nml as tested, s ensation nml, No motor deficits Skin Exam: normal color, warm, No dry SpO2 Interpretation: normal SpO2: 91 O2 Delivery: Room Air - Course Nursing assessment & vital signs reviewed: Yes EKG Interpreted by Me: RATE (104), Sinus Tach, NORMAL AXIS, NORMAL INTERVALS - Radiology Exams Chest X-ray Interpretation: Interpreted by me (Nonacute chest) Ordered Tests: Active Orders 24 hr Category Date Time Status Mold Burner STAT Care 08/03/24 02:28 Active IV Insertion STAT Care 08/03/24 02:27 Active Pulse Oximetry (ED) STAT Care 08/03/24 02:27 Active CHEST 1 VIEW (PORTABLE) Stat Exams 08/03/24 02:37 Taken BLOOD CULTURE Stat Lab 08/03/24 02:50 Received CBC W DIFF Stat Lab 08/03/24 02:40 Completed CMP Stat Lab 08/03/24 02:40 Completed NT PRO BNPII Stat Lab 08/03/24 02:40 Completed TROPONIN Q4H Lab 08/03/24 02:40 Completed TROPONIN Q4H Lab 08/03/24 06:30 Ordered TROPONIN Q4H Lab 08/03/24 10:30 Ordered Respiratory Therapy Assessment DAILY RT 08/03/24 04:32 Active Transfer Order Routine Transfer 08/03/24 Ordered Medication Summary Discontinued Medications Generic Name Dose Route Start Last Admin Trade Name Freq PRN Reason Stop Dose Admin Albuterol/Ipratropium 3 ml 08/03/24 02:39 08/03/24 03:16 Ipratropium/Albuterol Sulfate 3 Ml Ampul.Neb IH 08/03/24 02:40 3 ml STAT ONE Administration Albuterol/Ipratropium Confirm 08/03/24 03:05 Ipratropium/Albuterol Sulfate 3 Ml Ampul.Neb Administered 08/03/24 03:06 Dose 3 ml IH .STK-MED ONE Methylprednisolone Sodium 0 mg 08/03/24 02:38 08/03/24 02:52 Succinate 125 mg/ Sterile IV 08/03/24 02:39 125 mg Water 2 ml STAT ONE Administration Ceftriaxone Sodium 2 gm in 100 mls @ 200 mls/hr 08/03/24 02:42 08/03/24 03:01 Rocephin 2 Gm/100 Ml Nacl IV 08/03/24 03:11 Not Given STAT ONE Azithromycin 500 mg in 250 mls @ 250 mls/hr 08/03/24 02:42 08/03/24 03:01 Zithromax 500 Mg/ 250 Ml Nacl Premix IV 08/03/24 03:41 Not Given STAT STA Ceftriaxone Sodium Confirm 08/03/24 02:51 Rocephin 2 Gm/100 Ml Nacl Administered 08/03/24 02:52 Dose 2 gm in 100 mls @ ud IV .STK-MED ONE Methylprednisolone Sodium Succinate Confirm 08/03/24 02:51 Methylprednis Sod Succ 125 Mg/2 Ml Vial Administered 08/03/24 02:52 Dose 125 mg .ROUTE .STK-MED ONE Sterile Water Confirm 08/03/24 02:51 Water For Injection,Sterile 10 Ml Vial Administered 08/03/24 02:52 Dose 10 ml IJ .STK-MED ONE Lab/Rad Data: Laboratory Result Diagrams 08/03/24 02:40 08/03/24 02:40 Laboratory Results 08/03/24 08/03/24 08/03/24 Range/Units 03:11 02:40 02:40 WBC (4.23-9.07) x10^3/uL RBC (4.63-6.08) x10^6/uL Hgb (13.7-17.5) g/dL Hct (40.1-51.0) % MCV (79.0-92.2) fL MCH (25.7-32.2) pg MCHC (32.3-36.5) g/dL RDW (11.6-14.4) % Plt Count (163-337) x10^3/uL MPV (9.4-12.4) fL Gran % (34.0-67.9) % Immature Gran % (Auto) (0.001-0.429) % Nucleat RBC Rel Count (0.00-0.2) % Eos # (Auto) (0.04-0.54) x10^3/uL Immature Gran # (Auto) (0.001-0.031) x10^3u/L Absolute Lymphs (auto) (1.32-3.57) x10^3/uL Absolute Monos (auto) (0.30-0.82) x10^3/uL Absolute Nucleated RBC (0.00-0.012) x10^3u/L Lymphocytes % (21.8-53.1) % Monocytes % (5.3-12.2) % Eosinophils % (0.8-7.0) % Basophils % (0.2-1.2) % Absolute Granulocytes (1.78-5.38) x10^3/uL Basophils # (0.01-0.08) x10^3/uL Sodium (135-145) mmol/L Potassium (3.5-5.1) mmol/L Chloride (98-107) mmol/L Carbon Dioxide (22-30) mmol/L Anion Gap (5-15) MEQ/L BUN (9-20) mg/dL Creatinine (0.66-1.25) mg/dL Estimated GFR ML/MIN Glucose (74-106) mg/dL Calcium (8.4-10.2) mg/dL Total Bilirubin (0.2-1.3) mg/dL AST (17-59) U/L ALT (0-50) U/L Alkaline Phosphatase (38-126) U/L Troponin I < 0.012 (0.000-0.033) ng/mL NT-Pro-B Natriuret Pep 369 (<300) pg/mL Serum Total Protein (6.3-8.2) g/dL Albumin (3.5-5.0) g/dL Influenza Type A Ag NEGATIVE (NEGATIVE) Influenza Type B Ag NEGATIVE (NEGATIVE) RSV (PCR) NEGATIVE (NEGATIVE) SARS-CoV-2 (PCR) NEGATIVE (NEGATIVE) 08/03/24 08/03/24 Range/Units 02:40 02:40 WBC 14.5 H (4.23-9.07) x10^3/uL RBC 4.40 L (4.63-6.08) x10^6/uL Hgb 13.0 L (13.7-17.5) g/dL Hct 41.8 (40.1-51.0) % MCV 95.0 H (79.0-92.2) fL MCH 29.5 (25.7-32.2) pg MCHC 31.1 L (32.3-36.5) g/dL RDW 14.5 H (11.6-14.4) % Plt Count 308 (163-337) x10^3/uL MPV 9.4 (9.4-12.4) fL Gran % 85.8 H (34.0-67.9) % Immature Gran % (Auto) 0.3 (0.001-0.429) % Nucleat RBC Rel Count 0.0 (0.00-0.2) % Eos # (Auto) 0.16 (0.04-0.54) x10^3/uL Immature Gran # (Auto) 0.05 H (0.001-0.031) x10^3u/L Absolute Lymphs (auto) 1.53 (1.32-3.57) x10^3/uL Absolute Monos (auto) 0.27 L (0.30-0.82) x10^3/uL Absolute Nucleated RBC 0.00 (0.00-0.012) x10^3u/L Lymphocytes % 10.6 L (21.8-53.1) % Monocytes % 1.9 L (5.3-12.2) % Eosinophils % 1.1 (0.8-7.0) % Basophils % 0.3 (0.2-1.2) % Absolute Granulocytes 12.41 H (1.78-5.38) x10^3/uL Basophils # 0.05 (0.01-0.08) x10^3/uL Sodium 143 (135-145) mmol/L Potassium 4.0 (3.5-5.1) mmol/L Chloride 106 (98-107) mmol/L Carbon Dioxide 20 L (22-30) mmol/L Anion Gap 20.6 H (5-15) MEQ/L BUN 14 (9-20) mg/dL Creatinine 1.30 H (0.66-1.25) mg/dL Estimated GFR 56.9 ML/MIN Glucose 115 H (74-106) mg/dL Calcium 11.4 H (8.4-10.2) mg/dL Total Bilirubin 1.00 (0.2-1.3) mg/dL AST 26 (17-59) U/L ALT 25 (0-50) U/L Alkaline Phosphatase 67 (38-126) U/L Troponin I (0.000-0.033) ng/mL NT-Pro-B Natriuret Pep (<300) pg/mL Serum Total Protein 6.8 (6.3-8.2) g/dL Albumin 4.3 (3.5-5.0) g/dL Influenza Type A Ag (NEGATIVE) Influenza Type B Ag (NEGATIVE) RSV (PCR) (NEGATIVE) SARS-CoV-2 (PCR) (NEGATIVE) - Progress Progress: improved Air Movement: good Progress Note: 78-year-old male history of COPD presents to our ED with complaints of shortness of breath that began this evening. Shortness of breath has been constant. Upon EMS arrival patient was found to be hypoxic. Patient breath sounds were significantly diminished bilaterally. Patient normally does not require oxygen at home. Patient was placed on 2 L nasal cannula. O2 sat significantly improved to 96%. Patient received Solu-Medrol and breathing treatment. Breathing significantly improved. However patient still on 2 L nasal cannula. We intended to administer antibiotics but patient declined. Patient reports that antibiotics caused him to have severe C. difficile colitis. On this basis we held off on the antibiotics. Patient significantly improved. His lungs are much less diminished. They lung sound clear. No active respiratory distress at this time. However patient will require further evaluation and treatment. Patient agrees to admission at [facility] for further evaluation and treatment. Management discussed with at 4:53 AM who accepts admission to observation. Portions of this note were created with voice recognition technology. There may be grammatical, spelling, punctuation or sound alike errors Complexity of problem addressed is moderate acute complicated no critical care time. Complexity of data reviewed and analyzed is extensive. Test ordered chest reviewed results analyzed and correlated clinically with history and p hysical exam. Risk of complication and or risk of morbidity/mortality of patient management is high. Patient requires hospitalization for further evaluation and treatment. Vital stable. Time spent in the patient is approximately 15 minutes. Plan of care established for shared decision making. No social determinants of health present to impede follow-up. Portions of this note were created with voice recognition technology. There may be grammatical, spelling, punctuation or sound alike errors 08/03/24 04:55 Blood Culture(s) Obtained: Yes Antibiotics given: No Counseled pt/family regarding: lab results, diagnosis, need for follow-up, rad results - Departure Departure Disposition: Observation Clinical Impression: COPD exacerbation, Hypoxia, Leukocytosis Condition: Stable Critical Care Time: No Referrals: JAYMIE JENKINS MD [Primary Care Provider] - Follow up/PCP as directed Instructions: Chronic Obstructive Pulmonary Disease
[2024-08-03] MEDS: DUONEB 0.5-3 MG/3 ml Neb IH ONE (03:16)
[2024-08-03 03:20] LABS: ALBUMIN 4.3 g/dL (3.5-5.0); ANION GAP 20.6 MEQ/L (5-15); Calcium 11.4 mg/dL (8.4-10.2); Creatinine 1 1.3 mg/dL (0.66-1.25); EST GLOMERULAR FILTRATION RATE 56.9 ML/MIN; Total Protein 6.8 g/dL (6.3-8.2)
[2024-08-03 03:51] LABS: INFLUENZA A NEGATIVE (NEGATIVE); INFLUENZA B NEGATIVE (NEGATIVE); RESPIRATORY SYNCTIAL VIRUS NEGATIVE (NEGATIVE); SARS-CoV-2 Xpert Express NEGATIVE (NEGATIVE)
[2024-08-03] MEDS ORDERED: Nitrostat 0.4 MG Tablet SL PRN (06:19)
[2024-08-03] MEDS ORDERED: Docusate Sodium 100 MG PO PRN (06:22)
[2024-08-03] MEDS ORDERED: HUMALOG SQ PRN (06:22)
[2024-08-03] MEDS ORDERED: Zofran 4 MG/2 ML VIAL IV PRN (06:22)
[2024-08-03] MEDS ORDERED: TYLENOL 325 MG PO PRN (06:22)
--- NOTE | 2024-08-03 08:11 | PCM.HP ---
History of Present Illness - Chief Complaint Chief Complaint: COPD exacerbation, hypoxia Date: 08/03/24 History of Present Illness: is a 78 year old male with pmhx of CAD, CHF, UT, CABG, stents, HTN, type II DM, COPD, asthma, and DJD. He presented to emergency department for evaluation of shortness of breath. Shortness of breath began the evening of 08/02. Patient normally does not require oxygen at home. However upon EMS arrival patient was found to be hypoxic. Patient placed on oxygen. Patient is experiencing shortness of breath. No active chest pain. Patient's symptoms are constant. Symptoms are moderate in intensity. No specific worsening or improving factors. Patient otherwise feels well. He voices no other complaints or concerns at this time. He remains on 2lNC on admission. He refuses antibiotics d/t hx of c-diff. WBC 14.5, Anion Gap 20.6- IVF started. Steroids started for SOB, COPD exacerbation. Continue trelegy. He feels his SOB is improving this AM. He denies CP, Abd. pain, N/V/D. - Review of Systems Constitutional: No Fever, No Chills Eyes: No Symptoms Ears, Nose, & Throat: No Symptoms Respiratory: Short Of Breath, No Cough Cardiac: No Chest Pain, No Edema, No Syncope Abdominal/Gastrointestinal: No Abdominal Pain, No Nausea, No Vomiting, No Diarrhea Genitourinary Symptoms: No Dysuria Musculoskeletal: No Back Pain, No Neck Pain Skin: No Rash Neurological: No Dizziness, No Focal Weakness, No Sensory Changes Psychological: No Symptoms Endocrine: No Symptoms Hematologic/Lymphatic: No Symptoms Immunological/Allergic: No Symptoms Medications & Allergies Home Medications: Home Medication List Clopidogrel Bisulfate [PLAVIX Tablet] 75 mg PO DAILY 02/15/13 [History Confirmed 08/03/24] Fenofibrate 160 mg PO DAILY 05/22/20 [History Confirmed 08/03/24] ARIPiprazole [Abilify] 15 mg PO HS 02/15/21 [History Confirmed 08/03/24] Albuterol Sulfate [Albuterol Sulfate Hfa] 3 puff IH Q4-6HPRN PRN 09/03/21 [History Confirmed 08/03/24] Atorvastatin Calcium [Lipitor] 40 mg PO DAILY 09/03/21 [History Confirmed 08/03/24] Glipizide 5 mg [Glucotrol 5 MG] 5 mg PO BID 09/03/21 [History Confirmed 08/03/24] Magnesium Oxide [Magnesium] 250 mg PO BID 09/03/21 [History Confirmed 08/03/24] Tizanidine HCl 4 mg [Zanaflex 4 MG] 0.5 tab PO HS 09/03/21 [History Confirmed 08/03/24] Vitamin B Complex 1 each PO DAILY 09/03/21 [History Confirmed 08/03/24] Montelukast Sodium 10 mg [Singulair 10 MG] 10 mg PO HS 05/23/22 [History Confirmed 08/03/24] Trazodone HCl 100 mg PO HS 05/23/22 [History Confirmed 08/03/24] Oxybutynin Chloride Xl 5 mg [Ditropan XL 5 MG] 10 mg PO DAILY 30 Days #30 tablet 05/27/22 [Rx Confirmed 08/03/24] Ascorbic Acid [Vitamin C] 1,000 mg PO DAILY 06/20/23 [History Confirmed 08/03/24] Cholecalciferol (Vitamin D3) [Vitamin D3] 125 mcg PO DAILY 06/20/23 [History Confirmed 08/03/24] Ferrous Sulfate 325 mg [Feosol 325 mg] 325 mg PO DAILY 06/20/23 [History Confirmed 08/03/24] Fluticasone/Umeclidin/Vilanter [Trelegy Ellipta 200-62.5-25] 1 each IH DAILY 06/20/23 [History Confirmed 08/03/24] Levocetirizine Dihydrochloride 5 mg PO DAILY 06/20/23 [History Confirmed 08/03/24] Meclizine HCl 25 mg [Antivert 25 mg] 25 mg PO TID 06/20/23 [History Confirmed 08/03/24] Megestrol Acetate 1,200 mg PO TID 06/20/23 [History Confirmed 08/03/24] Melatonin 10 mg PO HS 06/20/23 [History Confirmed 08/03/24] Mirtazapine 15 mg PO HS 06/20/23 [History Confirmed 08/03/24] Multivitamin/Iron/Folic Acid [Certavite-Antioxidant Tablet] 1 each PO DAILY 06/20/23 [History Confirmed 08/03/24] Oxycodone HCl/Acetaminophen [Percocet 7.5-325 mg Tablet] 1 each PO QID PRN 06/20/23 [History Confirmed 08/03/24] Sacubitril/Valsartan [Entresto 24 mg-26 mg Tablet] 1 each PO BID 06/20/23 [History Confirmed 08/03/24] Zinc Gluconate [Zinc] 50 mg PO BID 06/20/23 [History Confirmed 08/03/24] Famotidine 40 mg PO DAILY PRN 08/03/24 [History Confirmed 08/03/24] Midodrine HCl 10 mg PO TID 08/03/24 [History Confirmed 08/03/24] Nitroglycerin 0.4 mg Tablet [Nitrostat 0.4 MG Tablet] 0.4 mg SL Q5MIN PRN MR X 3 PRN 08/03/24 [History Confirmed 08/03/24] Vancomycin HCl [Vancomycin HCl Capsule] 125 mg PO Q6H 08/03/24 [History Confirmed 08/03/24] Allergies/Adverse Reactions: Allergies Allergy/AdvReac Type Severity Reaction Status Date / Time No Known Drug Allergies Allergy Unverified 08/03/24 02:50 - Past Medical History Past Medical History: Yes Neurological History: No Pertinent History ENT History: No Pertinent History Cardiac History: Congestive Heart Failure, Coronary Artery Disease, Hypertension, Myocardial Infarction (UT) Respiratory History: Asthma, COPD, Pneumonia Endocrine Medical History: Diabetes Type II Musculoskelatal History: Arthritis, Degenerative Disk Disease GI Medical History: No Pertinent History History: No Pertinent History Pyscho-Social History: No Pertinent History Male Reproductive Disorders: No Pertinent History Comment: STENTS 2000. CARDIAC OPEN HEART SURGERY IN 2007. December HAD STENTS PLACED. pt states 8 or 9 stents total, 7-UT's - Past Surgical History Past Surgical History: Yes Neuro Surgical History: No Pertinent History Cardiac History: CABG, Cardiac Stent Respiratory Surgery: No Pertinent History GI Surgical History: No Pertinent History Genitourinary Surgical Hx: No Pertinent History Musculskeletal Surgical Hx: Orthopedic Surgery Male Surgical History: No Pertinent History Other Surgical History: OPEN HEART SURGERY IN 2007. STENTS PLACED 1999. ELBOW, KNEE, BACK SURGERY. Significant Family History: heart disease - Social History Smoking Status: Former smoker How long have you smoked: 18 yo Exposure to second hand smoke: No Alcohol: None Drug Use: none - Social Determinants of Health Will the patient participate in the screening: Yes Do you worry about a steady place to live?: No Do you have any problems with any of the following?: No known problems In the past 12 months,have you had to go without utilities?: No Have you or anyone in your house had to go without enough: No Transportation Issues: No Has anyone in your support network made you feel unsafe?: No - Physical Exam Vital Signs: Vital Signs - 24 hr Temp Pulse Resp BP BP Pulse Ox 08/03/24 06:38 95 08/03/24 06:00 100 H 22 95/73 95 08/03/24 05:30 104 H 18 91/64 96 08/03/24 05:06 91 L 08/03/24 05:00 105 H 22 92/58 93 L 08/03/24 04:30 103 H 22 94 L 08/03/24 04:00 114 H 18 109/88 95 08/03/24 03:30 110 H 20 93/64 95 08/03/24 03:15 108 H 24 94 L 08/03/24 03:09 91 L 08/03/24 03:00 115 H 25 H 110/78 95 08/03/24 02:30 112 H 16 103/60 95 08/03/24 02:18 97.2 F 111 H 22 127/74 91 L General Appearance: no apparent distress, alert Neurologic Exam: alert, oriented x 3, cooperative, normal mood/affect, nml cereb ellar function, nml station & gait, sensation nml, No motor deficits Eye Exam: PERRL/EOMI, eyes nml inspection Ears, Nose, Throat Exam: normal ENT inspection, TMs normal, pharynx normal, moist mucous membranes Neck Exam: normal inspection, non-tender, supple, full range of motion Respiratory Exam: wheezing, No respiratory distress Cardiovascular Exam: regular rate/rhythm, normal heart sounds, normal peripheral pulses Gastrointestinal/Abdomen Exam: soft, normal bowel sounds, No tenderness, No mass Back Exam: normal inspection, normal range of motion, No CVA tenderness, No vertebral tenderness Extremity Exam: normal inspection, normal range of motion, pelvis stable Skin Exam: normal color, warm, dry, No rash Lymphatic Exam: No adenopathy Results - Labs Lab/Micro Results: Lab Results-Last 24 Hours 08/03/24 08/03/24 08/03/24 Range/Units 02:40 02:40 02:40 WBC 14.5 H (4.23-9.07) x10^3/uL RBC 4.40 L (4.63-6.08) x10^6/uL Hgb 13.0 L (13.7-17.5) g/dL Hct 41.8 (40.1-51.0) % MCV 95.0 H (79.0-92.2) fL MCH 29.5 (25.7-32.2) pg MCHC 31.1 L (32.3-36.5) g/dL RDW 14.5 H (11.6-14.4) % Plt Count 308 (163-337) x10^3/uL MPV 9.4 (9.4-12.4) fL Gran % 85.8 H (34.0-67.9) % Immature Gran % (Auto) 0.3 (0.001-0.429) % Nucleat RBC Rel Count 0.0 (0.00-0.2) % Eos # (Auto) 0.16 (0.04-0.54) x10^3/uL Immature Gran # (Auto) 0.05 H (0.001-0.031) x10^3u/L Absolute Lymphs (auto) 1.53 (1.32-3.57) x10^3/uL Absolute Monos (auto) 0.27 L (0.30-0.82) x10^3/uL Absolute Nucleated RBC 0.00 (0.00-0.012) x10^3u/L Lymphocytes % 10.6 L (21.8-53.1) % Monocytes % 1.9 L (5.3-12.2) % Eosinophils % 1.1 (0.8-7.0) % Basophils % 0.3 (0.2-1.2) % Absolute Granulocytes 12.41 H (1.78-5.38) x10^3/uL Basophils # 0.05 (0.01-0.08) x10^3/uL Sodium 143 (135-145) mmol/L Potassium 4.0 (3.5-5.1) mmol/L Chloride 106 (98-107) mmol/L Carbon Dioxide 20 L (22-30) mmol/L Anion Gap 20.6 H (5-15) MEQ/L BUN 14 (9-20) mg/dL Creatinine 1.30 H (0.66-1.25) mg/dL Estimated GFR 56.9 ML/MIN Glucose 115 H (74-106) mg/dL Calcium 11.4 H (8.4-10.2) mg/dL Total Bilirubin 1.00 (0.2-1.3) mg/dL AST 26 (17-59) U/L ALT 25 (0-50) U/L Alkaline Phosphatase 67 (38-126) U/L Troponin I < 0.012 (0.000-0.033) ng/mL NT-Pro-B Natriuret Pep (<300) pg/mL Serum Total Protein 6.8 (6.3-8.2) g/dL Albumin 4.3 (3.5-5.0) g/dL Influenza Type A Ag (NEGATIVE) Influenza Type B Ag (NEGATIVE) RSV (PCR) (NEGATIVE) SARS-CoV-2 (PCR) (NEGATIVE) 08/03/24 08/03/24 Range/Units 02:40 03:11 WBC (4.23-9.07) x10^3/uL RBC (4.63-6.08) x10^6/uL Hgb (13.7-17.5) g/dL Hct (40.1-51.0) % MCV (79.0-92.2) fL MCH (25.7-32.2) pg MCHC (32.3-36.5) g/dL RDW (11.6-14.4) % Plt Count (163-337) x10^3/uL MPV (9.4-12.4) fL Gran % (34.0-67.9) % Immature Gran % (Auto) (0.001-0.429) % Nucleat RBC Rel Count (0.00-0.2) % Eos # (Auto) (0.04-0.54) x10^3/uL Immature Gran # (Auto) (0.001-0.031) x10^3u/L Absolute Lymphs (auto) (1.32-3.57) x10^3/uL Absolute Monos (auto) (0.30-0.82) x10^3/uL Absolute Nucleated RBC (0.00-0.012) x10^3u/L Lymphocytes % (21.8-53.1) % Monocytes % (5.3-12.2) % Eosinophils % (0.8-7.0) % Basophils % (0.2-1.2) % Absolute Granulocytes (1.78-5.38) x10^3/uL Basophils # (0.01-0.08) x10^3/uL Sodium (135-145) mmol/L Potassium (3.5-5.1) mmol/L Chloride (98-107) mmol/L Carbon Dioxide (22-30) mmol/L Anion Gap (5-15) MEQ/L BUN (9-20) mg/dL Creatinine (0.66-1.25) mg/dL Estimated GFR ML/MIN Glucose (74-106) mg/dL Calcium (8.4-10.2) mg/dL Total Bilirubin (0.2-1.3) mg/dL AST (17-59) U/L ALT (0-50) U/L Alkaline Phosphatase (38-126) U/L Troponin I (0.000-0.033) ng/mL NT-Pro-B Natriuret Pep 369 (<300) pg/mL Serum Total Protein (6.3-8.2) g/dL Albumin (3.5-5.0) g/dL Influenza Type A Ag NEGATIVE (NEGATIVE) Influenza Type B Ag NEGATIVE (NEGATIVE) RSV (PCR) NEGATIVE (NEGATIVE) SARS-CoV-2 (PCR) NEGATIVE (NEGATIVE) - Radiology Impressions Radiology Exams & Impressions: Radiology Procedures Category Date Time Status CHEST 1 VIEW (PORTABLE) Stat Exams 08/03/24 02:37 Taken - Other Procedures and Tests Respiratory Therapy 08/03/24 04:32 Respiratory Therapy Assessment DAILY 08/03/24 06:22 Oxygen Nasal Cannula 2 lpm Assessment/Plan (1) COPD exacerbation Current Visit: Yes Status: Acute Assessment & Plan: - Pt refused antibiotics - Duonebs - Steroids IV - On 2lNC 95%- baseline RA - Continue home Trelegy - CXR pending - WBC 14.5 Code(s): J44.1 - CHRONIC OBSTRUCTIVE PULMONARY DISEASE W (ACUTE) EXACERBATION (2) Leukocytosis Current Visit: Yes Status: Acute Assessment & Plan: - WBC 14.5- 2:2 COPD exacerbation - CBC reviewed Code(s): D72.829 - ELEVATED WHITE BLOOD CELL COUNT, UNSPECIFIED (3) Dehydration Current Visit: No Status: Resolved Assessment & Plan: - 2:2 COPD exacerbation - NS @ 50 ml/hr - Anion gap 20.6 - CMP reviewed Code(s): E86.0 - DEHYDRATION (4) Hypoxia Current Visit: Yes Status: Acute Assessment & Plan: - 2:2 COPD exacerbation - See COPD plan above Code(s): R09.02 - HYPOXEMIA (5) Type II diabetes mellitus Current Visit: Yes Status: Chronic Assessment & Plan: - A1C 4.64- controlled - Continue Glipizide - low dose humalog s/s, accuchecks ac/hs (6) CAD (coronary artery disease) Current Visit: Yes Status: Chronic Assessment & Plan: - Continue home meds Code(s): I25.10 - ATHSCL HEART DISEASE OF [place] CORONARY ARTERY W/O ANG PCTRS (7) DDD (degenerative disc disease) Current Visit: Yes Status: Chronic Assessment & Plan: - Continue chronic narcotic pain med and muscle relaxer Code(s): [id number] - (8) Hyperlipemia Current Visit: Yes Status: Chronic Assessment & Plan: - continue statin Code(s): E78.5 - HYPERLIPIDEMIA, UNSPECIFIED (9) Insomnia Current Visit: Yes Status: Chronic Assessment & Plan: - continue trazadone and melatonin at HS Code(s): G47.00 - INSOMNIA, UNSPECIFIED (10) Mood disorder Current Visit: Yes Status: Chronic Assessment & Plan: - Continue Abilify VTE: Plavix and lovenox Next of KIN: Aysha Bustamante [phone]- spouse D/C plan: tomorrow? Code status: Full Code(s): F39 - UNSPECIFIED MOOD [AFFECTIVE] DISORDER
[2024-08-03] MEDS ORDERED: MEDICATION INTERVENTION MC SCH ×2 (08:30)
--- NOTE | 2024-08-03 09:06 | XRAY ---
Indication: Short of breath. Comparison: June 20, 2023 Portable chest again demonstrates COPD and a few pulmonary calcified granulomas. 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 Bony thorax intact again with osteopenia, Genter changes, and scoliosis. No new/acute findings.
[2024-08-03] MEDS: Glucotrol 5 MG PO SCH (09:38)
[2024-08-03] MEDS: PROAMATINE PO SCH (09:39)
[2024-08-03] MEDS: Sodium Chloride 0.9% 500 ML 500 ML IV SCH (09:41)
[2024-08-03] MEDS: PATIENT OWN MEDICATION IH SCH (09:59)
[2024-08-03] MEDS ORDERED: NON-FORMULARY ITEM (Fluticasone/Umeclidin/Vilanter [Trelegy Ellipta 200-62.5-25] 1 EACH Bl IH SCH (10:00)
[2024-08-03] MEDS ORDERED: LIPITOR 40MG PO SCH (10:00)
[2024-08-03] MEDS ORDERED: ROCEPHIN 1 GM / 100 ML NaCl 1 GM/100 ML IVPB IV SCH (10:00)
[2024-08-03] MEDS ORDERED: MEGESTROL ACETATE 40 MG PO SCH (10:00)
[2024-08-03] MEDS: DUONEB 0.5-3 MG/3 ml Neb IH SCH (10:11)
[2024-08-03] MEDS: Ditropan XL 5 MG PO SCH (10:45)
[2024-08-03] MEDS: Acidophilus TABLET PO SCH (10:46)
[2024-08-03] MEDS: ZOCOR 20MG PO SCH (10:46)
[2024-08-03] MEDS: PLAVIX Tablet PO SCH (10:46)
[2024-08-03] MEDS: PERCOCET TABLET 5/325MG PO SCH (10:46)
[2024-08-03] MEDS: Tricor 145 MG PO SCH (10:46)
[2024-08-03] MEDS: Pepcid 20 MG PO SCH (10:46)
[2024-08-03] MEDS: Vitamin C 500 MG PO SCH (10:46)
[2024-08-03] MEDS: VITAMIN D PO SCH (10:46)
[2024-08-03] MEDS: ANTIVERT 25 MG PO SCH (10:46)
[2024-08-03] MEDS: THERAGRAN MULTIVITAMIN PO SCH (10:46)
[2024-08-03] MEDS: CLARITIN 10 MG PO SCH (10:47)
[2024-08-03] MEDS: MAG-OX 400 PO SCH (10:47)
[2024-08-03] MEDS: ENTRESTO 49 MG-51 MG TABLET PO SCH (10:47)
[2024-08-03] MEDS: FEOSOL 325 MG PO SCH (10:47)
[2024-08-03] MEDS: VITA-BEE WITH C PO SCH (10:48)
[2024-08-03] MEDS: Zinc Gluconate 50 MG PO SCH (10:48)
[2024-08-03] MEDS: ENOXAPARIN SODIUM SQ SCH (10:53)
[2024-08-03] MEDS: solu-MEDROL 40 MG, Sterile H2O 10 ml 1 ML IV SCH (14:13)
[2024-08-03] MEDS ORDERED: DUONEB 0.5-3 MG/3 ml Neb IH PRN (17:23)
[2024-08-03] MEDS: Zanaflex 4 MG PO SCH (22:28)
[2024-08-03] MEDS: Singulair 10 MG PO SCH (22:29)
[2024-08-03] MEDS: MELATONIN PO SCH (22:29)
[2024-08-03] MEDS: Abilify 10 MG PO SCH (22:30)
[2024-08-03] MEDS: DESYREL 50 MG PO SCH (22:30)
[2024-08-03] MEDS: MIRTAZAPINE PO SCH (22:31)
[2024-08-04 05:16] LABS: Hematocrit 32.6 % (40.1-51.0); Hemoglobin 10.1 g/dL (13.7-17.5); Mean Cell Volume 93.1 fL (79.0-92.2); Mean Corpuscular Hemoglobin 28.9 pg (25.7-32.2); Mean Platelet Volume 10.1 fL (9.4-12.4); Platelet Count 254 x10^3/uL (163-337); Red Cell Distribution Width 15.1 % (11.6-14.4); White Blood Count 21.4 x10^3/uL (4.23-9.07)
[2024-08-04 05:37] LABS: ALBUMIN 3.4 g/dL (3.5-5.0); ANION GAP 14.8 MEQ/L (5-15); BILIRUBIN,TOTAL 0.7 mg/dL (0.2-1.3); Calcium 9.8 mg/dL (8.4-10.2); Creatinine 1 1.14 mg/dL (0.66-1.25); EST GLOMERULAR FILTRATION RATE 66.7 ML/MIN; Potassium 4.4 mmol/L (3.5-5.1); Total Protein 5.9 g/dL (6.3-8.2)
--- NOTE | 2024-08-04 11:48 | XRAY ---
Indication: Abdominal pain with eating. Comparison: None KB nonacute and nonobstructed. CT proven bilateral renal calculi, largest left kidney measuring 1.4 x 0.5 cm. Incidental scattered vascular calcifications and aortobiiliac stents. Osseous structures intact with osteopenia and mild multilevel lumbar degenerative spondylosis.
--- NOTE | 2024-08-04 15:28 | PCM.NOTE ---
Date and Time: 08/04/24 1523 Subjective Assessment: 08/03/24 is a 78 year old male with pmhx of CAD, CHF, VT, CABG, stents, HTN, type II DM, COPD, asthma, and DJD. He presented to emergency department for evaluation of shortness of breath. Shortness of breath began the evening of 08/02. Patient normally does not require oxygen at home. However upon EMS arrival patient was found to be hypoxic. Patient placed on oxygen. Patient is experiencing shortness of breath. No active chest pain. Patient's symptoms are constant. Symptoms are moderate in intensity. No specific worsening or improving factors. Patient otherwise feels well. He voices no other complaints or concerns at this time. He remains on 2lNC on admission. He refuses antibioti cs d/t hx of c-diff. WBC 14.5, Anion Gap 20.6- IVF started. Steroids started for SOB, COPD exacerbation. Continue trelegy. He feels his SOB is improving this AM. He denies CP, Abd. pain, N/V/D. 08/04/24 Pt resting in the bed. He feels is is unable to eat much food and his stomach is full and uncomfortable. He admits to taking imodium prior to admission. KUB ordered and there were no concerning findings. Encouraged pt to try and sit up in the chair today. He states he does not walk well at home so he would be unable to participate much with PT. He does have a wound on his coccyx and pic in chart. He is room air today. WBC 21.4 may be r/t steroids. Will keep pt another night and see if abd pain sxs improve. He denies CP, SOB, N/V/D. - Review of Systems Constitutional: No Fever, No Chills Eyes: No Symptoms Ears, Nose, & Throat: No Symptoms Respiratory: No Cough, No Short Of Breath Cardiac: No Chest Pain, No Edema, No Syncope Abdominal/Gastrointestinal: Abdominal Pain, Appetite Changes, No Nausea, No Vomiting, No Diarrhea Genitourinary Symptoms: No Dysuria Musculoskeletal: No Back Pain, No Neck Pain Skin: No Rash Neurological: No Dizziness, No Focal Weakness, No Sensory Changes Psychological: No Symptoms Endocrine: No Symptoms Hematologic/Lymphatic: No Symptoms Immunological/Allergic: No Symptoms Objective Exam General Appearance: no apparent distress, alert Neurologic Exam: alert, oriented x 3, cooperative, normal mood/affect, nml cerebellar function, sensation nml, motor weakness, No motor deficits Skin Exam: normal color, warm, dry Wound Assessment: Skin/Wound Assessment Wound/Incision Assessment Start: 08/03/24 10:20 Text: Status: Active Freq: Q6H Protocol: Document 08/04/24 13:58 [facility] (Rec: 08/04/24 13:59 [facility] [id number]) Wound/Incision Assessment Coccyx Wound Assessment Shift Assessment Wound Type Pressure Ulcer Wound Stage Stage II Dressing Status Dry & Intact Drainage Amount None Drainage Odor None/Absent Wound Bed Greatest Portion Red (Granulation) Surrounding Tissue Bright Red Primary Dressing foam wound dressing Comment Dressing remains intact, no drainage noted. Wound Photo Photo Taken No Eye Exam: PERRL, EOMI, eyes nml inspection Ears, Nose, Throat Exam: normal ENT inspection, pharynx normal, moist mucous membranes Neck Exam: normal inspection, non-tender, supple, full range of motion Respiratory Exam: normal breath sounds, lungs clear, No respiratory distress Cardiovascular Exam: regular rate/rhythm, normal heart sounds Gastrointestinal/Abdomen Exam: soft, tenderness, distention, No mass Extremity Exam: normal inspection, normal range of motion Back Exam: normal inspection, normal range of motion, No CVA tenderness, No vertebral tenderness Male Genitalia Exam: deferred Rectal Exam: deferred Objective Data Vital Signs: Vital Signs - 24 hr Temp Pulse Resp BP Pulse Ox 08/04/24 12:00 97.8 F 70 17 103/53 97 08/04/24 08:00 97.3 F 67 18 103/58 96 08/04/24 07:24 72 18 95 08/04/24 04:00 97.4 F 66 18 101/66 95 08/03/24 23:56 97.4 F 64 18 124/65 96 08/03/24 20:00 97.4 F 80 20 99/54 95 08/03/24 17:22 87 16 97 08/03/24 16:00 97.2 F 80 18 90/59 94 L Pain Assessment - Last Documented Pain Intensity 0 Pain Scale Used 0-10 Pain Scale Intake and Output: Intake & Output 08/02/24 08/03/24 08/04/24 08/05/24 11:59 11:59 11:59 11:59 Intake Total 240 1800 Output Total 650 Balance 240 1150 Weight 59.9 kg Lab Results: Lab Results-Last 24 Hours 08/03/24 08/03/24 08/04/24 Range/Units 16:42 21:36 05:05 WBC 21.4 H (4.23-9.07) x10^3/uL RBC 3.50 L (4.63-6.08) x10^6/uL Hgb 10.1 L D (13.7-17.5) g/dL Hct 32.6 L (40.1-51.0) % MCV 93.1 H (79.0-92.2) fL MCH 28.9 (25.7-32.2) pg MCHC 31.0 L (32.3-36.5) g/dL RDW 15.1 H (11.6-14.4) % Plt Count 254 (163-337) x10^3/uL MPV 10.1 (9.4-12.4) fL Sodium (135-145) mmol/L Potassium (3.5-5.1) mmol/L Chloride (98-107) mmol/L Carbon Dioxide (22-30) mmol/L Anion Gap (5-15) MEQ/L BUN (9-20) mg/dL Creatinine (0.66-1.25) mg/dL Estimated GFR ML/MIN Glucose (74-106) mg/dL POC Glucometer 79 107 H (74 to 106) mg/dL Calcium (8.4-10.2) mg/dL Total Bilirubin (0.2-1.3) mg/dL AST (17-59) U/L ALT (0-50) U/L Alkaline Phosphatase (38-126) U/L Serum Total Protein (6.3-8.2) g/dL Albumin (3.5-5.0) g/dL 08/04/24 08/04/24 08/04/24 Range/Units 05:05 07:57 12:03 WBC (4.23-9.07) x10^3/uL RBC (4.63-6.08) x10^6/uL Hgb (13.7-17.5) g/dL Hct (40.1-51.0) % MCV (79.0-92.2) fL MCH (25.7-32.2) pg MCHC (32.3-36.5) g/dL RDW (11.6-14.4) % Plt Count (163-337) x10^3/uL MPV (9.4-12.4) fL Sodium 138 (135-145) mmol/L Potassium 4.4 (3.5-5.1) mmol/L Chloride 106 (98-107) mmol/L Carbon Dioxide 22 (22-30) mmol/L Anion Gap 14.8 (5-15) MEQ/L BUN 21 H (9-20) mg/dL Creatinine 1.14 (0.66-1.25) mg/dL Estimated GFR 66.7 ML/MIN Glucose 118 H (74-106) mg/dL POC Glucometer 129 H 138 H (74 to 106) mg/dL Calcium 9.8 (8.4-10.2) mg/dL Total Bilirubin 0.70 (0.2-1.3) mg/dL AST 20 (17-59) U/L ALT 16 (0-50) U/L Alkaline Phosphatase 53 (38-126) U/L Serum Total Protein 5.9 L (6.3-8.2) g/dL Albumin 3.4 L (3.5-5.0) g/dL Radiology Exams: Radiology Procedures Category Date Time Status CHEST 1 VIEW (PORTABLE) Stat Exams 08/03/24 02:37 Completed KUB Routine Exams 08/04/24 10:36 Completed Multi-Disciplinary Progress Notes: Multi-Disciplinary Progress Notes 08/04/24 14:29 Case Management Note by Brittany Schaeffer S/W PATIENT- HE CONTINUES TO PLAN TO RETURN [facility] WITH [facility]. HE DENIES ANY OTHER NEW NEEDS AT THIS TIME. Initialized on 08/04/24 14:29 - END OF NOTE Assessment/Plan (1) COPD exacerbation Current Visit: Yes Status: Acute Code(s): J44.1 - CHRONIC OBSTRUCTIVE PULMONARY DISEASE W (ACUTE) EXACERBATION (2) Leukocytosis Current Visit: Yes Status: Acute Code(s): D72.829 - ELEVATED WHITE BLOOD CELL COUNT, UNSPECIFIED (3) Dehydration Current Visit: No Status: Resolved Code(s): E86.0 - DEHYDRATION (4) Hypoxia Current Visit: Yes Status: Acute Code(s): R09.02 - HYPOXEMIA (5) Type II diabetes mellitus Current Visit: Yes Status: Chronic (6) CAD (coronary artery disease) Current Visit: Yes Status: Chronic Code(s): I25.10 - ATHSCL HEART DISEASE OF [place] CORONARY ARTERY W/O ANG PCTRS (7) DDD (degenerative disc disease) Current Visit: Yes Status: Chronic Code(s): [id number] - (8) Hyperlipemia Current Visit: Yes Status: Chronic Code(s): E78.5 - HYPERLIPIDEMIA, UNSPECI FIED (9) Insomnia Current Visit: Yes Status: Chronic Code(s): G47.00 - INSOMNIA, UNSPECIFIED (10) Mood disorder Current Visit: Yes Status: Chronic Assessment & Plan: (1) COPD exacerbation Current Visit: Yes Status: Acute Assessment & Plan: - Pt refused antibiotics - Duonebs - Steroids IV - On 2lNC 95%- baseline RA - Continue home Trelegy - CXR reviewed - WBC 14.5 08/04 - RA- 97% - lung sounds improved - WBC 21.4 Code(s): J44.1 - CHRONIC OBSTRUCTIVE PULMONARY DISEASE W (ACUTE) EXACERBATION (2) Leukocytosis Current Visit: Yes Status: Acute Assessment & Plan: - WBC 14.5- 2:2 COPD exacerbation - CBC reviewed 08/04 - WBC 21.4- may be 2:2 steroids Code(s): D72.829 - ELEVATED WHITE BLOOD CELL COUNT, UNSPECIFIED (3) Dehydration Current Visit: No Status: Resolved Assessment & Plan: - 2:2 COPD exacerbation - NS @ 50 ml/hr - Anion gap 20.6 - CMP reviewed 08/04 - IV stopped - resolved Code(s): E86.0 - DEHYDRATION (4) Hypoxia Current Visit: Yes Status: Acute Assessment & Plan: - 2:2 COPD exacerbation - See COPD plan above Code(s): R09.02 - HYPOXEMIA (5) Type II diabetes mellitus Current Visit: Yes Status: Chronic Assessment & Plan: - A1C 4.64- controlled - Continue Glipizide - low dose humalog s/s, accuchecks ac/hs (6) CAD (coronary artery disease) Current Visit: Yes Status: Chronic Assessment & Plan: - Continue home meds Code(s): I25.10 - ATHSCL HEART DISEASE OF [place] CORONARY ARTERY W/O ANG PCTRS (7) DDD (degenerative disc disease) Current Visit: Yes Status: Chronic Assessment & Plan: - Continue chronic narcotic pain med and muscle relaxer Code(s): [id number] - (8) Hyperlipemia Current Visit: Yes Status: Chronic Assessment & Plan: - continue statin Code(s): E78.5 - HYPERLIPIDEMIA, UNSPECIFIED (9) Insomnia Current Visit: Yes Status: Chronic Assessment & Plan: - continue trazadone and melatonin at HS Code(s): G47.00 - INSOMNIA, UNSPECIFIED (10) Mood disorder Current Visit: Yes Status: Chronic Assessment & Plan: - Continue Abilify Code(s): F39 - UNSPECIFIED MOOD [AFFECTIVE] DISORDER Code(s): F39 - UNSPECIFIED MOOD [AFFECTIVE] DISORDER (11) Pressure ulcer of coccygeal region Current Visit: Yes Status: Acute Assessment & Plan: - appears to be stage I- pic in chart per nursing - pressure dressing applied - encouraged pt to change positions and get up out of bed today. Code(s): L89.159 - PRESSURE ULCER OF [place], UNSPECIFIED STAGE (12) Abdominal pain Current Visit: Yes Status: Acute Assessment & Plan: - KUB- reviewed - encouraged pt to sit up in chair to aide in digestion. VTE: Plavix and lovenox Next of KIN: Aysha Bustamante [phone]- spouse D/C plan: tomorrow? Code status: Full Code(s): R10.9 - UNSPECIFIED ABDOMINAL PAIN
[2024-08-05 05:53] LABS: Hematocrit 33.5 % (40.1-51.0); Hemoglobin 10.6 g/dL (13.7-17.5); Mean Cell Volume 92.3 fL (79.0-92.2); Mean Corpuscular Hemoglobin 29.2 pg (25.7-32.2); Mean Corpuscular Hgb Concent. 31.6 g/dL (32.3-36.5); Mean Platelet Volume 9.7 fL (9.4-12.4); Platelet Count 276 x10^3/uL (163-337); Red Blood Count 3.63 x10^6/uL (4.63-6.08); White Blood Count 17.4 x10^3/uL (4.23-9.07)
[2024-08-05 06:16] LABS: ALBUMIN 3.3 g/dL (3.5-5.0); ANION GAP 14.4 MEQ/L (5-15); BILIRUBIN,TOTAL 0.5 mg/dL (0.2-1.3); Calcium 9.5 mg/dL (8.4-10.2); Creatinine 1 1.02 mg/dL (0.66-1.25); EST GLOMERULAR FILTRATION RATE 76.2 ML/MIN; Potassium 4.2 mmol/L (3.5-5.1); Total Protein 5.8 g/dL (6.3-8.2)
[2024-08-05] MEDS ORDERED: solu-MEDROL ONE (06:30)
[2024-08-05 06:41] VITALS: O2SAT 95
[2024-08-05 07:42] VITALS: BP 104/56; PULSE 61; RESP 18; TEMP 96.8
--- NOTE | 2024-08-05 09:59 | PCM.DS ---
Discharge Summary Date of Admission: 08/03/24 06:10 Date of Discharge: 08/05/24 Admitting Physician: CARLITA WREN MD Primary Care Provider: JAYMIE JENKINS Allergies Allergies No Known Drug Allergies Allergy (Unverified 08/03/24 02:50) Hospital Summary - Hospital Course Hospital Course: 08/03/24 is a 78 year old male with pmhx of CAD, CHF, IN, CABG, stents, HTN, type II DM, COPD, asthma, and DJD. He presented to emergency department for evaluation of shortness of breath. Shortness of breath began the evening of 08/02. Patient normally does not require oxygen at home. However upon EMS arrival patient was found to be hypoxic. Patient placed on oxygen. Patient is experiencing shortness of breath. No active chest pain. Patient's symptoms are constant. Symptoms are moderate in intensity. No specific worsening or improving factors. Patient otherwise feels well. He voices no other complaints or concerns at this time. He remains on 2lNC on admission. He refuses antibiotics d/t hx of c-diff. WBC 14.5, Anion Gap 20.6- IVF started. Steroids started for SOB, COPD exacerbation. Continue trelegy. He feels his SOB is improving this AM. He denies CP, Abd. pain, N/V/D. 08/04/24 Pt resting in the bed. He feels is is unable to eat much food and his stomach is full and uncomfortable. He admits to taking imodium prior to admission. KUB ordered and there were no concerning findings. Encouraged pt to try and sit up in the chair today. He states he does not walk well at home so he would be unable to participate much with PT. He does have a wound on his coccyx and pic in chart. He is room air today. WBC 21.4 may be r/t steroids. Will keep pt another night and see if abd pain sxs improve. He denies CP, SOB, N/V/D. 08/05/24 Pt sitting up in chair. He states he feels better and would like to go home. He did have a BM yesterday but continues to feel full and like food digesting properly. Stop famotidine- start protonix. Advised to f/u with PCP and may need referral to GI OP. Will continue steroids OP for COPD exacerbation. Lung sounds improved and RA 95%. He denies CP, abd pain, SOB, N/V/D. - Vitals & Intake/Output Vital Signs: Vital Signs Temperature 96.8 F 08/05/24 07:42 Pulse Rate 61 08/05/24 07:42 Respiratory Rate 18 08/05/24 07:42 Blood Pressure 104/56 08/05/24 07:42 O2 Sat by Pulse Oximetry 95 08/05/24 07:42 Intake & Output: Intake & Output 08/02/24 08/03/24 08/04/24 08/05/24 11:59 11:59 11:59 11:59 Intake Total 240 1800 420 Output Total 650 750 Balance 240 1150 -330 Weight 59.9 kg - Lab Result Diagrams: 08/05/24 05:46 08/05/24 05:46 Lab Results-Last 24 Hrs: Lab Results-Last 24 Hours 08/04/24 08/04/24 08/04/24 Range/Units 12:03 16:32 20:53 WBC (4.23-9.07) x10^3/uL RBC (4.63-6.08) x10^6/uL Hgb (13.7-17.5) g/dL Hct (40.1-51.0) % MCV (79.0-92.2) fL MCH (25.7-32.2) pg MCHC (32.3-36.5) g/dL RDW (11.6-14.4) % Plt Count (163-337) x10^3/uL MPV (9.4-12.4) fL Sodium (135-145) mmol/L Potassium (3.5-5.1) mmol/L Chloride (98-107) mmol/L Carbon Dioxide (22-30) mmol/L Anion Gap (5-15) MEQ/L BUN (9-20) mg/dL Creatinine (0.66-1.25) mg/dL Estimated GFR ML/MIN Glucose (74-106) mg/dL POC Glucometer 138 H 83 100 (74 to 106) mg/dL Calcium (8.4-10.2) mg/dL Total Bilirubin (0.2-1.3) mg/dL AST (17-59) U/L ALT (0-50) U/L Alkaline Phosphatase (38-126) U/L Serum Total Protein (6.3-8.2) g/dL Albumin (3.5-5.0) g/dL 08/05/24 08/05/24 08/05/24 Range/Units 05:46 05:46 07:25 WBC 17.4 H (4.23-9.07) x10^3/uL RBC 3.63 L (4.63-6.08) x10^6/uL Hgb 10.6 L (13.7-17.5) g/dL Hct 33.5 L (40.1-51.0) % MCV 92.3 H (79.0-92.2) fL MCH 29.2 (25.7-32.2) pg MCHC 31.6 L (32.3-36.5) g/dL RDW 15.0 H (11.6-14.4) % Plt Count 276 (163-337) x10^3/uL MPV 9.7 (9.4-12.4) fL Sodium 140 (135-145) mmol/L Potassium 4.2 (3.5-5.1) mmol/L Chloride 108 H (98-107) mmol/L Carbon Dioxide 22 (22-30) mmol/L Anion Gap 14.4 (5-15) MEQ/L BUN 21 H (9-20) mg/dL Creatinine 1.02 (0.66-1.25) mg/dL Estimated GFR 76.2 ML/MIN Glucose 118 H (74-106) mg/dL POC Glucometer 120 H (74 to 106) mg/dL Calcium 9.5 (8.4-10.2) mg/dL Total Bilirubin 0.50 (0.2-1.3) mg/dL AST 27 (17-59) U/L ALT 23 (0-50) U/L Alkaline Phosphatase 61 (38-126) U/L Serum Total Protein 5.8 L (6.3-8.2) g/dL Albumin 3.3 L (3.5-5.0) g/dL Micro Results-Entire Visit: Microbiology 08/03/24 02:50 Blood Culture - Preliminary Blood 08/03/24 02:40 Blood Culture - Preliminary Blood Accuchecks Date 08/05/24 Date 08/04/24 Date 08/04/24 Date 08/04/24 Time 07:41 Time 21:00 Time 16:47 Time 12:48 - Radiology Exams Ordered Rad Exams-Entire Visit: Radiology Procedures Category Date Time Status KUB Routine Exams 08/04/24 10:36 Completed - Procedures and Test Procedures and Tests throughout Hospitalization: Therapy Orders & Screens 08/03/24 04:32 Respiratory Therapy Assessment DAILY Comment: 08/03/24 06:22 PT Eval & Treat (MD Order) ONCE Reason for Eval:: ambulatory saturation evaluation Diagnosis: COPD Oxygen Nasal Cannula 2 lpm Comment: 08/03/24 07:00 Respiratory MDI DAILY Comment: Diagnosis: COPD exacerbation, hypoxia 08/03/24 10:09 RT Miscellaneous Order ROUTINE Comment: baseline RA at home Physician Instructions: Reason For Exam: wean O2 keep sat > 92% Diagnosis: COPD exacerbation, hypoxia 08/03/24 10:20 OT Screen per Nursing Assess ONCE Comment: Protocol Order Physician Instructions: Greater than 3 points order OT Admission Screening Reason For Exam: Triggered on Admission Diagnosis: COPD exacerbation, hypoxia Open Wound/Cellutlitis/Pressure Ulcers: Yes Acute Fx/ORIF/Change in wt bearing status: No Severe MUSCULOSKELETAL pain: No ADL Dysfunction: No Acute CVA w/Hemiparesis/Hemiplegia: No Decreased Functional Mobility/Strength: No Sprain/Strain: No Acute Post-op Mobility Dysfunction: No Total Points: 5 PT Screen per Nursing Assess ONCE Comment: Protocol Order Physician Instructions: Greater than 3 points order PT Admission Screenin Reason For Exam: Triggered on Admission Diagnosis: COPD exacerbation, hypoxia Open Wound/Cellutlitis/Pressure Ulcers: Yes Acute Fx/ORIF/Change in wt bearing status: No Severe MUSCULOSKELETAL pain: No ADL Dysfunction: No Acute CVA w/Hemiparesis/Hemiplegia: No Decreased Functional Mobility/Strength: No Sprain/Strain: No Acute Post-op Mobility Dysfunction: No Total Points: 5 RT Screen per Nursing Assess ONCE Comment: Protocol Order Physician Instructions: Greater than 3 points order RT Admission Screen Reason For Exam: Triggered on Admission Diagnosis: COPD exacerbation, hypoxia Diagnosis: COPD exacerbation, hypoxia Pneumonia: No Home O2: No Asthma: Yes CHF: Yes Home CPAP/BIPAP: No Home Nebs/MDI: Yes Total Points: 12 Discharge Exam General Appearance: no apparent distress, alert Neurologic Exam: alert, oriented x 3, cooperative, normal mood/affect, nml cerebellar function, sensation nml, No motor deficits Eye Exam: PERRL, EOMI, eyes nml inspection Ears, Nose, Throat Exam: normal ENT inspection, pharynx normal, moist mucous membranes Neck Exam: normal inspection, non-tender, supple, full range of motion Respiratory Exam: normal breath sounds, lungs clear, No respiratory distress Cardiovascular Exam: regular rate/rhythm, normal heart sounds Gastrointestinal/Abdomen Exam: soft, distention, No tenderness, No mass Male Genitalia Exam: deferred Rectal Exam: deferred Back Exam: normal inspection, normal range of motion, No CVA tenderness, No vertebral tenderness Extremity Exam: normal inspection, normal range of motion Skin Exam: normal color, warm, dry Wound Assessment: Skin/Wound Assessment Wound/Incision Assessment Start: 08/03/24 10:20 Text: Status: Active Freq: Q6H Protocol: Document 08/05/24 08:00 [facility] (Rec: 08/05/24 08:35 [facility] [id number]) Wound/Incision Assessment Coccyx Wound Assessment Shift Assessment Wound Type Pressure Ulcer Wound Stage Stage II Dressing Status Dry & Intact Drainage Amount None Drainage Odor None/Absent Wound Bed Greatest Portion Red (Granulation) Surrounding Tissue Bright Red Primary Dressing foam wound dressing Comment Dressing remains intact. Wound Photo Photo Taken No Final Diagnosis/Problem List - Final Discharge Diagnosis/Problem (1) COPD exacerbation Current Visit: Yes Status: Acute Code(s): J44.1 - CHRONIC OBSTRUCTIVE PULMONARY DISEASE W (ACUTE) EXACERBATION (2) Leukocytosis Current Visit: Yes Status: Acute Code(s): D72.829 - ELEVATED WHITE BLOOD C ELL COUNT, UNSPECIFIED (3) Dehydration Current Visit: No Status: Resolved Code(s): E86.0 - DEHYDRATION (4) Hypoxia Current Visit: Yes Status: Acute Code(s): R09.02 - HYPOXEMIA (5) Type II diabetes mellitus Current Visit: Yes Status: Chronic (6) CAD (coronary artery disease) Current Visit: Yes Status: Chronic Code(s): I25.10 - ATHSCL HEART DISEASE OF [place] CORONARY ARTERY W/O ANG PCTRS (7) DDD (degenerative disc disease) Current Visit: Yes Status: Chronic Code(s): [id number] - (8) Hyperlipemia Current Visit: Yes Status: Chronic Code(s): E78.5 - HYPERLIPIDEMIA, UNSPECIFIED (9) Insomnia Current Visit: Yes Status: Chronic Code(s): G47.00 - INSOMNIA, UNSPECIFIED (10) Mood disorder Current Visit: Yes Status: Chronic Code(s): F39 - UNSPECIFIED MOOD [AFFECTI VE] DISORDER (11) Pressure ulcer of coccygeal region Current Visit: Yes Status: Acute Code(s): L89.159 - PRESSURE ULCER OF SACRAL REGION, UNSPECIFIED STAGE (12) Abdominal pain Current Visit: Yes Status: Acute Assessment & Plan: (1) COPD exacerbation Current Visit: Yes Status: Acute Assessment & Plan: - Pt refused antibiotics - Duonebs - Steroids IV - On 2lNC 95%- baseline RA - Continue home Trelegy - CXR reviewed - WBC 14.5 08/04 - RA- 97% - lung sounds improved - WBC 21.4 08/05 - RA 95% - Lung sounds improved - CBC & CMP reviewed - Will d/c with PO steroids- he refuses antibiotics Code(s): J44.1 - CHRONIC OBSTRUCTIVE PULMONARY DISEASE W (ACUTE) EXACERBATION (2) Leukocytosis Current Visit: Yes Status: Acute Assessment & Plan: - WBC 14.5- 2:2 COPD exacerbation - CBC reviewed 08/04 - WBC 21.4- may be 2:2 steroids 08/05 - WBC 17.4- elevated 2:2 steroids and COPD exacerbation Code(s): D72.829 - ELEVATED WHITE BLOOD CELL COUNT, UNSPECIFIED (3) Dehydration Current Visit: No Status: Resolved Assessment & Plan: - 2:2 COPD exacerbation - NS @ 50 ml/hr - Anion gap 20.6 - CMP reviewed 08/04 - IV stopped - resolved Code(s): E86.0 - DEHYDRATION (4) Hypoxia Current Visit: Yes Status: Acute Assessment & Plan: - 2:2 COPD exacerbation - See COPD plan above Code(s): R09.02 - HYPOXEMIA (5) Type II diabetes mellitus Current Visit: Yes Status: Chronic Assessment & Plan: - A1C 4.64- controlled - Continue Glipizide - low dose humalog s/s, accuchecks ac/hs (6) CAD (coronary artery disease) Current Visit: Yes Status: Chronic Assessment & Plan: - Continue home meds Code(s): I25.10 - ATHSCL HEART DISEASE OF [place] CORONARY ARTERY W/O ANG PCTRS (7) DDD (degenerative disc disease) Current Visit: Yes Status: Chronic Assessment & Plan: - Continue chronic narcotic pain med and muscle relaxer Code(s): [id number] - (8) Hyperlipemia Current Visit: Yes Status: Chronic Assessment & Plan: - continue statin Code(s): E78.5 - HYPERLIPIDEMIA, UNSPECIFIED (9) Insomnia Current Visit: Yes Status: Chronic Assessment & Plan: - continue trazadone and melatonin at HS Code(s): G47.00 - INSOMNIA, UNSPECIFIED (10) Mood disorder Current Visit: Yes Status: Chronic Assessment & Plan: - Continue Abilify Code(s): F39 - UNSPECIFIED MOOD [AFFECTIVE] DISORDER Code(s): F39 - UNSPECIFIED MOOD [AFFECTIVE] DISORDER (11) Pressure ulcer of coccygeal region Current Visit: Yes Status: Acute Assessment & Plan: - appears to be stage I- pic in chart per nursing - pressure dressing applied - encouraged pt to change positions and get up out of bed today. Code(s): L89.159 - PRESSURE ULCER OF SACRAL REGION, UNSPECIFIED STAGE (12) Abdominal pain Current Visit: Yes Status: Acute Assessment & Plan: - KUB- reviewed - encouraged pt to sit up in chair to aide in digestion. 08/05 - Consider referral to GI OP - Stop famotidine- start protonix Code(s): R10.9 - UNSPECIFIED ABDOMINAL PAIN Code(s): R10.9 - UNSPECIFIED ABDOMINAL PAIN - Discharge Discharge Date: 08/05/24 Disposition: HOME HEALTH SERVICE Condition: Good Prescriptions: Continue Clopidogrel Bisulfate [PLAVIX Tablet] 75 mg PO DAILY Fenofibrate 160 mg PO DAILY ARIPiprazole [Abilify] 15 mg PO HS Atorvastatin Calcium [Lipitor] 40 mg PO DAILY Vitamin B Complex 1 each PO DAILY Tizanidine HCl 4 mg [Zanaflex 4 MG] 0.5 tab PO HS Magnesium Oxide [Magnesium] 250 mg PO BID Glipizide 5 mg [Glucotrol 5 MG] 5 mg PO BID Albuterol Sulfate [Albuterol Sulfate Hfa] 3 puff IH Q4-6HPRN PRN PRN Reason: Shortness Of Breath/Wheezing Montelukast Sodium 10 mg [Singulair 10 MG] 10 mg PO HS Trazodone HCl 100 mg PO HS Oxybutynin Chloride Xl 5 mg [Ditropan XL 5 MG] 10 mg PO DAILY 30 Days #30 tablet Levocetirizine Dihydrochloride 5 mg PO DAILY Mirtazapine 15 mg PO HS Megestrol Acetate 1,200 mg PO TID Sacubitril/Valsartan [Entresto 24 mg-26 mg Tablet] 1 each PO BID Meclizine HCl 25 mg [Antivert 25 mg] 25 mg PO TID Melatonin 10 mg PO HS Zinc Gluconate [Zinc] 50 mg PO BID Cholecalciferol (Vitamin D3) [Vitamin D3] 125 mcg PO DAILY Ascorbic Acid [Vitamin C] 1,000 mg PO DAILY Multivitamin/Iron/Folic Acid [Certavite-Antioxidant Tablet] 1 each PO DAILY Fluticasone/Umeclidin/Vilanter [Trelegy Ellipta 200-62.5-25] 1 each IH DAILY Oxycodone HCl/Acetaminophen [Percocet 7.5-325 mg Tablet] 1 each PO QID PRN Ferrous Sulfate 325 mg [Feosol 325 mg] 325 mg PO DAILY Midodrine HCl 10 mg PO TID Nitroglycerin 0.4 mg Tablet [Nitrostat 0.4 MG Tablet] 0.4 mg SL Q5MIN PRN MR X 3 PRN PRN Reason: Chest Pain Vancomycin HCl [Vancomycin HCl Capsule] 125 mg PO Q6H Discontinued Famotidine 40 mg PO DAILY PRN Additional Instructions: [facility] HAS BEEN SET UP FOR YOU. THEY WILL CALL YOU TO ARRANGE A TIME TO COME SEE YOU. THEIR PHONE NUMBER IS [phone] IF YOU NEED ANYTHING BEFORE THEIR FIRST VISIT. Follow up with: JAYMIE JENKINS MD [Primary Care Provider] - 08/16/24 11:00 am
== END 2024-08-05 10:55 | disposition home health service (06) ==
LOC: ED 02:17 → MED SURG 06:10
PROVIDERS: ADMIT Internal Medicine; ATTEND Internal Medicine
DX: J44.1 Chronic obstructive pulmonary disease with (acute) exacerbation (principal); D72.829 Elevated white blood cell count, unspecified; E86.0 Dehydration; R09.02 Hypoxemia; E11.9 Type 2 diabetes mellitus without complications; I25.10 Atherosclerotic heart disease of native coronary artery without angina pectoris; G47.00 Insomnia, unspecified; E78.5 Hyperlipidemia, unspecified; F39 Unspecified mood [affective] disorder; L89.152 Pressure ulcer of sacral region, stage 2; R10.9 Unspecified abdominal pain; M51.369 Other intervertebral disc degeneration, lumbar region without mention of lumbar back pain or lower extremity pain; I11.0 Hypertensive heart disease with heart failure; I50.9 Heart failure, unspecified; I25.2 Old myocardial infarction; Z79.899 Other long term (current) drug therapy; Z95.0 Presence of cardiac pacemaker; Z79.01 Long term (current) use of anticoagulants
CPT/HCPCS: 0241U; 36000; 36415; 71045; 74018; 80053; 82947; 83036; 83880; 84134; 84484; 85025; 85027; 87040; 93005; 93041; 93268; 94640; 94760; 94762; 96374; 97110; 97162; 99285; G0378; Q3014; J0696; J1650; J2919; A9270-GY

== ENCOUNTER 2024-11-10 18:53 | Emergency (ER) | payer BLACK LUNG, MEDICARE, OTHER ==
[2024-11-10 19:02] VITALS: PULSE 82; TEMP 97.3
--- NOTE | 2024-11-10 19:28 | ERPHSYRPT ---
- History of Present Illness Source: patient Exam Limitations: no limitations Patient Subjective Stated Complaint: Pt states "My was here this morning and she was positive for the flu and I think I have it too. I am coughing up white stuff." Triage Nursing Assessment: Pt presented alert and oriented X 3, skin pwd. Pt able to speak in clear full sentences. PT resting comfortably on the bed. Physician History: Patient's got diagnosed with flu today. He developed symptoms a few hours ago. He has some underlying lung disease so he decided to come in. He is in no distress. He is basically having a cough congestion as well as malaise myalgias no abdominal symptoms. He is in no respiratory distress at this time. He has no other complaints. He has pretty classic flu symptoms. Allergies/Adverse Reactions: No Known Drug Allergies Allergy (Unverified 08/03/24 02:50) Home Medications: Clopidogrel Bisulfate [PLAVIX Tablet] 75 mg PO DAILY 02/15/13 [History] Fenofibrate 160 mg PO DAILY 05/22/20 [History] ARIPiprazole [Abilify] 15 mg PO HS 02/15/21 [History] Albuterol Sulfate [Albuterol Sulfate Hfa] 3 puff IH Q4-6HPRN PRN 09/03/21 [History] Atorvastatin Calcium [Lipitor] 40 mg PO DAILY 09/03/21 [History] Glipizide 5 mg [Glucotrol 5 MG] 5 mg PO BID 09/03/21 [History] Magnesium Oxide [Magnesium] 250 mg PO BID 09/03/21 [History] Tizanidine HCl 4 mg [Zanaflex 4 MG] 0.5 tab PO HS 09/03/21 [History] Vitamin B Complex 1 each PO DAILY 09/03/21 [History] Montelukast Sodium 10 mg [Singulair 10 MG] 10 mg PO HS 05/23/22 [History] Trazodone HCl 100 mg PO HS 05/23/22 [History] Ascorbic Acid [Vitamin C] 1,000 mg PO DAILY 06/20/23 [History] Cholecalciferol (Vitamin D3) [Vitamin D3] 125 mcg PO DAILY 06/20/23 [History] Ferrous Sulfate 325 mg [Feosol 325 mg] 325 mg PO DAILY 06/20/23 [History] Fluticasone/Umeclidin/Vilanter [Trelegy Ellipta 200-62.5-25] 1 each IH DAILY 06/20/23 [History] Levocetirizine Dihydrochloride 5 mg PO DAILY 06/20/23 [History] Meclizine HCl 25 mg [Antivert 25 mg] 25 mg PO TID 06/20/23 [History] Megestrol Acetate 1,200 mg PO TID 06/20/23 [History] Melatonin 10 mg PO HS 06/20/23 [History] Mirtazapine 15 mg PO HS 06/20/23 [History] Multivitamin/Iron/Folic Acid [Certavite-Antioxidant Tablet] 1 each PO DAILY 06/20/23 [History] Oxycodone HCl/Acetaminophen [Percocet 7.5-325 mg Tablet] 1 each PO QID PRN 06/20/23 [History] Sacubitril/Valsartan [Entresto 24 mg-26 mg Tablet] 1 each PO BID 06/20/23 [History] Zinc Gluconate [Zinc] 50 mg PO BID 06/20/23 [History] Midodrine HCl 10 mg PO TID 08/03/24 [History] Nitroglycerin 0.4 mg Tablet [Nitrostat 0.4 MG Tablet] 0.4 mg SL Q5MIN PRN MR X 3 PRN 08/03/24 [History] Vancomycin HCl [Vancomycin HCl Capsule] 125 mg PO Q6H 08/03/24 [History] Hx Tetanus, Diphtheria Vaccination/Date Given: Yes Hx Influenza Vaccination/Date Given: No Hx Pneumococcal Vaccination/Date Given: No Immunizations Up to Date: No Travel Risk - International Travel Have you traveled outside of the country in past 3 weeks: No - Emerging Infectious Disease Are you exhibiting symptoms associated with any current EIDs: Yes Symptoms: Cough: New Onset - Review of Systems Constitutional: Fever, Chills, Malaise Eyes: No Symptoms Ears, Nose, & Throat: No Symptoms Respiratory: Cough Cardiac: No Symptoms Abdominal/Gastrointestinal: No Symptoms All Other Systems: Reviewed and Negative - Past Medical History Pertinent Past Medical History: Yes Neurological History: No Pertinent History ENT History: No Pertinent History Cardiac History: Congestive Heart Failure, Coronary Artery Disease, Hypertension, Myocardial Infarction ([place]) Respiratory History: Asthma, COPD, Pneumonia Endocrine Medical History: Diabetes Type II Musculoskeletal History: Arthritis, Degenerative Disk Disease GI Medical History: No Pertinent History History: No Pertinent History Psycho-Social History: No Pertinent History Male Reproductive Disorders: No Pertinent History Other Medical History: STENTS 2000. CARDIAC OPEN HEART SURGERY IN 2007. December HAD STENTS PLACED. pt states 8 or 9 stents total, 7-[place]'s - Past Surgical History Past Surgical History: Yes Neuro Surgical History: No Pertinent History Cardiac: CABG, Cardiac Stent Respiratory: No Pertinent History Gastrointestinal: No Pertinent History Genitourinary: No Pertinent History Musculoskeletal: Orthopedic Surgery Male Surgical History: No Pertinent History Other Surgical History: OPEN HEART SURGERY IN 2007. STENTS PLACED 1999. ELBOW, KNEE, BACK SURGERY. Significant Family History: heart disease - Social History Smoking Status: Former smoker How long have you smoked: 16 yearrs Exposure to second hand smoke: No Drug Use: none - Social Determinants of Health Will the patient participate in the screening: Yes Do you worry about a steady place to live?: No Do you have any problems with any of the following?: No known problems In the past 12 months,have you had to go without utilities?: No Transportation Issues: No Has anyone in your support network made you feel unsafe?: No Have you or anyone in your house had to go w/o enough food: No - Nursing Vital Signs Nursing Vital Signs: Initial Vital Signs Temperature 97.3 F 11/10/24 18:54 Pulse Rate 82 11/10/24 18:54 Respiratory Rate 18 11/10/24 18:54 Blood Pressure 129/70 11/10/24 18:54 O2 Sat by Pulse Oximetry 97 11/10/24 18:54 Pain Scale Pain Intensity 0 - Physical Exam General Appearance: no apparent distress Eye Exam: PERRL/EOMI Ears, Nose, Throat Exam: normal ENT inspection, TMs normal Neck Exam: normal inspection, non-tender Respiratory Exam: normal breath sounds, chest tenderness, lungs clear, No respiratory distress Cardiovascular Exam: regular rate/rhythm, normal heart sounds Gastrointestinal/Abdomen Exam: soft, normal bowel sounds, No tenderness, No distention Back Exam: normal inspection, normal range of motion Extremity Exam: normal inspection, normal range of motion Neurologic Exam: alert, oriented x 3 Skin Exam: normal color SpO2: 96 Lab/Rad Data: Laboratory Results 11/10/24 Range/Units 19:20 Influenza Type A Ag POSITIVE A (NEGATIVE) Influenza Type B Ag NEGATIVE (NEGATIVE) RSV (PCR) NEGATIVE (NEGATIVE) SARS-CoV-2 (PCR) NEGATIVE (NEGATIVE) - Departure Clinical Impression: Influenza A Condition: Stable Critical Care Time: No Referrals: JAYMIE JENKINS MD [Primary Care Provider] - Follow up/PCP as directed Instructions: Flu in adults - Discharge instructions Prescriptions: Nirmatrelvir/Ritonavir [Paxlovid 300-100 mg Dose Pack] 1 each PO BID #10 cap
[2024-11-10 19:58] LABS: INFLUENZA B NEGATIVE (NEGATIVE); RESPIRATORY SYNCTIAL VIRUS NEGATIVE (NEGATIVE); SARS-CoV-2 Xpert Express NEGATIVE (NEGATIVE)
[2024-11-10 20:04] LABS: INFLUENZA A POSITIVE (NEGATIVE)
[2024-11-10 20:40] VITALS: O2SAT 96
[2024-11-10 20:47] VITALS: BP 129/70; RESP 19
== END 2024-11-10 20:52 | disposition home or self-care (01) ==
LOC: ED 18:53
DX: J10.1 Influenza due to other identified influenza virus with other respiratory manifestations (principal); R05.1 Acute cough; M79.10 Myalgia, unspecified site; I11.0 Hypertensive heart disease with heart failure; I50.9 Heart failure, unspecified; E11.9 Type 2 diabetes mellitus without complications; Z79.02 Long term (current) use of antithrombotics/antiplatelets; Z79.84 Long term (current) use of oral hypoglycemic drugs; Z79.899 Other long term (current) drug therapy
CPT/HCPCS: 0241U; 99283; 99282

== ENCOUNTER 2024-11-11 13:08 | Emergency (ER) | payer BLACK LUNG, MEDICARE, OTHER ==
--- NOTE | 2024-11-11 13:41 | ERPHSYRPT ---
- History of Present Illness Time Seen by Provider: 11/11/24 13:21 Source: patient, family Exam Limitations: no limitations Patient Subjective Stated Complaint: pt sent over from clinic to be seen, pt was dx in er with flu a last night, he states he feels better today but is not eating well, family states they brought him in due to not being able to get meds filled because rx was not written correctly Triage Nursing Assessment: pt alert, arrived per , from [facility] to cart with stand by assist of one, occ dry cough, resp easy, no edema noted, o2 sat 95% ra Physician History: 78 years old with a history of diabetes mellitus, COPD is sent in ER from [facility] with low oxygen saturation in upper 80s. Patient apparently was evaluated yesterday in this ER, diagnosed with influenza, reports he is feeling better but has decreased oral intake and is still feeling weak fatigued tired and seems like dehydrated. Family was concerned about that. Patient oxygen saturation is 95 to 96% on room air with no tachypnea or tachycardia. Lungs fairly clear to auscultation. Denies any chest pain palpitations or difficulty breathing on presentation in the ER. He although has a low-grade temperature of 100.6. Patient reports coughing up minimal amount of clear sputum. Allergies/Adverse Reactions: No Known Drug Allergies Allergy (Verified 11/11/24 13:17) Home Medications: Clopidogrel Bisulfate [PLAVIX Tablet] 75 mg PO DAILY 02/15/13 [History] Fenofibrate 160 mg PO DAILY 05/22/20 [History] ARIPiprazole [Abilify] 15 mg PO HS 02/15/21 [History] Albuterol Sulfate [Albuterol Sulfate Hfa] 3 puff IH Q4-6HPRN PRN 09/03/21 [History] Atorvastatin Calcium [Lipitor] 40 mg PO DAILY 09/03/21 [History] Glipizide 5 mg [Glucotrol 5 MG] 5 mg PO BID 09/03/21 [History] Magnesium Oxide [Magnesium] 250 mg PO BID 09/03/21 [History] Tizanidine HCl 4 mg [Zanaflex 4 MG] 0.5 tab PO HS 09/03/21 [History] Vitamin B Complex 1 each PO DAILY 09/03/21 [History] Montelukast Sodium 10 mg [Singulair 10 MG] 10 mg PO HS 05/23/22 [History] Trazodone HCl 100 mg PO HS 05/23/22 [History] Ascorbic Acid [Vitamin C] 1,000 mg PO DAILY 06/20/23 [History] Cholecalciferol (Vitamin D3) [Vitamin D3] 125 mcg PO DAILY 06/20/23 [History] Ferrous Sulfate 325 mg [Feosol 325 mg] 325 mg PO DAILY 06/20/23 [History] Fluticasone/Umeclidin/Vilanter [Trelegy Ellipta 200-62.5-25] 1 each IH DAILY 06/20/23 [History] Levocetirizine Dihydrochloride 5 mg PO DAILY 06/20/23 [History] Meclizine HCl 25 mg [Antivert 25 mg] 25 mg PO TID 06/20/23 [History] Megestrol Acetate 1,200 mg PO TID 06/20/23 [History] Melatonin 10 mg PO HS 06/20/23 [History] Mirtazapine 15 mg PO HS 06/20/23 [History] Multivitamin/Iron/Folic Acid [Certavite-Antioxidant Tablet] 1 each PO DAILY 06/20/23 [History] Oxycodone HCl/Acetaminophen [Percocet 7.5-325 mg Tablet] 1 each PO QID PRN 06/20/23 [History] Sacubitril/Valsartan [Entresto 24 mg-26 mg Tablet] 1 each PO BID 06/20/23 [History] Zinc Gluconate [Zinc] 50 mg PO BID 06/20/23 [History] Midodrine HCl 10 mg PO TID 08/03/24 [History] Nitroglycerin 0.4 mg Tablet [Nitrostat 0.4 MG Tablet] 0.4 mg SL Q5MIN PRN MR X 3 PRN 08/03/24 [History] Vancomycin HCl [Vancomycin HCl Capsule] 125 mg PO Q6H 08/03/24 [History] Hx Tetanus, Diphtheria Vaccination/Date Given: Yes Hx Influenza Vaccination/Date Given: No Hx Pneumococcal Vaccination/Date Given: No Immunizations Up to Date: Yes Travel Risk - International Travel Have you traveled outside of the country in past 3 weeks: No - Emerging Infectious Disease Are you exhibiting symptoms associated with any current EIDs: Yes Symptoms: Cough: New Onset - Review of Systems Constitutional: Fever, Fatigue, Weakness Eyes: No Symptoms Ears, Nose, & Throat: No Symptoms Respiratory: Cough, Wheezing Cardiac: No Symptoms Abdominal/Gastrointestinal: No Symptoms Musculoskeletal: Myalgias Neurological: No Symptoms Endocrine: No Symptoms Hematologic/Lymphatic: No Symptoms - Past Medical History Pertinent Past Medical History: Yes Neurological History: No Pertinent History ENT History: No Pertinent History Cardiac History: Congestive Heart Failure, Coronary Artery Disease, Hypertension, Myocardial Infarction (GA) Respiratory History: Asthma, COPD, Pneumonia Endocrine Medical History: Diabetes Type II Musculoskeletal History: Arthritis, Degenerative Disk Disease GI Medical History: No Pertinent History History: No Pertinent History Psycho-Social History: No Pertinent History Male Reproductive Disorders: No Pertinent History Other Medical History: STENTS 1999. CARDIAC OPEN HEART SURGERY IN 2007. December HAD STENTS PLACED. pt states 8 or 9 stents total, 7-GA's - Past Surgical History Past Surgical History: Yes Neuro Surgical History: No Pertinent History Cardiac: CABG, Cardiac Stent Respiratory: No Pertinent History Gastrointestinal: No Pertinent History Genitourinary: No Pertinent History Musculoskeletal: Orthopedic Surgery Male Surgical History: No Pertinent History Other Surgical History: OPEN HEART SURGERY IN 2007. STENTS PLACED 1999. ELBOW, KNEE, BACK SURGERY. Significant Family History: heart disease - Social History Smoking Status: Former smoker How long have you smoked: 16 yearrs Exposure to second hand smoke: No Drug Use: none - Social Determinants of Health Will the patient participate in the screening: Yes Do you worry about a steady place to live?: No Do you have any problems with any of the following?: No known problems In the past 12 months,have you had to go without utilities?: No Transportation Issues: No Has anyone in your support network made you feel unsafe?: No Have you or anyone in your house had to go w/o enough food: No - Nursing Vital Signs Nursing Vital Signs: Initial Vital Signs Temperature 100.6 F 11/11/24 13:22 Pulse Rate 91 H 11/11/24 13:22 Respiratory Rate 22 11/11/24 13:22 Blood Pressure 144/70 11/11/24 13:22 O2 Sat by Pulse Oximetry 96 11/11/24 13:22 Pain Scale Pain Intensity 4 - Physical Exam General Appearance: no apparent distress, alert Eye Exam: PERRL/EOMI Ears, Nose, Throat Exam: moist mucous membranes, pharyngeal erythema Neck Exam: normal inspection, non-tender, supple, full range of motion Respiratory Exam: wheezing (Minimal), No respiratory distress, No crackles/rales Cardiovascular Exam: regular rate/rhythm, normal heart sounds Gastrointestinal/Abdomen Exam: soft, normal bowel sounds, No tenderness Extremity Exam: normal inspection Neurologic Exam: alert, oriented x 3, cooperative Skin Exam: normal color, warm SpO2 Interpretation: normal SpO2: 95 O2 Delivery: Room Air Ordered Tests: Medication Summary Discontinued Medications Generic Name Dose Route Start Last Admin Trade Name Freq PRN Reason Stop Dose Admin Acetaminophen 975 mg 11/11/24 13:41 11/11/24 13:51 Acetaminophen 325 Mg Tablet PO 11/11/24 13:42 975 mg STAT STA Administration Acetaminophen Confirm 11/11/24 13:49 Acetaminophen 325 Mg Tablet Administered 11/11/24 13:50 Dose 975 mg .ROUTE .STK-MED ONE Albuterol/Ipratropium 3 ml 11/11/24 13:37 11/11/24 13:46 Ipratropium/Albuterol Sulfate 3 Ml Ampul.Neb IH 11/11/24 13:38 3 ml STAT ONE Administration Albuterol/Ipratropium Confirm 11/11/24 13:44 Ipratropium/Albuterol Sulfate 3 Ml Ampul.Neb Administered 11/11/24 13:45 Dose 3 ml IH .STK-MED ONE Sodium Chloride 1,000 mls @ 999 mls/hr 11/11/24 15:44 11/11/24 17:24 Sodium Chloride 0.9% 1000 Ml IV 11/11/24 16:44 Infused .Q1H1M STA Infusion Sodium Chloride Confirm 11/11/24 15:44 Sodium Chloride 0.9% 1000 Ml Administered 11/11/24 15:45 Dose 1,000 mls @ ud .ROUTE .STK-MED ONE Oseltamivir Phosphate 75 mg 11/11/24 16:02 11/11/24 16:32 Oseltamivir 75 Mg Cap PO 11/11/24 16:03 75 mg STAT ONE Administration Oseltamivir Phosphate Confirm 11/11/24 16:31 Oseltamivir 75 Mg Cap Administered 11/11/24 16:32 Dose 75 mg PO .STK-MED ONE Lab/Rad Data: Laboratory Result Diagrams 11/11/24 13:55 11/11/24 13:55 Laboratory Results 11/11/24 11/11/24 11/11/24 Range/Units 16:01 14:26 13:59 WBC (4.23-9.07) x10^3/uL RBC (4.63-6.08) x10^6/uL Hgb (13.7-17.5) g/dL Hct (40.1-51.0) % MCV (79.0-92.2) fL MCH (25.7-32.2) pg MCHC (32.3-36.5) g/dL RDW (11.6-14.4) % Plt Count (163-337) x10^3/uL MPV (9.4-12.4) fL Gran % (34.0-67.9) % Immature Gran % (Auto) (0.001-0.429) % Nucleat RBC Rel Count (0.00-0.2) % Eos # (Auto) (0.04-0.54) x10^3/uL Immature Gran # (Auto) (0.001-0.031) x10^3u/L Absolute Lymphs (auto) (1.32-3.57) x10^3/uL Absolute Monos (auto) (0.30-0.82) x10^3/uL Absolute Nucleated RBC (0.00-0.012) x10^3u/L Lymphocytes % (21.8-53.1) % Monocytes % (5.3-12.2) % Eosinophils % (0.8-7.0) % Basophils % (0.2-1.2) % Absolute Granulocytes (1.78-5.38) x10^3/uL Basophils # (0.01-0.08) x10^3/uL Sodium (135-145) mmol/L Potassium (3.5-5.1) mmol/L Chloride (98-107) mmol/L Carbon Dioxide (22-30) mmol/L Anion Gap (5-15) MEQ/L BUN (9-20) mg/dL Creatinine (0.66-1.25) mg/dL Estimated GFR ML/MIN Glucose (74-106) mg/dL Lactic Acid 1.0 3.2 H (0.4-2.0) Calcium (8.4-10.2) mg/dL Total Bilirubin (0.2-1.3) mg/dL AST (17-59) U/L ALT (0-50) U/L Alkaline Phosphatase (38-126) U/L Serum Total Protein (6.3-8.2) g/dL Albumin (3.5-5.0) g/dL Urine Color Yellow (Yellow) Urine Appearance Clear (Clear) Urine pH 6.5 (4.6-8.0) Ur Specific [place] 1.020 (1.005-1.030) Urine Protein Negative (Negative) Urine Glucose (UA) Negative (Negative) mg/dL Urine Ketones Negative (Negative) Urine Blood Negative (Negative) Urine Nitrite Negative (Negative) Urine Bilirubin Negative (Negative) Urine Urobilinogen 0.2 (0.2) mg/dL Ur Leukocyte Esterase Negative (Negative) U Hyaline Cast (Auto) NONE SEEN (0-2) /LPF Urine Microscopic RBC 3-5 (0-5) /HPF Urine Microscopic WBC 0-2 (0-5) /HPF Ur Epithelial Cells None Seen (None Seen) /HPF Urine Bacteria None Seen (None Seen) /HPF Urine Culture Reflexed NO (NO) Slides for Path Review 11/11/24 11/11/24 Range/Units 13:55 13:55 WBC 7.9 (4.23-9.07) x10^3/uL RBC 3.86 L (4.63-6.08) x10^6/uL Hgb 11.0 L (13.7-17.5) g/dL Hct 35.8 L (40.1-51.0) % MCV 92.7 H (79.0-92.2) fL MCH 28.5 (25.7-32.2) pg MCHC 30.7 L (32.3-36.5) g/dL RDW 14.6 H (11.6-14.4) % Plt Count 240 (163-337) x10^3/uL MPV 10.1 (9.4-12.4) fL Gran % 86.9 H (34.0-67.9) % Immature Gran % (Auto) 0.3 (0.001-0.429) % Nucleat RBC Rel Count 0.0 (0.00-0.2) % Eos # (Auto) 0.01 L (0.04-0.54) x10^3/uL Immature Gran # (Auto) 0.02 (0.001-0.031) x10^3u/L Absolute Lymphs (auto) 0.48 L (1.32-3.57) x10^3/uL Absolute Monos (auto) 0.45 (0.30-0.82) x10^3/uL Absolute Nucleated RBC 0.00 (0.00-0.012) x10^3u/L Lymphocytes % 6.1 L (21.8-53.1) % Monocytes % 5.7 (5.3-12.2) % Eosinophils % 0.1 L (0.8-7.0) % Basophils % 0.9 (0.2-1.2) % Absolute Granulocytes 6.85 H (1.78-5.38) x10^3/uL Basophils # 0.07 (0.01-0.08) x10^3/uL Sodium 143 (135-145) mmol/L Potassium 3.3 L (3.5-5.1) mmol/L Chloride 108 H (98-107) mmol/L Carbon Dioxide 23 (22-30) mmol/L Anion Gap 16.0 H (5-15) MEQ/L BUN 7 L (9-20) mg/dL Creatinine 0.92 (0.66-1.25) mg/dL Estimated GFR 86.2 ML/MIN Glucose 113 H (74-106) mg/dL Lactic Acid (0.4-2.0) Calcium 9.9 (8.4-10.2) mg/dL Total Bilirubin 0.80 (0.2-1.3) mg/dL AST 31 (17-59) U/L ALT 19 (0-50) U/L Alkaline Phosphatase 57 (38-126) U/L Serum Total Protein 7.0 (6.3-8.2) g/dL Albumin 4.1 (3.5-5.0) g/dL Urine Color (Yellow) Urine Appearance (Clear) Urine pH (4.6-8.0) Ur Specific [place] (1.005-1.030) Urine Protein (Negative) Urine Glucose (UA) (Negative) mg/dL Urine Ketones (Negative) Urine Blood (Negative) Urine Nitrite (Negative) Urine Bilirubin (Negative) Urine Urobilinogen (0.2) mg/dL Ur Leukocyte Esterase (Negative) U Hyaline Cast (Auto) (0-2) /LPF Urine Microscopic RBC (0-5) /HPF Urine Microscopic WBC (0-5) /HPF Ur Epithelial Cells (None Seen) /HPF Urine Bacteria (None Seen) /HPF Urine Culture Reflexed (NO) Slides for Path Review YES - Progress Progress: improved, re-examined Air Movement: good Progress Note: 11/11/24 16:55 78 years old with diagnosis of influenza yesterday is evaluated in the ER for decreased oral intake and low oxygen saturation checked at [facility]. Patient oxygen saturation remained in mid to upper 90s throughout stay in the ER on room air. He is not in any distress. He is given neb treatment, along with fluids, feeling much improved. He is also given a dose of Tamiflu. Workup showed normal white count, chemistries with some element of dehydration and a lactate of 3.2 which improved after fluids to 1.0. Chest x-ray negative for any acute cardiopulmonary findings reviewed by me, official report is pending. I do not think patient needs any other workup, can be discharged and I will give Tamiflu along with albuterol to use as needed. Discussed signs symptoms of worsening needing return to ER which patient/son seem understanding. Stable for discharge. 11/11/24 16:57 Blood Culture(s) Obtained: No Antibiotics given: No Counseled pt/family regarding: lab results, diagnosis, rad results Medical Desision Making - Independent Historian Additional History obtained from: Child - Diagnostic Testing Diagnostic test were ordered, analyzed, and reviewed by me: Yes Radiological Interpretation: Interpreted by me, Reviewed by me - Risk of complications The pt has a mod risk of morbidity or mortality based on: Need for prescription drug management - Departure Departure Disposition: Home Clinical Impression: Influenza A, General weakness, Viral syndrome Condition: Stable Critical Care Time: No Referrals: JAYMIE JENKINS MD [Primary Care Provider] - Follow up with PCP 1 day Instructions: Flu in adults - Discharge instructions Additional Instructions: Drink plenty of fluids. Take Tylenol as needed for fever greater than 100.4. Use inhaler as needed for cough and difficulty breathing. Continue with Tamiflu. Return to ER for any worsening. Prescriptions: Albuterol Sulfate [Albuterol Sulfate Hfa] 8.5 gm IH Q6H PRN 7 Days #1 inh PRN Reason: Cough Oseltamivir 75 mg [Tamiflu 75MG Capsule] 75 mg PO BID #10 cap
[2024-11-11] MEDS ORDERED: DUONEB 0.5-3 MG/3 ml Neb IH ONE (13:44)
[2024-11-11] MEDS: DUONEB 0.5-3 MG/3 ml Neb IH ONE (13:46)
[2024-11-11] MEDS ORDERED: TYLENOL 325 MG ONE (13:49)
[2024-11-11] MEDS: TYLENOL 325 MG PO STA (13:51)
[2024-11-11 13:59] LABS: Red Blood Count 3.86 x10^6/uL (4.63-6.08); White Blood Count 7.9 x10^3/uL (4.23-9.07)
[2024-11-11 14:00] LABS: Absolute Neutrophil Ct (ANC) 6.85 x10^3/uL (1.78-5.38); BASOPHIL % 0.9 % (0.2-1.2); Basophil (Absolute #) 0.07 x10^3/uL (0.01-0.08); Eosinophil % 0.1 % (0.8-7.0); Eosinophil (Absolute #) 0.01 x10^3/uL (0.04-0.54); Hematocrit 35.8 % (40.1-51.0); IMMATURE GRAN # 0.02 x10^3u/L (0.001-0.031); IMMATURE GRAN % 0.3 % (0.001-0.429); Lymphocyte (Absolute #) 0.48 x10^3/uL (1.32-3.57); Lymphocytes % 6.1 % (21.8-53.1); Mean Cell Volume 92.7 fL (79.0-92.2); Mean Corpuscular Hemoglobin 28.5 pg (25.7-32.2); Mean Corpuscular Hgb Concent. 30.7 g/dL (32.3-36.5); Mean Platelet Volume 10.1 fL (9.4-12.4); Monocyte (Absolute #) 0.45 x10^3/uL (0.30-0.82); Monocytes % 5.7 % (5.3-12.2); Neutrophil % 86.9 % (34.0-67.9); Platelet Count 240 x10^3/uL (163-337); Red Cell Distribution Width 14.6 % (11.6-14.4)
[2024-11-11 14:14] LABS: ALBUMIN 4.1 g/dL (3.5-5.0); BILIRUBIN,TOTAL 0.8 mg/dL (0.2-1.3); Calcium 9.9 mg/dL (8.4-10.2); Creatinine 1 0.92 mg/dL (0.66-1.25); EST GLOMERULAR FILTRATION RATE 86.2 ML/MIN; Potassium 3.3 mmol/L (3.5-5.1)
[2024-11-11 14:36] LABS: Slide Review 1 YES
[2024-11-11 14:47] LABS: Appearance Clear (Clear); Bacteria None Seen /HPF (None Seen); Bilirubin Negative (Negative); Blood Negative (Negative); Epithelial Cells None Seen /HPF (None Seen); Glucose, Urine Negative (Negative); Hyaline Casts NONE SEEN /LPF (0-2); Ketones Negative (Negative); Leukocyte Esterase Negative (Negative); Nitrite Negative (Negative); Ph 6.5 (4.6-8.0); Protein,Urine Dip Negative (Negative); Urobilinogen 0.2 mg/dL (0.2); WBC 0-2 /HPF (0-5)
[2024-11-11] MEDS ORDERED: Sodium Chloride 0.9% 1000 ML 1,000 ML ONE (15:44)
[2024-11-11] MEDS: Sodium Chloride 0.9% 1000 ML 1,000 ML IV STA (15:45)
[2024-11-11] MEDS ORDERED: Tamiflu 75MG Capsule PO ONE (16:31)
[2024-11-11] MEDS: Tamiflu 75MG Capsule PO ONE (16:32)
[2024-11-11 17:19] VITALS: BP 133/46; PULSE 83; RESP 36
[2024-11-11 17:29] VITALS: TEMP 98.3
--- NOTE | 2024-11-11 23:37 | XRAY ---
Indication: Cough. Flu. Comparison: August 03, 2024 Portable chest again hyperinflated with a few tiny calcified granulomas. No focal infiltrate, consolidation, or large effusion. 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 Bony thorax intact again with osteopenia and moderate degenerative changes. Impression: Continued nonacute chest with chronic features.
[2024-11-16 16:34] VITALS: O2SAT 95
== END 2024-11-11 17:29 | disposition home or self-care (01) ==
LOC: ED 13:08
DX: J10.1 Influenza due to other identified influenza virus with other respiratory manifestations (principal); R53.1 Weakness; R50.9 Fever, unspecified; R05.9 Cough, unspecified; E11.9 Type 2 diabetes mellitus without complications; I11.0 Hypertensive heart disease with heart failure; I50.9 Heart failure, unspecified; Z79.02 Long term (current) use of antithrombotics/antiplatelets; Z79.84 Long term (current) use of oral hypoglycemic drugs; Z79.899 Other long term (current) drug therapy
CPT/HCPCS: 36415; 71045; 80053; 81001; 83605; 85025; 94640; 94760; 96360; 96361; 99284; A9270-GY

== ENCOUNTER 2025-01-26 20:15 | Emergency (ER) | payer MEDICARE, OTHER ==
[2025-01-26 20:28] LABS: A-aADO2 433; ABG HEMOGLOBIN 11.1; ARTERIAL BLD GAS O2 SATURATION 98.2 % (95-100); ARTERIAL BLOOD GAS BASE EXCESS -9.5 (-2.0-2.0); ARTERIAL BLOOD GAS FIO2 80 %; ARTERIAL BLOOD GAS PCO2 39 mmHg (35-45); ARTERIAL BLOOD GAS PO2 89 mmHg (75-100); CARBOXYHEMOGLOBIN 1.2 % THgb (0.0-6.9); HCO3- 17.1 (22-28); HGB O2 SAT 96.3 g/dF (94-100); Lactic Acid 2.1 (0.4-2.0); Methhemoglobin 0.7 % (1.4-1.5); paO2 pAO1 0.17
[2025-01-26 20:29] LABS: ABG POTASSIUM 6.4 (3.5-5.1); ABG SITE LEFT RADIAL; ALLEN TEST OK? YES; ARTERIAL BLOOD GAS pH 7.25 (7.35-7.45)
[2025-01-26 20:30] VITALS: TEMP 98.2
[2025-01-26 20:43] LABS: Absolute Neutrophil Ct (ANC) 21.16 x10^3/uL (1.78-5.38); BASOPHIL % 0.2 % (0.2-1.2); Basophil (Absolute #) 0.05 x10^3/uL (0.01-0.08); Eosinophil % 0.1 % (0.8-7.0); Eosinophil (Absolute #) 0.02 x10^3/uL (0.04-0.54); Hematocrit 37.2 % (40.1-51.0); Hemoglobin 10.9 g/dL (13.7-17.5); IMMATURE GRAN # 0.09 x10^3u/L (0.001-0.031); IMMATURE GRAN % 0.4 % (0.001-0.429); Lymphocytes % 5.1 % (21.8-53.1); Mean Cell Volume 95.6 fL (79.0-92.2); Mean Corpuscular Hgb Concent. 29.3 g/dL (32.3-36.5); Mean Platelet Volume 9.9 fL (9.4-12.4); Monocyte (Absolute #) 0.92 x10^3/uL (0.30-0.82); Monocytes % 3.9 % (5.3-12.2); Neutrophil % 90.3 % (34.0-67.9); Platelet Count 487 x10^3/uL (163-337); Red Blood Count 3.89 x10^6/uL (4.63-6.08); Red Cell Distribution Width 15.9 % (11.6-14.4); White Blood Count 23.4 x10^3/uL (4.23-9.07)
[2025-01-26] MEDS ORDERED: PIPERACILLIN/TAZOBACTAM IV ONE (20:59)
[2025-01-26] MEDS ORDERED: Sodium Chloride 0.9% 100 ML ONE (20:59)
[2025-01-26 21:06] LABS: ALBUMIN 4.1 g/dL (3.5-5.0); ANION GAP 22.4 MEQ/L (5-15); BILIRUBIN,TOTAL 1.6 mg/dL (0.2-1.3); Calcium 11.1 mg/dL (8.4-10.2); Creatinine 1 1.92 mg/dL (0.66-1.25); EST GLOMERULAR FILTRATION RATE 35.4 ML/MIN; MAGNESIUM 1.8 mg/dL (1.6-2.3); Total Protein 7.4 g/dL (6.3-8.2)
[2025-01-26] MEDS: PIPERACILLIN/TAZOBACTAM 3.375 GM in Sodium Chloride 100ML MINI-BAG PLUS 100 ML IV ONE (21:10)
[2025-01-26] MEDS ORDERED: Sterile H2O 10 ml IJ ONE (21:20)
[2025-01-26] MEDS ORDERED: solu-MEDROL ONE (21:20)
[2025-01-26] MEDS ORDERED: Sodium Chloride 0.9% 500 ML 500 ML IV ONE (21:21)
[2025-01-26] MEDS ORDERED: ZITHROMAX IV IV ONE (21:21)
[2025-01-26] MEDS ORDERED: Sodium Chloride 0.9% 250 ML 250 ML IV ONE (21:21)
[2025-01-26] MEDS: solu-MEDROL 125 MG, Sterile H2O 10 ml 2 ML IV ONE (21:24)
[2025-01-26] MEDS: Sodium Chloride 0.9% 500 ML 500 ML IV ONE (21:25)
[2025-01-26] MEDS: ZITHROMAX IV*** 500 MG in Sodium Chloride 0.9% 250 ML 250 ML IV STA (21:26)
[2025-01-26 21:50] LABS: A-aADO2 265; ABG HEMOGLOBIN 11.1; ARTERIAL BLOOD GAS BASE EXCESS -9.4 (-2.0-2.0); ARTERIAL BLOOD GAS FIO2 50 %; ARTERIAL BLOOD GAS PCO2 34 mmHg (35-45); ARTERIAL BLOOD GAS PO2 49 mmHg (75-100); ARTERIAL BLOOD GAS pH 7.29 (7.35-7.45); HCO3- 16.3 (22-28); HGB O2 SAT 75.8 g/dF (94-100); Methhemoglobin 0.7 % (1.4-1.5); paO2 pAO1 0.16
[2025-01-26 21:51] LABS: ABG SITE LEFT RADIAL; ALLEN TEST OK? YES; ARTERIAL BLOOD GAS VENT MODE S/T; BIPAP(E) 8; BIPAP(I) 14
--- NOTE | 2025-01-26 21:52 | ERPHSYRPT ---
- History of Present Illness Time Seen by Provider: 01/26/25 20:23 Source: patient, EMS, retirement records, old records Exam Limitations: clinical condition Patient Subjective Stated Complaint: "I've been having some trouble breathing". Triage Nursing Assessment: Pt presents to ER from local [facility] for shortness of breath and hypoxia that has been apparently going on all day according to EMS. EMS state the nurse at the [facility] has been trying to send him to the hospital all day but the physician just allowed it. The ECF has not called report on this patient. EMS reports he is in the ECF for rehab (unknown why), is a full code, and is failure to thrive. Pt appears frail, weak, and pale. Respirations are rapid and shallow with course crackles throughout, he doesn't appear to be moving much air and states he can't catch his breath. Pt denies pain. Is alert and oriented x 3. EMS states has been coughing up brown thick sputum. Physician History: 79-year-old male with history of chronic respiratory failure secondary to COPD on 2 L oxygen, coronary artery disease with CABG, congestive heart failure, diabetes mellitus, atrial fibrillation on Eliquis currently at retirement for rehab from pneumonia in October is brought in the ER with increasing shortness of breath since morning. Patient oxygen saturation was in the 80s on EMS arrival, was given neb treatment and placed on nonrebreather with improved saturation to low 90s. Patient is tachypneic tachycardic with crackles all over especially on the left side on presentation. Denies any chest pain. Has increased cough productive of yellow-brown sputum with no fever or chills. Patient also had a glucose in 20s this morning but in low 100s on presentation in the ER. Patient also has decreased oral intake for the last few days feeling weak fatigued tired and dehydrated. No extremity swellings reported. Allergies/Adverse Reactions: No Known Drug Allergies Allergy (Verified 11/11/24 13:17) Home Medications: Acetaminophen 325 mg [Tylenol 325 mg] 650 mg PO Q8HPRN PRN 01/26/25 [History] Apixaban [Eliquis] 5 mg PO BID 01/26/25 [History] Aripiprazole [Abilify] 15 mg PO DAILY 01/26/25 [History] Atorvastatin Calcium 40 mg PO HS 01/26/25 [History] Benzonatate 200 mg PO Q8HPRN PRN 01/26/25 [History] Clopidogrel Bisulfate [Clopidogrel] 75 mg PO DAILY 01/26/25 [History] Famotidine 40 mg PO DAILY 01/26/25 [History] Fenofibrate,Micronized [Fenofibrate] 200 mg PO DAILY 01/26/25 [History] Fluticasone Propionate [Flonase Nasal] 1 spray NS DAILY 01/26/25 [History] Fluticasone/Umeclidin/Vilanter [Trelegy Ellipta 200-62.5-25] 1 each IH DAILY 01/26/25 [History] Hydrocodone/Acetaminophen [Hydrocodone-Acetamin 7.5-325] 1 each PO QID 01/26/25 [History] Insulin Lispro [Humalog] 1 unit SQ ACHS 01/26/25 [History] Ipratropium [place] 0.5 mg [Atrovent 0.5MG NEBULE] 0.5 mg IH QID 01/26/25 [History] Levocetirizine Dihydrochloride 5 mg PO DAILY 01/26/25 [History] Melatonin 5 mg PO HS 01/26/25 [History] Metoprolol Tartrate 12.5 mg PO DAILY 01/26/25 [History] Midodrine HCl 10 mg PO TID 01/26/25 [History] Mirtazapine 15 mg PO HS 01/26/25 [History] Nitroglycerin 0.4 mg Tablet [Nitrostat 0.4 MG Tablet] 0.4 mg SL Q5MIN PRN MR X 3 PRN 01/26/25 [History] Omeprazole 20 mg PO DAILY 01/26/25 [History] Oxybutynin Chloride [Oxybutynin Chloride ER] 10 mg PO DAILY 01/26/25 [History] Potassium Chloride [Klor-Con M10] 10 meq PO DAILY 01/26/25 [History] Potassium Chloride [Klor-Con M20] 20 meq PO DAILY 01/26/25 [History] Sacubitril/Valsartan [Entresto 24 mg-26 mg Tablet] 1 each PO BID 01/26/25 [History] Spironolactone 25 mg [Aldactone 25 MG] 12.5 mg PO DAILY 01/26/25 [History] Spironolactone 25 mg [Aldactone 25 MG] 12.5 mg PO DAILY 01/26/25 [History] Trazodone HCl 100 mg PO HS 01/26/25 [History] glipiZIDE [Glipizide] 5 mg PO BID 01/26/25 [History] guaiFENesin [Guaifenesin ER] 1,200 mg PO BID 01/26/25 [History] Hx Tetanus, Diphtheria Vaccination/Date Given: Yes Hx Influenza Vaccination/Date Given: No (unknown) Hx Pneumococcal Vaccination/Date Given: No (unknown) Immunizations Up to Date: No (unknown) Travel Risk - International Travel Have you traveled outside of the country in past 3 weeks: No - Emerging Infectious Disease Are you exhibiting symptoms associated with any current EIDs: Yes Symptoms: Shortness of Breath - Review of Systems Constitutional: Fatigue Ears, Nose, & Throat: No Symptoms Respiratory: Cough, Dyspnea, Wheezing Cardiac: No Symptoms Abdominal/Gastrointestinal: No Symptoms Genitourinary Symptoms: No Symptoms Skin: No Symptoms Neurological: No Symptoms Immunological/Allergic: No Symptoms - Past Medical History Pertinent Past Medical History: Yes Neurological History: No Pertinent History ENT History: No Pertinent History Cardiac History: Congestive Heart Failure, Coronary Artery Disease, Hypertension, Myocardial Infarction (ND) Respiratory History: Asthma, COPD, Pneumonia Endocrine Medical History: Diabetes Type II Musculoskeletal History: Arthritis, Degenerative Disk Disease GI Medical History: No Pertinent History History: No Pertinent History Psycho-Social History: No Pertinent History Male Reproductive Disorders: No Pertinent History Other Medical History: STENTS 1999. CARDIAC OPEN HEART SURGERY IN 2007. December HAD STENTS PLACED. pt states 8 or 9 stents total, 7-ND's - Past Surgical History Past Surgical History: Yes Neuro Surgical History: No Pertinent History Cardiac: CABG, Cardiac Stent Respiratory: No Pertinent History Gastrointestinal: No Pertinent History Genitourinary: No Pertinent History Musculoskeletal: Orthopedic Surgery Male Surgical History: No Pertinent History Other Surgical History: OPEN HEART SURGERY IN 2007. STENTS PLACED 1999. ELBOW, KNEE, BACK SURGERY. Significant Family History: heart disease - Social History Smoking Status: Never smoker Exposure to second hand smoke: No Drug Use: none - Social Determinants of Health Will the patient participate in the screening: Yes Do you worry about a steady place to live?: No Do you have any problems with any of the following?: No known problems In the past 12 months,have you had to go without utilities?: No Transportation Issues: No Has anyone in your support network made you feel unsafe?: No Have you or anyone in your house had to go w/o enough food: No - Nursing Vital Signs Nursing Vital Signs: Initial Vital Signs Temperature 98.2 F 01/26/25 20:17 Pulse Rate 134 H 01/26/25 20:17 Respiratory Rate 40 H 01/26/25 20:17 Blood Pressure 126/68 01/26/25 20:17 O2 Sat by Pulse Oximetry 97 01/26/25 20:17 Pain Scale Pain Intensity 0 - Physical Exam General Appearance: moderate distress, alert Eye Exam: PERRL/EOMI Ears, Nose, Throat Exam: hearing grossly normal Neck Exam: normal inspection, non-tender, supple, full range of motion Respiratory Exam: respiratory distress, diminished breath sounds, accessory muscle use, crackles/rales, wheezing Cardiovascular/Chest Exam: normal heart sounds, tachycardia, No edema Abdominal/Gastrointestinal Exam: soft, normal bowel sounds Extremity Exam: non-tender, normal range of motion Neurologic Exam: alert, oriented x 3, cooperative, waistline joiner overlock II-XII nml as tested Skin Exam: normal color SpO2 Interpretation: hypoxic, O2 applied SpO2: 100 O2 Delivery: High Flow - Course EKG Interpreted by Me: RATE (130), Sinus Tach, NORMAL AXIS, NORMAL INTERVALS, Non-specific ST Changes Ordered Tests: Active Orders 24 hr Category Date Time Status EKG-ER Only STAT Care 01/26/25 20:23 Active IV Insertion STAT Care 01/26/25 20:23 Active CHEST 1 VIEW (PORTABLE) Stat Exams 01/26/25 20:21 Taken ABG [ARTERIAL BLOOD GASES] Stat Lab 01/26/25 21:49 Completed ABG [ARTERIAL BLOOD GASES] Stat Lab 01/26/25 23:01 Completed ARTERIAL BLOOD GASES Stat Lab 01/26/25 20:23 Completed BLOOD CULTURE Stat Lab 01/26/25 02:30 Received CBC W DIFF Stat Lab 01/26/25 20:25 Completed CMP Stat Lab 01/26/25 20:25 Completed Lactic Acid Stat Lab 01/26/25 20:23 Completed Lactic Acid Stat Lab 01/26/25 22:30 Completed Lactic Acid Stat Lab 01/26/25 23:02 Completed MAGNESIUM Stat Lab 01/26/25 20:25 Completed NT PRO BNPII Stat Lab 01/26/25 20:25 Completed POCT GLUCOSE Stat Lab 01/26/25 21:42 Completed POCT GLUCOSE Stat Lab 01/26/25 22:59 Completed PROCALCITONIN Stat Lab 01/26/25 02:30 Completed TROPONIN Q4H Lab 01/26/25 20:25 Completed TROPONIN Q4H Lab 01/27/25 00:30 Ordered TROPONIN Q4H Lab 01/27/25 04:30 Ordered UA W/RFX UR CULTURE Stat Lab 01/26/25 20:23 Ordered BiPap/CPAP ROUTINE RT 01/26/25 20:23 Active Medication Summary Discontinued Medications Generic Name Dose Route Start Last Admin Trade Name Freq PRN Reason Stop Dose Admin Azithromycin Confirm 01/26/25 21:21 Azithromycin Inj Administered 01/26/25 21:22 Dose 500 mg IV .STK-MED ONE Calcium Gluconate 1,000 mg 01/26/25 21:34 01/26/25 22:26 Calcium Gluconate 1000 Mg/10 Ml Vial IV 01/26/25 21:35 1,000 mg STAT ONE Administration Calcium Gluconate Confirm 01/26/25 21:56 Calcium Gluconate 1000 Mg/10 Ml Vial Administered 01/26/25 21:57 Dose 1,000 mg IV .STK-MED ONE Methylprednisolone Sodium 0 mg 01/26/25 21:17 01/26/25 21:24 Succinate 125 mg/ Sterile IV 01/26/25 21:18 125 mg Water 2 ml STAT ONE Administration Dextrose 50 ml 01/26/25 21:34 01/26/25 22:26 Dextrose 50%-Water 50 Ml Abboject IV 01/26/25 21:35 50 ml STAT ONE Administration Dextrose Confirm 01/26/25 21:58 Dextrose 50%-Water 50 Ml Abboject Administered 01/26/25 21:59 Dose 50 ml IV .STK-MED ONE Piperacillin Sod/Tazobactam 100 mls @ 200 mls/hr 01/26/25 20:54 01/26/25 21:40 Sod 3.375 gm/ Sodium Chloride IV 01/26/25 21:23 Infused STAT ONE Infusion Azithromycin 500 mg/ Sodium 250 mls @ 250 mls/hr 01/26/25 20:54 01/26/25 22:36 Chloride IV 01/26/25 21:53 Infused STAT STA Infusion Sodium Chloride Confirm 01/26/25 20:59 Sodium Chloride 0.9% Administered 01/26/25 21:00 Dose 100 mls @ ud .ROUTE .STK-MED ONE Sodium Chloride 500 mls @ 500 mls/hr 01/26/25 21:18 01/26/25 22:36 Sodium Chloride 0.9% 500 Ml IV 01/26/25 22:17 Infused .Q1H ONE Infusion Sodium Chloride Confirm 01/26/25 21:21 Sodium Chloride 0.9% 250 Ml Administered 01/26/25 21:22 Dose 250 mls @ ud IV .STK-MED ONE Sodium Chloride Confirm 01/26/25 21:21 Sodium Chloride 0.9% 500 Ml Administered 01/26/25 21:22 Dose 500 mls @ ud IV .STK-MED ONE Sodium Chloride 1,000 mls @ 999 mls/hr 01/26/25 22:20 01/26/25 22:26 Sodium Chloride 0.9% 1000 Ml IV 01/26/25 23:20 999 mls/hr .Q1H1M STA Administration Sodium Chloride Confirm 01/26/25 22:20 Sodium Chloride 0.9% 1000 Ml Administered 01/26/25 22:21 Dose 1,000 mls @ ud .ROUTE .STK-MED ONE Insulin Human Regular 10 unit 01/26/25 21:34 01/26/25 22:27 Insulin Regular, Human 1 Unit IV 01/26/25 21:35 Not Given STAT ONE Insulin Human Regular Confirm 01/26/25 21:58 Insulin Regular, Human 1 Unit Administered 01/26/25 21:59 Dose 5 unit .ROUTE .STK-MED ONE Insulin Human Regular 5 unit 01/26/25 22:24 01/26/25 22:26 Insulin Regular, Human 1 Unit IV 01/26/25 22:25 5 unit STAT ONE Administration Methylprednisolone Sodium Succinate Confirm 01/26/25 21:20 Methylprednis Sod Succ 125 Mg/2 Ml Vial Administered 01/26/25 21:21 Dose 125 mg .ROUTE .STK-MED ONE Patiromer 8.4 gm 01/26/25 21:35 01/26/25 22:21 Patiromer Calcium Sorbitex 8.4 Gm Powd.Pack PO 01/26/25 21:36 8.4 gm STAT STA Administration Patiromer Confirm 01/26/25 21:58 Patiromer Calcium Sorbitex 8.4 Gm Powd.Pack Administered 01/26/25 21:59 Dose 8.4 gm PO .STK-MED ONE Piperacillin Sod/Tazobactam Sod Confirm 01/26/25 20:59 Piperacillin/Tazobactam Sodium 3.375 Gm Vial Administered 01/26/25 21:00 Dose 3.375 gm IV .STK-MED ONE Sodium Bicarbonate 50 meq 01/26/25 21:34 01/26/25 22:26 Sodium Bicarbonate 1 Meq/Ml 50ml Syringe IV 01/26/25 21:35 50 meq STAT ONE Administration Sodium Bicarbonate Confirm 01/26/25 21:58 Sodium Bicarbonate 1 Meq/Ml 50ml Syringe Administered 01/26/25 21:59 Dose 50 meq IV .STK-MED ONE Sterile Water Confirm 01/26/25 21:20 Water For Injection,Sterile 10 Ml Vial Administered 01/26/25 21:21 Dose 10 ml IJ .STK-MED ONE Lab/Rad Data: Laboratory Result Diagrams 01/26/25 20:25 01/26/25 20:25 Laboratory Results 01/26/25 01/26/25 01/26/25 Range/Units 23:02 23:01 22:59 WBC (4.23-9.07) x10^3/uL RBC (4.63-6.08) x10^6/uL Hgb (13.7-17.5) g/dL Hct (40.1-51.0) % MCV (79.0-92.2) fL MCH (25.7-32.2) pg MCHC (32.3-36.5) g/dL RDW (11.6-14.4) % Plt Count (163-337) x10^3/uL MPV (9.4-12.4) fL Gran % (34.0-67.9) % Immature Gran % (Auto) (0.001-0.429) % Nucleat RBC Rel Count (0.00-0.2) % Eos # (Auto) (0.04-0.54) x10^3/uL Immature Gran # (Auto) (0.001-0.031) x10^3u/L Absolute Lymphs (auto) (1.32-3.57) x10^3/uL Absolute Monos (auto) (0.30-0.82) x10^3/uL Absolute Nucleated RBC (0.00-0.012) x10^3u/L Lymphocytes % (21.8-53.1) % Monocytes % (5.3-12.2) % Eosinophils % (0.8-7.0) % Basophils % (0.2-1.2) % Absolute Granulocytes (1.78-5.38) x10^3/uL Basophils # (0.01-0.08) x10^3/uL Puncture Site Femoral pCO2 31 L (35-45) mmHg pO2 157 H* (75-100) mmHg Base Excess -9.2 L (-2.0-2.0) O2 Saturation 98.3 (94-100) g/dF ABG pH 7.32 L (7.35-7.45) ABG HCO3 16.0 L* (22-28) ABG O2 Sat (Measured) 100.0 (95-100) % Bhupinder Test N/A A-a Gradient 161 a/A Ratio 0.49 Hemoglobin 8.5 Carboxyhemoglobin 0.9 (0.0-6.9) % THgb Methemoglobin 0.9 L (1.4-1.5) % Potassium 4.3 (3.5-5.1) Temperature 37.0 C POC O2 Flow Rate 50 % Vent Mode S/T Inspiratory BiPAP 14 Expiratory BiPAP 8 Sodium (135-145) mmol/L Chloride (98-107) mmol/L Carbon Dioxide (22-30) mmol/L Anion Gap (5-15) MEQ/L BUN (9-20) mg/dL Creatinine (0.66-1.25) mg/dL Estimated GFR ML/MIN Glucose (74-106) mg/dL POC Glucometer 213 H (74 to 106) mg/dL Lactic Acid 3.0 H (0.4-2.0) Calcium (8.4-10.2) mg/dL Magnesium (1.6-2.3) mg/dL Total Bilirubin (0.2-1.3) mg/dL AST (17-59) U/L ALT (0-50) U/L Alkaline Phosphatase (38-126) U/L Troponin I (0.000-0.033) ng/mL NT-Pro-B Natriuret Pep (<300) pg/mL Serum Total Protein (6.3-8.2) g/dL Albumin (3.5-5.0) g/dL Procalcitonin (0.030-0.080) ng/mL Slides for Path Review 01/26/25 01/26/25 01/26/25 Range/Units 22:30 21:49 21:42 WBC (4.23-9.07) x10^3/uL RBC (4.63-6.08) x10^6/uL Hgb (13.7-17.5) g/dL Hct (40.1-51.0) % MCV (79.0-92.2) fL MCH (25.7-32.2) pg MCHC (32.3-36.5) g/dL RDW (11.6-14.4) % Plt Count (163-337) x10^3/uL MPV (9.4-12.4) fL Gran % (34.0-67.9) % Immature Gran % (Auto) (0.001-0.429) % Nucleat RBC Rel Count (0.00-0.2) % Eos # (Auto) (0.04-0.54) x10^3/uL Immature Gran # (Auto) (0.001-0.031) x10^3u/L Absolute Lymphs (auto) (1.32-3.57) x10^3/uL Absolute Monos (auto) (0.30-0.82) x10^3/uL Absolute Nucleated RBC (0.00-0.012) x10^3u/L Lymphocytes % (21.8-53.1) % Monocytes % (5.3-12.2) % Eosinophils % (0.8-7.0) % Basophils % (0.2-1.2) % Absolute Granulocytes (1.78-5.38) x10^3/uL Basophils # (0.01-0.08) x10^3/uL Puncture Site LEFT RADIAL pCO2 34 L (35-45) mmHg pO2 49 L* (75-100) mmHg Base Excess -9.4 L (-2.0-2.0) O2 Saturation 75.8 L (94-100) g/dF ABG pH 7.29 L (7.35-7.45) ABG HCO3 16.3 L* (22-28) ABG O2 Sat (Measured) 77.0 L (95-100) % Bhupinder Test YES A-a Gradient 265 a/A Ratio 0.16 Hemoglobin 11.1 Carboxyhemoglobin 1.0 (0.0-6.9) % THgb Methemoglobin 0.7 L (1.4-1.5) % Potassium 6.0 H (3.5-5.1) Temperature 37.0 C POC O2 Flow Rate 50 % Vent Mode S/T Inspiratory BiPAP 14 Expiratory BiPAP 8 Sodium (135-145) mmol/L Chloride (98-107) mmol/L Carbon Dioxide (22-30) mmol/L Anion Gap (5-15) MEQ/L BUN (9-20) mg/dL Creatinine (0.66-1.25) mg/dL Estimated GFR ML/MIN Glucose (74-106) mg/dL POC Glucometer 92 (74 to 106) mg/dL Lactic Acid 2.3 H (0.4-2.0) Calcium (8.4-10.2) mg/dL Magnesium (1.6-2.3) mg/dL Total Bilirubin (0.2-1.3) mg/dL AST (17-59) U/L ALT (0-50) U/L Alkaline Phosphatase (38-126) U/L Troponin I (0.000-0.033) ng/mL NT-Pro-B Natriuret Pep (<300) pg/mL Serum Total Protein (6.3-8.2) g/dL Albumin (3.5-5.0) g/dL Procalcitonin (0.030-0.080) ng/mL Slides for Path Review 01/26/25 01/26/25 01/26/25 Range/Units 20:25 20:25 20:25 WBC 23.4 H (4.23-9.07) x10^3/uL RBC 3.89 L (4.63-6.08) x10^6/uL Hgb 10.9 L (13.7-17.5) g/dL Hct 37.2 L (40.1-51.0) % MCV 95.6 H (79.0-92.2) fL MCH 28.0 (25.7-32.2) pg MCHC 29.3 L (32.3-36.5) g/dL RDW 15.9 H (11.6-14.4) % Plt Count 487 H (163-337) x10^3/uL MPV 9.9 (9.4-12.4) fL Gran % 90.3 H (34.0-67.9) % Immature Gran % (Auto) 0.4 (0.001-0.429) % Nucleat RBC Rel Count 0.0 (0.00-0.2) % Eos # (Auto) 0.02 L (0.04-0.54) x10^3/uL Immature Gran # (Auto) 0.09 H (0.001-0.031) x10^3u/L Absolute Lymphs (auto) 1.20 L (1.32-3.57) x10^3/uL Absolute Monos (auto) 0.92 H (0.30-0.82) x10^3/uL Absolute Nucleated RBC 0.00 (0.00-0.012) x10^3u/L Lymphocytes % 5.1 L (21.8-53.1) % Monocytes % 3.9 L (5.3-12.2) % Eosinophils % 0.1 L (0.8-7.0) % Basophils % 0.2 (0.2-1.2) % Absolute Granulocytes 21.16 H (1.78-5.38) x10^3/uL Basophils # 0.05 (0.01-0.08) x10^3/uL Puncture Site pCO2 (35-45) mmHg pO2 (75-100) mmHg Base Excess (-2.0-2.0) O2 Saturation (94-100) g/dF ABG pH (7.35-7.45) ABG HCO3 (22-28) ABG O2 Sat (Measured) (95-100) % Bhupinder Test A-a Gradient a/A Ratio Hemoglobin Carboxyhemoglobin (0.0-6.9) % THgb Methemoglobin (1.4-1.5) % Potassium 6.0 H* (3.5-5.1) Temperature C POC O2 Flow Rate % Vent Mode Inspiratory BiPAP Expiratory BiPAP Sodium 138 (135-145) mmol/L Chloride 106 (98-107) mmol/L Carbon Dioxide 16 L* (22-30) mmol/L Anion Gap 22.4 H (5-15) MEQ/L BUN 42 H (9-20) mg/dL Creatinine 1.92 H (0.66-1.25) mg/dL Estimated GFR 35.4 ML/MIN Glucose 106 (74-106) mg/dL POC Glucometer (74 to 106) mg/dL Lactic Acid (0.4-2.0) Calcium 11.1 H (8.4-10.2) mg/dL Magnesium 1.8 (1.6-2.3) mg/dL Total Bilirubin 1.60 H (0.2-1.3) mg/dL AST 39 (17-59) U/L ALT 24 (0-50) U/L Alkaline Phosphatase 71 (38-126) U/L Troponin I 0.036 H* (0.000-0.033) ng/mL NT-Pro-B Natriuret Pep 3240 (<300) pg/mL Serum Total Protein 7.4 (6.3-8.2) g/dL Albumin 4.1 (3.5-5.0) g/dL Procalcitonin (0.030-0.080) ng/mL Slides for Path Review YES 01/26/25 01/26/25 Range/Units 20:23 02:30 WBC (4.23-9.07) x10^3/uL RBC (4.63-6.08) x10^6/uL Hgb (13.7-17.5) g/dL Hct (40.1-51.0) % MCV (79.0-92.2) fL MCH (25.7-32.2) pg MCHC (32.3-36.5) g/dL RDW (11.6-14.4) % Plt Count (163-337) x10^3/uL MPV (9.4-12.4) fL Gran % (34.0-67.9) % Immature Gran % (Auto) (0.001-0.429) % Nucleat RBC Rel Count (0.00-0.2) % Eos # (Auto) (0.04-0.54) x10^3/uL Immature Gran # (Auto) (0.001-0.031) x10^3u/L Absolute Lymphs (auto) (1.32-3.57) x10^3/uL Absolute Monos (auto) (0.30-0.82) x10^3/uL Absolute Nucleated RBC (0.00-0.012) x10^3u/L Lymphocytes % (21.8-53.1) % Monocytes % (5.3-12.2) % Eosinophils % (0.8-7.0) % Basophils % (0.2-1.2) % Absolute Granulocytes (1.78-5.38) x10^3/uL Basophils # (0.01-0.08) x10^3/uL Puncture Site LEFT RADIAL pCO2 39 (35-45) mmHg pO2 89 (75-100) mmHg Base Excess -9.5 L (-2.0-2.0) O2 Saturation 96.3 (94-100) g/dF ABG pH 7.25 L* (7.35-7.45) ABG HCO3 17.1 L (22-28) ABG O2 Sat (Measured) 98.2 (95-100) % Bhupinder Test YES A-a Gradient 433 a/A Ratio 0.17 Hemoglobin 11.1 Carboxyhemoglobin 1.2 (0.0-6.9) % THgb Methemoglobin 0.7 L (1.4-1.5) % Potassium 6.4 H* (3.5-5.1) Temperature 37.0 C POC O2 Flow Rate 80 % Vent Mode Inspiratory BiPAP Expiratory BiPAP Sodium (135-145) mmol/L Chloride (98-107) mmol/L Carbon Dioxide (22-30) mmol/L Anion Gap (5-15) MEQ/L BUN (9-20) mg/dL Creatinine (0.66-1.25) mg/dL Estimated GFR ML/MIN Glucose (74-106) mg/dL POC Glucometer (74 to 106) mg/dL Lactic Acid 2.1 H (0.4-2.0) Calcium (8.4-10.2) mg/dL Magnesium (1.6-2.3) mg/dL Total Bilirubin (0.2-1.3) mg/dL AST (17-59) U/L ALT (0-50) U/L Alkaline Phosphatase (38-126) U/L Troponin I (0.000-0.033) ng/mL NT-Pro-B Natriuret Pep (<300) pg/mL Serum Total Protein (6.3-8.2) g/dL Albumin (3.5-5.0) g/dL Procalcitonin 4.920 H* (0.030-0.080) ng/mL Slides for Path Review - Progress Progress: improved, re-examined Air Movement: fair Progress Note: 01/26/25 21:47 79-year-old is evaluated in the ER for increasing shortness of breath with cough productive of yellow-brown sputum. Patient was hypoxic on EMS arrival at [facility], gave 1 breathing treatment and on oxygen with improved saturation to low 90s. Patient is tachypneic and tachycardic, using accessory muscles, placed on BiPAP with improved work of breathing on reevaluation. EKG showed sinus tachycardia with no acute ST elevations. ABG is a pH of 7.25, low bicarb which I believe is secondary to his tachypnea/hyperventilation Workup showed white count of 23, lactate of 2.1, procalcitonin of 4.9 with acute renal failure had a creatinine of 1.92 which was normal few days ago and this morning it was 1.2.'s started on fluids. Initial troponin mildly elevated 0.036 and a BNP in 3000's. Patient does not seem to be in CHF exacerbation Chest x-ray showed bilateral airspace disease consistent with pneumonia and does not seem to be fluid overload/edema picture, interpreted by me followed by preliminary report from radiology. Patient is given a dose of Zosyn in Zithromax. I believe patient has a respiratory failure secondary to pneumonia with some element of COPD exacerbation and sepsis with acute renal failure. Patient has a potassium of 6.0 with no tall T waves, he is given dextrose/insulin/calcium gluconate/bicarb along with Veltassa. Will continue to monitor glucose. I believe patient's low glucose this morning was secondary to renal failure but as patient is taking glipizide with low renal clearance. Patient is on fluids with improved heart rate but since placement on BiPAP his blood pressure is low. Patient is feeling better on reevaluation. Patient/family want to be transferred to [facility] where he was last time when he had pneumonia. 01/26/25 23:34 Repeat ABG showed pH of 7.32, PCO2 in 30s, although has low bicarb, potassium is improved to 4.3. Patient is transition from BiPAP to 6 L oxygen which she is tolerating very well with heart rate in low 100s and respiratory rate in low 20s and feeling much comfortable. Blood pressure also improved in 90s after taking him off of BiPAP which was in 70s while on the BiPAP. Patient is still getting full sepsis bolus. Discussed with Dr. Willian Aguilar [facility], reviewed history, workup and current management, agreed with transfer. Shared the results of workup and plan of transfer with patient and family which they understand and agree. Blood Culture(s) Obtained: Yes Antibiotics given: Yes Will see patient in: ED Counseled pt/family regarding: lab results, diagnosis, need for follow-up, rad results Medical Desision Making - Independent Historian Additional History obtained from: Family, Intermediate nurse, [employer]/EMT - Discussion of managment Care discussed with:: on-call "doc" Reviewed:: Test results Agreed on:: Treatment plan Will see patient: in ED - Diagnostic Testing Diagnostic test were ordered, analyzed, and reviewed by me: Yes Radiological Interpretation: Interpreted by me, Reviewed by me - Risk of complications The pt has a mod risk of morbidity or mortality based on: Need for prescription drug management The pt has a high risk of morbidity or mortality based on: Decision regarding hospitilization or escalation of hosp level of care - Departure Departure Disposition: Transfer Clinical Impression: Hyperkalemia, Acute renal failure (ARF), Sepsis Respiratory failure Qualifiers: Chronicity: acute Respiratory failure complication: hypoxia Qualified Code(s): J96.01 - Acute respiratory failure with hypoxia Pneumonia Qualifiers: Pneumonia type: due to unspecified organism Laterality: bilateral Lung location: unspecified part of lung Qualified Code(s): J18.9 - Pneumonia, unspecified organism Condition: Fair Critical Care Time: Yes Critical Care Time(excluding separately billable procedures): Critical 75-104 mins Referrals: JAYMIE JENKINS MD [Primary Care Provider, [facility]] - Follow up/PCP as directed
[2025-01-26] MEDS ORDERED: Calcium Gluconate 10% 1000 MG IV ONE (21:56)
[2025-01-26] MEDS ORDERED: HUMULIN R ONE (21:58)
[2025-01-26] MEDS ORDERED: SODIUM BICARBONATE 50 MEQ/50 ML ABBOJECT IV ONE (21:58)
[2025-01-26] MEDS ORDERED: D50W 50 ml Abboject IV ONE (21:58)
[2025-01-26] MEDS ORDERED: VELTASSA PO ONE (21:58)
[2025-01-26] MEDS ORDERED: Sodium Chloride 0.9% 1000 ML 1,000 ML ONE ×2 (22:20→23:49)
[2025-01-26] MEDS: VELTASSA PO STA (22:21)
[2025-01-26] MEDS: D50W 50 ml Abboject IV ONE (22:26)
[2025-01-26] MEDS: Calcium Gluconate 10% 1000 MG IV ONE (22:26)
[2025-01-26] MEDS: Sodium Chloride 0.9% 1000 ML 1,000 ML IV STA ×2 (22:26→23:57)
[2025-01-26] MEDS: SODIUM BICARBONATE 50 MEQ/50 ML ABBOJECT IV ONE (22:26)
[2025-01-26] MEDS: HUMULIN R IV ONE ×2 (22:26→22:27)
[2025-01-26 22:32] LABS: Slide Review 1 YES
[2025-01-26 23:02] LABS: A-aADO2 161; ABG HEMOGLOBIN 8.5; ABG POTASSIUM 4.3 (3.5-5.1); ARTERIAL BLOOD GAS BASE EXCESS -9.2 (-2.0-2.0); ARTERIAL BLOOD GAS FIO2 50 %; ARTERIAL BLOOD GAS PCO2 31 mmHg (35-45); ARTERIAL BLOOD GAS PO2 157 mmHg (75-100); ARTERIAL BLOOD GAS pH 7.32 (7.35-7.45); CARBOXYHEMOGLOBIN 0.9 % THgb (0.0-6.9); HGB O2 SAT 98.3 g/dF (94-100); Methhemoglobin 0.9 % (1.4-1.5); paO2 pAO1 0.49
[2025-01-26 23:03] LABS: ABG SITE Femoral; ARTERIAL BLOOD GAS VENT MODE S/T; BIPAP(E) 8; BIPAP(I) 14
[2025-01-27] MEDS: PROAMATINE PO ONE (00:03)
[2025-01-27] MEDS ORDERED: NOREPINEPHRINE 8 MG/250 ML-D5W 8 MG/250 ML PLAST..BAG IV ONE (00:47)
[2025-01-27] MEDS: NOREPINEPHRINE 8 MG/250 ML-D5W 8 MG/250 ML PLAST..BAG IV PRN (00:50)
[2025-01-27 02:08] VITALS: BP 93/49; PULSE 92; RESP 26; O2SAT 100
[2025-01-27 05:07] LABS: Appearance Clear (Clear); Bilirubin Negative (Negative); Blood Large (Negative); Glucose, Urine Negative (Negative); Ketones Negative (Negative); Leukocyte Esterase Trace (Negative); Nitrite Negative (Negative); Protein,Urine Dip Trace (Negative)
[2025-01-27 05:20] LABS: Bacteria None Seen /HPF (None Seen); Epithelial Cells None Seen /HPF (None Seen)
--- NOTE | 2025-01-27 08:30 | XRAY ---
Indication: Short of breath. Comparison: November 11, 2024 Portable chest demonstrates new diffuse patchy airspace disease, left lung greater than right without consolidation/large effusion. Stable COPD and left base calcified granuloma. 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 Bony thorax intact again with osteopenia and degenerative changes.
== END 2025-01-27 02:21 | disposition short-term general hospital (02) ==
LOC: ED 20:15
DX: A41.9 Sepsis, unspecified organism (principal); J18.9 Pneumonia, unspecified organism; R65.20 Severe sepsis without septic shock; J96.01 Acute respiratory failure with hypoxia; N17.9 Acute kidney failure, unspecified; E87.5 Hyperkalemia; E11.9 Type 2 diabetes mellitus without complications; Z79.01 Long term (current) use of anticoagulants; Z79.02 Long term (current) use of antithrombotics/antiplatelets; Z79.84 Long term (current) use of oral hypoglycemic drugs; Z79.4 Long term (current) use of insulin; Z79.899 Other long term (current) drug therapy
CPT/HCPCS: 36415; 36600; 71045; 80053; 81001; 82375; 82803; 82947; 83605; 83735; 83880; 84145; 84484; 85025; 87040; 87086; 93005; 94002; 96361; 96365; 96368; 96374; 96375; 99285; 99291; 99292; J0456; J0612; J1815; J2919; A9270-GY